=== PATIENT | female | born 1950 | race Caucasian/White ===

== ENCOUNTER 2016-10-18 10:00 | Inpatient (IN) | payer MEDICARE, MEDICAID ==
[~2016-10-18] VITALS: Ht 157.5 cm; Wt 83.0 kg
[2016-10-18] MEDS: Precose 50mg tab ORAL SCH ×3 (09:00→22:15)
[~2016-10-18 10:00] MED LIST: AMARYL4 MG ORAL; ATIVAN1 MG ORAL; BENADRYL50 MG PO; COUMADIN7.5 MG ORAL; COZAAR PO; DEPAKOTE ER500 MG PO; DSS PO; FUROSEMIDE20 M1 ORAL; GLUCOPHAGE500 MG ORAL; HALDOL5 MG GT; MAALOX PLUS PO; MOM30 ML PO; MULTIVITAMINS PO; POTASSIUM CHLO10 ME3 PO; PROTONIX40 MG ORAL; RESTORIL15 MG ORAL; SEROQUEL XR200 MG ORAL; TYLENOL PO; VITAMIN C500 M7 PO; [UNRECOGNIZED DRUG - REMARK] SQ
[2016-10-18] MEDS ORDERED: ACARBOSE50 MG ORAL (10:07)
[2016-10-18] MEDS ORDERED: COLACE100 MG ORAL (10:07)
[2016-10-18] MEDS ORDERED: FLEET ENEMA133 ML RECTAL (10:09)
[2016-10-18] MEDS ORDERED: DULCOLAX10 MG RC (10:09)
[2016-10-18] MEDS ORDERED: FERROUS SULFAT325 MG ORAL (10:09)
[2016-10-18] MEDS ORDERED: LEVEMIR FL100 UNIT/2 SQ (10:11)
[2016-10-18] MEDS ORDERED: Mylanta ORAL (10:12)
[2016-10-18] MEDS ORDERED: MULTIVITAMINS1 EAC8 ORAL (10:12)
[2016-10-18 10:13] VITALS: BP 123/93
[2016-10-18] MEDS ORDERED: ZYPREXA10 MG ORAL (10:14)
[2016-10-18] MEDS: Morphine Sulfate 4mg/ml Inj IVP ONE ×2 (10:30→11:58)
[2016-10-18 10:47] LABS: BASOPHILS % (AUTO) 0.4 % (0.0-2.0); EOSINOPHILS % (AUTO) 0.1 % (0.0-3.0); LYMPHOCYTES % (AUTO) 12.5 % (20.0-45.0); MEAN CORPUSCULAR HEMOGLOBIN 29.8 PG (27.0-31.0); MEAN CORPUSCULAR HGB CONC 32.2 G/DL (32.0-36.0); MEAN CORPUSCULAR VOLUME 92 FL (80-99); MONOCYTES % (AUTO) 5.9 % (1.0-10.0); NEUTROPHILS % (AUTO) 81.2 % (45.0-75.0); PLATELET COUNT 252 K/UL (150-450); RED CELL DISTRIBUTION WIDTH 14.1 % (11.6-14.8); WHITE BLOOD COUNT 12.1 K/UL (4.8-10.8)
[2016-10-18 10:56] LABS: ALANINE AMINOTRANSFERASE 14 U/L (3-33); ALBUMIN/GLOBULIN RATIO 1.1 (1.0-2.7); ANION GAP 14 (5-15); ASPARTATE AMINO TRANSFERASE 10 U/L (5-40); CALCIUM 9.8 mg/dL (8.6-10.2); CARBON DIOXIDE 32 mEQ/L (20-30); CHLORIDE 92 mEQ/L (98-107); CREATININE 0.8 mg/dL (0.5-0.9); GLOMERULAR FILTRATION RATE > 60 mL/min (>60); HEMOLYSIS 5; POTASSIUM 4.5 mEQ/L (3.4-4.9); SODIUM 138 mEQ/L (135-145); TOTAL PROTEIN 7.2 g/dL (6.6-8.7)
--- NOTE | 2016-10-18 12:10 | Diagnostic Imaging Report ---
Indication: Pelvic pain trauma Technique: Continuous helical transaxial imaging of the pelvis was obtained from the iliac crest to the pubic symphysis. Coronal 2-D reformats were also obtained. Study obtained in a Siemens sensation [address] Intravenous non-ionic contrast was administered. Total Dose length Product (DLP): [address] Dose Index Volume (CTDIvol): 22 mGy Comparison: None Findings: There is evidence of an acute fracture involving the proximal femoral shaft, incompletely visualized on this examination. The fracture is periprosthetic and seen adjacent to a intramedullary starla that extends the on the [id number] of this examination. There is an old fracture of the proximal femur with extensive hypertrophic bone noted. Intramedullary starla and left hip interlocking screws are noted proximally. There is no acute fracture of the pelvis identified. The bones are osteopenic. There is a moderate amount of fecal material demonstrated within the colon and rectum. The appendix is visualized and unremarkable. Atrophic uterus noted. Impression: Acute, partially visualized left periprosthetic femoral midshaft fracture. Recommend plain film evaluation of the left femur. Pelvis and both hips show no evidence of an acute injury. Generalized osteopenia. Old left proximal femur fracture. Intramedullary hardware noted. Moderate stool IVC filter
--- NOTE | 2016-10-18 12:10 | Diagnostic Imaging Report ---
Indication: Pain Findings: 2 views of the left femur were obtained. There is an acute periprosthetic fracture involving the midshaft of the femur. The fracture is a spiral type fracture that extends inferiorly and involves the weightbearing portion of the lateral femoral condyle. There is an old healed fracture of the proximal femoral shaft. This was reduced by a long intramedullary starla with proximal and distal interlocking screws. The proximal portion of the intramedullary starla appears fractured at the level of the hip. This is probably old but we do not have prior studies to confirm this. Impression: Acute spiral type fracture involving the mid and distal shaft of the left femur with intra-articular extension into the left knee joint. Findings discussed with Dr. Lim via telephone.
--- NOTE | 2016-10-18 12:10 | Diagnostic Imaging Report ---
Indication: Head trauma Technique: Contiguous 5 mm thick transaxial imaging of the head obtained in a Siemens Sensation [address] scanner. Soft tissue and bone windows generated. Total Dose length Product (DLP): [address] Dose Index Volume (CTDIvol): 70.38 mGy Comparison: none Findings: There is mild prominence of the ventricles, basal cisterns, and cerebral sulci consistent with atrophy. Mild, nonspecific, white matter hypoattenuation is noted throughout the brain consistent with chronic small vessel disease. There is no midline shift, edema, acute hemorrhage, mass effect, or abnormal extra-axial fluid collections. Bones and extra osseous soft tissues are unremarkable. Impression: No acute intracranial bleed, mass effect or edema. Mild atrophy of the brain. Nonspecific white matter hypoattenuation probably due to chronic small vessel disease. The CT scanner at [facility] is accredited by the [employer] and the scans are performed using protocols designed to limit radiation exposure to as low as reasonably achievable to attain images of sufficient resolution adequate for diagnostic evaluation.
[2016-10-18] MEDS ORDERED: Acetaminophen 500mg (ES) tab ORAL ONE (12:15)
[2016-10-18 12:17] LABS: INR 1.7 (0.9-1.1); PROTHROMBIN TIME 17.1 SEC (9.30-11.50)
--- NOTE | 2016-10-18 12:37 | Diagnostic Imaging Report ---
Indication: Pain Comparison: None Findings: 3 views of the left foot were obtained. No acute fractures, malalignment, erosions or periostitis are identified. Bone mineralization is diffusely low. There is an old fracture involving the head of the fifth metatarsal. Soft tissues are unremarkable. Impression: No acute findings
[2016-10-18 12:38] VITALS: BP 137/77
--- NOTE | 2016-10-18 12:38 | Diagnostic Imaging Report ---
Indication: Pain Comparison: None Findings: Two views of the left tibia and fibula were obtained. No acute fracture, malalignment, or periosteal reaction are identified. Bones are osteopenic. Soft tissues are unremarkable. Impression: No acute fracture identified of the tibia and fibula
[2016-10-18 12:42] LABS: APPEARANCE,URINE CLEAR; KETONES,URINE NEGATIVE (NEGATIVE); LEUKOCYTE ESTERASE ,URINE 1+ (NEGATIVE); NITRITE,URINE POSITIVE (NEGATIVE); PH,URINE 8 (4.5-8.0); PROTEIN,URINE NEGATIVE (NEGATIVE); UROBILINOGEN,URINE NORMAL MG/DL (0.0-1.0)
[2016-10-18 12:50] LABS: BACTERIA,URINE FEW /HPF; RBC,URINE 0-2 /HPF (0 - 2); SQUAMOUS EPITHELIAL CELL,UR FEW /LPF (NONE/OCC)
[2016-10-18] MEDS ORDERED: cefTRIAXone 1 GM in NS 55 ML IVPB ONE (13:15)
--- NOTE | 2016-10-18 13:59 | Emergency Room Report ---
History of Present Illness General Chief Complaint: Multiple Trauma/Fall Source: Patient, Medical Record Present Illness HPI 65-year-old female presents ED for evaluation. Per EMS patient had a mechanical fall at her assisted today. Patient states she fell out of her bed and landed on her left side. Denies hitting her head. However patient is poor historian and history of psych and dementia. Patient states she is having pain in her left hip radiating down her left leg. Pain is throbbing, 10 out of 10, nonradiating. No other aggravating or relieving factors. Patient is non- mobile and uses a wheelchair at baseline. Denies any other associated symptoms Allergies: Coded Allergies: LITHIUM (Unverified Allergy, Unknown, 12/31/12) Uncoded Allergies: LITHIUM (Allergy, Unknown, 10/18/16) Patient History Past Medical History: DM, HTN, dementia, psych hx Past Surgical History: none Pertinent Family History: none Social History: Denies: alcohol use, drug use, smoking Now: No Immunizations: UTD Reviewed Nursing Documentation: PMH: Agreed, PSxH: Agreed Nursing Documentation-PMH Past Medical History: No History, Except For Hx Hypertension: Yes Hx Diabetes: Yes History Of Psychiatric Problem: Yes - schizophrenia, anxiety, bipolar, depression Hx Neurological Problems: Yes - dementia Review of Systems All Other Systems: negative except mentioned in HPI Physical Exam Vital Signs Date Time Temp Pulse Resp B/P Pulse Ox O2 Delivery O2 Flow Rate FiO2 10/18/16 10:00 97.3 98 18 114/71 94 Room Air Sp02 EP Interpretation: reviewed, normal General Appearance: no apparent distress, alert, GCS 15, non-toxic, obese Head: normocephalic Eyes: bilateral eye PERRL, bilateral eye normal inspection ENT: normal ENT inspection Neck: normal inspection Respiratory: chest non-tender, lungs clear, normal breath sounds, speaking full sentences Cardiovascular #1: regular rate, rhythm, no edema Gastrointestinal: normal inspection Rectal: deferred Genitourinary: no CVA tenderness Musculoskeletal: tender - TTP to L pelvis. L femur pain/swelling Neurologic: alert, oriented x3, responsive, motor strength/tone normal, sensory intact, speech normal Psychiatric: normal inspection Skin: normal inspection Lymphatic: normal inspection Procedures Splinting Splinting : Consent: Verbal Hand-Made Type: plaster Splint: posterior long Pre-Proc Neuro Vasc Exam: normal Post-Proc Neuro Vasc Exam: normal Patient Tolerated: Well Complications: None Medical Decision Making Diagnostic Impression: Primary Impression: Femur fracture, left Qualified Codes: S72.345A - Nondisplaced spiral fracture of shaft of left femur, initial encounter for closed fracture Additional Impressions: UTI (urinary tract infection) Qualified Codes: N39.0 - Urinary tract infection, site not specified Hyperglycemia ER Course Hospital Course 65-year-old female presents to ED with left leg pain status post fall Differential diagnoses include: fracture, dislocation, contusion Clinical course Patient placed on stretcher. After initial history and physical I ordered labs , pain medications and imaging Labs reviewed-mild leukocytosis noted, glucose 300 no DKA, hemoglobin/ hematocrit okay, UA + bacteria Imaging shows spiral fracture involving midshaft of fever surrounding the intramedullary starla. Intra-articular extension towards the knee CT head unremarkable, x-ray of tib fib and foot unremarkable Antibiotics given Patient placed in posterior long splint. Patient will be admitted to Dr Kelli castillo. I feel this is a highly complex case requiring extensive working including EKG/Rhythm strip, Xray/CT/US, Blood/urine lab work, repeat exams while in ED, and administration of strong opiates/narcotics for pain control, admission to hospital or close patient follow up. Diagnosis - L femur fx, UTI, hyperglycemia Admitted to floor in serious condition Labs Test 10/18/16 10:27 10/18/16 10:48 10/18/16 12:20 White Blood Count 12.1 K/UL (4.8-10.8) Red Blood Count 4.60 M/UL (4.20-5.40) Hemoglobin 13.7 G/DL (12.0-16.0) Hematocrit 42.6 % (37.0-47.0) Mean Corpuscular Volume 92 FL (80-99) Mean Corpuscular Hemoglobin 29.8 PG (27.0-31.0) Mean Corpuscular Hemoglobin Concent 32.2 G/DL (32.0-36.0) Red Cell Distribution Width 14.1 % (11.6-14.8) Platelet Count 252 K/UL (150-450) Mean Platelet Volume 7.0 FL (6.5-10.1) Neutrophils (%) (Auto) 81.2 % (45.0-75.0) Lymphocytes (%) (Auto) 12.5 % (20.0-45.0) Monocytes (%) (Auto) 5.9 % (1.0-10.0) Eosinophils (%) (Auto) 0.1 % (0.0-3.0) Basophils (%) (Auto) 0.4 % (0.0-2.0) Sodium Level 138 mEQ/L (135-145) Potassium Level 4.5 mEQ/L (3.4-4.9) Chloride Level 92 mEQ/L (98-107) Carbon Dioxide Level 32 mEQ/L (20-30) Anion Gap 14 (5-15) Blood Urea Nitrogen 15 mg/dL (7-23) Creatinine 0.8 mg/dL (0.5-0.9) Estimat Glomerular Filtration Rate > 60 mL/min (>60) Glucose Level 320 mg/dL (74-106) Calcium Level 9.8 mg/dL (8.6-10.2) Total Bilirubin 0.3 mg/dL (0.0-1.2) Aspartate Amino Transf (AST/SGOT) 10 U/L (5-40) Alanine Aminotransferase (ALT/SGPT) 14 U/L (3-33) Alkaline Phosphatase 77 U/L (35-104) Total Protein 7.2 g/dL (6.6-8.7) Albumin 3.9 g/dL (3.5-5.2) Globulin 3.3 g/dL Albumin/Globulin Ratio 1.1 (1.0-2.7) Prothrombin Time 17.1 SEC (9.30-11.50) Prothromb Time International Ratio 1.7 (0.9-1.1) Activated Partial Thromboplast Time 33 SEC (23-33) Urine Color Pale yellow Urine Appearance Clear Urine pH 8 (4.5-8.0) Urine Specific [place] 1.010 (1.005-1.035) Urine Protein Negative (NEGATIVE) Urine Glucose (UA) 3+ (NEGATIVE) Urine Ketones Negative (NEGATIVE) Urine Occult Blood Negative (NEGATIVE) Urine Nitrite Positive (NEGATIVE) Urine Bilirubin Negative (NEGATIVE) Urine Urobilinogen Normal MG/DL (0.0-1.0) Urine Leukocyte Esterase 1+ (NEGATIVE) Urine RBC 0-2 /HPF (0 - 2) Urine WBC 2-4 /HPF (0 - 2) Urine Squamous Epithelial Cells Few /LPF (NONE/OCC) Urine Bacteria Few /HPF (NONE) Other X-Ray Diagnostic Results Other X-Ray Diagnostic Results : X-Ray Ordered: L tibfib, L femur, L foot EP Interpretation: No Findings: other Number of Views: 3 Other Impression Left tib-fib-No fracture, no dislocation, no soft tissue swelling Left femur- acute periProsthetic fracture involving the mid shaft, spiral with intra-articular extension towards the knee Left foot-normal x-ray CT/MRI/US Diagnostic Results CT/MRI/US Diagnostic Results : Imaging Test Ordered: CT head, CT pelvis Impression CT head-no acute process CT pelvis-no hip fracture, possible fracture involving midshaft of fever, no dislocation Last Vital Signs Date Time Temp Pulse Resp B/P Pulse Ox O2 Delivery O2 Flow Rate FiO2 10/18/16 12:38 97 20 137/77 100 Room Air 10/18/16 10:13 98.0 Status: improved Disposition: ADMITTED INPATIENT Condition: Serious Referrals: Reuben Pereira MD (PCP) ADIA HARO M.D. Oct 18, 2016 13:59
[2016-10-18 14:10] VITALS: BP 114/81
[2016-10-18 15:59] VITALS: BP 115/73
--- NOTE | 2016-10-18 16:36 | Infectious Diseases Prog Note ---
Assessment/Plan Problems: (1) UTI (urinary tract infection) Assessment & Plan: will start ceftriaxon empirically and send urine culture (2) Diabetes mellitus Assessment & Plan: recommend tight glycemic control to keep blood glucose between 80-120 (3) HTN (hypertension) Assessment & Plan: continue meds, keep systolic less than 140 (4) Dementia Assessment & Plan: continue supportive care, and psych meds (5) Femur fracture, left Assessment & Plan: consult ortho, continue pain management as per primary Subjective Allergies: Coded Allergies: LITHIUM (Unverified Allergy, Unknown, 12/31/12) Uncoded Allergies: LITHIUM (Allergy, Unknown, 10/18/16) Objective Vital Signs Last 24 Hour Vital Signs Date Time Temp Pulse Resp B/P Pulse Ox O2 Delivery O2 Flow Rate FiO2 10/18/16 15:59 96.6 95 19 115/73 93 Room Air 10/18/16 14:10 98.0 97 23 114/81 100 Room Air 10/18/16 14:10 97 23 114/81 100 Room Air 10/18/16 13:20 98.0 10/18/16 12:38 97 20 137/77 100 Room Air 10/18/16 10:13 98.0 96 18 123/93 95 Room Air 10/18/16 10:13 96 18 Room Air 10/18/16 10:00 97.3 98 18 114/71 94 Room Air Height (Feet): 5 Height (Inches): 4.00 Weight (Pounds): 150 Laboratory Tests Test 10/18/16 10:27 10/18/16 10:48 10/18/16 12:20 White Blood Count 12.1 K/UL (4.8-10.8) H Red Blood Count 4.60 M/UL (4.20-5.40) Hemoglobin 13.7 G/DL (12.0-16.0) Hematocrit 42.6 % (37.0-47.0) Mean Corpuscular Volume 92 FL (80-99) Mean Corpuscular Hemoglobin 29.8 PG (27.0-31.0) Mean Corpuscular Hemoglobin Concent 32.2 G/DL (32.0-36.0) Red Cell Distribution Width 14.1 % (11.6-14.8) Platelet Count 252 K/UL (150-450) Mean Platelet Volume 7.0 FL (6.5-10.1) Neutrophils (%) (Auto) 81.2 % (45.0-75.0) H Lymphocytes (%) (Auto) 12.5 % (20.0-45.0) L Monocytes (%) (Auto) 5.9 % (1.0-10.0) Eosinophils (%) (Auto) 0.1 % (0.0-3.0) Basophils (%) (Auto) 0.4 % (0.0-2.0) Sodium Level 138 mEQ/L (135-145) Potassium Level 4.5 mEQ/L (3.4-4.9) Chloride Level 92 mEQ/L (98-107) L Carbon Dioxide Level 32 mEQ/L (20-30) H Anion Gap 14 (5-15) Blood Urea Nitrogen 15 mg/dL (7-23) Creatinine 0.8 mg/dL (0.5-0.9) Estimat Glomerular Filtration Rate > 60 mL/min (>60) Glucose Level 320 mg/dL (74-106) H Calcium Level 9.8 mg/dL (8.6-10.2) Total Bilirubin 0.3 mg/dL (0.0-1.2) Aspartate Amino Transf (AST/SGOT) 10 U/L (5-40) Alanine Aminotransferase (ALT/SGPT) 14 U/L (3-33) Alkaline Phosphatase 77 U/L (35-104) Total Protein 7.2 g/dL (6.6-8.7) Albumin 3.9 g/dL (3.5-5.2) Globulin 3.3 g/dL Albumin/Globulin Ratio 1.1 (1.0-2.7) Prothrombin Time 17.1 SEC (9.30-11.50) H Prothromb Time International Ratio 1.7 (0.9-1.1) H Activated Partial Thromboplast Time 33 SEC (23-33) Urine Color Pale yellow Urine Appearance Clear Urine pH 8 (4.5-8.0) Urine Specific [place] 1.010 (1.005-1.035) Urine Protein Negative (NEGATIVE) Urine Glucose (UA) 3+ (NEGATIVE) H Urine Ketones Negative (NEGATIVE) Urine Occult Blood Negative (NEGATIVE) Urine Nitrite Positive (NEGATIVE) H Urine Bilirubin Negative (NEGATIVE) Urine Urobilinogen Normal MG/DL (0.0-1.0) Urine Leukocyte Esterase 1+ (NEGATIVE) H Urine RBC 0-2 /HPF (0 - 2) Urine WBC 2-4 /HPF (0 - 2) Urine Squamous Epithelial Cells Few /LPF (NONE/OCC) Urine Bacteria Few /HPF (NONE) Jose Mg M.D. Oct 18, 2016 16:36
[2016-10-18] MEDS ORDERED: NovoLOG Insulin Flexpen SUBQ SCH ×2 (16:50→21:00)
[2016-10-18] MEDS ORDERED: Morphine Sulfate 4mg/ml Inj IVP PRN (17:00)
[2016-10-18] MEDS: Morphine Sulfate 4mg/ml Inj IVP PRN (17:40)
[2016-10-18] MEDS ORDERED: Fleet's Enema 133ml RECTAL PRN (18:00)
[2016-10-18] MEDS: NovoLOG Insulin Flexpen SUBQ SCH ×2 (18:56→22:09)
[2016-10-18] MEDS ORDERED: Depakote 500mg tab ORAL SCH (20:00)
[2016-10-18 20:21] VITALS: BP 120/70
[2016-10-18] MEDS ORDERED: LORazepam 1mg tab ORAL SCH (21:00)
--- NOTE | 2016-10-18 21:00 | Consultation ---
DATE OF CONSULTATION: INFECTIOUS DISEASE CONSULTATION CONSULTING PHYSICIAN: Jose Mg M.D. REQUESTING PHYSICIAN: Reuben Pereira M.D. REASON FOR CONSULTATION: Urinary tract infection with leukocytosis. Recommendation for antibiotics therapy. HISTORY OF PRESENT ILLNESS: The patient is a 65-year-old female with past medical history of dementia, psych disorder, hypertension, and diabetes, who was sent to [facility] emergency room after she had a mechanical fall at the [facility]. The patient fell out of bed and landed on her left side. There was no head trauma or impact. The patient developed the pain in her left hip and thigh after her fall and radiates all the way down to her left leg. Her pain is 10/10, dull ache, deep, gets worse with movement or standing, and gets better with pain medication. The patient is nonmobile at the baseline and she uses wheelchair. In the emergency room, she was afebrile and saturating well on room air. X-ray of the left thigh showed spiral fracture in the left femur midshaft extending all the way to the left knee joint. Her urinalysis showed evidence of urinary tract infection. So, I was called consulted by the primary provider for antibiotics recommendation and management of her urinary tract infection and leukocytosis. As of note, the patient is a poor historian and cannot provide any history. History was mainly obtained from the medical record. PAST MEDICAL HISTORY: Significant for diabetes, hypertension, dementia, and psych disorder. PAST SURGICAL HISTORY: She had left femur fracture status post open reduction and internal fixation. MEDICATIONS: She received ceftriaxone in the emergency room. For the rest of her medications, please refer to [facility]. ALLERGIES: She is allergic to lithium. SOCIAL HISTORY: She lives at [facility]. Denied using any drugs, tobacco, or alcohol. FAMILY HISTORY: Unable to obtain. REVIEW OF SYSTEMS: Unable to obtain. The patient is a poor historian. PHYSICAL EXAMINATION: VITAL SIGNS: Temperature 96.6 degrees, pulse 95, respirations 19, blood pressure 115/73, and pulse oximetry 93% on room air. GENERAL: This is a middle-aged female, demented, laying in bed, alert, not in distress, and nonverbal. HEENT: Normocephalic and atraumatic. Pupils reactive to light equally. Moist oral mucosa. No exudate or thrush. NECK: Supple. No lymphadenopathy. CARDIOVASCULAR: Regular rate and rhythm. S1 and S2 positive. No murmur. LUNGS: Clear bilaterally. Normal breathing sounds. No wheezing or rhonchi. ABDOMEN: Soft, nontender, and nondistended. Positive bowel sounds. No hepatosplenomegaly. No ascites. EXTREMITIES: No edema or cyanosis. Bruises on the left leg. LABORATORY DATA: White count 12.1, hemoglobin 13.7, and platelet count of 252,000. BUN of 15 and creatinine of 0.8. AST of 10 and ALT of 14. Urinalysis showed positive nitrate, +1 leukocyte esterase, and few bacteria. IMAGING: Left femur x-ray showed acute spiral type fracture involving the mid and distal shaft of the left femur with intraarticular extension into the left knee joint. Left foot x-ray was negative for any fracture or dislocation. Head CT scan showed brain atrophy, but no acute bleeding or pathology. Pelvis CT scan was negative for any fracture in the pelvis, but showed left femur fracture with hardware. Tibia and fibula x-ray of the left leg was negative for any fracture. ASSESSMENT AND PLAN: 1. Urinary tract infection. We will start the patient on ceftriaxone and send urine culture. 2. Leukocytosis, rule out sepsis. We will send blood culture and start ceftriaxone. 3. Diabetes. Recommend tight glycemic control to keep blood glucose between 80 to 120. 4. Hypertension. Continue oral medications. Keep systolic less than 140. 5. Dementia. Continue supportive care and psych medicine. 6. Left femur fracture. Consult ortho. Continue pain management as per the primary. Jose Mg M.D. DR: DERRICK JOB#: [id number] CC:
[2016-10-18] MEDS: Milk of Magnesia 30ml Ud ORAL SCH (22:00)
[2016-10-18] MEDS: metFORMIN 500mg tab ORAL SCH (22:00)
[2016-10-18] MEDS: Levemir Flexpen SUBQ SCH (22:07)
[2016-10-19] VITALS: BP 132/76
[2016-10-19] MEDS ORDERED: Influenza Virus Vaccine 0.5ml IM ONE
[2016-10-19] MEDS ORDERED: Pneumococcal Vaccine 25mcg/0.5ml IM ONE
[2016-10-19] MEDS: Morphine Sulfate 4mg/ml Inj IVP PRN ×3 (01:15→12:12)
[2016-10-19 04:00] VITALS: BP 123/76
[2016-10-19] MEDS: NovoLOG Insulin Flexpen SUBQ SCH ×4 (06:11→21:34)
[2016-10-19 06:29] LABS: BASOPHILS % (AUTO) 1.1 % (0.0-2.0); EOSINOPHILS % (AUTO) 0.3 % (0.0-3.0); LYMPHOCYTES % (AUTO) 32.2 % (20.0-45.0); MEAN CORPUSCULAR HEMOGLOBIN 30.4 PG (27.0-31.0); MEAN CORPUSCULAR HGB CONC 32.7 G/DL (32.0-36.0); MEAN CORPUSCULAR VOLUME 93 FL (80-99); MEAN PLATELET VOLUME 6.8 FL (6.5-10.1); MONOCYTES % (AUTO) 9.1 % (1.0-10.0); NEUTROPHILS % (AUTO) 57.3 % (45.0-75.0); PLATELET COUNT 233 K/UL (150-450); RED BLOOD COUNT 4.27 M/UL (4.20-5.40); RED CELL DISTRIBUTION WIDTH 14.1 % (11.6-14.8); WHITE BLOOD COUNT 10.2 K/UL (4.8-10.8)
[2016-10-19] MEDS ORDERED: Glimepiride 4mg tab ORAL SCH (06:30)
[2016-10-19 06:56] LABS: ALANINE AMINOTRANSFERASE 12 U/L (3-33); ALBUMIN/GLOBULIN RATIO 1.1 (1.0-2.7); ANION GAP 13 (5-15); ASPARTATE AMINO TRANSFERASE 8 U/L (5-40); CALCIUM 9.1 mg/dL (8.6-10.2); CARBON DIOXIDE 32 mEQ/L (20-30); CHLORIDE 100 mEQ/L (98-107); CREATININE 0.8 mg/dL (0.5-0.9); GLOMERULAR FILTRATION RATE > 60 mL/min (>60); HEMOLYSIS 5; POTASSIUM 4.3 mEQ/L (3.4-4.9); SODIUM 145 mEQ/L (135-145); TOTAL PROTEIN 7.2 g/dL (6.6-8.7)
[2016-10-19 08:21] VITALS: BP 118/70
[2016-10-19] MEDS: metFORMIN 500mg tab ORAL SCH ×2 (08:30→17:47)
[2016-10-19] MEDS: Docusate 100mg cap ORAL SCH (08:30)
[2016-10-19] MEDS: Multivitamin w/Minerals tab ORAL SCH (08:31)
[2016-10-19] MEDS: Precose 50mg tab ORAL SCH ×3 (08:31→17:47)
--- NOTE | 2016-10-19 08:50 | History and Physical Report ---
DATE OF ADMISSION: 10/18/2016 NOTE: VERY POOR INAUDIBLE AUDIO QUALITY HISTORY OF PRESENT ILLNESS: The patient is admitted for left femur fracture status post longterm. The patient has hypertension with a very poor quality of life, wheelchair bound, schizophrenic, paranoid, screams all the time, very poor social support and very poor historian. Does have dementia and paranoid schizophrenia. Again, the patient is wheelchair bound. Reason for admission is acute spinal fracture involving the mid and distal shaft of the left femur with intraarticular extension into the left knee joint. The patient also has elevated blood sugar. The patient complains of pain where the fracture is. Otherwise, she is a very poor historian and unreliable historian. PAST MEDICAL HISTORY: Dementia, mood disorder, schizophrenia, NIDDM, history of DVT, history of CAD, , iron deficiency anemia, lymphedema, electrolyte imbalance, and hypertension. PAST SURGICAL HISTORY: ORIF. MEDICATIONS: Vitamin C, , Benadryl, Depakote, Colace, ferrous sulfate, Lasix, Amaryl, Haldol, Levemir, lorazepam, metformin, multivitamin, Zyprexa, Protonix, calcium, temazepam, and warfarin. ALLERGIES: [place]. SOCIAL HISTORY: Denies alcohol or drugs. Lives at a longterm. FAMILY HISTORY: Unable to obtain. REVIEW OF SYSTEMS: Unable to obtain. The patient has pain at the fracture. very poor historian. PHYSICAL EXAMINATION: VITAL SIGNS: Temperature is 97.3 degrees, pulse is 98, and blood pressure 114/71. HEENT: PERRLA. NECK: Supple. No lymphadenopathy. CHEST: Clear to auscultation. CARDIOVASCULAR: Regular rate and rhythm. GASTROINTESTINAL: Soft and distended. Positive bowel sounds. No organomegaly. EXTREMITIES: There is 1+ edema. NEUROLOGIC: Reflexes are equal on both sides. Decreased range of motion in the left hip due to pain, otherwise which is her baseline. LABORATORY AND DIAGNOSTIC DATA: White blood cells of 12, hemoglobin of 13.7 and platelets 252,000. Sodium 138, potassium 4.5, BUN of 15, creatinine 0.8 and glucose of 320. ASSESSMENT AND PLAN: Acute spinal fracture involving the mid and distal shaft of the left femur with intraarticular extension into the left knee joint. . I have also consulted Dr. Kim, Dr. Stover, Dr. Mg, and Dr. Hennessy for her psychiatric, leukocytosis as well as elevated labile blood sugar and then dehydration. assessment of the acute fracture. Reuben Pereira M.D. DR: ERNESTO JOB#: [id number] CC:
--- NOTE | 2016-10-19 08:50 | Consultation ---
DATE OF CONSULTATION: 10/18/2016 HEMATOLOGY/ONCOLOGY CONSULTATION CONSULTING PHYSICIAN: Jorge Rivera M.D. REQUESTING PHYSICIAN: Reuben Pereira M.D. REASON FOR CONSULTATION: Evaluation of DVT, status post IVC filter placement, as well as coagulopathy. IDENTIFICATION DATA: Dear Dr. Reuben Pereira, The patient is a pleasant 65-year-old female with a past medical history significant for DVT, status post IVC filter placement, dementia, psychiatric history, schizophrenia, hypertension, and diabetes mellitus, at this time is status post mechanical fall in the [place] [facility]. She fell out of the bed and landing on her left side. Denies hitting her head. Otherwise, history of psych and dementia. She states she has been having pain on the left side. She has been compliant with her medication of Coumadin. She has a history of DVT, unknown which side, and Hematology Service was consulted for further evaluation and treatment. PAST MEDICAL HISTORY: Hypertension, dementia, psychiatric history of schizophrenia, and diabetes mellitus. PAST SURGICAL HISTORY: None noted. ALLERGIES: To lithium. SOCIAL HISTORY: No alcohol, tobacco, or illicit drug use. REVIEW OF SYSTEMS: Constitutional: No fever, chills, or night sweats. Skin: No rashes, lumps, or itching. HEENT: No headache, hearing or vision changes. Breasts: No lumps, pain, or discharge. Pulmonary: No cough, sputum, or shortness of breath. Cardiovascular: No chest pain, tightness, or palpitations. Gastrointestinal: No nausea, vomiting, or diarrhea. Genitourinary: No dysuria, frequency, or urgency. Musculoskeletal: No joint swelling or muscle pain. The patient has had a recent trauma to her left side sustaining a fracture. PHYSICAL EXAMINATION: GENERAL: The patient is in no acute distress. VITAL SIGNS: Temperature 98 degrees Fahrenheit, pulse is 97, respiratory rate 12, blood pressure 114/81, and pulse oximetry 100% on room air. PULMONARY: Decreased breath sounds bilaterally. CARDIOVASCULAR: Regular rate. No S3 or S4. ABDOMEN: Soft, nontender, and nondistended. EXTREMITIES: A 1+ edema. LABORATORY DATA: WBC 12.1, hemoglobin 13.7, hematocrit 43, and platelet count 283,000. BUN of 15 and creatinine 0.8. INR of 1.7. Urine reviewed, positive for nitrites, 2+ glucose. ASSESSMENT: 1. Coagulopathy secondary to use of Coumadin. The patient has been compliant. INR has been between 2 and 3. Currently, INR is 1.7. 2. Deep venous thrombosis of the lower extremity, status post inferior vena cava filter placement in the past, currently on Coumadin without evidence of bleed. 3. Leukocytosis secondary to recent trauma. 4. Acute left periprosthetic mid shaft fracture of the left femur. 5. Hypertension. 6. Schizophrenia. 7. Status post inferior vena cava filter. 8. Hyperlipidemia. RECOMMENDATION: 1. Monitor counts. 2. Continue Coumadin. 3. Maintain INR between 2 and 3. 4. Follow up with Orthopedic. 5. The patient currently . 6. Imaging of the lower extremities to be performed with duplex. 7. Ultrasound of the abdomen to be performed. 8. The patient may need vitamin K prior to any procedure. 9. Imaging and labs have been reviewed. 10. DVT prophylaxis, continue Coumadin. 11. GI prophylaxis. 12. Discussed with staff. Thank you, Dr. Reuben Pereira, for this kind referral. Please do not hesitate to contact me with any further questions. Jorge Rivera M.D. DR: TIFFANIE JOB#: [id number] CC:
--- NOTE | 2016-10-19 09:31 | General Progress Note ---
Assessment/Plan Assessment/Plan ASSESSMENT: 1. Deep venous thrombosis of the lower extremity, status post inferior vena cava filter placement in the past, currently on Coumadin 2. Coagulopathy secondary to use of Coumadin. The patient has been compliant. INR has been between 2 and 3. 3. Leukocytosis secondary to recent trauma. 4. Acute left periprosthetic mid shaft fracture of the left femur. 5. Hypertension. 6. Schizophrenia. 7. Status post inferior vena cava filter. 8. Hyperlipidemia. RECOMMENDATION: 1. Monitor counts. 2. Continue Coumadin. 3. Maintain INR between 2 - 3. 4. Follow up with Orthopedic recs 6. Imaging of the lower extremities to be performed with duplex. 7. CT scan of abd to be performed 8. The patient may need vitamin K prior to any procedure. 9. Imaging and labs have been reviewed. 10. DVT prophylaxis, continue Coumadin. 11. GI prophylaxis as required 12. Discussed with staff. Thank you, Jorge Rivera MD Subjective Constitutional: Reports: no symptoms HEENT: Reports: no symptoms Cardiovascular: Reports: no symptoms Respiratory: Reports: no symptoms Gastrointestinal/Abdominal: Reports: abdomen distended Genitourinary: Reports: no symptoms Neurologic/Psychiatric: Reports: no symptoms Endocrine: Reports: no symptoms Hematologic/Lymphatic: Reports: anemia Allergies: Coded Allergies: LITHIUM (Unverified Allergy, Unknown, 12/31/12) Subjective stable, no events overnight, no fevers or chills Objective Last 24 Hour Vital Signs Date Time Temp Pulse Resp B/P Pulse Ox O2 Delivery O2 Flow Rate FiO2 10/19/16 08:21 98.0 104 22 118/70 96 Room Air 10/19/16 04:00 98.4 109 20 123/76 90 Room Air 10/19/16 00:00 99.0 110 20 132/76 92 Room Air 10/18/16 20:21 98.1 90 18 120/70 94 Room Air 10/18/16 18:10 98.1 10/18/16 15:59 96.6 95 19 115/73 93 Room Air 10/18/16 14:10 98.0 97 23 114/81 100 Room Air 10/18/16 14:10 97 23 114/81 100 Room Air 10/18/16 13:20 98.0 10/18/16 12:38 97 20 137/77 100 Room Air 10/18/16 10:13 98.0 96 18 123/93 95 Room Air 10/18/16 10:13 96 18 Room Air 10/18/16 10:00 97.3 98 18 114/71 94 Room Air Intake and Output 10/18/16 10/19/16 19:00 07:00 Intake Total 55 ml 240 ml Output Total 1775 ml Balance 55 ml -1535 ml Intake Oral 240 ml IV Total 55 ml Output Urine Total 1775 ml Laboratory Tests 10/18/16 10:27: White Blood Count 12.1H, Red Blood Count 4.60, Hemoglobin 13.7, Hematocrit 42.6 , Mean Corpuscular Volume 92, Mean Corpuscular Hemoglobin 29.8, Mean Corpuscular Hemoglobin Concent 32.2, Red Cell Distribution Width 14.1, Platelet Count 252, Mean Platelet Volume 7.0, Neutrophils (%) (Auto) 81.2H, Lymphocytes ( %) (Auto) 12.5L, Monocytes (%) (Auto) 5.9, Eosinophils (%) (Auto) 0.1, Basophils (%) (Auto) 0.4, Sodium Level 138, Potassium Level 4.5, Chloride Level 92L, Carbon Dioxide Level 32H, Anion Gap 14, Blood Urea Nitrogen 15, Creatinine 0.8, Estimat Glomerular Filtration Rate > 60, Glucose Level 320H, Calcium Level 9.8, Total Bilirubin 0.3, Aspartate Amino Transf (AST/SGOT) 10, Alanine Aminotransferase (ALT/SGPT) 14, Alkaline Phosphatase 77, Total Protein 7.2, Albumin 3.9, Globulin 3.3, Albumin/Globulin Ratio 1.1 10/18/16 10:48: Prothrombin Time 17.1H, Prothromb Time International Ratio 1.7H, Activated Partial Thromboplast Time 33 10/18/16 12:20: Urine Color Pale yellow, Urine Appearance Clear, Urine pH 8, Urine Specific [place] 1.010, Urine Protein Negative, Urine Glucose (UA) 3+H, Urine Ketones Negative, Urine Occult Blood Negative, Urine Nitrite PositiveH, Urine Bilirubin Negative, Urine Urobilinogen Normal, Urine Leukocyte Esterase 1+H, Urine RBC 0-2 , Urine WBC 2-4, Urine Squamous Epithelial Cells Few, Urine Bacteria Few 10/19/16 05:10: White Blood Count 10.2, Red Blood Count 4.27, Hemoglobin 13.0, Hematocrit 39.7, Mean Corpuscular Volume 93, Mean Corpuscular Hemoglobin 30.4, Mean Corpuscular Hemoglobin Concent 32.7, Red Cell Distribution Width 14.1, Platelet Count 233, Mean Platelet Volume 6.8, Neutrophils (%) (Auto) 57.3, Lymphocytes (%) (Auto) 32.2, Monocytes (%) (Auto) 9.1, Eosinophils (%) (Auto) 0.3, Basophils (%) (Auto ) 1.1, Sodium Level 145, Potassium Level 4.3, Chloride Level 100, Carbon Dioxide Level 32H, Anion Gap 13, Blood Urea Nitrogen 19, Creatinine 0.8, Estimat Glomerular Filtration Rate > 60, Glucose Level 199#H, Calcium Level 9.1 , Total Bilirubin 0.4, Aspartate Amino Transf (AST/SGOT) 8, Alanine Aminotransferase (ALT/SGPT) 12, Alkaline Phosphatase 71, Total Protein 7.2, Albumin 3.9, Globulin 3.3, Albumin/Globulin Ratio 1.1 Height (Feet): 5 Height (Inches): 2.00 Weight (Pounds): 183 General Appearance: alert EENT: TMs normal Neck: supple Cardiovascular: regular rhythm Respiratory/Chest: normal breath sounds Abdomen: soft Extremities: non-tender Edema: 1+ Leg (L), 1+ Leg (R) Edema: mild edema Neurologic: alert Skin: warm/dry Jorge Rivera Oct 19, 2016 09:31
--- NOTE | 2016-10-19 11:59 | General Progress Note ---
Subjective Allergies: Coded Allergies: LITHIUM (Unverified Allergy, Unknown, 12/31/12) Subjective pain at fracture site in thigh othropedic consult w dr garrido afebrile vitals stable labile and uncontrolled bg Objective Last 24 Hour Vital Signs Date Time Temp Pulse Resp B/P Pulse Ox O2 Delivery O2 Flow Rate FiO2 10/19/16 08:21 98.0 104 22 118/70 96 Room Air 10/19/16 04:00 98.4 109 20 123/76 90 Room Air 10/19/16 00:00 99.0 110 20 132/76 92 Room Air 10/18/16 20:21 98.1 90 18 120/70 94 Room Air 10/18/16 18:10 98.1 10/18/16 15:59 96.6 95 19 115/73 93 Room Air 10/18/16 14:10 98.0 97 23 114/81 100 Room Air 10/18/16 14:10 97 23 114/81 100 Room Air 10/18/16 13:20 98.0 10/18/16 12:38 97 20 137/77 100 Room Air Intake and Output 10/18/16 10/19/16 19:00 07:00 Intake Total 55 ml 240 ml Output Total 1775 ml Balance 55 ml -1535 ml Intake Oral 240 ml IV Total 55 ml Output Urine Total 1775 ml Laboratory Tests 10/18/16 12:20: Urine Color Pale yellow, Urine Appearance Clear, Urine pH 8, Urine Specific [place] 1.010, Urine Protein Negative, Urine Glucose (UA) 3+H, Urine Ketones Negative, Urine Occult Blood Negative, Urine Nitrite PositiveH, Urine Bilirubin Negative, Urine Urobilinogen Normal, Urine Leukocyte Esterase 1+H, Urine RBC 0-2 , Urine WBC 2-4, Urine Squamous Epithelial Cells Few, Urine Bacteria Few 10/19/16 05:10: White Blood Count 10.2, Red Blood Count 4.27, Hemoglobin 13.0, Hematocrit 39.7, Mean Corpuscular Volume 93, Mean Corpuscular Hemoglobin 30.4, Mean Corpuscular Hemoglobin Concent 32.7, Red Cell Distribution Width 14.1, Platelet Count 233, Mean Platelet Volume 6.8, Neutrophils (%) (Auto) 57.3, Lymphocytes (%) (Auto) 32.2, Monocytes (%) (Auto) 9.1, Eosinophils (%) (Auto) 0.3, Basophils (%) (Auto ) 1.1, Sodium Level 145, Potassium Level 4.3, Chloride Level 100, Carbon Dioxide Level 32H, Anion Gap 13, Blood Urea Nitrogen 19, Creatinine 0.8, Estimat Glomerular Filtration Rate > 60, Glucose Level 199#H, Calcium Level 9.1 , Total Bilirubin 0.4, Aspartate Amino Transf (AST/SGOT) 8, Alanine Aminotransferase (ALT/SGPT) 12, Alkaline Phosphatase 71, Total Protein 7.2, Albumin 3.9, Globulin 3.3, Albumin/Globulin Ratio 1.1 Height (Feet): 5 Height (Inches): 2.00 Weight (Pounds): 183 Reuben Pereira MD Oct 19, 2016 11:59
[2016-10-19 12:52] VITALS: BP 121/72
--- NOTE | 2016-10-19 14:08 | Consultation ---
DATE OF CONSULTATION: 10/19/2016 ENDOCRINOLOGY CONSULTATION CONSULTING PHYSICIAN: Elijah Carbajal M.D. REFERRING PHYSICIAN: Reuben Pereira M.D. REASON FOR CONSULTATION: Diabetes management. HISTORY OF PRESENT ILLNESS: The patient is a 65-year-old female resident of a halfway facility, with hx of diabetes who had a mechanical fall and was brought to the emergency room and was diagnosed with spiral fracture of the femur. Orthopedic surgeon was consulted. The patient also had urinary tract infection and on an antibiotic. PAST MEDICAL HISTORY: 1. Diabetes. 2. Hypertension. 3. Dementia. 4. Psychiatric illness. PAST SURGICAL HISTORY: Includes left femur fracture, status post ORIF. MEDICATIONS: Medications reviewed and reconciled. ALLERGIES TO MEDICATIONS: [place]. SOCIAL HISTORY: snf facility resident. No smoking, alcohol, or drug use. FAMILY HISTORY: Not obtainable. REVIEW OF SYSTEMS: Unobtainable. PHYSICAL EXAMINATION: VITAL SIGNS: Blood pressure is 115/73, pulse of 95, temperature of 98.0 degrees, and respiratory rate 18. HEENT: Pupils are equal and reactive to light. Sclerae are anicteric NECK: No JVD. No thyromegaly. No bruit. LUNGS: Clear. HEART: Regular rate and rhythm. ABDOMEN: Positive bowel sounds. EXTREMITIES: Lower extremity, positive for edema. DIAGNOSES: 1. Left femur fracture. 2. Diabetes, out of control. 3. Psychiatric illness. PLAN: Discontinue glimepiride and continue Levemir and discontinue metformin, discontinue sliding scale insulin, and further adjustment according to blood glucose values. Thank you, Dr. Reuben Pereira, for the courtesy of this consultation. Elijah Carbajal M.D. DR: Peter JOB#: [id number] CC: J[place]
[2016-10-19] MEDS: cefTRIAXone 1 GM in D5W 55 ML IVPB SCH (14:24)
[2016-10-19 16:00] VITALS: BP 135/73
[2016-10-19 17:34] LABS: INR 1.3 (0.9-1.1); PROTHROMBIN TIME 13.3 SEC (9.30-11.50)
--- NOTE | 2016-10-19 17:39 | Infectious Diseases Prog Note ---
Assessment/Plan Problems: (1) UTI (urinary tract infection) Assessment & Plan: on ceftriaxon empirically, await urine culture (2) Diabetes mellitus Assessment & Plan: recommend tight glycemic control to keep blood glucose between 80-120 (3) HTN (hypertension) Assessment & Plan: continue meds, keep systolic less than 140 (4) Dementia Assessment & Plan: continue supportive care, and psych meds (5) Femur fracture, left Assessment & Plan: consult ortho, continue pain management as per primary Subjective Constitutional: Reports: fatigue Psychiatric: Reports: depression Musculoskeletal: Reports: pain Allergies: Coded Allergies: LITHIUM (Unverified Allergy, Unknown, 12/31/12) All Systems: reviewed and negative except above Objective Vital Signs Last 24 Hour Vital Signs Date Time Temp Pulse Resp B/P Pulse Ox O2 Delivery O2 Flow Rate FiO2 10/19/16 16:00 99.5 103 18 135/73 88 Room Air 10/19/16 12:52 97.9 101 20 121/72 97 Room Air 10/19/16 08:21 98.0 104 22 118/70 96 Room Air 10/19/16 04:00 98.4 109 20 123/76 90 Room Air 10/19/16 00:00 99.0 110 20 132/76 92 Room Air 10/18/16 20:21 98.1 90 18 120/70 94 Room Air 10/18/16 18:10 98.1 Height (Feet): 5 Height (Inches): 2.00 Weight (Pounds): 183 General Appearance: WD/WN, no acute distress HEENT: normocephalic, atraumatic, anicteric, mucous membranes moist Respiratory/Chest: chest wall non-tender, lungs clear, normal breath sounds, no respiratory distress, no accessory muscle use Cardiovascular: normal peripheral pulses, normal rate, regular rhythm, no gallop/murmur, no JVD Abdomen: normal bowel sounds, soft, non tender, no organomegaly, non distended , no mass, no scars Extremities: no cyanosis, no clubbing, other - left leg edema Laboratory Tests Test 10/19/16 05:10 10/19/16 17:00 White Blood Count 10.2 K/UL (4.8-10.8) Red Blood Count 4.27 M/UL (4.20-5.40) Hemoglobin 13.0 G/DL (12.0-16.0) Hematocrit 39.7 % (37.0-47.0) Mean Corpuscular Volume 93 FL (80-99) Mean Corpuscular Hemoglobin 30.4 PG (27.0-31.0) Mean Corpuscular Hemoglobin Concent 32.7 G/DL (32.0-36.0) Red Cell Distribution Width 14.1 % (11.6-14.8) Platelet Count 233 K/UL (150-450) Mean Platelet Volume 6.8 FL (6.5-10.1) Neutrophils (%) (Auto) 57.3 % (45.0-75.0) Lymphocytes (%) (Auto) 32.2 % (20.0-45.0) Monocytes (%) (Auto) 9.1 % (1.0-10.0) Eosinophils (%) (Auto) 0.3 % (0.0-3.0) Basophils (%) (Auto) 1.1 % (0.0-2.0) Sodium Level 145 mEQ/L (135-145) Potassium Level 4.3 mEQ/L (3.4-4.9) Chloride Level 100 mEQ/L (98-107) Carbon Dioxide Level 32 mEQ/L (20-30) H Anion Gap 13 (5-15) Blood Urea Nitrogen 19 mg/dL (7-23) Creatinine 0.8 mg/dL (0.5-0.9) Estimat Glomerular Filtration Rate > 60 mL/min (>60) Glucose Level 199 mg/dL (74-106) #H Calcium Level 9.1 mg/dL (8.6-10.2) Total Bilirubin 0.4 mg/dL (0.0-1.2) Aspartate Amino Transf (AST/SGOT) 8 U/L (5-40) Alanine Aminotransferase (ALT/SGPT) 12 U/L (3-33) Alkaline Phosphatase 71 U/L (35-104) Total Protein 7.2 g/dL (6.6-8.7) Albumin 3.9 g/dL (3.5-5.2) Globulin 3.3 g/dL Albumin/Globulin Ratio 1.1 (1.0-2.7) Prothrombin Time Pending Prothromb Time International Ratio Pending Current Medications Medications (Trade) Dose Ordered Sig/[place] Route PRN Reason Start Time Stop Time Status Last Admin Dose Admin Acarbose (Precose) 50 mg TIPC ORAL 10/18/16 09:00 11/17/16 08:59 10/18/16 22:15 Acetaminophen (Tylenol) 650 mg Q4H PRN ORAL Mild Pain/Temp > 100.5 10/18/16 17:00 11/17/16 16:59 Bisacodyl (Dulcolax) 10 mg DAILYPRN PRN RECTAL Constipation 10/18/16 18:00 11/17/16 17:59 Ceftriaxone Sodium/Dextrose (Rocephin/D5W) 55 ml @ 110 mls/hr Q24H IVPB 10/19/16 14:00 10/26/16 13:59 10/19/16 14:24 Dextrose (Dextrose 50%) STAT PRN IV Hypoglycemia 10/18/16 17:00 11/17/16 16:59 Divalproex Sodium (Depakote) 1,000 mg BEDTIME ORAL 10/19/16 21:00 11/18/16 20:59 Docusate Sodium (Colace) 100 mg DAILY ORAL 10/19/16 09:00 11/18/16 08:59 Ferrous Sulfate (Feosol) 325 mg DAILY ORAL 10/19/16 09:00 11/18/16 08:59 Furosemide (Lasix) 40 mg BID ORAL 10/18/16 20:00 11/17/16 19:59 10/18/16 22:01 Insulin Aspart (NovoLOG) BEFORE MEALS AND HS SUBQ 10/18/16 18:30 11/17/16 18:29 10/19/16 06:11 Insulin Detemir (Levemir) 40 units BEDTIME SUBQ 10/18/16 21:00 11/17/16 20:59 10/18/16 22:07 Lorazepam (Ativan) 1 mg Q4H PRN ORAL For Anxiety 10/18/16 19:30 10/25/16 19:29 Magnesium Hydroxide (Mom) 30 ml QHS ORAL 10/18/16 21:00 11/17/16 20:59 10/18/16 22:00 Metformin HCl (Glucophage) 500 mg TWICE A DAY ORAL 10/18/16 20:00 11/17/16 19:59 10/18/16 22:00 Morphine Sulfate (Morphine Sulfate) 4 mg Q4H PRN IVP Moderate Pain (Pain Scale 4-6) 10/18/16 17:08 10/25/16 16:59 10/19/16 12:12 Multivitamins Therapeutic (Therapeutic Multivitamin) 1 ea DAILY ORAL 10/19/16 09:00 11/18/16 08:59 Olanzapine (ZyPREXA) 20 mg BEDTIME ORAL 10/19/16 21:00 11/18/16 20:59 Pantoprazole (Protonix) 40 mg DAILY ORAL 10/19/16 09:00 11/18/16 08:59 Sodium Phosphate (Fleet's Sodium Phosl Enema) 133 ml DAILYPRN PRN RECTAL Constipation 10/18/16 18:00 11/17/16 17:59 Temazepam (Restoril) 30 mg HSPRN PRN ORAL Insomnia 10/18/16 18:00 10/25/16 17:59 Warfarin Sodium (Coumadin per pharmacy) 1 ea DAILY PRN MISC RX PER PROTOCOL 10/19/16 15:00 11/18/16 14:59 Jose Garcia M.D. Oct 19, 2016 17:39
[2016-10-19] MEDS ORDERED: Warfarin Sodium 5mg ORAL SCH (20:00)
--- NOTE | 2016-10-19 20:38 | Consultation ---
DATE OF CONSULTATION: 10/19/2016 CONSULTING PHYSICIAN: Aftab Oconnor M.D. REQUESTING PHYSICIAN: Reuben Pereira M.D. CHIEF COMPLAINT: Left knee pain. HISTORY OF PRESENT ILLNESS: The patient is a 65-year-old female with a complicated medical history, who sustained a fall. She subsequently was brought to the ER with difficulty ambulating. She was diagnosed with a fracture and therefore orthopedic consultation was obtained for further care and recommendation. PAST MEDICAL HISTORY: Reviewed from the intake chart. PAST SURGICAL HISTORY: Reviewed from the intake chart. MEDICATIONS: Reviewed from the intake chart. PHYSICAL EXAMINATION: GENERAL: The patient is alert. She is resting comfortably in bed. VITAL SIGNS: Afebrile. Stable vital signs. EXTREMITIES: Left knee examination is limited secondary to posterior splint, the patient was able to flexed and extend tender toes. IMAGING STUDIES: Showed what appears to be infected subtrochanteric femur fracture treated with internal fixation. There is a failure of the proximal fixation which is chronic but fixation distally is inatact. There is an area of spiral fracture along the distal third of the femur around the implant. ASSESSMENT: Left distal third femur fracture along the intramedullary nail. DISCUSSION: At this point, she is a nonoperative candidate. She is at high risk of complications given her previous clinical course of the subtrochanteric fracture. She does have advanced arthritis in the left knee as well. At this point, recommendation is to remove the posterior splint and place in a knee immobilizer. She is nonweightbearing. She needs repeat x-ray in four to six weeks. At that point, she can begin some gentle range of motion activities. I spoke with her POA. Aftab Oconnor M.D. DR: NGUYEN JOB#: [id number] CC: Reuben Pereira M.D.; Fax#: [phone] Terry M.D. ; Fax#: [phone] [facility]Tex
[2016-10-19] MEDS: Depakote 500mg tab ORAL SCH (21:31)
[2016-10-19] MEDS: Milk of Magnesia 30ml Ud ORAL SCH (21:33)
[2016-10-19] MEDS: Levemir Flexpen SUBQ SCH (21:35)
[2016-10-20 00:57] VITALS: BP 125/69
[2016-10-20 04:25] VITALS: BP 139/83
[2016-10-20] MEDS: NovoLOG Insulin Flexpen SUBQ SCH ×4 (06:50→20:59)
[2016-10-20 08:12] LABS: INR 1.1 (0.9-1.1); PROTHROMBIN TIME 11.5 SEC (9.30-11.50)
[2016-10-20 08:25] VITALS: BP 115/70
[2016-10-20] MEDS: metFORMIN 500mg tab ORAL SCH ×2 (09:47→17:33)
[2016-10-20] MEDS: Docusate 100mg cap ORAL SCH (09:47)
[2016-10-20] MEDS: Multivitamin w/Minerals tab ORAL SCH (09:48)
[2016-10-20] MEDS: Precose 50mg tab ORAL SCH ×3 (09:49→17:33)
--- NOTE | 2016-10-20 11:33 | General Progress Note ---
Assessment/Plan Problem List: (1) Diabetes mellitus ICD Codes: E11.9 - Type 2 diabetes mellitus without complications SNOMED: 28608734 (2) Femur fracture, left ICD Codes: S72.92XA - Unspecified fracture of left femur, initial encounter for closed fracture SNOMED: 02146762 Qualifiers: Qualified Codes: S72.345A - Nondisplaced spiral fracture of shaft of left femur, initial encounter for closed fracture (3) Hyperglycemia ICD Codes: R73.9 - Hyperglycemia, unspecified SNOMED: 44300778 (4) Dementia ICD Codes: F03.90 - Unspecified dementia without behavioral disturbance SNOMED: 98892151 (5) HTN (hypertension) ICD Codes: I10 - Essential (primary) hypertension SNOMED: 60761745 Status: progressing Assessment/Plan afebrile vitals stable anemia femur fracture Subjective ROS Limited/Unobtainable: Yes Constitutional: Reports: no symptoms Allergies: Coded Allergies: LITHIUM (Unverified Allergy, Unknown, 12/31/12) Subjective pain at fracture site in thigh othropedic consult w dr garrido afebrile vitals stable labile and uncontrolled bg Objective Last 24 Hour Vital Signs Date Time Temp Pulse Resp B/P Pulse Ox O2 Delivery O2 Flow Rate FiO2 10/20/16 08:25 99.3 102 20 115/70 93 Room Air 10/20/16 04:25 98.4 103 18 139/83 96 Room Air 10/20/16 00:57 97.5 106 19 125/69 95 Room Air 10/19/16 16:00 99.5 103 18 135/73 88 Room Air 10/19/16 12:52 97.9 101 20 121/72 97 Room Air Intake and Output 10/19/16 10/20/16 19:00 07:00 Intake Total 360 ml Output Total 500 ml 1725 ml Balance -500 ml -1365 ml Intake Oral 360 ml Output Urine Total 500 ml 1725 ml # Bowel Movements 1 Laboratory Tests 10/19/16 17:00: Prothrombin Time 13.3H, Prothromb Time International Ratio 1.3H 10/20/16 05:50: Prothrombin Time 11.5, Prothromb Time International Ratio 1.1 Height (Feet): 5 Height (Inches): 2.00 Weight (Pounds): 183 EENT: PERRL/EOMI Neck: supple Cardiovascular: normal rate Respiratory/Chest: lungs clear Abdomen: soft Reuben Pereira MD Oct 20, 2016 11:33
[2016-10-20 12:00] VITALS: BP 137/82
[2016-10-20] MEDS: cefTRIAXone 1 GM in D5W 55 ML IVPB SCH (13:56)
[2016-10-20 16:00] VITALS: BP 135/74
[2016-10-20] MEDS: Warfarin Sodium 5mg ORAL SCH (17:33)
--- NOTE | 2016-10-20 17:46 | General Progress Note ---
Assessment/Plan Assessment/Plan ASSESSMENT: 1. Deep venous thrombosis of the lower extremity, status post inferior vena cava filter placement in the past, currently on Coumadin 2. Coagulopathy secondary to use of Coumadin. The patient has been compliant. INR has been between 2 and 3. 3. Leukocytosis secondary to recent trauma. 4. Acute left periprosthetic mid shaft fracture of the left femur. 5. Hypertension. 6. Schizophrenia. 7. Status post inferior vena cava filter. 8. Hyperlipidemia. RECOMMENDATION: 1. Monitor counts. 2. Continue Coumadin. 3. Maintain INR between 2 - 3. 4. Follow up with Orthopedic recs 6. Imaging of the lower extremities to be performed with duplex. 7. CT scan of abd to be performed 8. The patient may need vitamin K prior to any procedure. 9. Imaging and labs have been reviewed. 10. DVT prophylaxis, continue Coumadin. 11. GI prophylaxis as required 12. Discussed with staff. Thank you Tyler Rivera MD Subjective Constitutional: Reports: no symptoms HEENT: Reports: no symptoms Cardiovascular: Reports: no symptoms Respiratory: Reports: no symptoms Gastrointestinal/Abdominal: Reports: no symptoms Genitourinary: Reports: no symptoms Neurologic/Psychiatric: Reports: no symptoms Endocrine: Reports: no symptoms Hematologic/Lymphatic: Reports: no symptoms Allergies: Coded Allergies: LITHIUM (Unverified Allergy, Unknown, 12/31/12) Objective Last 24 Hour Vital Signs Date Time Temp Pulse Resp B/P Pulse Ox O2 Delivery O2 Flow Rate FiO2 10/20/16 16:00 97.2 105 18 135/74 94 Room Air 10/20/16 12:00 98.4 100 18 137/82 95 Room Air 10/20/16 08:25 99.3 102 20 115/70 93 Room Air 10/20/16 04:25 98.4 103 18 139/83 96 Room Air 10/20/16 00:57 97.5 106 19 125/69 95 Room Air Intake and Output 10/19/16 10/20/16 19:00 07:00 Intake Total 360 ml Output Total 500 ml 1725 ml Balance -500 ml -1365 ml Intake Oral 360 ml Output Urine Total 500 ml 1725 ml # Bowel Movements 1 Laboratory Tests 10/20/16 05:50: Prothrombin Time 11.5, Prothromb Time International Ratio 1.1 Height (Feet): 5 Height (Inches): 2.00 Weight (Pounds): 183 General Appearance: no apparent distress EENT: normal ENT inspection Neck: supple Cardiovascular: regular rhythm Respiratory/Chest: lungs clear Abdomen: soft Edema: no edema noted Arm (L), no edema noted Arm (R), no edema noted Leg (L), no edema noted Leg (R), no edema noted Pedal (L), no edema noted Pedal (R), no edema noted Generalized Neurologic: alert Skin: warm/dry Lymphatic: normal anterior cervical (L), normal anterior cervical (R), normal axillary (L), normal axillary (R), normal inguinal (L), normal inguinal (R), normal other, normal posterior cervical (L), normal posterior cervical (R), normal submandibular (L), normal submandibular (R), normal supraclavicular (L), normal supraclavicular (R) TYLER RIVERA Oct 20, 2016 17:46
[2016-10-20 20:00] VITALS: BP 146/76
[2016-10-20] MEDS: Depakote 500mg tab ORAL SCH (20:54)
[2016-10-20] MEDS: Levemir Flexpen SUBQ SCH (21:00)
[2016-10-20] MEDS: Milk of Magnesia 30ml Ud ORAL SCH (21:00)
[2016-10-21 00:35] VITALS: BP 143/98
[2016-10-21] MEDS: LORazepam 1mg tab ORAL PRN ×2 (01:03→21:06)
[2016-10-21] MEDS: Morphine Sulfate 4mg/ml Inj IVP PRN (02:59)
[2016-10-21 04:58] VITALS: BP 139/72
[2016-10-21] MEDS: NovoLOG Insulin Flexpen SUBQ SCH ×4 (06:41→21:12)
--- NOTE | 2016-10-21 07:20 | General Progress Note ---
Assessment/Plan Assessment/Plan ASSESSMENT: 1. Deep venous thrombosis of the lower extremity, status post inferior vena cava filter placement in the past, currently on Coumadin 2. Coagulopathy secondary to use of Coumadin. The patient has been compliant. INR between 2 and 3. 3. Leukocytosis secondary to recent trauma. 4. Acute left periprosthetic mid shaft fracture of the left femur. 5. Hypertension. 6. Schizophrenia. 7. Status post inferior vena cava filter. 8. Hyperlipidemia. RECOMMENDATION: 1. Monitor counts. 2. Continue Coumadin. 3. Maintain INR between 2 - 3. 4. Follow up with Orthopedic recs 6. 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 The patient may need vitamin K prior to any procedure. 8. DVT prophylaxis, continue Coumadin. 9. GI prophylaxis as required 10. Discussed with staff. Thank you, Jorge Rivera MD Subjective Constitutional: Reports: no symptoms HEENT: Reports: no symptoms Cardiovascular: Reports: no symptoms Respiratory: Reports: no symptoms Gastrointestinal/Abdominal: Reports: difficulty swallowing Genitourinary: Reports: no symptoms Neurologic/Psychiatric: Reports: no symptoms Endocrine: Reports: no symptoms Hematologic/Lymphatic: Reports: anemia Allergies: Coded Allergies: LITHIUM (Unverified Allergy, Unknown, 12/31/12) Subjective stable, no events overnight, no fevers or chills reported Objective Last 24 Hour Vital Signs Date Time Temp Pulse Resp B/P Pulse Ox O2 Delivery O2 Flow Rate FiO2 10/21/16 04:58 98.4 60 19 139/72 92 Room Air 10/21/16 00:35 99.3 105 18 143/98 91 Room Air 10/20/16 20:00 97.0 104 20 146/76 94 Room Air 10/20/16 16:00 97.2 105 18 135/74 94 Room Air 10/20/16 12:00 98.4 100 18 137/82 95 Room Air 10/20/16 08:25 99.3 102 20 115/70 93 Room Air Intake and Output 10/20/16 10/21/16 19:00 07:00 Intake Total 250 ml 240 ml Output Total 1000 ml 2000 ml Balance -750 ml -1760 ml Intake Oral 250 ml 240 ml Output Urine Total 1000 ml 2000 ml # Bowel Movements 1 2 Height (Feet): 5 Height (Inches): 2.00 Weight (Pounds): 183 General Appearance: no apparent distress EENT: TMs normal Neck: supple Cardiovascular: regular rhythm Respiratory/Chest: lungs clear Abdomen: no organomegaly Extremities: normal range of motion Edema: 1+ Leg (L), 1+ Leg (R) Edema: mild edema Neurologic: no motor/sensory deficits Skin: warm/dry Jorge Rivera Oct 21, 2016 07:20
[2016-10-21 08:00] VITALS: BP 121/73
[2016-10-21 08:07] LABS: INR 1.1 (0.9-1.1); PROTHROMBIN TIME 11.3 SEC (9.30-11.50)
[2016-10-21] MEDS: metFORMIN 500mg tab ORAL SCH ×2 (08:17→17:10)
[2016-10-21] MEDS: Precose 50mg tab ORAL SCH ×3 (08:17→17:11)
[2016-10-21] MEDS: Multivitamin w/Minerals tab ORAL SCH (08:17)
[2016-10-21] MEDS: Docusate 100mg cap ORAL SCH (08:18)
--- NOTE | 2016-10-21 09:04 | General Progress Note ---
Assessment/Plan Problem List: (1) Hyperglycemia ICD Codes: R73.9 - Hyperglycemia, unspecified SNOMED: 78955000 (2) UTI (urinary tract infection) ICD Codes: N39.0 - Urinary tract infection, site not specified SNOMED: 58641772 Qualifiers: Qualified Codes: N39.0 - Urinary tract infection, site not specified (3) Femur fracture, left ICD Codes: S72.92XA - Unspecified fracture of left femur, initial encounter for closed fracture SNOMED: 89721414 Qualifiers: Qualified Codes: S72.345A - Nondisplaced spiral fracture of shaft of left femur, initial encounter for closed fracture (4) Diabetes mellitus ICD Codes: E11.9 - Type 2 diabetes mellitus without complications SNOMED: 15464439 (5) Dementia ICD Codes: F03.90 - Unspecified dementia without behavioral disturbance SNOMED: 37200709 (6) HTN (hypertension) ICD Codes: I10 - Essential (primary) hypertension SNOMED: 32172699 Assessment/Plan continue Levemir 40 units qhs add Novolog 5 units ac tid + SSI Subjective ROS Limited/Unobtainable: Yes Allergies: Coded Allergies: LITHIUM (Unverified Allergy, Unknown, 12/31/12) Subjective events noted meal time glucose is elevated Objective Last 24 Hour Vital Signs Date Time Temp Pulse Resp B/P Pulse Ox O2 Delivery O2 Flow Rate FiO2 10/21/16 04:58 98.4 60 19 139/72 92 Room Air 10/21/16 00:35 99.3 105 18 143/98 91 Room Air 10/20/16 20:00 97.0 104 20 146/76 94 Room Air 10/20/16 16:00 97.2 105 18 135/74 94 Room Air 10/20/16 12:00 98.4 100 18 137/82 95 Room Air Intake and Output 10/20/16 10/21/16 19:00 07:00 Intake Total 250 ml 240 ml Output Total 1000 ml 2000 ml Balance -750 ml -1760 ml Intake Oral 250 ml 240 ml Output Urine Total 1000 ml 2000 ml # Bowel Movements 1 2 Laboratory Tests 10/21/16 07:10: Prothrombin Time 11.3, Prothromb Time International Ratio 1.1 Height (Feet): 5 Height (Inches): 2.00 Weight (Pounds): 183 General Appearance: no apparent distress Neck: normal alignment Cardiovascular: normal rate Respiratory/Chest: lungs clear Abdomen: normal bowel sounds Objective Current Medications Medications (Trade) Dose Ordered Sig/Ebenezer Route PRN Reason Start Time Stop Time Status Last Admin Dose Admin Acarbose (Precose) 50 mg TIPC ORAL 10/18/16 09:00 11/17/16 08:59 10/21/16 08:17 Acetaminophen (Tylenol) 650 mg Q4H PRN ORAL Mild Pain/Temp > 100.5 10/18/16 17:00 11/17/16 16:59 10/20/16 01:24 Bisacodyl (Dulcolax) 10 mg DAILYPRN PRN RECTAL Constipation 10/18/16 18:00 11/17/16 17:59 Ceftriaxone Sodium/Dextrose (Rocephin/D5W) 55 ml @ 110 mls/hr Q24H IVPB 10/19/16 14:00 10/26/16 13:59 10/20/16 13:56 Dextrose (Dextrose 50%) STAT PRN IV Hypoglycemia 10/18/16 17:00 11/17/16 16:59 Divalproex Sodium (Depakote) 1,000 mg BEDTIME ORAL 10/19/16 21:00 11/18/16 20:59 10/20/16 20:54 Docusate Sodium (Colace) 100 mg DAILY ORAL 10/19/16 09:00 11/18/16 08:59 10/21/16 08:18 Ferrous Sulfate (Feosol) 325 mg DAILY ORAL 10/19/16 09:00 11/18/16 08:59 10/21/16 08:17 Furosemide (Lasix) 40 mg BID ORAL 10/18/16 20:00 11/17/16 19:59 10/21/16 08:17 Insulin Aspart (NovoLOG) BEFORE MEALS AND HS SUBQ 10/18/16 18:30 11/17/16 18:29 10/21/16 06:41 Insulin Detemir (Levemir) 40 units BEDTIME SUBQ 10/18/16 21:00 11/17/16 20:59 10/20/16 21:00 Lorazepam (Ativan) 1 mg Q4H PRN ORAL For Anxiety 10/18/16 19:30 10/25/16 19:29 10/21/16 01:03 Magnesium Hydroxide (Mom) 30 ml QHS ORAL 10/18/16 21:00 11/17/16 20:59 10/19/16 21:33 Metformin HCl (Glucophage) 500 mg TWICE A DAY ORAL 10/18/16 20:00 11/17/16 19:59 10/21/16 08:17 Morphine Sulfate (Morphine Sulfate) 4 mg Q4H PRN IVP Moderate Pain (Pain Scale 4-6) 10/18/16 17:08 10/25/16 16:59 10/21/16 02:59 Multivitamins Therapeutic (Therapeutic Multivitamin) 1 ea DAILY ORAL 10/19/16 09:00 11/18/16 08:59 10/21/16 08:17 Olanzapine (ZyPREXA) 20 mg BEDTIME ORAL 10/19/16 21:00 11/18/16 20:59 10/20/16 20:54 Pantoprazole (Protonix) 40 mg DAILY ORAL 10/19/16 09:00 11/18/16 08:59 10/21/16 08:17 Sodium Phosphate (Fleet's Sodium Phosl Enema) 133 ml DAILYPRN PRN RECTAL Constipation 10/18/16 18:00 11/17/16 17:59 Temazepam (Restoril) 30 mg HSPRN PRN ORAL Insomnia 10/18/16 18:00 10/25/16 17:59 10/20/16 20:54 Warfarin Sodium (Coumadin per pharmacy) 1 ea DAILY PRN MISC RX PER PROTOCOL 10/19/16 15:00 11/18/16 14:59 Warfarin Sodium (Coumadin) 5 mg COUMADIN ORAL 10/20/16 17:00 10/25/16 16:59 10/20/16 17:33 Item Value Date Time Bedside Blood Glucose 199 mg/dl H 10/21/16 0641 Bedside Blood Glucose 299 mg/dl H 10/20/16 2100 Bedside Blood Glucose 340 mg/dl H 10/20/16 1737 Bedside Blood Glucose 224 mg/dl H 10/20/16 1204 ZE CARRANZA 5, 2017 09:04
[2016-10-21 12:38] VITALS: BP 115/80
[2016-10-21] MEDS: cefTRIAXone 1 GM in D5W 55 ML IVPB SCH (14:23)
--- NOTE | 2016-10-21 15:29 | Infectious Diseases Prog Note ---
Assessment/Plan Problems: (1) UTI (urinary tract infection) Assessment & Plan: on ceftriaxon empirically, await urine culture (2) Diabetes mellitus Assessment & Plan: recommend tight glycemic control to keep blood glucose between 80-120 (3) HTN (hypertension) Assessment & Plan: continue meds, keep systolic less than 140 (4) Dementia Assessment & Plan: continue supportive care, and psych meds (5) Femur fracture, left Assessment & Plan: consult ortho, continue pain management as per primary Subjective Constitutional: Denies: anorexia, chills, drenching sweats, fatigue, fever, no symptoms, other HEENT: Denies: congestion, coryza, dysphagia, hearing change, no symptoms, other, visual change Respiratory: Denies: dry cough, no symptoms, other, productive cough, shortness of breath Breasts: Denies: discharge, no symptoms, other, swelling, tenderness Cardiovascular: Denies: chest pain, dyspnea on exertion, no symptoms, other, palpitations Gastrointestinal/Abdominal: Denies: bloating, blood in stool, constipation, diarrhea, nausea, no symptoms, other, vomiting Genitourinary: Denies: dysuria, frequency, hematuria, last menstrual period, no symptoms, nocturia, other, vaginal bleed/discharge Neurologic: Denies: confusion, headache, no symptoms, numbness, other, weakness Psychiatric: Denies: anxiety, depression, no symptoms, other Skin: Denies: no symptoms, other, rash, ulcer Endocrine: Denies: feels cold, feels warm, no symptoms, other Allergies: Coded Allergies: LITHIUM (Unverified Allergy, Unknown, 12/31/12) Objective Vital Signs Last 24 Hour Vital Signs Date Time Temp Pulse Resp B/P Pulse Ox O2 Delivery O2 Flow Rate FiO2 10/21/16 12:38 97.0 109 20 115/80 97 Room Air 10/21/16 08:00 98.2 112 18 121/73 95 Room Air 10/21/16 04:58 98.4 60 19 139/72 92 Room Air 10/21/16 00:35 99.3 105 18 143/98 91 Room Air 10/20/16 20:00 97.0 104 20 146/76 94 Room Air 10/20/16 16:00 97.2 105 18 135/74 94 Room Air Height (Feet): 5 Height (Inches): 2.00 Weight (Pounds): 183 General Appearance: WD/WN, no acute distress HEENT: normocephalic, atraumatic, anicteric, mucous membranes moist Respiratory/Chest: chest wall non-tender, lungs clear, normal breath sounds, no respiratory distress, no accessory muscle use Cardiovascular: normal peripheral pulses, normal rate, regular rhythm, no gallop/murmur Abdomen: normal bowel sounds, soft, non tender, no organomegaly, non distended , no mass, no scars Extremities: no cyanosis Skin: no rash Microbiology Date/Time Source Procedure Growth Status 10/18/16 21:32 Blood Blood Culture - Preliminary NO GROWTH AFTER 48 HOURS Resulted 10/18/16 21:20 Blood Blood Culture - Preliminary NO GROWTH AFTER 48 HOURS Resulted 10/18/16 15:30 Nasal Nares MRSA Culture - Final NO METHICILLIN RESISTANT STAPH AUREUS... Complete 10/18/16 22:30 Indwelling Cath Urine Culture - Final NO GROWTH AFTER 48 HOURS Complete 10/18/16 15:30 Rectum VRE Culture - Final NO VANCOMYCIN RESISTANT ENTEROCOCCUS ... Complete Laboratory Tests Test 10/21/16 07:10 Prothrombin Time 11.3 SEC (9.30-11.50) Prothromb Time International Ratio 1.1 (0.9-1.1) Current Medications Medications (Trade) Dose Ordered Sig/Ebenezer Route PRN Reason Start Time Stop Time Status Last Admin Dose Admin Acarbose (Precose) 50 mg TIPC ORAL 10/18/16 09:00 11/17/16 08:59 10/21/16 11:58 Acetaminophen (Tylenol) 650 mg Q4H PRN ORAL Mild Pain/Temp > 100.5 10/18/16 17:00 11/17/16 16:59 10/20/16 01:24 Bisacodyl (Dulcolax) 10 mg DAILYPRN PRN RECTAL Constipation 10/18/16 18:00 11/17/16 17:59 Ceftriaxone Sodium/Dextrose (Rocephin/D5W) 55 ml @ 110 mls/hr Q24H IVPB 10/19/16 14:00 10/26/16 13:59 10/21/16 14:23 Dextrose (Dextrose 50%) STAT PRN IV Hypoglycemia 10/18/16 17:00 11/17/16 16:59 Divalproex Sodium (Depakote) 1,000 mg BEDTIME ORAL 10/19/16 21:00 11/18/16 20:59 10/20/16 20:54 Docusate Sodium (Colace) 100 mg DAILY ORAL 10/19/16 09:00 11/18/16 08:59 10/21/16 08:18 Ferrous Sulfate (Feosol) 325 mg DAILY ORAL 10/19/16 09:00 11/18/16 08:59 10/21/16 08:17 Furosemide (Lasix) 40 mg BID ORAL 10/18/16 20:00 11/17/16 19:59 10/21/16 08:17 Insulin Aspart (NovoLOG) BEFORE MEALS AND HS SUBQ 10/18/16 18:30 11/17/16 18:29 10/21/16 12:00 Insulin Detemir (Levemir) 40 units BEDTIME SUBQ 10/18/16 21:00 11/17/16 20:59 10/20/16 21:00 Lorazepam (Ativan) 1 mg Q4H PRN ORAL For Anxiety 10/18/16 19:30 10/25/16 19:29 10/21/16 01:03 Magnesium Hydroxide (Mom) 30 ml QHS ORAL 10/18/16 21:00 11/17/16 20:59 10/19/16 21:33 Metformin HCl (Glucophage) 500 mg TWICE A DAY ORAL 10/18/16 20:00 11/17/16 19:59 10/21/16 08:17 Morphine Sulfate (Morphine Sulfate) 4 mg Q4H PRN IVP Moderate Pain (Pain Scale 4-6) 10/18/16 17:08 10/25/16 16:59 10/21/16 02:59 Multivitamins Therapeutic (Therapeutic Multivitamin) 1 ea DAILY ORAL 10/19/16 09:00 11/18/16 08:59 10/21/16 08:17 Olanzapine (ZyPREXA) 20 mg BEDTIME ORAL 10/19/16 21:00 11/18/16 20:59 10/20/16 20:54 Pantoprazole (Protonix) 40 mg DAILY ORAL 10/19/16 09:00 11/18/16 08:59 10/21/16 08:17 Sodium Phosphate (Fleet's Sodium Phosl Enema) 133 ml DAILYPRN PRN RECTAL Constipation 10/18/16 18:00 11/17/16 17:59 Temazepam (Restoril) 30 mg HSPRN PRN ORAL Insomnia 10/18/16 18:00 10/25/16 17:59 10/20/16 20:54 Warfarin Sodium (Coumadin per pharmacy) 1 ea DAILY PRN MISC RX PER PROTOCOL 10/19/16 15:00 11/18/16 14:59 Warfarin Sodium (Coumadin) 5 mg COUMADIN ORAL 10/20/16 17:00 10/25/16 16:59 10/20/16 17:33 Jose Mg M.D. Oct 21, 2016 15:29
[2016-10-21 16:17] VITALS: BP 130/70
[2016-10-21] MEDS: Warfarin Sodium 5mg ORAL SCH (17:10)
[2016-10-21 20:10] VITALS: BP 142/78
[2016-10-21] MEDS: Milk of Magnesia 30ml Ud ORAL SCH (21:00)
[2016-10-21] MEDS: Depakote 500mg tab ORAL SCH (21:06)
[2016-10-21] MEDS: Levemir Flexpen SUBQ SCH (21:13)
[2016-10-22] MEDS: LORazepam 1mg tab ORAL PRN ×2 (00:27→07:57)
[2016-10-22 01:06] VITALS: BP 131/73
[2016-10-22] MEDS: Morphine Sulfate 4mg/ml Inj IVP PRN (01:33)
[2016-10-22 04:00] VITALS: BP 144/78
--- NOTE | 2016-10-22 06:06 | General Progress Note ---
Assessment/Plan Problem List: (1) Hyperglycemia ICD Codes: R73.9 - Hyperglycemia, unspecified SNOMED: 10573627 (2) UTI (urinary tract infection) ICD Codes: N39.0 - Urinary tract infection, site not specified SNOMED: 15708451 Qualifiers: Qualified Codes: N39.0 - Urinary tract infection, site not specified (3) Femur fracture, left ICD Codes: S72.92XA - Unspecified fracture of left femur, initial encounter for closed fracture SNOMED: 67543485 Qualifiers: Qualified Codes: S72.345A - Nondisplaced spiral fracture of shaft of left femur, initial encounter for closed fracture (4) Diabetes mellitus ICD Codes: E11.9 - Type 2 diabetes mellitus without complications SNOMED: 24945498 (5) Dementia ICD Codes: F03.90 - Unspecified dementia without behavioral disturbance SNOMED: 75717123 (6) HTN (hypertension) ICD Codes: I10 - Essential (primary) hypertension SNOMED: 44707741 Assessment/Plan continue Levemir 40 units qhs add Novolog 6 units ac tid + SSI continue Metformin Subjective ROS Limited/Unobtainable: Yes Allergies: Coded Allergies: LITHIUM (Unverified Allergy, Unknown, 12/31/12) Subjective events noted Objective Last 24 Hour Vital Signs Date Time Temp Pulse Resp B/P Pulse Ox O2 Delivery O2 Flow Rate FiO2 10/22/16 04:00 97.9 115 19 144/78 92 Room Air 10/22/16 01:06 98.1 104 20 131/73 90 Room Air 10/21/16 20:10 98.1 108 20 142/78 93 Room Air 10/21/16 16:17 99.0 110 20 130/70 93 Room Air 10/21/16 12:38 97.0 109 20 115/80 97 Room Air 10/21/16 08:00 98.2 112 18 121/73 95 Room Air Intake and Output 10/21/16 10/22/16 19:00 07:00 Intake Total 720 ml 240 ml Output Total 1100 ml 900 ml Balance -380 ml -660 ml Intake Oral 720 ml 240 ml Output Urine Total 1100 ml 900 ml # Bowel Movements 1 Laboratory Tests 10/21/16 07:10: Prothrombin Time 11.3, Prothromb Time International Ratio 1.1 Height (Feet): 5 Height (Inches): 2.00 Weight (Pounds): 183 General Appearance: no apparent distress Neck: normal alignment Cardiovascular: regular rhythm Respiratory/Chest: lungs clear Abdomen: normal bowel sounds Objective Current Medications Medications (Trade) Dose Ordered Sig/Ebenezer Route PRN Reason Start Time Stop Time Status Last Admin Dose Admin Acarbose (Precose) 50 mg TIPC ORAL 10/18/16 09:00 11/17/16 08:59 10/21/16 17:11 Acetaminophen (Tylenol) 650 mg Q4H PRN ORAL Mild Pain/Temp > 100.5 10/18/16 17:00 11/17/16 16:59 10/20/16 01:24 Bisacodyl (Dulcolax) 10 mg DAILYPRN PRN RECTAL Constipation 10/18/16 18:00 11/17/16 17:59 Ceftriaxone Sodium/Dextrose (Rocephin/D5W) 55 ml @ 110 mls/hr Q24H IVPB 10/19/16 14:00 10/26/16 13:59 10/21/16 14:23 Dextrose (Dextrose 50%) STAT PRN IV Hypoglycemia 10/18/16 17:00 11/17/16 16:59 Divalproex Sodium (Depakote) 1,000 mg BEDTIME ORAL 10/19/16 21:00 11/18/16 20:59 10/21/16 21:06 Docusate Sodium (Colace) 100 mg DAILY ORAL 10/19/16 09:00 11/18/16 08:59 10/21/16 08:18 Ferrous Sulfate (Feosol) 325 mg DAILY ORAL 10/19/16 09:00 11/18/16 08:59 10/21/16 08:17 Furosemide (Lasix) 40 mg BID ORAL 10/18/16 20:00 11/17/16 19:59 10/21/16 17:10 Insulin Aspart (NovoLOG) BEFORE MEALS AND HS SUBQ 10/18/16 18:30 11/17/16 18:29 10/21/16 21:12 Insulin Detemir (Levemir) 40 units BEDTIME SUBQ 10/18/16 21:00 11/17/16 20:59 10/21/16 21:13 Lorazepam (Ativan) 1 mg Q4H PRN ORAL For Anxiety 10/18/16 19:30 10/25/16 19:29 10/22/16 00:27 Magnesium Hydroxide (Mom) 30 ml QHS ORAL 10/18/16 21:00 11/17/16 20:59 10/19/16 21:33 Metformin HCl (Glucophage) 500 mg TWICE A DAY ORAL 10/18/16 20:00 11/17/16 19:59 10/21/16 17:10 Morphine Sulfate (Morphine Sulfate) 4 mg Q4H PRN IVP Moderate Pain (Pain Scale 4-6) 10/18/16 17:08 10/25/16 16:59 10/22/16 01:33 Multivitamins Therapeutic (Therapeutic Multivitamin) 1 ea DAILY ORAL 10/19/16 09:00 11/18/16 08:59 10/21/16 08:17 Olanzapine (ZyPREXA) 20 mg BEDTIME ORAL 10/19/16 21:00 11/18/16 20:59 10/21/16 21:05 Pantoprazole (Protonix) 40 mg DAILY ORAL 10/19/16 09:00 11/18/16 08:59 10/21/16 08:17 Sodium Phosphate (Fleet's Sodium Phosl Enema) 133 ml DAILYPRN PRN RECTAL Constipation 10/18/16 18:00 11/17/16 17:59 Temazepam (Restoril) 30 mg HSPRN PRN ORAL Insomnia 10/18/16 18:00 10/25/16 17:59 10/21/16 22:01 Warfarin Sodium (Coumadin per pharmacy) 1 ea DAILY PRN MISC RX PER PROTOCOL 10/19/16 15:00 11/18/16 14:59 Warfarin Sodium (Coumadin) 5 mg COUMADIN ORAL 10/20/16 17:00 10/25/16 16:59 10/21/16 17:10 Item Value Date Time Bedside Blood Glucose 298 mg/dl H 10/21/16 2113 Bedside Blood Glucose 329 mg/dl H 10/21/16 1714 Bedside Blood Glucose 290 mg/dl H 10/21/16 1200 Bedside Blood Glucose 199 mg/dl H 10/21/16 0641 ZE CARRANZA 6, 2017 06:06
[2016-10-22] MEDS: NovoLOG Insulin Flexpen SUBQ SCH ×4 (06:54→11:35)
[2016-10-22 07:14] LABS: PROTHROMBIN TIME 10.6 SEC (9.30-11.50)
[2016-10-22] MEDS: Docusate 100mg cap ORAL SCH (07:57)
[2016-10-22] MEDS: Precose 50mg tab ORAL SCH (07:57)
[2016-10-22] MEDS: Multivitamin w/Minerals tab ORAL SCH (07:57)
[2016-10-22] MEDS: metFORMIN 500mg tab ORAL SCH (07:57)
[2016-10-22 08:08] VITALS: BP 127/67
--- NOTE | 2016-10-22 08:09 | Diagnostic Imaging Report ---
Indication: Abdominal distention Technique: Ultrasound of the abdomen. Comparison: 12/31/12 Findings: The pancreas is incompletely visualized. Visualized portions are unremarkable. The liver is enlarged measuring 18.3 cm with increased echogenicity. No focal liver lesions are identified. Visualized portions of the main portal vein and the hepatic veins are grossly unremarkable although incompletely evaluated. The gallbladder is unremarkable without evidence of stones. Gallbladder wall thickness is within normal limits. Sonographic Burton's is negative. Common bile duct measures 5 mm. Bilateral kidneys demonstrate normal echogenicity. There is no hydronephrosis. No echogenic renal stones are identified. The spleen is normal in size and echogenicity. The visualized aorta is normal in caliber. Visualized portions of the inferior vena cava are unremarkable. Impression: No acute abnormality. Hepatomegaly with increased echogenicity the liver suggestive of fatty infiltration. Clinical correlation recommended.
--- NOTE | 2016-10-22 11:10 | General Progress Note ---
Assessment/Plan Assessment/Plan ASSESSMENT: 1. Deep venous thrombosis of the lower extremity, status post inferior vena cava filter placement in the past 2. Coagulopathy secondary to use of Coumadin. The patient has been compliant. INR between 2 and 3. 3. Leukocytosis secondary to recent trauma. 4. Acute left periprosthetic mid shaft fracture of the left femur. 5. Hypertension. 6. Schizophrenia. 7. Status post inferior vena cava filter. 8. Hyperlipidemia. RECOMMENDATION: 1. Monitor counts. 2. Off coumadin 3. Restart coumadin per ortho recs 4. Follow up with Orthopedic recs 6. 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 The patient may need vitamin K prior to any procedure. 8. DVT prophylaxis, continue Coumadin. 9. GI prophylaxis as required 10. DW staff. Thank you, Jorge Rivera MD Subjective Constitutional: Reports: no symptoms HEENT: Reports: no symptoms Cardiovascular: Reports: no symptoms Respiratory: Reports: no symptoms Gastrointestinal/Abdominal: Reports: no symptoms Genitourinary: Reports: no symptoms Neurologic/Psychiatric: Reports: no symptoms Endocrine: Reports: no symptoms Hematologic/Lymphatic: Reports: anemia Allergies: Coded Allergies: LITHIUM (Unverified Allergy, Unknown, 12/31/12) Subjective stable, no events overnight, no fevers or chills reported Objective Last 24 Hour Vital Signs Date Time Temp Pulse Resp B/P Pulse Ox O2 Delivery O2 Flow Rate FiO2 10/22/16 08:08 97.0 112 20 127/67 95 Room Air 10/22/16 04:00 97.9 115 19 144/78 92 Room Air 10/22/16 01:06 98.1 104 20 131/73 90 Room Air 10/21/16 20:10 98.1 108 20 142/78 93 Room Air 10/21/16 16:17 99.0 110 20 130/70 93 Room Air 10/21/16 12:38 97.0 109 20 115/80 97 Room Air Intake and Output 10/21/16 10/22/16 19:00 07:00 Intake Total 720 ml 1340 ml Output Total 1100 ml 2550 ml Balance -380 ml -1210 ml Intake Oral 720 ml 1340 ml Output Urine Total 1100 ml 2550 ml # Bowel Movements 1 Laboratory Tests 10/22/16 05:20: Prothrombin Time 10.6, Prothromb Time International Ratio 1.0 Height (Feet): 5 Height (Inches): 2.00 Weight (Pounds): 183 General Appearance: alert EENT: TMs normal Neck: normal inspection Cardiovascular: regular rhythm Respiratory/Chest: lungs clear Abdomen: non tender Extremities: non-tender Edema: 1+ Leg (L), 1+ Leg (R) Edema: mild edema Neurologic: alert Skin: warm/dry Jorge Rivera Oct 22, 2016 11:10
[2016-10-22 12:15] VITALS: BP 133/84
--- NOTE | 2016-10-23 10:46 | Discharge Summary ---
Discharge Summary Hospital Course Date of Admission Oct 18, 2016 at 12:17 Date of Discharge Oct 22, 2016 at 12:55 Admitting Diagnosis L femur fx HPI Milka Alexandre is a 65 year old female who was admitted on Oct 18, 2016 at 12:17 for Left Femur Fracture Hospital Course dc summary dictated # [id number] Discharge Medications Continued Medications: Acarbose* (Precose*) 50 Mg Tablet 50 MG ORAL THREE TIMES A DAY, TAB 0 Refills Ascorbate Calcium (Vitamin C) 500 Mg Tablet 500 MG PO DAILY Bisacodyl (Dulcolax) 10 Mg Supp.rect 10 MG RC NEEDED PRN for Constipation, SUPP Diphenhydramine HCl (Diphenhydramine HCl) 50 Mg Cap 50 MG PO TID Divalproex Sodium* (Depakote Er*) 500 Mg Tab.er.24h 500 MG PO BID Docusate Sodium* (Colace*) 100 Mg Capsule 100 MG ORAL DAILY, CAP Ferrous Sulfate* (Ferrous Sulfate*) 325 Mg Tablet 325 MG ORAL DAILY, #30 TAB 0 Refills Furosemide* (Lasix*) 20 Mg Tablet 40 MG ORAL BID, TAB Glimepiride* (Amaryl*) 4 Mg Tablet 4 MG ORAL BEFORE BREAKFAST Haloperidol (Haloperidol) 5 Mg Tab 5 MG GT QID, TAB Insulin Detemir (Levemir Flextouch) 100 Unit/1 Ml Insuln.pen 40 UNIT SQ BEDTIME, EA Lorazepam* (Ativan*) 1 Mg Tablet 1 MG ORAL Q4HR, TAB Magnesium Hydroxide (Milk of Magnesia) 30 Ml Susp 30 ML PO QHS Metformin Hcl* (Glucophage*) 500 Mg Tablet 500 MG ORAL TWICE A DAY, TAB Multivitamin With Minerals (Multivitamins With Minerals*) 1 Each Tablet 1 TAB ORAL DAILY, TAB Na Phos,M-B/Na Phos,Di-Ba* (Fleet Enema*) 133 Ml Enema 133 ML RECTAL EVERY 2 DAYS PRN for Constipation, ML 0 Refills Olanzapine* (Zyprexa*) 10 Mg Tablet 10 MG ORAL TID, #30 TAB 0 Refills Pantoprazole* (Protonix*) 40 Mg Tablet.dr 40 MG ORAL DAILY, TAB Potassium Chloride (Potassium Chloride) 10 Meq Tablet.er 10 MEQ PO DAILY Quetiapine Fumarate (Seroquel Xr) 200 Mg Tab.er.24h 200 MG ORAL QID, TAB Temazepam* (Restoril*) 15 Mg Capsule 15 MG ORAL, #7 CAP Warfarin Sod (Coumadin*) 7.5 Mg Tablet 10 MG ORAL DAILY [Cozaar] () 25 PO DAILY [Dss] () 100 MG PO DAILY [Insulin Slide] () UNITS SQ [Maalox Plus] () 30 ML PO Q4HR [Multivitamins] () TAB PO DAILY [Mylanta] () 30 ML ORAL EVERY 6 HOURS PRN for GI DISTRESS [Tylenol] () 325 MG PO Q4HR [Tylenol] () 500 MG PO Q4HR Discontinued Medications: [Tylenol ] () 325 MG PO Q4HR Discharge Condition Upon Discharge: stable Discharge Disposition Patient was discharged to SNF/Subacute Facility(03) Discharge Diagnoses: Discharge Instructions Discharge Instructions Special Instructions I have been assigned to complete a D/C Summary on this account. I was not involved in the patient management Johanna Gallagher NP ([facility]) Oct 23, 2016 10:46
--- NOTE | 2016-10-23 12:04 | Diagnostic Imaging Report ---
APPROVED REPORT CPT Code: 85677 Present Symptoms Comments: R/O DVT Abnormal Labs RIGHT LEG: Venous imaging reveals chronic thrombus in the superficial femoral vein. Large collateral vein noted anterior to the superficial femoral artery. Remainder of the deep venous system within normal limits. No evidence of thrombus in the common femoral, popliteal and calf veins. Greater saphenous vein also within normal limits. Doppler indicates normal spontaneous flow within these segments. LEFT LEG: Venous imaging reveals acute thrombus in the superficial femoral, popliteal and calf veins. Imaging also reveals chronic thrombus in the superficial femoral vein. Large collateral vein noted anterior to the superficial femoral artery. Remainder of the deep venous system within normal limits. No evidence of thrombus in the common femoral vein. Greater saphenous vein also within normal limits. TOPHER Boland was notified of abnormal results at 1050 hours.
--- NOTE | 2016-10-24 02:28 | Discharge Summary 2 SIG ---
DATE OF ADMISSION: 10/18/2016 DATE OF DISCHARGE: 10/22/2016 REASON FOR ADMISSION: 65-year-old female was brought from the custodial facility for evaluation after she sustained a mechanical fall. Workup in the emergency department revealed acute left periprosthetic mid shaft femur fracture. Workup in ED revealed mild leukocytosis. Glucose was 320. The patient was on Coumadin for treatment for DVT of the right lower extremity. INR on admission was 1.7. Coumadin was placed on hold due to the possible further operative intervention . The patient admitted for further management. ADMITTING DIAGNOSES: I 1. Acute left femur fracture. 2. Hyperglycemia . 3. Possible urinary tract infection. HOSPITAL STAY: The patient admitted. ID consult was requested. Urine culture and blood culture negative. Antibiotic discontinued, which initially started. Endocrinology consult requested due to the hyperglycemia. The patient was placed on long-acting insulin Levemir and short-acting insulin Novolog three times before meals as well as continue sliding scale of insulin as needed. Blood sugar improved during hospital stay. Orthopedic surgeon consult was requested. Initial diagnostic imaging in the emergency department revealed negative CT of the head, left foot x-ray negative, but x-ray of the left femur as well as the pelvic CT revealed acute left periprosthetic mid shaft fracture of the femur. Orthopedic surgeon, Dr. Oconnor seen the patient. According to the surgeon, the patient was nonoperative candidate. She would be at high risk for complication given her previous clinical course of subtrochanteric fracture. She had advanced arthritis in the left knee as well. He recommended to remove the posterior splint and placed the knee immobilizer. The patient already nonweightbearing. Surgeon recommended to repeat x-ray in four to six weeks and can start on gentle range of motion. Venous duplex bilateral lower extremities was repeated in lieu of the history of the right lower extremity DVT, which revealed chronic thrombus in the right lower extremity and acute thrombus in the left lower extremity superficial femoral, popliteal ,and calf vein . The patient restarted on Coumadin. The patient has a history of IVC placement. The patient restarted on Coumadin. Hematology consult was requested. Per Hematology, continue Coumadin to keep INR in therapeutic range 2 to 3. Initial mild leukocytosis was likely secondary to fracture. The patient was stable for transfer back to the custodial facility. Blood pressure was managed with existing regimen and was stable. GI prophylaxis provided. Bowel regimen instituted. Pain management provided. DISCHARGE DIAGNOSES: 1. Acute left periprosthetic mid shaft femur fracture. 2. Acute DVT left lower extremity superficial femoral, popliteal, and calf veins. 3. Hypertension. 4. Schizophrenia. 5. Hyperlipidemia. 6. History of inferior vena cava filter placement. 8. Diabetes mellitus. 9. Pain in left lower extremity. DISCHARGE MEDICATIONS: See medication reconciliation list. DISCHARGE INSTRUCTIONS: The patient discharged to the custodial facility. Continue Coumadin. Repeat x-ray in four to six weeks of the left femur. Per Orthopedic surgeon, begin gentle range of motion. Reuben Pereira M.D. I have been assigned to dictate discharge summary on this account and I was not involved in the patient's management. Johanna TaylorGouverneur HealthEliseo N.PKaushal DR: Tung JOB#: [id number] CC: JACKSON
--- NOTE | 2016-11-08 08:38 | Consultation ---
DATE OF CONSULTATION: 10/18/2016 HISTORY OF PRESENT ILLNESS: This is a 65-year-old female with multiple medical problems including diabetes, hypertension, schizoaffective disorder, and dementia who was admitted to the hospital due to a mechanical fall at the shelter. During the evaluation, the patient is confused, disorganized, and is unable to provide any history. She is wheelchair bound. She is presenting with impairment of concentration, memory, attention, and disorganized speech and behavior. The patient also was diagnosed with urinary tract infection in the emergency room and is admitted for medical stabilization. The patient is not endorsing any manic symptoms. PAST PSYCHIATRIC HISTORY: She was diagnosed with schizoaffective disorder and has been treated with antipsychotics and mood stabilizers. PAST MEDICAL HISTORY: Significant for diabetes, hypertension, and dementia. PAST SURGICAL HISTORY: Femoral fracture, status post open reduction and internal fixation. ALLERGIES: [place]. SUBSTANCE ABUSE HISTORY: No history of illicit drug use or alcohol. Nonsmoker. SOCIAL HISTORY: The patient resides in a shelter. MENTAL STATUS EXAMINATION: The patient is confused and not engaged during the evaluation. She has poor insight and judgment into mental condition. Cognition is impaired. ASSESSMENT: Panther Burn I Schizoaffective disorder. Panther Burn II Deferred. Panther Burn III As above. Panther Burn IV Mild Panther Burn V Global assessment of functioning is 20. PLAN: 1. We will start the patient on Depakote 1000 mg p.o. at bedtime. 2. We will start the patient on Zyprexa 30 mg p.o. at bedtime. Noel Hennessy M.D. DR: ALLISON JOB#: [id number] CC:
== END 2016-10-22 12:55 | disposition home or self-care (01) | DRG 534 ==
LOC: EDBD 10:00 → EMR 10:40 → EDBEDREQ 11:50 → 3E 12:17 → EDBEDREQ 12:30 → 3E 10-21 14:22
PROC: 2W3MXYZ Immobilization of Left Lower Extremity using Other Device (ICD-10-PCS; principal; 2016-10-19)
DX: S72.345A Nondisplaced spiral fracture of shaft of left femur, initial encounter for closed fracture (principal); I82.412 Acute embolism and thrombosis of left femoral vein; N39.0 Urinary tract infection, site not specified; F03.90 Unspecified dementia, unspecified severity, without behavioral disturbance, psychotic disturbance, mood disturbance, and anxiety; E11.65 Type 2 diabetes mellitus with hyperglycemia; I82.432 Acute embolism and thrombosis of left popliteal vein; I82.4Z2 Acute embolism and thrombosis of unspecified deep veins of left distal lower extremity; I10 Essential (primary) hypertension; W19.XXXA Unspecified fall, initial encounter; F20.9 Schizophrenia, unspecified; E78.5 Hyperlipidemia, unspecified; W06.XXXA Fall from bed, initial encounter; Y92.122 Bedroom in nursing home as the place of occurrence of the external cause; Z88.8 Allergy status to other drugs, medicaments and biological substances; M17.12 Unilateral primary osteoarthritis, left knee; Z79.01 Long term (current) use of anticoagulants; I25.10 Atherosclerotic heart disease of native coronary artery without angina pectoris
CPT/HCPCS: 29505; 36415; 70450; 72192; 76700; 80053; 81003; 82962; 85025; 85610; 85730; 87040; 87081; 87086; 93970; J1815; S5561

== ENCOUNTER 2017-01-13 10:02 | Inpatient (IN) | payer MEDICARE, MEDICAID ==
[~2017-01-13] VITALS: Ht 154.9 cm; Wt 90.7 kg
[~2017-01-13 10:02] MED LIST changes: +ACARBOSE50 MG ORAL; +COLACE100 MG ORAL; +DULCOLAX10 MG RC; +FERROUS SULFAT325 MG ORAL; +FLEET ENEMA133 ML RECTAL; +LEVEMIR FL100 UNIT/2 SQ; +MULTIVITAMINS1 EAC8 ORAL; +Mylanta ORAL; +ZYPREXA10 MG ORAL
--- NOTE | 2017-01-13 10:03 | Emergency Room Report ---
History of Present Illness General Source: Patient, Medical Record, EMS, PMD Present Illness HPI Patient is 65-year-old female brought in by EMS after increased redness to her left leg as well as pain. The patient had prior history of psychiatric disease as well as diabetes. The patient had been on blood thinners. Reportedly patient had recent fall. The patient was noted to have some fever. She was sent in from retirement for further evaluation. Allergies: Coded Allergies: LITHIUM (Unverified Allergy, Unknown, 12/31/12) Patient History Past Medical History: see triage record Reviewed Nursing Documentation: PMH: Agreed, PSxH: Agreed Review of Systems All Other Systems: negative except mentioned in HPI Physical Exam Sp02 EP Interpretation: reviewed, normal General Appearance: normal inspection, well appearing, no apparent distress, alert, GCS 15 Head: atraumatic ENT: normal ENT inspection, hearing grossly normal, normal voice Neck: normal inspection, full range of motion, supple, no bony tend Respiratory: normal inspection, lungs clear, normal breath sounds, no respiratory distress, no retraction, no wheezing Cardiovascular #1: regular rate, rhythm, no edema Gastrointestinal: normal inspection, normal bowel sounds, non tender, soft, no guarding, no hernia Genitourinary: no CVA tenderness Musculoskeletal: normal inspection, back normal, normal range of motion Neurologic: normal inspection, alert, oriented x3, responsive, junior manufacturing engineer III-XII nml as tested, speech normal Psychiatric: normal inspection, judgement/insight normal, mood/affect normal Skin: other - erythema to left great toe with induration, some bruising to lower extremity calf Medical Decision Making Diagnostic Impression: Primary Impression: Cellulitis Additional Impressions: Diabetes mellitus Tibia/fibula fracture ER Course Patient presented for extremity pain. Differential diagnosis included but was not limited to fracture, contusion, renal stone, vascular insufficiency, aortic aneurysm, cellulitis.Because of complexity of patient's case laboratory testing and imaging studies were ordered.The x-ray imaging of the left tib-fib 2 views interpreted by me showed diffuse osteopenia with a proximal tibia and fibular fractures these are minimally displaced. Patient was placed in a posterior splint. X-ray of the foot of 2 views read by radiology showed osteopenia without evidence of definite fracture. Patient was noted to be vascularly intact with good pulses to the extremity. Dr. Reuben Pereira was contacted for inpatient management. Labs Test 01/13/17 10:24 01/13/17 10:40 White Blood Count 8.9 K/UL (4.8-10.8) Red Blood Count 4.11 M/UL (4.20-5.40) Hemoglobin 12.5 G/DL (12.0-16.0) Hematocrit 37.9 % (37.0-47.0) Mean Corpuscular Volume 92 FL (80-99) Mean Corpuscular Hemoglobin 30.5 PG (27.0-31.0) Mean Corpuscular Hemoglobin Concent 33.1 G/DL (32.0-36.0) Red Cell Distribution Width 13.9 % (11.6-14.8) Platelet Count 215 K/UL (150-450) Mean Platelet Volume 6.9 FL (6.5-10.1) Neutrophils (%) (Auto) 71.8 % (45.0-75.0) Lymphocytes (%) (Auto) 15.5 % (20.0-45.0) Monocytes (%) (Auto) 12.3 % (1.0-10.0) Eosinophils (%) (Auto) 0.0 % (0.0-3.0) Basophils (%) (Auto) 0.5 % (0.0-2.0) EKG Diagnostic Results Rate: tachycardiac Rhythm: NSR ST Segments: no acute changes Rhythm Strip Diag. Results EP Interpretation: yes Rhythm: no PVC's, no ectopy, other - sinus tachycardia 112 Chest X-Ray Diagnostic Results EP Interpretation: No Findings: no consolidation, no effusion, no pneumothorax, no acute cardiopulmonary disease Number of Views: 1 Status: unchanged Disposition: ADMITTED INPATIENT Condition: Jaiden Wilson January 13, 2017 10:03
[2017-01-13] MEDS ORDERED: Ampicillin/Sulbactam Sod 3 GM in NS 110 ML IV SCH (10:15)
[2017-01-13 10:39] LABS: BASOPHILS % (AUTO) 0.5 % (0.0-2.0); LYMPHOCYTES % (AUTO) 15.5 % (20.0-45.0); MEAN CORPUSCULAR HEMOGLOBIN 30.5 PG (27.0-31.0); MEAN CORPUSCULAR HGB CONC 33.1 G/DL (32.0-36.0); MEAN CORPUSCULAR VOLUME 92 FL (80-99); MEAN PLATELET VOLUME 6.9 FL (6.5-10.1); MONOCYTES % (AUTO) 12.3 % (1.0-10.0); NEUTROPHILS % (AUTO) 71.8 % (45.0-75.0); PLATELET COUNT 215 K/UL (150-450); RED BLOOD COUNT 4.11 M/UL (4.20-5.40); RED CELL DISTRIBUTION WIDTH 13.9 % (11.6-14.8); WHITE BLOOD COUNT 8.9 K/UL (4.8-10.8)
[2017-01-13] MEDS ORDERED: Unasyn 3gm Inj ONE (10:42)
[2017-01-13] MEDS ORDERED: CALCIUM CARBON500 M1 PO (10:44)
[2017-01-13] MEDS ORDERED: Morphine Sulfate 4mg/ml Inj IVP ONE (10:45)
[2017-01-13] MEDS ORDERED: ZYPREXA10 MG ORAL (10:47)
--- NOTE | 2017-01-13 10:47 | Diagnostic Imaging Report ---
Indication: Pain Comparison: None Findings: Two views of the left tibia and fibula were obtained. Comminuted fracture of the metaphyseal region of the proximal tibia demonstrated. There is involvement of the tibial tuberosity. Mild posterior impaction of the fracture is noted. There is a nondisplaced fracture of the neck of the proximal fibula also. Bones are osteopenic. There is partial visualization of an intramedullary starla within the distal femur. There maybe a fracture of the lateral femoral condyle, which is not evaluated adequately. Soft tissue swelling noted. Impression: Acute fracture of the proximal tibia and fibula as described above. Questionable fracture involving the lateral femoral condyle, not adequately evaluated on this study. Suggest knee series
--- NOTE | 2017-01-13 10:48 | Diagnostic Imaging Report ---
Indication: Dyspnea Comparison: None A single view chest radiograph was obtained. Findings: Bones are osteopenic. Lungs are essentially clear. Heart is enlarged. Impression: No acute disease
[2017-01-13 10:56] LABS: APPEARANCE,URINE SLIGHTLY CLOUDY; KETONES,URINE 1+ (NEGATIVE); LEUKOCYTE ESTERASE ,URINE 2+ (NEGATIVE); NITRITE,URINE POSITIVE (NEGATIVE); PH,URINE 6 (4.5-8.0); PROTEIN,URINE 2+ (NEGATIVE); UROBILINOGEN,URINE 1 MG/DL (0.0-1.0)
[2017-01-13 10:57] LABS: TROPONIN I < 0.30 ng/mL (<=0.30)
[2017-01-13 11:00] LABS: ALANINE AMINOTRANSFERASE 12 U/L (3-33); ALBUMIN/GLOBULIN RATIO 0.9 (1.0-2.7); ANION GAP 12 (5-15); ASPARTATE AMINO TRANSFERASE 11 U/L (5-40); CALCIUM 9.4 mg/dL (8.6-10.2); CARBON DIOXIDE 31 mEQ/L (20-30); CHLORIDE 93 mEQ/L (98-107); CREATININE 0.8 mg/dL (0.5-0.9); GLOMERULAR FILTRATION RATE > 60 mL/min (>60); HEMOLYSIS 3; POTASSIUM 4.3 mEQ/L (3.4-4.9); SODIUM 136 mEQ/L (135-145); TOTAL PROTEIN 7.3 g/dL (6.6-8.7)
[2017-01-13 11:03] LABS: BACTERIA,URINE MODERATE /HPF; SQUAMOUS EPITHELIAL CELL,UR FEW /LPF (NONE/OCC); WBC,URINE 40-60 /HPF (0 - 2)
[2017-01-13 11:08] LABS: INR 3.2 (0.9-1.1); PROTHROMBIN TIME 33.5 SEC (9.30-11.50)
[2017-01-13 11:10] LABS: CKMB < 1.5 ng/mL (< 3.8)
[2017-01-13 11:14] VITALS: BP 128/83
[2017-01-13] MEDS ORDERED: VITAMIN D1000 UNI1 ORAL (11:18)
[2017-01-13] MEDS ORDERED: NORCO 5-325 TA1 EAC1 ORAL (11:18)
[2017-01-13] MEDS ORDERED: QUETIAPINE FUM200 MG ORAL (11:18)
--- NOTE | 2017-01-13 12:05 | Diagnostic Imaging Report ---
Indication: Pain Comparison: None Findings: 2 views of the left foot were obtained. No obvious fracture identified. No malalignment seen. Bones are osteopenic. Impression: Osteopenia
[2017-01-13 12:45] VITALS: BP 128/64
[2017-01-13] MEDS: OLANZapine 2.5mg tab ORAL SCH ×2 (13:45→18:59)
[2017-01-13] MEDS: QUEtiapine 200mg tab ORAL SCH ×3 (13:45→21:00)
[2017-01-13] MEDS ORDERED: Phytonadione 10 MG in D5W 55 ML IVPB ONE (15:30)
[2017-01-13 16:00] VITALS: BP 126/66
[2017-01-13] MEDS ORDERED: Warfarin Sodium 7.5mg ORAL SCH (17:00)
[2017-01-13] MEDS: NovoLOG Insulin Flexpen SUBQ SCH ×3 (17:51→20:21)
[2017-01-13] MEDS: Precose 50mg tab ORAL SCH (17:51)
[2017-01-13 20:00] VITALS: BP 112/66
[2017-01-13] MEDS: Furosemide 40mg tab ORAL SCH (20:15)
[2017-01-13] MEDS: Enoxaparin 80mg Inj SUBQ SCH (21:00)
[2017-01-13] MEDS ORDERED: Levemir Flexpen SUBQ SCH (21:00)
--- NOTE | 2017-01-13 22:58 | Consultation ---
Consult Note Consult Note DATE OF CONSULTATION: 01/13/2017 HEMATOLOGY/ONCOLOGY CONSULTATION CONSULTING PHYSICIAN: Jorge Rivera M.D. REQUESTING PHYSICIAN: Reuben Pereira M.D. REASON FOR CONSULTATION: Evaluation of DVT, status post IVC filter placement, as well as coagulopathy. IDENTIFICATION DATA: Dear Dr. Reuben Pereira, 66-year-old female with a past medical history significant for DVT, status post IVC filter placement, dementia, psychiatric history, schizophrenia, hypertension , and diabetes mellitus, at this time is status post mechanical fall in the long term. She fell out of the bed and landing on her left side. Denies hitting her head. Otherwise, history of psych and dementia. She states she has been having pain on the left side. She has been compliant with her medication of Coumadin. She has a history of DVT, unknown which side, and Hematology Service was consulted for further evaluation and treatment.Acute fracture of the proximal tibia and fibula as described above was identified and pending potential procedure, have started lovenox and coumadin discontinued PAST MEDICAL HISTORY: Hypertension, dementia, psychiatric history of schizophrenia, and diabetes mellitus. PAST SURGICAL HISTORY: None noted. ALLERGIES: To lithium. SOCIAL HISTORY: No alcohol, tobacco, or illicit drug use. ROS: Constitutional: No fever, no chills, no night sweats, no fatigue Skin: No rashes, lumps, itchiness, dryness HEENT: No [place], ear ache, visual changes, double vision, nosebleeds, sore throat, lumps, swollen glands Breasts: No lumps, pain, discharge Pulmonary: No cough, sputum, shortness of breath, coughing up blood, hemoptysis Cardiovascular: No chest pain, tightness, palpitations, syncope, claudication, orthopnea, PND GI: No nausea, vomiting, diarrhea, melena, hematochezia, change in appetite, abdominal pain : No dysuria, frequency, urgency, urinary incontinence, foamy urine Musculoskeletal: No joint swelling or muscle pain, trauma, back pain Neurologic: No dizziness, fainting, seizures, changes in smell or taste Psychiatric: No nervousness, stress, or depression, anxiety, hallucinations Endocrine: No weight change, heat or cold intolerance, tremor, insomnia PE: General Appearance: A+O x3, NAD Skin: no rashes, itching HEENT: normocephalic, atraumatic Respiratory/Chest: chest wall non-tender, lungs clear Cardiovascular/Chest: normal peripheral pulses, normal rate Abdomen: normal bowel sounds, non tender Extremities: normal range of motion Laboratory Tests Test 01/13/17 10:24 01/13/17 10:40 White Blood Count 8.9 K/UL (4.8-10.8) Red Blood Count 4.11 M/UL (4.20-5.40) L Hemoglobin 12.5 G/DL (12.0-16.0) Hematocrit 37.9 % (37.0-47.0) Mean Corpuscular Volume 92 FL (80-99) Mean Corpuscular Hemoglobin 30.5 PG (27.0-31.0) Mean Corpuscular Hemoglobin Concent 33.1 G/DL (32.0-36.0) Red Cell Distribution Width 13.9 % (11.6-14.8) Platelet Count 215 K/UL (150-450) Mean Platelet Volume 6.9 FL (6.5-10.1) Neutrophils (%) (Auto) 71.8 % (45.0-75.0) Lymphocytes (%) (Auto) 15.5 % (20.0-45.0) L Monocytes (%) (Auto) 12.3 % (1.0-10.0) H Eosinophils (%) (Auto) 0.0 % (0.0-3.0) Basophils (%) (Auto) 0.5 % (0.0-2.0) Prothrombin Time 33.5 SEC (9.30-11.50) H Prothromb Time International Ratio 3.2 (0.9-1.1) H Activated Partial Thromboplast Time 61 SEC (23-33) H Sodium Level 136 mEQ/L (135-145) Potassium Level 4.3 mEQ/L (3.4-4.9) Chloride Level 93 mEQ/L (98-107) L Carbon Dioxide Level 31 mEQ/L (20-30) H Anion Gap 12 (5-15) Blood Urea Nitrogen 15 mg/dL (7-23) Creatinine 0.8 mg/dL (0.5-0.9) Estimat Glomerular Filtration Rate > 60 mL/min (>60) Glucose Level 465 mg/dL (74-106) H Lactic Acid Level 1.20 mmol/L (0.66-2.22) Calcium Level 9.4 mg/dL (8.6-10.2) Total Bilirubin 0.3 mg/dL (0.0-1.2) Aspartate Amino Transf (AST/SGOT) 11 U/L (5-40) Alanine Aminotransferase (ALT/SGPT) 12 U/L (3-33) Alkaline Phosphatase 68 U/L (35-104) Total Creatine Kinase 126 U/L (26-140) Creatine Kinase MB < 1.5 ng/mL (< 3.8) Creatine Kinase MB Relative Index 1.1 Troponin I < 0.30 ng/mL (<=0.30) Pro-B-Type Natriuretic Peptide 360 pg/mL (0-125) H Total Protein 7.3 g/dL (6.6-8.7) Albumin 3.5 g/dL (3.5-5.2) Globulin 3.8 g/dL Albumin/Globulin Ratio 0.9 (1.0-2.7) L Urine Color Pale yellow Urine Appearance Slightly cloudy Urine pH 6 (4.5-8.0) Urine Specific [place] 1.010 (1.005-1.035) Urine Protein 2+ (NEGATIVE) H Urine Glucose (UA) 4+ (NEGATIVE) H Urine Ketones 1+ (NEGATIVE) H Urine Occult Blood 4+ (NEGATIVE) H Urine Nitrite Positive (NEGATIVE) H Urine Bilirubin Negative (NEGATIVE) Urine Urobilinogen 1 MG/DL (0.0-1.0) H Urine Leukocyte Esterase 2+ (NEGATIVE) H Urine RBC 5-10 /HPF (0 - 2) H Urine WBC 40-60 /HPF (0 - 2) H Urine Squamous Epithelial Cells Few /LPF (NONE/OCC) Urine Bacteria Moderate /HPF (NONE) H ASSESSMENT: 1. Coagulopathy secondary to use of Coumadin. The patient has been compliant. INR has been between 2 and 3. Currently, INR is 3.2. 2. Deep venous thrombosis of the lower extremity, status post inferior vena cava filter placement in the past, currently on Coumadin without evidence of bleed. 3. Leukocytosis secondary to recent trauma. 4. Acute left periprosthetic mid shaft fracture of the left femur. 5. Hypertension. 6. Schizophrenia. 7. Status post inferior vena cava filter. 8. Hyperlipidemia. RECOMMENDATION: 1. Lonveox started 2. Off coumadin 3. Maintain INR between 2 and 3. 4. Follow up with Orthopedic surgery 5. The patient may need vitamin K prior to any procedure. 6. Imaging and labs have been reviewed. 7. GI prophylaxis. 8. Discussed with staff. Thank you, Dr. Reuben Pereira, for this kind referral. Please do not hesitate to contact me with any further questions. Jorge Rivera. January 13, 2017 22:58
[2017-01-14] VITALS: BP 140/75
[2017-01-14] MEDS: Norco 5mg/325mg tab ORAL PRN ×3 (00:10→14:48)
[2017-01-14] MEDS: LORazepam 1mg tab ORAL PRN ×2 (00:49→10:18)
--- NOTE | 2017-01-14 02:45 | History and Physical Report ---
DATE OF ADMISSION: 01/13/2017 NOTE: " POOR AUDIO QUALITY" HISTORY OF PRESENT ILLNESS: The patient is a very poor historian. The patient has paranoid schizophrenia, cannot get any reliable history from her. The patient cellulitis of lower extremity as well as labile, uncontrolled blood sugar. The patient also has a known history of tibia-fibular fracture and that is nonoperable per Dr. Oconnor. So, the patient is being admitted for UTI as well as cellulitis of the lower extremity as well as uncontrolled diabetes mellitus. PAST MEDICAL HISTORY: Paranoid schizophrenia, GERD, NIDDM, hypertension, DVT, CVA with hemiparesis, and history of low platelets. PAST SURGICAL HISTORY: ORIF of the hip. MEDICATIONS: Refer to the medication list in the chart that includes insulin, Norvasc, and Coumadin. ALLERGIES: Refer to allergies in the chart. SOCIAL HISTORY: The patient denies history of smoking, alcohol, or illicit drugs. FAMILY HISTORY: Noncontributory. REVIEW OF SYSTEMS: HEENT: Denies headaches. Respiratory: Denies shortness of breath. Denies cough. Cardiovascular: Denies chest pain. GI: Denies nausea, vomiting, or diarrhea. Extremities: pain in lower extremities. 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 PHYSICAL EXAMINATION: VITAL SIGNS: Temperature 97.2 degrees, and blood pressure 138/70. HEENT: PERRLA. NECK: Supple. No lymphadenopathy. CHEST: Clear to auscultation. GI: Soft and nondistended. Positive bowel sounds. EXTREMITIES: Decreased range of motion due to pain. The patient does have erythema and in the lower extremity and as well in the lower extremities. NEUROLOGIC: Oriented x1 , which is her baseline. . LABORATORY DATA: . ASSESSMENT AND PLAN: 1. diabetes mellitus. 2. Urinary tract infection. 3. Nondisplaced possible left great toe fracture as well as proximal tibia, which is new, most likely proximal tibia-fibular fracture, which is chronic. 4. The patient cellulitis of lower extremity. 5. I have consulted Dr. Sukhi Olivares, Dr. Mg, Dr. Oconnor, and Dr. Hennessy for the above-mentioned diagnoses and treatment. Reuben Pereira M.D. DR: Lamin JOB#: [id number] CC:
[2017-01-14 04:00] VITALS: BP 127/69
[2017-01-14] MEDS ORDERED: Glimepiride 1mg tab ORAL SCH (06:30)
[2017-01-14] MEDS: Precose 50mg tab ORAL SCH ×3 (06:45→17:34)
[2017-01-14] MEDS: NovoLOG Insulin Flexpen SUBQ SCH ×7 (06:47→21:00)
[2017-01-14 08:00] VITALS: BP 117/68
[2017-01-14] MEDS: Enoxaparin 80mg Inj SUBQ SCH ×2 (08:19→21:00)
[2017-01-14] MEDS: Furosemide 40mg tab ORAL SCH ×2 (10:18→22:09)
[2017-01-14] MEDS: QUEtiapine 200mg tab ORAL SCH ×4 (10:18→22:06)
[2017-01-14] MEDS: OLANZapine 2.5mg tab ORAL SCH ×2 (10:19→14:48)
[2017-01-14] MEDS: Tums 500mg ORAL SCH (10:19)
[2017-01-14] MEDS: Ascorbic Acid 500mg tab ORAL SCH (10:19)
--- NOTE | 2017-01-14 10:21 | Infectious Diseases Prog Note ---
Assessment/Plan Problems: (1) UTI (urinary tract infection) Assessment & Plan: will start cefepime and send urine culture (2) Tibia/fibula fracture Assessment & Plan: recommend ortho consult for OPIF (3) Diabetes mellitus Assessment & Plan: recommend tight glycemic control to keep blood glucose between 80-120 Subjective Allergies: Coded Allergies: LITHIUM (Unverified Allergy, Unknown, 12/31/12) Objective Vital Signs Last 24 Hour Vital Signs Date Time Temp Pulse Resp B/P Pulse Ox O2 Delivery O2 Flow Rate FiO2 01/14/17 09:33 98.8 01/14/17 08:00 98.8 110 20 117/68 Nasal Cannula 2.0 01/14/17 04:00 99.3 104 20 127/69 97 Nasal Cannula 2.0 01/14/17 00:00 98.2 119 22 140/75 97 Nasal Cannula 2.0 01/13/17 20:00 97.0 102 20 112/66 92 Nasal Cannula 2.0 01/13/17 16:27 101.6 01/13/17 16:15 99.7 01/13/17 16:00 101.6 118 20 126/66 90 Nasal Cannula 2.0 01/13/17 12:45 100.4 114 22 128/64 92 Nasal Cannula 2.0 01/13/17 12:30 112 25 128/83 96 Nasal Cannula 2.0 01/13/17 11:14 112 25 128/83 96 Nasal Cannula 2.0 Height (Feet): 5 Height (Inches): 1.00 Weight (Pounds): 200 Laboratory Tests Test 01/13/17 10:24 01/13/17 10:40 White Blood Count 8.9 K/UL (4.8-10.8) Red Blood Count 4.11 M/UL (4.20-5.40) L Hemoglobin 12.5 G/DL (12.0-16.0) Hematocrit 37.9 % (37.0-47.0) Mean Corpuscular Volume 92 FL (80-99) Mean Corpuscular Hemoglobin 30.5 PG (27.0-31.0) Mean Corpuscular Hemoglobin Concent 33.1 G/DL (32.0-36.0) Red Cell Distribution Width 13.9 % (11.6-14.8) Platelet Count 215 K/UL (150-450) Mean Platelet Volume 6.9 FL (6.5-10.1) Neutrophils (%) (Auto) 71.8 % (45.0-75.0) Lymphocytes (%) (Auto) 15.5 % (20.0-45.0) L Monocytes (%) (Auto) 12.3 % (1.0-10.0) H Eosinophils (%) (Auto) 0.0 % (0.0-3.0) Basophils (%) (Auto) 0.5 % (0.0-2.0) Prothrombin Time 33.5 SEC (9.30-11.50) H Prothromb Time International Ratio 3.2 (0.9-1.1) H Activated Partial Thromboplast Time 61 SEC (23-33) H Sodium Level 136 mEQ/L (135-145) Potassium Level 4.3 mEQ/L (3.4-4.9) Chloride Level 93 mEQ/L (98-107) L Carbon Dioxide Level 31 mEQ/L (20-30) H Anion Gap 12 (5-15) Blood Urea Nitrogen 15 mg/dL (7-23) Creatinine 0.8 mg/dL (0.5-0.9) Estimat Glomerular Filtration Rate > 60 mL/min (>60) Glucose Level 465 mg/dL (74-106) H Lactic Acid Level 1.20 mmol/L (0.66-2.22) Calcium Level 9.4 mg/dL (8.6-10.2) Total Bilirubin 0.3 mg/dL (0.0-1.2) Aspartate Amino Transf (AST/SGOT) 11 U/L (5-40) Alanine Aminotransferase (ALT/SGPT) 12 U/L (3-33) Alkaline Phosphatase 68 U/L (35-104) Total Creatine Kinase 126 U/L (26-140) Creatine Kinase MB < 1.5 ng/mL (< 3.8) Creatine Kinase MB Relative Index 1.1 Troponin I < 0.30 ng/mL (<=0.30) Pro-B-Type Natriuretic Peptide 360 pg/mL (0-125) H Total Protein 7.3 g/dL (6.6-8.7) Albumin 3.5 g/dL (3.5-5.2) Globulin 3.8 g/dL Albumin/Globulin Ratio 0.9 (1.0-2.7) L Urine Color Pale yellow Urine Appearance Slightly cloudy Urine pH 6 (4.5-8.0) Urine Specific [place] 1.010 (1.005-1.035) Urine Protein 2+ (NEGATIVE) H Urine Glucose (UA) 4+ (NEGATIVE) H Urine Ketones 1+ (NEGATIVE) H Urine Occult Blood 4+ (NEGATIVE) H Urine Nitrite Positive (NEGATIVE) H Urine Bilirubin Negative (NEGATIVE) Urine Urobilinogen 1 MG/DL (0.0-1.0) H Urine Leukocyte Esterase 2+ (NEGATIVE) H Urine RBC 5-10 /HPF (0 - 2) H Urine WBC 40-60 /HPF (0 - 2) H Urine Squamous Epithelial Cells Few /LPF (NONE/OCC) Urine Bacteria Moderate /HPF (NONE) H Current Medications Medications (Trade) Dose Ordered Sig/Ebenezer Route PRN Reason Start Time Stop Time Status Last Admin Dose Admin Acarbose (Precose) 50 mg TIAC ORAL 01/13/17 16:30 02/12/17 16:29 01/14/17 06:45 Acetaminophen (Tylenol) 650 mg Q4H PRN ORAL Mild Pain/Temp > 100.5 01/13/17 13:00 02/12/17 12:59 01/13/17 15:28 Acetaminophen/ Hydrocodone Bitart ([place] 5/325) 1 tab Q4H PRN ORAL Moderate Pain (Pain Scale 4-6) 01/13/17 13:00 01/20/17 12:59 01/14/17 08:34 Al Hydroxide/Mg Hydroxide (Mylanta) 30 ml Q6H PRN ORAL FOR GI DISTRESS 01/13/17 13:00 02/12/17 12:59 Ascorbic Acid (Vitamin C) 500 mg DAILY ORAL 01/14/17 09:00 02/13/17 08:59 Calcium Carbonate (Tums) 500 mg DAILY ORAL 01/14/17 09:00 02/13/17 08:59 Dextrose STAT PRN IV Hypoglycemia 01/13/17 15:30 02/12/17 15:29 Enoxaparin Sodium (Lovenox) 80 mg Q12HR SUBQ 01/13/17 21:00 02/12/17 20:59 Ferrous Sulfate (Feosol) 325 mg DAILY ORAL 01/14/17 09:00 02/13/17 08:59 Furosemide (Lasix) 40 mg EVERY 12 HOURS ORAL 01/13/17 21:00 02/12/17 20:59 01/13/17 20:15 Insulin Aspart (NovoLOG) BEFORE MEALS AND HS SUBQ 01/13/17 17:00 02/12/17 16:59 01/14/17 06:47 Insulin Aspart (NovoLOG) 15 units NOVOTIAC SUBQ 01/14/17 11:50 02/13/17 11:49 Insulin Detemir (Levemir) 50 units BEDTIME SUBQ 01/14/17 21:00 02/13/17 20:59 Lorazepam (Ativan) 1 mg Q4HR PRN ORAL For Anxiety 01/13/17 13:00 01/20/17 12:59 01/14/17 00:49 Metformin HCl (Glucophage) 850 mg TID ORAL 01/13/17 18:00 02/12/17 17:59 01/13/17 18:59 Multivitamins (Multivitamins) 1 tab DAILY ORAL 01/14/17 09:00 02/13/17 08:59 Olanzapine (ZyPREXA) 10 mg TID ORAL 01/13/17 13:45 02/12/17 13:44 01/13/17 18:59 Pantoprazole (Protonix) 40 mg DAILY ORAL 01/14/17 09:00 02/13/17 08:59 Quetiapine Fumarate (SEROquel) 200 mg QID ORAL 01/13/17 13:45 02/12/17 13:44 01/13/17 20:15 Sodium Chloride (Sodium Chloride 1000ml bag) 1,000 ml @ 75 mls/hr [id number] IV 01/13/17 17:00 02/12/17 16:59 01/14/17 06:20 Temazepam (Restoril) 7.5 mg HSPRN PRN ORAL Insomnia 01/13/17 13:00 01/20/17 12:59 Jose Mg M.D. January 14, 2017 10:21
[2017-01-14 12:00] VITALS: BP 111/66
[2017-01-14] MEDS: Cefepime HCl 1 GM in D5W 55 ML IVPB SCH ×2 (12:50→22:09)
[2017-01-14 16:00] VITALS: BP 129/70
--- NOTE | 2017-01-14 16:45 | Consultation ---
DATE OF CONSULTATION: 01/14/2017 ENDOCRINOLOGY CONSULTATION CONSULTING PHYSICIAN: Elijah Carbajal M.D. REFERRING PHYSICIAN: Reuben Pereira M.D. REASON FOR CONSULTATION: Diabetes mellitus. HISTORY OF PRESENT ILLNESS: The patient is a 66-year-old female who is morbidly obese with past medical history of diabetes on large doses of insulin, but diabetes cannot be controlled . The patient has a history of tib-fib fracture on the left side, with a ground-level fall and he is being followed by orthopedic surgeon Dr. Oconnor. The patient was brought to the hospital for evaluation due to redness of the left lower extremity, diabetes out of. Endocrinology was consulted in order to assist in the management of diabetes. PAST MEDICAL HISTORY: 1. Type 2 diabetes on insulin on large doses, uncontrolled. 2. Hypertension. 3. Dementia. 4. Psychiatric illness. 5. Left tib-fib fracture. PAST SURGICAL HISTORY: Left tib-fib fracture. ALLERGIES: Allergy to lithium. SOCIAL HISTORY: Lives in snf facility. No smoking, alcohol, or drug use. FAMILY HISTORY: Noncontributory. REVIEW OF SYSTEMS: Difficult to obtain, but a 12-point review of systems was performed, pertinent positives and negatives are as mentioned in the history of present illness. PHYSICAL EXAMINATION: VITAL SIGNS: Blood pressure 127/69, heart rate 104, temperature 99.3 degrees, and respiratory rate 20. HEENT: Pupils are equal and reactive to light. Sclerae are anicteric. NECK: No JVD. No thyromegaly. No bruit. LUNGS: Clear. HEART: Regular rate and rhythm. ABDOMEN: Positive bowel sounds. Soft. EXTREMITIES: Left lower extremity is in dressing and splint. LABORATORY VALUES: WBC is 8.9, hemoglobin 12, hematocrit 37, and platelets are 215,000. Sodium is 136, potassium 4.6, chloride 93, bicarbonate 31, BUN 15, creatinine 0.8, and glucose 465. BNP is 360. DIAGNOSES: 1. Lower extremity cellulitis. 2. Diabetes, out of control. 3. Psychiatric illness. PLAN: Increase Levemir to 50 units at bedtime, add NovoLog 15 units before each meal. Continue NovoLog sliding scale, continue metformin t.i.d., discontinue glimepiride. I will continue to follow the patient during the hospital stay. Elijah Carbajal M.D. DR: JORGITO JOB#: [id number] CC: JACKSON
[2017-01-14] MEDS ORDERED: Tubing IV Secondary IV ONE (17:55)
--- NOTE | 2017-01-14 17:55 | General Progress Note ---
Assessment/Plan Assessment/Plan ASSESSMENT: 1. Coagulopathy secondary to use of Coumadin. The patient has been compliant. INR has been between 2 and 3. Currently, INR is 3.2. now off coumadin, on lovenox 2. Deep venous thrombosis of the lower extremity, status post inferior vena cava filter placement in the past 3. Leukocytosis secondary to recent trauma. 4. Acute left periprosthetic mid shaft fracture of the left femur. 5. Hypertension. 6. Schizophrenia. 7. Status post inferior vena cava filter. 8. Hyperlipidemia. RECOMMENDATION: 1. Lonveox until after surgery 2. Off coumadin 3. Maintain INR between 2 and 3. 4. Follow up with Orthopedic surgery 5. Have given vit K 6. Imaging and labs have been reviewed. 7. GI prophylaxis. 8. Discussed with staff. Subjective Constitutional: Reports: no symptoms HEENT: Reports: no symptoms Cardiovascular: Reports: no symptoms Respiratory: Reports: no symptoms Gastrointestinal/Abdominal: Reports: no symptoms Genitourinary: Reports: no symptoms Neurologic/Psychiatric: Reports: no symptoms Endocrine: Reports: no symptoms Allergies: Coded Allergies: LITHIUM (Unverified Allergy, Unknown, 12/31/12) Subjective no fevers, no chills, no events noted Objective Last 24 Hour Vital Signs Date Time Temp Pulse Resp B/P Pulse Ox O2 Delivery O2 Flow Rate FiO2 01/14/17 16:00 97.7 111 20 129/70 95 Nasal Cannula 2.0 01/14/17 15:47 97.7 01/14/17 12:00 98.1 100 20 111/66 93 Nasal Cannula 2.0 01/14/17 08:00 98.8 110 20 117/68 Nasal Cannula 2.0 01/14/17 04:00 99.3 104 20 127/69 97 Nasal Cannula 2.0 01/14/17 00:00 98.2 119 22 140/75 97 Nasal Cannula 2.0 01/13/17 20:00 97.0 102 20 112/66 92 Nasal Cannula 2.0 Intake and Output 01/13/17 01/14/17 19:00 07:00 Intake Total 110 ml 862.5 ml Output Total 30 ml Balance 80 ml 862.5 ml IV Total 110 ml 862.5 ml Output Urine Total 30 ml # Voids 1 3 Height (Feet): 5 Height (Inches): 1.00 Weight (Pounds): 200 General Appearance: alert EENT: TMs normal Neck: supple Cardiovascular: regular rhythm Respiratory/Chest: normal breath sounds Abdomen: normal bowel sounds, no organomegaly Extremities: non-tender Edema: 1+ Leg (L), 1+ Leg (R) Edema: mild edema Neurologic: no motor/sensory deficits Skin: warm/dry Jorge Rivera January 14, 2017 17:55
--- NOTE | 2017-01-14 18:00 | Consultation ---
DATE OF CONSULTATION: INFECTIOUS DISEASE CONSULTATION CONSULTING PHYSICIAN: Jose Mg M.D. REQUESTING PHYSICIAN: Reuben Pereira M.D. REASON FOR CONSULTATION: Urinary tract infection. Recommendation for antibiotics therapy. HISTORY OF PRESENT ILLNESS: The patient is a 66-year-old female with past medical history of diabetes, psych disorder, and possible dementia, who was sent to [facility] emergency room for left leg pain. The patient had a recent fall and she developed severe leg pain on the left side after her fall, so she was sent for evaluation. In the emergency room, the patient had an x-ray of the left leg and foot, which showed proximal tibia and fibula fracture, which is displaced minimally. Her urinalysis showed evidence of infection and she has a diaper rash. So, I was consulted by the primary provider for antibiotics treatment and further management. As of note, the patient is a poor historian and cannot provide any good history. History was mainly obtained from the medical record. PAST MEDICAL HISTORY: Significant for diabetes and psych disorder. MEDICATIONS: The patient received Unasyn in the emergency room. For the rest of her medications, please refer to MAR. ALLERGIES: She is allergic to lithium. FAMILY HISTORY: Unable to obtain. SOCIAL HISTORY: She lives in senior living. No recent drugs, tobacco, or alcohol. REVIEW OF SYSTEMS: Unable to obtain. PHYSICAL EXAMINATION: VITAL SIGNS: Temperature 98.1 degrees, pulse 100, respirations 20, blood pressure 111/66, and pulse oximetry 93% on two liters nasal cannula. GENERAL: This is an elderly female, lying in bed, demented, awake, alert, and not in distress. HEENT: Normocephalic and atraumatic. Pupils are reactive to light equally. Pale sclera. Dry oral mucosa. No exudate. NECK: Supple. No lymphadenopathy. CARDIOVASCULAR: Regular rate and rhythm. No murmur or gallop. LUNGS: Clear bilaterally. No wheezing or rhonchi. ABDOMEN: Soft, obese, nontender, and nondistended. Normal bowel sounds. EXTREMITIES: Left leg is wrapped with knee wrap and immobilizer. Right leg, no edema or cyanosis. LABORATORY DATA: Labs showed white count of 8.9, hemoglobin of 12.5, and platelet count of 215,000. BUN of 15 and creatinine of 0.8. Urinalysis showed positive nitrite, +2 leukocyte esterase, WBCs 40 to 60, and moderate amount of bacteria. IMAGING: Chest x-ray showed no acute disease. Tibia fibula x-ray showed acute fracture of the proximal tibia and fibula, questionable fracture involving the lateral femoral condyle. ASSESSMENT AND RECOMMENDATION: 1. Urinary tract infection. We will start the patient on cefepime empirically and send urine culture. 2. Tibia fibula fracture. Recommend her to consult for open reduction and internal fixation. 3. Diaper rash. Continue local antifungal as per wound care service. 4. Diabetes. Recommend tight glycemic control to keep blood glucose between 80 to 120. Jose Mg M.D. DR: DERRICK JOB#: [id number] CC:
--- NOTE | 2017-01-14 19:30 | Consultation ---
DATE OF CONSULTATION: HISTORY OF PRESENT ILLNESS: This is a 66-year-old female with a history of schizophrenia who is being admitted to the emergency room with a chief complaint of "poor audio quality". The patient has multiple medical problems including schizophrenia, cellulitis of lower extremities, diabetes mellitus, GERD, DVT, CVA, and hemiparesis. During the evaluation, the patient was a poor historian and was unable to answer most of the questions . The patient was alert and oriented to time, self, and place and situation. However, she was illogical. PAST PSYCHIATRIC HISTORY: Diagnosed with schizophrenia and has had several psychiatric hospitalizations. No suicide attempt in the past. PAST MEDICAL HISTORY: Includes GERD, diabetes mellitus, hypertension, and cellulitis. ALLERGIES: [place]. SUBSTANCE ABUSE HISTORY: No history of illicit drug use or alcohol. MENTAL STATUS EXAMINATION: The patient is alert and oriented x3. Mood is dysphoric. Affect is blunted. Congruent mood and appropriate. Thought process is concrete. Thought content, no suicidal or homicidal ideation. No current delusions. ASSESSMENT: AXIS I Schizophrenia. AXIS II Deferred. AXIS III As above. AXIS IV Moderate. AXIS V Global assessment of functioning is 40. PLAN: 1. The patient is currently on Seroquel and olanzapine. We will decrease the olanzapine to 20 mg at bedtime and 10 mg t.i.d. 2. We will try to taper Seroquel. 3. Provide the patient with supportive therapy and reality orientation. 4. We will continue to follow and readjust medications. Noel Hennessy M.D. DR: Jd JOB#: [id number] CC:
[2017-01-14 20:00] VITALS: BP 120/61
[2017-01-14] MEDS ORDERED: Levemir Flexpen SUBQ SCH (21:00)
[2017-01-15 00:24] VITALS: BP 116/67
[2017-01-15 04:30] VITALS: BP 122/74
[2017-01-15] MEDS: Norco 5mg/325mg tab ORAL PRN ×3 (04:43→20:11)
[2017-01-15] MEDS: NovoLOG Insulin Flexpen SUBQ SCH ×7 (06:30→21:00)
[2017-01-15] MEDS: Precose 50mg tab ORAL SCH ×3 (06:30→18:26)
--- NOTE | 2017-01-15 07:14 | General Progress Note ---
Assessment/Plan Problem List: (1) Diabetes mellitus ICD Codes: E11.9 - Type 2 diabetes mellitus without complications SNOMED: 98022867 (2) HTN (hypertension) ICD Codes: I10 - Essential (primary) hypertension SNOMED: 30864506 (3) Dementia ICD Codes: F03.90 - Unspecified dementia without behavioral disturbance SNOMED: 69479377 (4) Cellulitis ICD Codes: L03.90 - Cellulitis, unspecified SNOMED: 837356877 (5) Tibia/fibula fracture ICD Codes: S82.209A - Unspecified fracture of shaft of unspecified tibia, initial encounter for closed fracture; S82.409A - Unspecified fracture of shaft of unspecified fibula, initial encounter for closed fracture SNOMED: 108572230 Assessment/Plan reduce Levemir to 40 units qhs reduce Novolog to 10 units ac tid + SSI continue Metformin 850 mg tid Subjective ROS Limited/Unobtainable: Yes Allergies: Coded Allergies: LITHIUM (Unverified Allergy, Unknown, 12/31/12) Subjective events noted Objective Last 24 Hour Vital Signs Date Time Temp Pulse Resp B/P Pulse Ox O2 Delivery O2 Flow Rate FiO2 01/15/17 04:30 97.5 111 19 122/74 95 Nasal Cannula 2.0 01/15/17 00:24 97.3 112 18 116/67 93 Nasal Cannula 2.0 01/14/17 20:00 98.1 116 19 120/61 99 Nasal Cannula 2.0 01/14/17 16:00 97.7 111 20 129/70 95 Nasal Cannula 2.0 01/14/17 15:47 97.7 01/14/17 12:00 98.1 100 20 111/66 93 Nasal Cannula 2.0 01/14/17 08:00 98.8 110 20 117/68 Nasal Cannula 2.0 Intake and Output 01/14/17 01/15/17 19:00 07:00 Intake Total 1305 ml 1140 ml Balance 1305 ml 1140 ml Intake Oral 350 ml 240 ml IV Total 955 ml 900 ml # Voids 4 Height (Feet): 5 Height (Inches): 1.00 Weight (Pounds): 200 General Appearance: no apparent distress Neck: normal alignment Cardiovascular: regular rhythm Respiratory/Chest: chest wall non-tender, lungs clear Abdomen: normal bowel sounds Pelvis: normal external exam Objective Current Medications Medications (Trade) Dose Ordered Sig/Ebenezer Route PRN Reason Start Time Stop Time Status Last Admin Dose Admin Acarbose (Precose) 50 mg TIAC ORAL 01/13/17 16:30 02/12/17 16:29 01/14/17 17:34 Acetaminophen (Tylenol) 650 mg Q4H PRN ORAL Mild Pain/Temp > 100.5 01/13/17 13:00 02/12/17 12:59 01/13/17 15:28 Acetaminophen/ Hydrocodone Bitart ([place] 5/325) 1 tab Q4H PRN ORAL Moderate Pain (Pain Scale 4-6) 01/13/17 13:00 01/20/17 12:59 01/15/17 04:43 Al Hydroxide/Mg Hydroxide (Mylanta) 30 ml Q6H PRN ORAL FOR GI DISTRESS 01/13/17 13:00 02/12/17 12:59 Ascorbic Acid (Vitamin C) 500 mg DAILY ORAL 01/14/17 09:00 02/13/17 08:59 01/14/17 10:19 Calcium Carbonate (Tums) 500 mg DAILY ORAL 01/14/17 09:00 02/13/17 08:59 01/14/17 10:19 Cefepime HCl/ Dextrose (Maxipime/D5W) 55 ml @ 110 mls/hr EVERY 12 HOURS IVPB 01/14/17 12:00 01/21/17 11:59 01/14/17 22:09 Dextrose STAT PRN IV Hypoglycemia 01/13/17 15:30 02/12/17 15:29 Enoxaparin Sodium (Lovenox) 80 mg Q12HR SUBQ 01/13/17 21:00 02/12/17 20:59 Ferrous Sulfate (Feosol) 325 mg DAILY ORAL 01/14/17 09:00 02/13/17 08:59 01/14/17 10:19 Furosemide (Lasix) 40 mg EVERY 12 HOURS ORAL 01/13/17 21:00 02/12/17 20:59 01/14/17 22:09 Insulin Aspart (NovoLOG) BEFORE MEALS AND HS SUBQ 01/13/17 17:00 02/12/17 16:59 01/14/17 12:16 Insulin Aspart (NovoLOG) 15 units NOVOTIAC SUBQ 01/14/17 11:50 02/13/17 11:49 01/14/17 17:36 Insulin Detemir 50 units 50 units BEDTIME SUBQ 01/14/17 21:00 02/13/17 20:59 01/14/17 22:14 Lorazepam (Ativan) 1 mg Q4HR PRN ORAL For Anxiety 01/13/17 13:00 01/20/17 12:59 01/14/17 10:18 Metformin HCl (Glucophage) 850 mg TID ORAL 01/13/17 18:00 02/12/17 17:59 01/14/17 17:34 Multivitamins (Multivitamins) 1 tab DAILY ORAL 01/14/17 09:00 02/13/17 08:59 01/14/17 10:18 Olanzapine (ZyPREXA) 20 mg BEDTIME ORAL 01/14/17 21:00 02/13/17 20:59 01/14/17 22:06 Pantoprazole (Protonix) 40 mg DAILY ORAL 01/14/17 09:00 02/13/17 08:59 01/14/17 10:19 Quetiapine Fumarate (SEROquel) 200 mg QID ORAL 01/13/17 13:45 02/12/17 13:44 01/14/17 22:06 Sodium Chloride (Sodium Chloride 1000ml bag) 1,000 ml @ 75 mls/hr [id number] IV 01/13/17 17:00 02/12/17 16:59 01/14/17 19:40 Temazepam (Restoril) 7.5 mg HSPRN PRN ORAL Insomnia 01/13/17 13:00 01/20/17 12:59 Item Value Date Time Bedside Blood Glucose 99 mg/dl 01/15/17 0630 Bedside Blood Glucose 66 mg/dl L 01/14/172213 Bedside Blood Glucose 106 mg/dl 01/14/17 1736 Bedside Blood Glucose 143 mg/dl H 01/14/17 1216 Bedside Blood Glucose 217 mg/dl H 01/14/17 0647 ZE CARRANZA January 15, 2017 07:14
--- NOTE | 2017-01-15 07:54 | Cardiology Report ---
APPROVED REPORT EKG Measurement Heart [id number] Sinus tachycardia Rightward axis Borderline ECG
[2017-01-15 08:00] VITALS: BP 108/50
[2017-01-15] MEDS: Furosemide 40mg tab ORAL SCH ×2 (08:27→20:57)
[2017-01-15] MEDS: QUEtiapine 200mg tab ORAL SCH ×4 (08:27→20:57)
[2017-01-15] MEDS: Ascorbic Acid 500mg tab ORAL SCH (08:27)
[2017-01-15] MEDS: Tums 500mg ORAL SCH (08:27)
[2017-01-15] MEDS: Cefepime HCl 1 GM in D5W 55 ML IVPB SCH (08:27)
[2017-01-15] MEDS: Enoxaparin 80mg Inj SUBQ SCH ×2 (08:29→20:58)
[2017-01-15 12:00] VITALS: BP 121/66
[2017-01-15] MEDS: LORazepam 1mg tab ORAL PRN (12:50)
--- NOTE | 2017-01-15 12:57 | General Progress Note ---
Assessment/Plan Problem List: (1) Cellulitis ICD Codes: L03.90 - Cellulitis, unspecified SNOMED: 306927471 (2) Diabetes mellitus ICD Codes: E11.9 - Type 2 diabetes mellitus without complications SNOMED: 18607777 (3) UTI (urinary tract infection) ICD Codes: N39.0 - Urinary tract infection, site not specified SNOMED: 08121718 (4) Tibia/fibula fracture ICD Codes: S82.209A - Unspecified fracture of shaft of unspecified tibia, initial encounter for closed fracture; S82.409A - Unspecified fracture of shaft of unspecified fibula, initial encounter for closed fracture SNOMED: 023850071 (5) Dementia ICD Codes: F03.90 - Unspecified dementia without behavioral disturbance SNOMED: 36683189 (6) HTN (hypertension) ICD Codes: I10 - Essential (primary) hypertension SNOMED: 54538114 Status: progressing Assessment/Plan afebrile labile dm cellutitis of le fracture of le dr garrido is ortho on the case reversal of anticoagulation per dr taylor told dr garrido that he needs to talk to conservator re obtaining consent also dr barrett is on the case for schizophrenia and can be consulted re getting consent Subjective Allergies: Coded Allergies: LITHIUM (Unverified Allergy, Unknown, 12/31/12) Subjective pain legs Objective Last 24 Hour Vital Signs Date Time Temp Pulse Resp B/P Pulse Ox O2 Delivery O2 Flow Rate FiO2 01/15/17 12:00 98.1 106 20 121/66 96 Nasal Cannula 2.0 01/15/17 08:00 97.7 97 18 108/50 94 Nasal Cannula 2.0 01/15/17 04:30 97.5 111 19 122/74 95 Nasal Cannula 2.0 01/15/17 00:24 97.3 112 18 116/67 93 Nasal Cannula 2.0 01/14/17 20:00 98.1 116 19 120/61 99 Nasal Cannula 2.0 01/14/17 16:00 97.7 111 20 129/70 95 Nasal Cannula 2.0 01/14/17 15:47 97.7 Intake and Output 01/14/17 01/15/17 19:00 07:00 Intake Total 1305 ml 1215 ml Balance 1305 ml 1215 ml Intake Oral 350 ml 240 ml IV Total 955 ml 975 ml # Voids 4 Height (Feet): 5 Height (Inches): 1.00 Weight (Pounds): 200 General Appearance: confused Neck: supple Cardiovascular: normal rate Respiratory/Chest: lungs clear Abdomen: non tender Reuben Pereira MD January 15, 2017 12:57
--- NOTE | 2017-01-15 13:15 | Consultation ---
DATE OF CONSULTATION: HISTORY OF PRESENT ILLNESS: The patient is a pleasant 66-year-old female with history of schizophrenia, who was on after a recent fall. She was diagnosed with a left tibia fracture. Therefore, orthopedic consultation was obtained for further care and recommendation. PAST MEDICAL HISTORY: Diabetes and schizophrenia. PAST SURGICAL HISTORY: ORIF, left femur. MEDICATIONS: Reviewed from the intake chart. ALLERGIES: None. SOCIAL HISTORY: The patient resides in nursing facility. She does not smoke or drink. FAMILY HISTORY: Noncontributory. PHYSICAL EXAMINATION: GENERAL: The patient is alert, she is resting comfortably in bed. EXTREMITIES: Left leg shows some erythema along the left toe with some induration. At this time, palpation of the proximal tibia dorsalis pedis +2. The study showed displaced transverse proximal tibial shaft fracture. DISCUSSION: At this point, her diabetes poorly controlled. She has a history of cellulitis. On top of that, she is on blood thinners. At this point, she may be a candidate for open reduction and internal fixation to discuss her medical issues with treating consultants she is a candidate for surgery. If she is, then we will proceed with surgery later on this week. If not, then we will continue with the Humalog mobilizer. She is not weightbearing in the meantime. Aftab Oconnor M.D. DR: Gary JOB#: [id number] CC:
[2017-01-15] MEDS ORDERED: Haloperidol 5mg/ml Inj IM ONE (14:50)
[2017-01-15 16:00] VITALS: BP 113/65
--- NOTE | 2017-01-15 16:01 | Consultation ---
Consult Note Consult Note PODIATRY PROGRESS NOTE CONSULTING PHYSICIAN: Seth Harden DPM COVERING FOR: Sukhi Olivares DPM REASON FOR CONSULT: Left lower extremity cellulitis HISTORY OF PRESENT ILLNESS: Patient is a poor historian. The majority of the history was obtained from reviewing the chart. Patient is a resident of a SNF who sustained a fall and was found on the floor on 01/13/17. She was transported to the ER and was noted to have left proximal tibia and fibula fractures. An orthopedic consult has been completed with possible surgery upon improvement of edema. Patient has pain and is currently on [place]. She is non ambulatory. No current nausea, vomiting, fevers, or chills reported PAST MEDICAL HISTORY: T2DM, HTN, DVT with history of IVC filter placement, dementia, psych disorder, schizophrenia, and with current UTI SOCIAL HISTORY: She is currently a resident of a SNF and denies tobacco, alcohol or illicit drug use. Patient has a brother who she states has power of deputy attorney general ALLERGIES: [place] SURGICAL HISTORY: IVC filter placement FAMILY HISTORY: Non contributory Last 24 Hour Vital Signs Date Time Temp Pulse Resp B/P Pulse Ox O2 Delivery O2 Flow Rate FiO2 01/15/17 12:00 98.1 106 20 121/66 96 Nasal Cannula 2.0 01/15/17 08:00 97.7 97 18 108/50 94 Nasal Cannula 2.0 01/15/17 04:30 97.5 111 19 122/74 95 Nasal Cannula 2.0 01/15/17 00:24 97.3 112 18 116/67 93 Nasal Cannula 2.0 01/14/17 20:00 98.1 116 19 120/61 99 Nasal Cannula 2.0 01/14/17 16:00 97.7 111 20 129/70 95 Nasal Cannula 2.0 01/14/17 15:47 97.7 Microbiology Date/Time Source Procedure Growth Status 01/13/17 10:30 Blood Blood Culture - Preliminary NO GROWTH AFTER 24 HOURS Resulted 01/13/17 11:35 Nasal Nares MRSA Culture - Final NO METHICILLIN RESISTANT STAPH AUREUS... Complete 01/13/17 10:40 Urine,Clean Catch Urine Culture - Final Escherichia Coli Complete 01/13/17 11:35 Rectum VRE Culture - Final NO VANCOMYCIN RESISTANT ENTEROCOCCUS ... Complete PHYSICAL EXAM: DERM: No open wounds noted. Patient has edema and mild erythema at the left lower extremity. Ecchymosis noted at the knee and around the left hallux NEURO: Patient has pain with manipulation of the left lower extremity. Unable to assess sensation to light touch VASC: Left lower extremity edema MSK: Pain with palpation surrounding the left knee and the left hallux. IMAGING: Procedure: XRAY Leg Lower Tib Fib 2v L Indication: Pain Comparison: None Findings: Two views of the left tibia and fibula were obtained. Comminuted fracture of the metaphyseal region of the proximal tibia demonstrated. There is involvement of the tibial tuberosity. Mild posterior impaction of the fracture is noted. There is a nondisplaced fracture of the neck of the proximal fibula also. Bones are osteopenic. There is partial visualization of an intramedullary starla within the distal femur. There maybe a fracture of the lateral femoral condyle, which is not evaluated adequately. Soft tissue swelling noted. Impression: Acute fracture of the proximal tibia and fibula as described above. Questionable fracture involving the lateral femoral condyle, not adequately evaluated on this study. Suggest knee series . Assessment/Plan Left lower extremity post traumatic erythema, edema, and ecchymosis. Patient also appears to have a left hallux non displaced fracture at the proximal phalanx - Patient left lower extremity was wrapped with cast padding and binu wrap. Patient was placed in a posterior splint - Elevate the left lower extremity on two pillows if patient is able to tolerate - Orthopedic surgeon is following and making recommendations regarding tibia and fibula fracture along with possible femoral condyle fracture - Hallux fracture does not require surgical intervention Seth Harden DPM January 15, 2017 16:01
--- NOTE | 2017-01-15 18:39 | Infectious Diseases Prog Note ---
Assessment/Plan Problems: (1) UTI (urinary tract infection) Assessment & Plan: with pansensitive E coli, will switch cefepime to ceftriaxon for 5 days (2) Tibia/fibula fracture Assessment & Plan: recommend ortho consult for OPIF (3) Diabetes mellitus Assessment & Plan: recommend tight glycemic control to keep blood glucose between 80-120 Subjective Constitutional: Reports: no symptoms HEENT: Reports: no symptoms Respiratory: Reports: no symptoms Cardiovascular: Reports: no symptoms Gastrointestinal/Abdominal: Reports: no symptoms Genitourinary: Reports: no symptoms Neurologic: Reports: no symptoms Skin: Reports: no symptoms Musculoskeletal: Reports: pain, stiffness Allergies: Coded Allergies: LITHIUM (Unverified Allergy, Unknown, 12/31/12) Objective Vital Signs Last 24 Hour Vital Signs Date Time Temp Pulse Resp B/P Pulse Ox O2 Delivery O2 Flow Rate FiO2 01/15/17 16:00 97.9 105 20 113/65 94 Room Air 01/15/17 12:00 98.1 106 20 121/66 96 Nasal Cannula 2.0 01/15/17 08:00 97.7 97 18 108/50 94 Nasal Cannula 2.0 01/15/17 04:30 97.5 111 19 122/74 95 Nasal Cannula 2.0 01/15/17 00:24 97.3 112 18 116/67 93 Nasal Cannula 2.0 01/14/17 20:00 98.1 116 19 120/61 99 Nasal Cannula 2.0 Height (Feet): 5 Height (Inches): 1.00 Weight (Pounds): 200 General Appearance: WD/WN, no acute distress HEENT: normocephalic, atraumatic, anicteric, mucous membranes moist Respiratory/Chest: chest wall non-tender, normal breath sounds, no respiratory distress, no accessory muscle use Cardiovascular: normal peripheral pulses, normal rate, regular rhythm, no gallop/murmur, no JVD Abdomen: normal bowel sounds, soft, non tender, no organomegaly, non distended , no mass, no scars Extremities: no cyanosis, no clubbing Microbiology Date/Time Source Procedure Growth Status 01/13/17 10:30 Blood Blood Culture - Preliminary NO GROWTH AFTER 24 HOURS Resulted 01/13/17 10:15 Blood Blood Culture - Preliminary NO GROWTH AFTER 24 HOURS Resulted 01/13/17 11:35 Nasal Nares MRSA Culture - Final NO METHICILLIN RESISTANT STAPH AUREUS... Complete 01/13/17 10:40 Urine,Clean Catch Urine Culture - Final Escherichia Coli Complete 01/13/17 11:35 Rectum VRE Culture - Final NO VANCOMYCIN RESISTANT ENTEROCOCCUS ... Complete Current Medications Medications (Trade) Dose Ordered Sig/Ebenezer Route PRN Reason Start Time Stop Time Status Last Admin Dose Admin Acarbose (Precose) 50 mg TIAC ORAL 01/13/17 16:30 02/12/17 16:29 01/15/17 18:26 Acetaminophen (Tylenol) 650 mg Q4H PRN ORAL Mild Pain/Temp > 100.5 01/13/17 13:00 02/12/17 12:59 01/13/17 15:28 Acetaminophen/ Hydrocodone Bitart ([place] 5/325) 1 tab Q4H PRN ORAL Moderate Pain (Pain Scale 4-6) 01/13/17 13:00 01/20/17 12:59 01/15/17 14:34 Al Hydroxide/Mg Hydroxide (Mylanta) 30 ml Q6H PRN ORAL FOR GI DISTRESS 01/13/17 13:00 02/12/17 12:59 Ascorbic Acid (Vitamin C) 500 mg DAILY ORAL 01/14/17 09:00 02/13/17 08:59 01/15/17 08:27 Calcium Carbonate (Tums) 500 mg DAILY ORAL 01/14/17 09:00 02/13/17 08:59 01/15/17 08:27 Cefepime HCl/ Dextrose (Maxipime/D5W) 55 ml @ 110 mls/hr EVERY 12 HOURS IVPB 01/14/17 12:00 01/21/17 11:59 01/15/17 08:27 Dextrose STAT PRN IV Hypoglycemia 01/13/17 15:30 02/12/17 15:29 Enoxaparin Sodium (Lovenox) 80 mg Q12HR SUBQ 01/13/17 21:00 02/12/17 20:59 01/15/17 08:29 Ferrous Sulfate (Feosol) 325 mg DAILY ORAL 01/14/17 09:00 02/13/17 08:59 01/15/17 08:28 Furosemide (Lasix) 40 mg EVERY 12 HOURS ORAL 01/13/17 21:00 02/12/17 20:59 01/15/17 08:27 Insulin Aspart (NovoLOG) BEFORE MEALS AND HS SUBQ 01/13/17 17:00 02/12/17 16:59 01/15/17 18:33 Insulin Aspart (NovoLOG) 10 units NOVOTIAC SUBQ 01/15/17 11:50 02/14/17 11:49 01/15/17 18:34 Insulin Detemir (Levemir) 40 units BEDTIME SUBQ 01/15/17 21:00 02/14/17 20:59 Lorazepam (Ativan) 1 mg Q4HR PRN ORAL For Anxiety 01/13/17 13:00 01/20/17 12:59 01/15/17 12:50 Metformin HCl 850 mg 850 mg TID ORAL 01/13/17 18:00 02/12/17 17:59 01/15/17 18:26 Multivitamins (Multivitamins) 1 tab DAILY ORAL 01/14/17 09:00 02/13/17 08:59 01/15/17 08:27 Olanzapine (ZyPREXA) 20 mg BEDTIME ORAL 01/14/17 21:00 02/13/17 20:59 01/14/17 22:06 Pantoprazole (Protonix) 40 mg DAILY ORAL 01/14/17 09:00 02/13/17 08:59 01/15/17 08:27 Quetiapine Fumarate (SEROquel) 200 mg QID ORAL 01/13/17 13:45 02/12/17 13:44 01/15/17 18:26 Sodium Chloride (Sodium Chloride 1000ml bag) 1,000 ml @ 75 mls/hr [id number] IV 01/13/17 17:00 02/12/17 16:59 01/15/17 08:23 Temazepam (Restoril) 7.5 mg HSPRN PRN ORAL Insomnia 01/13/17 13:00 01/20/17 12:59 Jose Mg M.D. January 15, 2017 18:39
[2017-01-15 20:08] VITALS: BP 112/60
[2017-01-15] MEDS: cefTRIAXone 1 GM in D5W 55 ML IVPB SCH (20:56)
[2017-01-15] MEDS: Levemir Flexpen SUBQ SCH (20:59)
--- NOTE | 2017-01-15 23:33 | General Progress Note ---
Assessment/Plan Assessment/Plan ASSESSMENT: 1. Coagulopathy secondary to use of Coumadin. The patient has been compliant. INR has been between 2 and 3. Now off coumadin since 01/13, INR will come down by itself and will check it again. Need to reverse it for ortho procedure on , have discussed with ortho and with Dr. Pereira 2. Deep venous thrombosis of the lower extremity, status post inferior vena cava filter placement in the past 3. Leukocytosis secondary to recent trauma. 4. Acute left periprosthetic mid shaft fracture of the left femur. 5. Hypertension. 6. Schizophrenia. 7. Status post inferior vena cava filter. 8. Hyperlipidemia. RECOMMENDATION: 1. Lonveox until after surgery 2. Off coumadin 3. INr will come down 4. Follow up with Orthopedic surgery 5. Have given vit K, and give on prn basis 6. Imaging and labs have been reviewed. 7. GI prophylaxis. 8. Discussed with staff. Subjective Constitutional: Denies: chills, diaphoresis, fever, malaise, no symptoms, other , weakness HEENT: Denies: blurred vision, double vision, ear discharge, ear pain, eye pain , mouth pain, mouth swelling, no symptoms, nose congestion, nose pain, other, tearing, throat pain, throat swelling Cardiovascular: Denies: chest pain, edema, irregular heart rate, lightheadedness, no symptoms, other, palpitations, syncope Respiratory: Denies: SOB at rest, SOB with excertion, cough, no symptoms, orthopnea, other, shortness of breath, sputum, stridor, wheezing Gastrointestinal/Abdominal: Denies: abdomen distended, abdominal pain, black stools, blood in stool, constipated, diarrhea, difficulty swallowing, nausea, no symptoms, other, poor appetite, poor fluid intake, rectal bleeding, tarry stools, vomiting Genitourinary: Denies: burning, discharge, flank pain, frequency, hematuria, incontinence, no symptoms, other, pain, urgency Neurologic/Psychiatric: Denies: anxiety, depressed, emotional problems, headache, no symptoms, numbness, other, paresthesia, pre-existing deficit, seizure, tingling, tremors, weakness Endocrine: Denies: excessive sweating, flushing, increased hunger, increased thirst, increased urine, intolerance to cold, intolerance to heat, no symptoms, other, unexplained weight gain, unexplained weight loss Hematologic/Lymphatic: Denies: anemia, easy bleeding, easy bruising, no symptoms, other Allergies: Coded Allergies: LITHIUM (Unverified Allergy, Unknown, 12/31/12) Subjective no fevers, no chills, no events noted Objective Last 24 Hour Vital Signs Date Time Temp Pulse Resp B/P Pulse Ox O2 Delivery O2 Flow Rate FiO2 01/15/17 20:08 98.2 100 20 112/60 91 Nasal Cannula 01/15/17 16:00 97.9 105 20 113/65 94 Room Air 01/15/17 12:00 98.1 106 20 121/66 96 Nasal Cannula 2.0 01/15/17 08:00 97.7 97 18 108/50 94 Nasal Cannula 2.0 01/15/17 04:30 97.5 111 19 122/74 95 Nasal Cannula 2.0 01/15/17 00:24 97.3 112 18 116/67 93 Nasal Cannula 2.0 Intake and Output 01/14/17 01/15/17 18:59 06:59 Intake Total 1267.5 ml 1215 ml Balance 1267.5 ml 1215 ml Intake Oral 350 ml 240 ml IV Total 917.5 ml 975 ml # Voids 4 Height (Feet): 5 Height (Inches): 1.00 Weight (Pounds): 200 General Appearance: no apparent distress EENT: TMs normal Neck: supple Cardiovascular: normal rate Respiratory/Chest: lungs clear Abdomen: normal bowel sounds Extremities: non-tender Edema: 1+ Leg (L), 1+ Leg (R) Neurologic: no motor/sensory deficits Jorge Rivera January 15, 2017 23:33
[2017-01-16 00:01] VITALS: BP 115/71
[2017-01-16 00:11] LABS: PROTHROMBIN TIME 10.3 SEC (9.30-11.50)
[2017-01-16] MEDS: Norco 5mg/325mg tab ORAL PRN ×5 (00:21→23:19)
[2017-01-16] MEDS: LORazepam 1mg tab ORAL PRN ×4 (00:22→23:54)
[2017-01-16 04:00] VITALS: BP 117/60
--- NOTE | 2017-01-16 06:11 | General Progress Note ---
Assessment/Plan Problem List: (1) Diabetes mellitus ICD Codes: E11.9 - Type 2 diabetes mellitus without complications SNOMED: 91255358 (2) HTN (hypertension) ICD Codes: I10 - Essential (primary) hypertension SNOMED: 47007606 (3) Dementia ICD Codes: F03.90 - Unspecified dementia without behavioral disturbance SNOMED: 92661956 (4) Cellulitis ICD Codes: L03.90 - Cellulitis, unspecified SNOMED: 507034994 (5) Tibia/fibula fracture ICD Codes: S82.209A - Unspecified fracture of shaft of unspecified tibia, initial encounter for closed fracture; S82.409A - Unspecified fracture of shaft of unspecified fibula, initial encounter for closed fracture SNOMED: 579714290 Assessment/Plan continue Levemir 40 units qhs continue Novolog 10 units ac tid + SSI continue Metformin 850 mg tid Subjective ROS Limited/Unobtainable: Yes Allergies: Coded Allergies: LITHIUM (Unverified Allergy, Unknown, 12/31/12) Subjective events noted Objective Last 24 Hour Vital Signs Date Time Temp Pulse Resp B/P Pulse Ox O2 Delivery O2 Flow Rate FiO2 01/16/17 04:00 97.5 105 19 117/60 96 Nasal Cannula 01/16/17 00:01 97.3 104 19 115/71 98 Nasal Cannula 01/15/17 20:08 98.2 100 20 112/60 91 Nasal Cannula 01/15/17 16:00 97.9 105 20 113/65 94 Room Air 01/15/17 12:00 98.1 106 20 121/66 96 Nasal Cannula 2.0 01/15/17 08:00 97.7 97 18 108/50 94 Nasal Cannula 2.0 Intake and Output 01/15/17 01/16/17 19:00 07:00 Intake Total 1405 ml Balance 1405 ml Intake Oral 600 ml IV Total 805 ml Laboratory Tests 01/15/17 23:45: Prothrombin Time 10.3, Prothromb Time International Ratio 1.0 Height (Feet): 5 Height (Inches): 1.00 Weight (Pounds): 200 General Appearance: no apparent distress Neck: normal alignment Cardiovascular: normal rate Respiratory/Chest: lungs clear Abdomen: normal bowel sounds Objective Current Medications Medications (Trade) Dose Ordered Sig/[place]ene[place] Route PRN Reason Start Time Stop Time Status Last Admin Dose Admin Acarbose (Precose) 50 mg TIAC ORAL 01/13/17 16:30 02/12/17 16:29 01/15/17 18:26 Acetaminophen (Tylenol) 650 mg Q4H PRN ORAL Mild Pain/Temp > 100.5 01/13/17 13:00 02/12/17 12:59 01/13/17 15:28 Acetaminophen/ Hydrocodone Bitart ([place] 5/325) 1 tab Q4H PRN ORAL Moderate Pain (Pain Scale 4-6) 01/13/17 13:00 01/20/17 12:59 01/16/17 06:09 Al Hydroxide/Mg Hydroxide (Mylanta) 30 ml Q6H PRN ORAL FOR GI DISTRESS 01/13/17 13:00 02/12/17 12:59 Ascorbic Acid (Vitamin C) 500 mg DAILY ORAL 01/14/17 09:00 02/13/17 08:59 01/15/17 08:27 Calcium Carbonate (Tums) 500 mg DAILY ORAL 01/14/17 09:00 02/13/17 08:59 01/15/17 08:27 Ceftriaxone Sodium/Dextrose (Rocephin/D5W) 55 ml @ 110 mls/hr Q24H IVPB 01/15/17 21:00 01/18/17 20:59 01/15/17 20:56 Dextrose STAT PRN IV Hypoglycemia 01/13/17 15:30 02/12/17 15:29 Enoxaparin Sodium (Lovenox) 80 mg Q12HR SUBQ 01/13/17 21:00 02/12/17 20:59 01/15/17 20:58 Ferrous Sulfate (Feosol) 325 mg DAILY ORAL 01/14/17 09:00 02/13/17 08:59 01/15/17 08:28 Furosemide (Lasix) 40 mg EVERY 12 HOURS ORAL 01/13/17 21:00 02/12/17 20:59 01/15/17 20:57 Insulin Aspart (NovoLOG) BEFORE MEALS AND HS SUBQ 01/13/17 17:00 02/12/17 16:59 01/15/17 21:00 Insulin Aspart (NovoLOG) 10 units NOVOTIAC SUBQ 01/15/17 11:50 02/14/17 11:49 01/15/17 18:34 Insulin Detemir 40 units 40 units BEDTIME SUBQ 01/15/17 21:00 02/14/17 20:59 01/15/17 20:59 Lorazepam (Ativan) 1 mg Q4HR PRN ORAL For Anxiety 01/13/17 13:00 01/20/17 12:59 01/16/17 00:22 Metformin HCl (Glucophage) 850 mg TID ORAL 01/13/17 18:00 02/12/17 17:59 01/15/17 18:26 Multivitamins (Multivitamins) 1 tab DAILY ORAL 01/14/17 09:00 02/13/17 08:59 01/15/17 08:27 Olanzapine (ZyPREXA) 20 mg BEDTIME ORAL 01/14/17 21:00 02/13/17 20:59 01/15/17 20:57 Pantoprazole (Protonix) 40 mg DAILY ORAL 01/14/17 09:00 02/13/17 08:59 01/15/17 08:27 Quetiapine Fumarate (SEROquel) 200 mg QID ORAL 01/13/17 13:45 02/12/17 13:44 01/15/17 20:57 Sodium Chloride (Sodium Chloride 1000ml bag) 1,000 ml @ 75 mls/hr [id number] IV 01/13/17 17:00 02/12/17 16:59 01/15/17 21:01 Temazepam (Restoril) 7.5 mg HSPRN PRN ORAL Insomnia 01/13/17 13:00 01/20/17 12:59 Item Value Date Time Bedside Blood Glucose 154 mg/dl H 01/15/17 2100 Bedside Blood Glucose 125 mg/dl H 01/15/17 1834 Bedside Blood Glucose 180 mg/dl H 01/15/17 1255 ZE CARRANZA January 16, 2017 06:11
[2017-01-16] MEDS: NovoLOG Insulin Flexpen SUBQ SCH ×7 (06:30→22:54)
[2017-01-16] MEDS: Precose 50mg tab ORAL SCH ×3 (06:41→17:08)
--- NOTE | 2017-01-16 07:52 | Diagnostic Imaging Report ---
Indication: FX Technique: No IV contrast, per trauma protocol. Spiral acquisitions obtained through the left knee Multiplanar reconstructions were generated. Total dose length product 485 mGycm. CTDIvol(s) 15 mGy. Radiation dose was minimized using automated exposure control Comparison: Reference made to tibial-fibular radiograph of 01/13/2017 Findings: Surgical hardware is seen in the proximal femoral shaft. No acute femoral fracture is demonstrated. A cortical fracture line is seen extending from the medial diaphysis along the posterior cortex to the lateral epicondyle. This appears to be old, as there is associated periosteal thickening. There is a comminuted fracture of the proximal tibia. The main fracture line is obliquely oriented, involves the metadiaphysis, is medially angulated, overrides by approximately 6 mm, and is medially displaced by approximately 6 mm. One or more nondisplaced fracture lines are also seen extending cephalad from the main fracture line, oriented sagittally along the longitudinal axis of the tibia and extending to the articular surface. A nondisplaced coronal fracture line is also demonstrated at the level of the main fracture line. The fracture at the articular surface is only minimally displaced. There is also fracture of the tibial tuberosity which is comminuted, minimally displaced. This is adjacent to the main fracture line. There is also a comminuted nondisplaced fracture of the fibular head. There is a small joint effusion. This is high in attenuation, indicating it is likely bloody. There is evidence of contusion of the surrounding subcutaneous fat, as well as some skin thickening. The patella is intact. Venous varicosities are also demonstrated. These are small. Impression: Positive for complex comminuted minimally displaced proximal, as described Positive for comminuted minimally displaced fracture of the fibular head Small joint effusion, likely a hemarthrosis Postsurgical and posttraumatic changes of the femur Other findings as noted The CT scanner at [facility] is accredited by the [employer] and the scans are performed using protocols designed to limit radiation exposure to as low as reasonably achievable to attain images of sufficient resolution adequate for diagnostic evaluation.
[2017-01-16] MEDS: Ascorbic Acid 500mg tab ORAL SCH (08:22)
[2017-01-16] MEDS: Furosemide 40mg tab ORAL SCH ×2 (08:22→22:51)
[2017-01-16] MEDS: Tums 500mg ORAL SCH (08:22)
[2017-01-16] MEDS: QUEtiapine 200mg tab ORAL SCH ×4 (08:22→22:51)
[2017-01-16] MEDS: Enoxaparin 80mg Inj SUBQ SCH ×2 (08:31→21:00)
--- NOTE | 2017-01-16 11:07 | General Progress Note ---
Assessment/Plan Problem List: (1) Cellulitis ICD Codes: L03.90 - Cellulitis, unspecified SNOMED: 695304747 (2) Diabetes mellitus ICD Codes: E11.9 - Type 2 diabetes mellitus without complications SNOMED: 41015406 (3) UTI (urinary tract infection) ICD Codes: N39.0 - Urinary tract infection, site not specified SNOMED: 67417963 (4) Tibia/fibula fracture ICD Codes: S82.209A - Unspecified fracture of shaft of unspecified tibia, initial encounter for closed fracture; S82.409A - Unspecified fracture of shaft of unspecified fibula, initial encounter for closed fracture SNOMED: 400183230 (5) Dementia ICD Codes: F03.90 - Unspecified dementia without behavioral disturbance SNOMED: 41863171 (6) HTN (hypertension) ICD Codes: I10 - Essential (primary) hypertension SNOMED: 52479239 Status: progressing Assessment/Plan afebrile labile dm cellutitis of le fracture of le dr garrido is ortho on the case surgery on for tommorrow reversal of inr per dr taylor moniter for bleeding Subjective ROS Limited/Unobtainable: Yes Constitutional: Reports: no symptoms Respiratory: Reports: no symptoms Allergies: Coded Allergies: LITHIUM (Unverified Allergy, Unknown, 12/31/12) Subjective pain legs Objective Last 24 Hour Vital Signs Date Time Temp Pulse Resp B/P Pulse Ox O2 Delivery O2 Flow Rate FiO2 01/16/17 04:00 97.5 105 19 117/60 96 Nasal Cannula 01/16/17 00:01 97.3 104 19 115/71 98 Nasal Cannula 01/15/17 20:08 98.2 100 20 112/60 91 Nasal Cannula 01/15/17 16:00 97.9 105 20 113/65 94 Room Air 01/15/17 12:00 98.1 106 20 121/66 96 Nasal Cannula 2.0 Intake and Output 01/15/17 01/16/17 19:00 07:00 Intake Total 1480 ml 1215 ml Balance 1480 ml 1215 ml Intake Oral 600 ml 240 ml IV Total 880 ml 975 ml # Voids 3 Laboratory Tests 01/15/17 23:45: Prothrombin Time 10.3, Prothromb Time International Ratio 1.0 Height (Feet): 5 Height (Inches): 1.00 Weight (Pounds): 200 Neck: supple Respiratory/Chest: lungs clear Abdomen: soft Reuben Pereira MD January 16, 2017 11:07
[2017-01-16 11:59] VITALS: BP 109/60
--- NOTE | 2017-01-16 15:18 | Infectious Diseases Prog Note ---
Assessment/Plan Problems: (1) UTI (urinary tract infection) Assessment & Plan: with pansensitive E coli, will treat with ceftriaxon for 5 days (2) Tibia/fibula fracture Assessment & Plan: needs ORIF, ortho is following (3) Diabetes mellitus Assessment & Plan: recommend tight glycemic control to keep blood glucose between 80-120 (4) Abdominal pain Assessment & Plan: rule out illeus, will obtain X RAY of the abdomen, further management as per primary Subjective Constitutional: Reports: no symptoms HEENT: Reports: no symptoms Respiratory: Reports: no symptoms Cardiovascular: Reports: no symptoms Gastrointestinal/Abdominal: Reports: bloating, constipation Genitourinary: Reports: frequency Neurologic: Reports: no symptoms Psychiatric: Reports: anxiety Skin: Reports: other - BRUISES Endocrine: Reports: no symptoms Musculoskeletal: Reports: pain, swelling Allergies: Coded Allergies: LITHIUM (Unverified Allergy, Unknown, 12/31/12) Objective Vital Signs Last 24 Hour Vital Signs Date Time Temp Pulse Resp B/P Pulse Ox O2 Delivery O2 Flow Rate FiO2 01/16/17 11:59 97.3 103 18 109/60 95 Nasal Cannula 2.0 01/16/17 10:52 97.5 01/16/17 04:00 97.5 105 19 117/60 96 Nasal Cannula 01/16/17 00:01 97.3 104 19 115/71 98 Nasal Cannula 01/15/17 20:08 98.2 100 20 112/60 91 Nasal Cannula 01/15/17 16:00 97.9 105 20 113/65 94 Room Air Height (Feet): 5 Height (Inches): 1.00 Weight (Pounds): 200 General Appearance: WD/WN, no acute distress HEENT: normocephalic, atraumatic, anicteric, mucous membranes moist Respiratory/Chest: chest wall non-tender, lungs clear, normal breath sounds, no respiratory distress, no accessory muscle use, decreased breath sounds Cardiovascular: normal peripheral pulses, normal rate, regular rhythm, no gallop/murmur, no JVD Abdomen: normal bowel sounds, soft, non tender, no organomegaly, non distended , no mass Extremities: no cyanosis, no clubbing Skin: no rash, no lesions Laboratory Tests Test 01/15/17 23:45 Prothrombin Time 10.3 SEC (9.30-11.50) Prothromb Time International Ratio 1.0 (0.9-1.1) Current Medications Medications (Trade) Dose Ordered Sig/Ebenezer Route PRN Reason Start Time Stop Time Status Last Admin Dose Admin Acarbose (Precose) 50 mg TIAC ORAL 01/13/17 16:30 02/12/17 16:29 01/16/17 12:30 Acetaminophen (Tylenol) 650 mg Q4H PRN ORAL Mild Pain/Temp > 100.5 01/13/17 13:00 02/12/17 12:59 01/13/17 15:28 Acetaminophen/ Hydrocodone Bitart ([place] 5/325) 1 tab Q4H PRN ORAL Moderate Pain (Pain Scale 4-6) 01/13/17 13:00 01/20/17 12:59 01/16/17 14:22 Al Hydroxide/Mg Hydroxide (Mylanta) 30 ml Q6H PRN ORAL FOR GI DISTRESS 01/13/17 13:00 02/12/17 12:59 Ascorbic Acid (Vitamin C) 500 mg DAILY ORAL 01/14/17 09:00 02/13/17 08:59 01/16/17 08:22 Calcium Carbonate (Tums) 500 mg DAILY ORAL 01/14/17 09:00 02/13/17 08:59 01/16/17 08:22 Ceftriaxone Sodium/Dextrose (Rocephin/D5W) 55 ml @ 110 mls/hr Q24H IVPB 01/15/17 21:00 01/18/17 20:59 01/15/17 20:56 Dextrose (Dextrose 50%) STAT PRN IV Hypoglycemia 01/13/17 15:30 02/12/17 15:29 Enoxaparin Sodium (Lovenox) 80 mg Q12HR SUBQ 01/13/17 21:00 02/12/17 20:59 01/16/17 08:31 Ferrous Sulfate (Feosol) 325 mg DAILY ORAL 01/14/17 09:00 02/13/17 08:59 01/16/17 08:22 Furosemide (Lasix) 40 mg EVERY 12 HOURS ORAL 01/13/17 21:00 02/12/17 20:59 01/16/17 08:22 Insulin Aspart (NovoLOG) BEFORE MEALS AND HS SUBQ 01/13/17 17:00 02/12/17 16:59 01/16/17 12:32 Insulin Aspart (NovoLOG) 10 units NOVOTIAC SUBQ 01/15/17 11:50 02/14/17 11:49 01/16/17 12:33 Insulin Detemir 40 units 40 units BEDTIME SUBQ 01/15/17 21:00 02/14/17 20:59 01/15/17 20:59 Lorazepam (Ativan) 2 mg Q6H PRN ORAL For Anxiety 01/16/17 12:00 01/23/17 11:59 01/16/17 14:16 Metformin HCl (Glucophage) 850 mg TID ORAL 01/13/17 18:00 02/12/17 17:59 01/16/17 12:54 Multivitamins (Multivitamins) 1 tab DAILY ORAL 01/14/17 09:00 02/13/17 08:59 01/16/17 08:22 Olanzapine (ZyPREXA) 20 mg BEDTIME ORAL 01/14/17 21:00 02/13/17 20:59 01/15/17 20:57 Pantoprazole (Protonix) 40 mg DAILY ORAL 01/14/17 09:00 02/13/17 08:59 01/16/17 08:22 Quetiapine Fumarate (SEROquel) 200 mg QID ORAL 01/13/17 13:45 02/12/17 13:44 01/16/17 12:54 Temazepam (Restoril) 7.5 mg HSPRN PRN ORAL Insomnia 01/13/17 13:00 01/20/17 12:59 Jose Mg M.D. January 16, 2017 15:18
[2017-01-16 15:54] VITALS: BP 107/60
--- NOTE | 2017-01-16 16:04 | Diagnostic Imaging Report ---
Indication: Abdominal distention and Technique: Supine view of the abdomen Comparison: none Findings: There is an inferior vena cava filter in place in the expected region of the more caudad inferior vena cava. Bowel gas pattern is unremarkable. No gaseous distention of large or small bowel. There is considerable somewhat dense colonic stool. There is left hip hardware. Impression: Possible constipation No definite acute process Postsurgical changes as described
[2017-01-16 20:00] VITALS: BP 116/62
--- NOTE | 2017-01-16 20:45 | Progress Note ---
DATE: 01/15/2017 SUBJECTIVE: The patient was severely agitated, yelling and screaming, I ordered Haldol 5 mg IM. When I saw the patient, the patient appeared to be agitated and "my hair, my hair". She was not able to verbalize what she exactly said about. I was unable to discuss with her in regards to her consent for the surgery. MENTAL STATUS EXAMINATION: The patient is alert and oriented times place, person, and situation. Mood was agitated. Affect is constricted. Congruent with mood. Thought process is tangential. Thought content positive for delusions. Insight and judgment is impaired. ASSESSMENT: Schizoaffective disorder versus schizophrenia. PLAN: 1. The patient will be continued on olanzapine. 2. Continue the Seroquel. 3. We will continue to follow and readjust the medications. Noel Hennessy M.D. DR: Alina JOB#: [id number] CC:
[2017-01-16] MEDS: Levemir Flexpen SUBQ SCH (22:52)
[2017-01-16] MEDS: cefTRIAXone 1 GM in D5W 55 ML IVPB SCH (23:01)
[2017-01-17] VITALS (11 sets, daily range): BP systolic 103–143; BP diastolic 49–74
[2017-01-17] MEDS: NovoLOG Insulin Flexpen SUBQ SCH ×7 (06:30→20:38)
[2017-01-17] MEDS: Precose 50mg tab ORAL SCH ×3 (06:48→16:30)
[2017-01-17] MEDS: Ascorbic Acid 500mg tab ORAL SCH (09:00)
[2017-01-17] MEDS: Tums 500mg ORAL SCH (09:00)
[2017-01-17] MEDS: QUEtiapine 200mg tab ORAL SCH ×3 (09:00→18:00)
[2017-01-17] MEDS: Enoxaparin 80mg Inj SUBQ SCH (09:00)
[2017-01-17] MEDS: Furosemide 40mg tab ORAL SCH ×2 (09:00→20:37)
--- NOTE | 2017-01-17 10:53 | General Progress Note ---
Assessment/Plan Problem List: (1) Cellulitis ICD Codes: L03.90 - Cellulitis, unspecified SNOMED: 580350835 (2) Diabetes mellitus ICD Codes: E11.9 - Type 2 diabetes mellitus without complications SNOMED: 59889202 (3) UTI (urinary tract infection) ICD Codes: N39.0 - Urinary tract infection, site not specified SNOMED: 52612055 (4) Tibia/fibula fracture ICD Codes: S82.209A - Unspecified fracture of shaft of unspecified tibia, initial encounter for closed fracture; S82.409A - Unspecified fracture of shaft of unspecified fibula, initial encounter for closed fracture SNOMED: 733224824 (5) Dementia ICD Codes: F03.90 - Unspecified dementia without behavioral disturbance SNOMED: 13326026 (6) HTN (hypertension) ICD Codes: I10 - Essential (primary) hypertension SNOMED: 24102550 Status: progressing Assessment/Plan afebrile labile dm cellutitis of le fracture of le srugey most likely today by dr garrido no bleeding Subjective ROS Limited/Unobtainable: Yes Constitutional: Reports: no symptoms Allergies: Coded Allergies: LITHIUM (Unverified Allergy, Unknown, 12/31/12) Subjective pain legs Objective Last 24 Hour Vital Signs Date Time Temp Pulse Resp B/P Pulse Ox O2 Delivery O2 Flow Rate FiO2 01/17/17 08:00 97.0 107 20 113/66 96 Room Air 01/17/17 04:00 98.1 114 20 125/63 92 Nasal Cannula 2.0 01/17/17 00:00 97.5 115 20 136/73 Room Air 01/16/17 20:00 99.0 106 20 116/62 94 Nasal Cannula 3.0 01/16/17 15:54 98.1 101 18 107/60 93 Nasal Cannula 2.0 01/16/17 15:21 98.1 01/16/17 11:59 97.3 103 18 109/60 95 Nasal Cannula 2.0 Intake and Output 01/16/17 01/17/17 19:00 07:00 Intake Total 1245 ml Output Total 500 ml 1800 ml Balance 745 ml -1800 ml Intake Oral 720 ml IV Total 525 ml Output Urine Total 500 ml 1800 ml # Voids 4 Height (Feet): 5 Height (Inches): 1.00 Weight (Pounds): 200 Neck: non-tender Cardiovascular: normal rate Respiratory/Chest: lungs clear Abdomen: soft Reuben Pereira MD Jan 17, 2017 10:53
[2017-01-17] MEDS ORDERED: Ropivacaine 5mg/ml Vial 20ml INJ ONE (13:11)
[2017-01-17] MEDS ORDERED: Bacitracin 50000 Units Vial ONE (13:22)
[2017-01-17] MEDS ORDERED: Bupivacaine w/Epi 0.25% 30ml Vial INJ ONE (13:22)
[2017-01-17] MEDS ORDERED: LR 1000ml 1,000 ML IVLG SCH (13:26)
--- NOTE | 2017-01-17 13:26 | Anethesia Preoperative Eval ---
Anesthesia Pre-op PMH/ROS General Date of Evaluation: Jan 17, 2017 Time of Evaluation: 20:31 Anesthesiologist: Amy ASA Score: ASA 3 - Emergency Mallampati Score Class I : Soft palate, uvula, fauces, pillars visible Class II: Soft palate, uvula, fauces visible Class III: Soft palate, base of uvula visible Class IV: Only hard plate visible Mallampati Classification: Class II Surgeon: Elvin Diagnosis: L Tibial Pain Surgical Procedure: ORIF L Tibia Anesthesia History: none Family History: no anesthesia problems Allergies: Coded Allergies: LITHIUM (Unverified Allergy, Unknown, 12/31/12) Medications: see eMAR Past Medical History Cardiovascular: Reports: CAD, HTN, other - HL Neurologic/Psychiatric: Reports: dementia, other - Schizophrenia Endocrine: Reports: DM Hematology/Immune: Reports: DVT Other: obesity - BMI 38 Anesthesia Pre-op Phys. Exam Physician Exam Last Vital Signs Date Time Temp Pulse Resp B/P Pulse Ox O2 Delivery O2 Flow Rate FiO2 01/17/17 12:00 97.2 105 20 122/74 97 Room Air 01/17/17 04:00 2.0 Constitutional: NAD Neurologic: CN 2-12 intact Cardiovascular: RRR Respiratory: CTA Gastrointestinal: S/NT/ND Airway Exam Mallampati Score: Class II MO: limited ROM: limited Teeth: missing Anesthesia Pre-op A/P Risk Assessment & Plan Assessment: ASA 3 Plan: GA, BIS, L Sciatic Block Status Change Before Surgery: No Pre-Antibiotics Dru Grams Ancef IV Given Within 1 Hr of Incision: Yes Time Given: 20:46 Brandon Reyes MD Jan 17, 2017 13:26
[2017-01-17] MEDS ORDERED: Midazolam 2mg/2ml Inj IVP PRN (13:30)
[2017-01-17] MEDS ORDERED: Norco 7.5mg/325mg tab ORAL PRN (13:30)
[2017-01-17] MEDS ORDERED: fentaNYL 100 mcg/2 mL IV PRN (13:30)
[2017-01-17] MEDS ORDERED: Atropine Inj 1mg/10ml Syr IV PRN (13:30)
[2017-01-17] MEDS ORDERED: Oxycodone/Acetaminophen 5-325 ORAL PRN (13:30)
[2017-01-17] MEDS ORDERED: LORazepam Inj 2mg/ml 1ml IV PRN (13:30)
[2017-01-17] MEDS ORDERED: Norco 5mg/325mg tab ORAL PRN (13:30)
[2017-01-17] MEDS ORDERED: DiphenhydrAMINE 50mg/ml Inj IVP PRN (13:30)
[2017-01-17] MEDS ORDERED: Meperidine 25mg/0.5ml Inj IV PRN (13:30)
[2017-01-17] MEDS ORDERED: Hydromorphone 0.5mg/0.5ml inj IVP PRN (13:30)
--- NOTE | 2017-01-17 13:45 | Immediate Post-Op Evaluation ---
Immediate Post-Op Evalulation Immediate Post-Op Evalulation Procedure: ORIF L Tibia Date of Evaluation: Jan 17, 2017 Time of Evaluation: 22:52 IV Fluids: 600 LR Blood Products: 0 Estimated Blood Loss: 50 Urinary Output: 50 Blood Pressure Systolic: 125 Blood Pressure Diastolic: 67 Pulse Rate: 102 Respiratory Rate: 20 O2 Sat by Pulse Oximetry: 95 Temperature (Fahrenheit): 97.3 Pain Score (1-10): 1 Nausea: No Vomiting: No Complications 0 Patient Status: awake, reacts, patent, extubated, none Hydration Status: adequate Dru Grams Ancef IV Given Within 1 Hr of Incision: Yes Time Given: 20:46 Brandon Reyes MD Jan 17, 2017 13:45
--- NOTE | 2017-01-17 14:11 | General Progress Note ---
Assessment/Plan Assessment/Plan ASSESSMENT: 1. Coagulopathy secondary to use of Coumadin. The patient has been compliant. will restart coumadin, lovenox 2. Deep venous thrombosis of the lower extremity, status post inferior vena cava filter placement in the past 3. Leukocytosis secondary to recent trauma. 4. Acute left periprosthetic mid shaft fracture of the left femur. s/p orif 5. Hypertension. 6. Schizophrenia. 7. Status post inferior vena cava filter. 8. Hyperlipidemia. RECOMMENDATION: 1. Lonveox restarted 2. Back on coumadin 3. INr goal 2-3 4. s/p procedure, orif 5. GI prophylaxis. 6. Discussed with staff. Subjective Constitutional: Reports: no symptoms HEENT: Reports: no symptoms Cardiovascular: Reports: no symptoms Respiratory: Reports: no symptoms Gastrointestinal/Abdominal: Reports: no symptoms Genitourinary: Reports: no symptoms Neurologic/Psychiatric: Reports: no symptoms Endocrine: Reports: no symptoms Hematologic/Lymphatic: Reports: anemia Allergies: Coded Allergies: LITHIUM (Unverified Allergy, Unknown, 12/31/12) Subjective no fevers, no chills, no events reported, s/p procedure, orif Objective Last 24 Hour Vital Signs Date Time Temp Pulse Resp B/P Pulse Ox O2 Delivery O2 Flow Rate FiO2 01/17/17 12:00 97.2 105 20 122/74 97 Room Air 01/17/17 08:00 97.0 107 20 113/66 96 Room Air 01/17/17 04:00 98.1 114 20 125/63 92 Nasal Cannula 2.0 01/17/17 00:00 97.5 115 20 136/73 Room Air 01/16/17 20:00 99.0 106 20 116/62 94 Nasal Cannula 3.0 01/16/17 15:54 98.1 101 18 107/60 93 Nasal Cannula 2.0 01/16/17 15:21 98.1 Intake and Output 01/16/17 01/17/17 19:00 07:00 Intake Total 1245 ml Output Total 500 ml 1800 ml Balance 745 ml -1800 ml Intake Oral 720 ml IV Total 525 ml Output Urine Total 500 ml 1800 ml # Voids 4 Height (Feet): 5 Height (Inches): 1.00 Weight (Pounds): 200 General Appearance: WD/WN EENT: pharynx normal Neck: normal alignment Cardiovascular: regular rhythm Respiratory/Chest: no respiratory distress Abdomen: no organomegaly Extremities: non-tender, other - cellulitis le Edema: mild edema Neurologic: alert Jorge Rivera Jan 17, 2017 14:11
--- NOTE | 2017-01-17 15:32 | Infectious Diseases Prog Note ---
Assessment/Plan Problems: (1) UTI (urinary tract infection) Assessment & Plan: with pansensitive E coli, continue ceftriaxon for 5 days (2) Tibia/fibula fracture Assessment & Plan: for ORIF today , ortho is following (3) Diabetes mellitus Assessment & Plan: recommend tight glycemic control to keep blood glucose between 80-120 (4) Abdominal pain Assessment & Plan: suspect due to constipation from narcotics, confirmed on X RAY of the abdomen, further management as per primary Subjective Constitutional: Reports: no symptoms HEENT: Reports: no symptoms Respiratory: Reports: no symptoms Cardiovascular: Reports: no symptoms Gastrointestinal/Abdominal: Reports: no symptoms Genitourinary: Reports: no symptoms Neurologic: Reports: no symptoms Psychiatric: Reports: anxiety Musculoskeletal: Reports: pain, stiffness, swelling Allergies: Coded Allergies: LITHIUM (Unverified Allergy, Unknown, 12/31/12) Objective Vital Signs Last 24 Hour Vital Signs Date Time Temp Pulse Resp B/P Pulse Ox O2 Delivery O2 Flow Rate FiO2 01/17/17 12:00 97.2 105 20 122/74 97 Room Air 01/17/17 08:00 97.0 107 20 113/66 96 Room Air 01/17/17 04:00 98.1 114 20 125/63 92 Nasal Cannula 2.0 01/17/17 00:00 97.5 115 20 136/73 Room Air 01/16/17 20:00 99.0 106 20 116/62 94 Nasal Cannula 3.0 01/16/17 15:54 98.1 101 18 107/60 93 Nasal Cannula 2.0 Height (Feet): 5 Height (Inches): 1.00 Weight (Pounds): 200 General Appearance: WD/WN, no acute distress HEENT: normocephalic, atraumatic, anicteric, mucous membranes moist Respiratory/Chest: chest wall non-tender, lungs clear, normal breath sounds, no respiratory distress Cardiovascular: normal peripheral pulses, normal rate, regular rhythm, no gallop/murmur Abdomen: normal bowel sounds, soft, non tender, no organomegaly, non distended , no mass Extremities: no cyanosis, no clubbing Skin: no rash, no lesions Laboratory Tests Test 01/17/17 15:00 Prothrombin Time 10.0 SEC (9.30-11.50) Prothromb Time International Ratio 1.0 (0.9-1.1) Current Medications Medications (Trade) Dose Ordered Sig/Ebenezer Route PRN Reason Start Time Stop Time Status Last Admin Dose Admin Acarbose (Precose) 50 mg TIAC ORAL 01/13/17 16:30 02/12/17 16:29 01/17/17 06:48 Acetaminophen (Tylenol) 650 mg Q4H PRN ORAL Mild Pain/Temp > 100.5 01/13/17 13:00 02/12/17 12:59 01/13/17 15:28 Acetaminophen/ Hydrocodone Bitart ([place] 5/325) 1 tab Q1H PRN ORAL Mild Pain (Pain Scale 1-3) 01/17/17 13:30 01/17/17 22:00 Acetaminophen/ Hydrocodone Bitart ([place] 5/325) 1 tab Q4H PRN ORAL Moderate Pain (Pain Scale 4-6) 01/13/17 13:00 01/20/17 12:59 01/16/17 23:19 Acetaminophen/ Hydrocodone Bitart ([place] 7.5/325) 1 ea Q1H PRN ORAL Moderate Pain (Pain Scale 4-6) 01/17/17 13:30 01/17/17 22:00 Al Hydroxide/Mg Hydroxide (Mylanta) 15 ml Q1H PRN ORAL gi upset 01/17/17 13:30 01/17/17 22:00 Al Hydroxide/Mg Hydroxide (Mylanta) 30 ml Q6H PRN ORAL FOR GI DISTRESS 01/13/17 13:00 02/12/17 12:59 Ascorbic Acid (Vitamin C) 500 mg DAILY ORAL 01/14/17 09:00 02/13/17 08:59 01/16/17 08:22 Atropine Sulfate (Atropine) 0.5 mg Q5M PRN IV HR <40 01/17/17 13:30 01/17/17 22:00 Calcium Carbonate (Tums) 500 mg DAILY ORAL 01/14/17 09:00 02/13/17 08:59 01/16/17 08:22 Ceftriaxone Sodium/Dextrose (Rocephin/D5W) 55 ml @ 110 mls/hr Q24H IVPB 01/15/17 21:00 01/18/17 20:59 01/16/17 23:01 Dextrose (Dextrose 50%) STAT PRN IV Hypoglycemia 01/13/17 15:30 02/12/17 15:29 Diphenhydramine HCl (Benadryl) 25 mg Q15M PRN IVP Itching 01/17/17 13:30 01/17/17 22:00 Enoxaparin Sodium (Lovenox) 80 mg EVERY 12 HOURS SUBQ 01/18/17 09:00 02/17/17 08:59 Fentanyl Citrate (Sublimaze 100 mcg/2 mL) 25 mcg Q10M PRN IV Moderate Pain (Pain Scale 4-6) 01/17/17 13:30 01/17/17 22:00 Ferrous Sulfate (Feosol) 325 mg DAILY ORAL 01/14/17 09:00 02/13/17 08:59 01/16/17 08:22 Furosemide (Lasix) 40 mg EVERY 12 HOURS ORAL 01/13/17 21:00 02/12/17 20:59 01/16/17 22:51 Hydralazine HCl (Apresoline) 5 mg Q30M PRN IV SBP>160 / DBP>90 01/17/17 13:30 01/17/17 22:00 Hydromorphone HCl (Dilaudid) 0.5 mg Q15M PRN IVP Severe Pain (Pain Scale 7-10) 01/17/17 13:30 01/17/17 22:00 Insulin Aspart (NovoLOG) BEFORE MEALS AND HS SUBQ 01/13/17 17:00 02/12/17 16:59 01/17/17 06:48 Insulin Aspart (NovoLOG) 10 units NOVOTIAC SUBQ 01/15/17 11:50 02/14/17 11:49 01/16/17 17:12 Insulin Detemir 40 units 40 units BEDTIME SUBQ 01/15/17 21:00 02/14/17 20:59 01/16/17 22:52 Lorazepam (Ativan 2mg/ml 1ml) 1 mg Q15M PRN IV For Anxiety 01/17/17 13:30 01/17/17 22:00 Lorazepam (Ativan) 2 mg Q6H PRN ORAL For Anxiety 01/16/17 12:00 01/23/17 11:59 01/16/17 23:54 Meperidine HCl (Demerol) 25 mg Q5M PRN IV Shivering. May repeat x 1 01/17/17 13:30 01/17/17 22:00 Metformin HCl (Glucophage) 850 mg TID ORAL 01/13/17 18:00 02/12/17 17:59 01/16/17 17:09 Midazolam HCl (Versed 2mg/2ml vial) 1 mg Q15M PRN IVP For Anxiety 01/17/17 13:30 01/17/17 22:00 Multivitamins (Multivitamins) 1 tab DAILY ORAL 01/14/17 09:00 02/13/17 08:59 01/16/17 08:22 Olanzapine (ZyPREXA) 20 mg BEDTIME ORAL 01/14/17 21:00 02/13/17 20:59 01/16/17 22:51 Ondansetron HCl (Zofran) 4 mg Q1H PRN IVP Nausea & Vomiting 01/17/17 13:30 01/17/17 22:00 Oxycodone/ Acetaminophen (Percocet 5-325) 1 tab Q1H PRN ORAL Severe Pain (Pain Scale 7-10) 01/17/17 13:30 01/17/17 22:00 Pantoprazole (Protonix) 40 mg DAILY ORAL 01/14/17 09:00 02/13/17 08:59 01/16/17 08:22 Quetiapine Fumarate (SEROquel) 200 mg QID ORAL 01/13/17 13:45 02/12/17 13:44 01/16/17 22:51 Temazepam (Restoril) 7.5 mg HSPRN PRN ORAL Insomnia 01/13/17 13:00 01/20/17 12:59 Warfarin Sodium (Coumadin per pharmacy) 1 ea COUMADIN PRN MISC Per rx protocol 01/17/17 14:15 02/16/17 14:14 Jose Garcia M.D. Jan 17, 2017 15:32
[2017-01-17] MEDS: LORazepam 1mg tab ORAL PRN (16:18)
[2017-01-17] MEDS: Haloperidol 5mg/ml Inj IM ONE (19:15)
[2017-01-17] MEDS: DiphenhydrAMINE 50mg/ml Inj IVP ONE (19:15)
[2017-01-17] MEDS: LORazepam Inj 2mg/ml 1ml IV ONE (19:15)
[2017-01-17] MEDS ORDERED: WARFARIN SOD ORAL ONE ×2 (20:00)
[2017-01-17] MEDS ORDERED: Propofol 10mg/ml 20ml IV ONE (20:30)
[2017-01-17] MEDS ORDERED: LR 1000ml ONE ×2 (20:30)
[2017-01-17] MEDS ORDERED: Lidocaine 1% MPF 10mg/ml 5ml ONE (20:30)
[2017-01-17] MEDS ORDERED: NS Irrig 1000ml ONE (20:30)
[2017-01-17] MEDS ORDERED: fentaNYL 100 mcg/2 mL IV ONE (20:30)
[2017-01-17] MEDS ORDERED: Sterile Water Irrig 1000ml IRRIG ONE (20:30)
[2017-01-17] MEDS ORDERED: Midazolam 2mg/2ml Inj ONE (20:30)
--- NOTE | 2017-01-17 20:34 | Operative Note - PDOC ---
Operative Note Operative Note Pre-op Diagnosis: left tibia fracture Procedure: orif left tibia Post-op Diagnosis: same as pre-op Operative Findings: consistent w/pre-op dx studies Anesthesia: general Specimen: none Complications: none Condition: stable Implant(s) used?: Yes KEE QURESHI Jan 17, 2017 20:34
--- NOTE | 2017-01-17 20:34 | Pre-Procedure Note/Attestation ---
Pre-Procedure Note/Attestation Complete Prior to Procedure Planned Procedure: left Procedure Narrative: tibia orif Indications for Procedure Pre-Operative Diagnosis: left tibia fracture Attestation I attest that I discussed the nature of the procedure; its benefits; risks and complications; and alternatives (and the risks and benefits of such alternatives ), prior to the procedure, with the patient (or the patient's legal marketing representative). I attest that, if there was a reasonable possibility of needing a blood transfusion, the patient (or the patient's legal marketing representative) was given the [facility] standardized written summary, pursuant to the Darius Aly Blood Safety Act ([place] Health and Safety Code # 1645, as amended). I attest that I re-evaluated the patient just prior to the surgery and that there has been no change in the patient's H&P, except as documented below: KEE QURESHI Jan 17, 2017 20:34
[2017-01-17] MEDS: cefTRIAXone 1 GM in D5W 55 ML IVPB SCH (20:37)
[2017-01-17] MEDS: Levemir Flexpen SUBQ SCH (20:38)
[2017-01-17] MEDS: ZyPREXA Zydis 10mg tab ORAL SCH (20:38)
--- NOTE | 2017-01-17 21:00 | Progress Note ---
DATE: 01/17/2017 SUBJECTIVE: The patient is calmer today and still tends to have episodes of anxiety and agitation. She has a poor insight into her mental condition. The patient is unable to understand process, communicate, or appreciate. Information is given to her in regards to her medical condition and is unable to have rational conversation. MENTAL STATUS EXAMINATION: The patient is alert and oriented times self and place. Mood is anxious. Affect is constricted. Congruent with mood. Thought process is concrete. Thought content, no suicidal or homicidal ideations. ASSESSMENT: Schizophrenia. PLAN: 1. The patient lacks capacity to make any decision. 2. We will continue the current medications including olanzapine and Seroquel. 3. Provide the patient with supportive therapy and reality orientation. Noel Hennessy M.D. DR: MORRO JOB#: [id number] CC:
[2017-01-18] VITALS: BP 139/70
[2017-01-18] MEDS: Haloperidol 5mg/ml Inj IM ONE (00:20)
[2017-01-18] MEDS: LORazepam Inj 2mg/ml 1ml IV ONE (00:20)
[2017-01-18] MEDS: DiphenhydrAMINE 50mg/ml Inj IVP ONE (00:20)
[2017-01-18] MEDS: D5 1/2NS 1,000 ML IV SCH ×2 (01:11→14:00)
[2017-01-18 04:00] VITALS: BP 127/71
--- NOTE | 2017-01-18 04:45 | Operative Note - Dictated ---
DATE OF OPERATION: 01/17/2017 PREOPERATIVE DIAGNOSIS: Left tibial plateau fracture. POSTOPERATIVE DIAGNOSIS: Left tibial plateau fracture. PROCEDURES: Open reduction and internal fixation, left tibial plateau fracture with plate and screw fixation. SURGEON: Aftab Oconnor M.D. ANESTHESIA: General. INDICATION FOR THE PROCEDURE: The patient is a pleasant female, who sustained a mechanical fall. She was diagnosed with displaced left proximal tibia fracture, indicative of operative fixation to stabilize the fracture, decrease pain, and early mobilization. Risks, limitations, expectations, and complication of procedure were discussed with the patient. DESCRIPTION OF PROCEDURE: An informed consent was obtained. The patient was taken to the operating room and placed under general anesthesia. The patient did have multiple block placed. Tourniquet was applied to the left proximal thigh. Left leg was prepped and draped in a sterile manner. A lateral skin incision was then made. The tibialis anterior muscle was then subperiosteal elevated along the lateral tibial plateau. A 8 hole [place] plate was selected. K-wire was placed proximally and distally. Once adequate position was confirmed, multiple cortical screws were placed proximally and distally. Overall reduction was acceptable. The wound was copiously irrigated. The tibialis anterior was approximated with #1 Vicryl suture. was approximated with 2-0 Vicryl suture, 3-0 Monocryl suture, and Dermabond dressing. Compression dressing was applied. The patient was awoken and taken to recovery room with stable vital signs. ESTIMATED BLOOD LOSS: 25 mL. COMPLICATIONS: None. SPECIMENS: None. IMPLANTS: [place] proximal tibial plate. Aftab Oconnor M.D. DR: NGUYEN JOB#: [id number] CC:
[2017-01-18] MEDS: ceFAZolin sod 1 GM in D5W 55 ML IV SCH ×3 (05:25→20:12)
[2017-01-18] MEDS: Hydromorphone 0.5mg/0.5ml inj SUBQ PRN ×2 (05:32→22:56)
[2017-01-18] MEDS: NovoLOG Insulin Flexpen SUBQ SCH ×7 (06:30→20:18)
[2017-01-18] MEDS: Precose 50mg tab ORAL SCH ×3 (06:40→17:00)
[2017-01-18 07:03] LABS: MEAN CORPUSCULAR HEMOGLOBIN 30.1 PG (27.0-31.0); MEAN CORPUSCULAR HGB CONC 32.7 G/DL (32.0-36.0); MEAN CORPUSCULAR VOLUME 92 FL (80-99); MEAN PLATELET VOLUME 6.4 FL (6.5-10.1); PLATELET COUNT 374 K/UL (150-450); RED BLOOD COUNT 3.79 M/UL (4.20-5.40); RED CELL DISTRIBUTION WIDTH 13.9 % (11.6-14.8)
[2017-01-18 07:13] LABS: INR 0.9 (0.9-1.1); PROTHROMBIN TIME 9.6 SEC (9.30-11.50)
[2017-01-18 07:51] VITALS: BP 105/64
[2017-01-18] MEDS: LORazepam 1mg tab ORAL PRN ×3 (08:03→23:41)
[2017-01-18] MEDS: Pericolace tab ORAL SCH ×2 (09:07→17:53)
[2017-01-18] MEDS: Tums 500mg ORAL SCH (09:08)
[2017-01-18] MEDS: celeBREX 200mg Cap **SURGERY PATIENTS ONLY ORAL SCH (09:08)
[2017-01-18] MEDS: Furosemide 40mg tab ORAL SCH ×2 (09:09→20:13)
[2017-01-18] MEDS: Docusate 100mg cap ORAL SCH ×3 (09:09→17:54)
[2017-01-18] MEDS: Ascorbic Acid 500mg tab ORAL SCH (09:09)
[2017-01-18] MEDS: Enoxaparin 80mg Inj SUBQ SCH ×2 (09:12→20:21)
[2017-01-18] MEDS: Norco 5mg/325mg tab ORAL PRN ×3 (09:16→20:13)
--- NOTE | 2017-01-18 10:46 | 48 Hour Post Anesthesia Eval ---
Post Anesthesia Evaluation Procedure: ORIF L Tibia Date of Evaluation: Jan 18, 2017 Time of Evaluation: 07:55 Blood Pressure Systolic: 105 0: 64 Pulse Rate: 100 Respiratory Rate: 20 Temperature (Fahrenheit): 97.1 O2 Sat by Pulse Oximetry: 96 Airway: patent Nausea: No Vomiting: No Pain Intensity: 1 Hydration Status: adequate Cardiopulmonary Status: at baseline Mental Status/LOC: patient returned to baseline Post-Anesthesia Complications: 0 Follow-up care needed: N/A - further care as per primary team LUCAS CARMONA M.D. Jan 18, 2017 10:46
[2017-01-18 11:38] VITALS: BP 122/62
--- NOTE | 2017-01-18 12:24 | Infectious Diseases Prog Note ---
Assessment/Plan Problems: (1) UTI (urinary tract infection) Assessment & Plan: with pansensitive E coli, continue cefazoline for 5 days (2) Tibia/fibula fracture Assessment & Plan: POD#1 , S/P ORIF , continue pain management as per ortho (3) Diabetes mellitus Assessment & Plan: recommend tight glycemic control to keep blood glucose between 80-120 (4) Abdominal pain Assessment & Plan: suspect due to constipation from narcotics, confirmed on X RAY of the abdomen, further management as per primary Subjective ROS Limited/Unobtainable: Yes Allergies: Coded Allergies: LITHIUM (Unverified Allergy, Unknown, 12/31/12) Subjective she was up in bed, alert, and comfortable , but confused. has hip pain , left leg in immobilizer, no fever or chills, no nausea or vomiting Objective Vital Signs Last 24 Hour Vital Signs Date Time Temp Pulse Resp B/P Pulse Ox O2 Delivery O2 Flow Rate FiO2 01/18/17 11:38 97.5 97 20 122/62 98 Nasal Cannula 2.0 01/18/17 10:46 100 20 96 01/18/17 07:51 97.1 100 20 105/64 96 Nasal Cannula 2.0 01/18/17 06:02 97.7 01/18/17 04:00 97.5 100 20 127/71 92 Room Air 01/18/17 00:00 97.7 104 18 139/70 94 Nasal Cannula 3.0 01/17/17 23:00 102 18 143/68 95 Nasal Cannula 3.0 01/17/17 22:51 100 18 130/63 95 Simple Mask 8.0 01/17/17 22:46 102 18 130/64 95 Simple Mask 8.0 01/17/17 22:43 102 20 95 01/17/17 22:41 97.0 103 18 125/67 95 Simple Mask 8.0 01/17/17 20:30 99.8 83 16 103/49 94 Nasal Cannula 3.0 01/17/17 20:00 98.4 103 18 128/65 93 Room Air 01/17/17 16:37 97.5 105 22 128/71 92 Room Air Height (Feet): 5 Height (Inches): 1.00 Weight (Pounds): 200 General Appearance: WD/WN, no acute distress HEENT: normocephalic, atraumatic, anicteric, mucous membranes moist Respiratory/Chest: chest wall non-tender, lungs clear, normal breath sounds, no respiratory distress, no accessory muscle use Cardiovascular: normal peripheral pulses, normal rate, regular rhythm, regularly irregular, no gallop/murmur Abdomen: normal bowel sounds, soft, non tender, no organomegaly, non distended , no mass, no scars Extremities: no cyanosis, no clubbing Laboratory Tests Test 01/17/17 15:00 01/18/17 05:40 Prothrombin Time 10.0 SEC (9.30-11.50) 9.6 SEC (9.30-11.50) Prothromb Time International Ratio 1.0 (0.9-1.1) 0.9 (0.9-1.1) White Blood Count 13.0 K/UL (4.8-10.8) H Red Blood Count 3.79 M/UL (4.20-5.40) L Hemoglobin 11.4 G/DL (12.0-16.0) L Hematocrit 34.9 % (37.0-47.0) L Mean Corpuscular Volume 92 FL (80-99) Mean Corpuscular Hemoglobin 30.1 PG (27.0-31.0) Mean Corpuscular Hemoglobin Concent 32.7 G/DL (32.0-36.0) Red Cell Distribution Width 13.9 % (11.6-14.8) Platelet Count 374 K/UL (150-450) Mean Platelet Volume 6.4 FL (6.5-10.1) L Neutrophils (%) (Auto) % (45.0-75.0) Lymphocytes (%) (Auto) % (20.0-45.0) Monocytes (%) (Auto) % (1.0-10.0) Eosinophils (%) (Auto) % (0.0-3.0) Basophils (%) (Auto) % (0.0-2.0) Current Medications Medications (Trade) Dose Ordered Sig/Ebenezer Route PRN Reason Start Time Stop Time Status Last Admin Dose Admin Acarbose (Precose) 50 mg TIAC ORAL 01/13/17 16:30 02/12/17 16:29 01/18/17 06:40 Acetaminophen (Tylenol) 650 mg Q4H PRN ORAL Mild Pain/Temp > 100.5 01/13/17 13:00 02/12/17 12:59 01/13/17 15:28 Acetaminophen/ Hydrocodone Bitart ([place] 5/325) 1 tab Q4H PRN ORAL Moderate Pain (Pain Scale 4-6) 01/17/17 20:45 01/24/17 20:44 01/18/17 09:16 Al Hydroxide/Mg Hydroxide (Mylanta) 30 ml Q6H PRN ORAL FOR GI DISTRESS 01/13/17 13:00 02/12/17 12:59 Ascorbic Acid (Vitamin C) 500 mg DAILY ORAL 01/14/17 09:00 02/13/17 08:59 01/18/17 09:09 Calcium Carbonate (Tums) 500 mg DAILY ORAL 01/14/17 09:00 02/13/17 08:59 01/18/17 09:08 Cefazolin Sodium/ Dextrose (Ancef/D5W) 55 ml @ 110 mls/hr Q8H IV 01/18/17 05:00 01/18/17 21:29 01/18/17 05:25 Ceftriaxone Sodium/Dextrose (Rocephin/D5W) 55 ml @ 110 mls/hr Q24H IVPB 01/15/17 21:00 01/18/17 20:59 01/16/17 23:01 Celecoxib 200 mg 200 mg DAILY ORAL 01/18/17 09:00 02/17/17 08:59 01/18/17 09:08 Clonazepam 1 mg 1 mg BID ORAL 01/17/17 20:00 01/24/17 19:59 01/18/17 09:09 Dextrose (Dextrose 50%) STAT PRN IV Hypoglycemia 01/13/17 15:30 02/12/17 15:29 Dextrose/Sodium Chloride (D5 0.45% NS) 1,000 ml @ 75 mls/hr Q13H IV 01/18/17 01:00 02/17/17 00:59 01/18/17 01:11 Docusate Sodium (Colace) 100 mg THREE TIMES A DAY ORAL 01/18/17 09:00 02/17/17 08:59 01/18/17 09:09 Enoxaparin Sodium (Lovenox) 80 mg EVERY 12 HOURS SUBQ 01/18/17 09:00 02/17/17 08:59 01/18/17 09:12 Ferrous Sulfate (Feosol) 325 mg DAILY ORAL 01/14/17 09:00 02/13/17 08:59 01/18/17 09:07 Furosemide (Lasix) 40 mg EVERY 12 HOURS ORAL 01/13/17 21:00 02/12/17 20:59 01/18/17 09:09 Hydromorphone HCl (Dilaudid) 0.5 mg Q4H PRN SUBQ Severe Pain (Pain Scale 7-10) 01/17/17 20:45 01/24/17 20:44 01/18/17 05:32 Insulin Aspart (NovoLOG) BEFORE MEALS AND HS SUBQ 01/13/17 17:00 02/12/17 16:59 01/18/17 11:38 Insulin Aspart (NovoLOG) 10 units NOVOTIAC SUBQ 01/15/17 11:50 02/14/17 11:49 01/18/17 11:39 Insulin Detemir 40 units 40 units BEDTIME SUBQ 01/15/17 21:00 02/14/17 20:59 01/16/17 22:52 Lorazepam (Ativan) 2 mg Q6H PRN ORAL For Anxiety 01/16/17 12:00 01/23/17 11:59 01/18/17 08:03 Metformin HCl (Glucophage) 850 mg TID ORAL 01/13/17 18:00 02/12/17 17:59 01/18/17 09:09 Multivitamins (Multivitamins) 1 tab DAILY ORAL 01/14/17 09:00 02/13/17 08:59 01/18/17 09:07 Olanzapine (ZyPREXA Zydis) 30 mg BEDTIME ORAL 01/17/17 21:00 02/16/17 20:59 Ondansetron HCl (Zofran) 4 mg Q6H PRN IVP Nausea & Vomiting 01/17/17 20:45 02/16/17 20:44 Pantoprazole (Protonix) 40 mg DAILY ORAL 01/14/17 09:00 02/13/17 08:59 01/18/17 09:07 Senna/Docusate Sodium (Josee-Colace) 1 ea TWICE A DAY ORAL 01/18/17 09:00 02/17/17 08:59 01/18/17 09:07 Temazepam (Restoril) 7.5 mg HSPRN PRN ORAL Insomnia 01/17/17 20:45 01/24/17 20:44 Warfarin Sodium (Coumadin per pharmacy) 1 ea COUMADIN PRN MISC Per rx protocol 01/17/17 14:15 02/16/17 14:14 Warfarin Sodium/ Warfarin Sodium (Coumadin/ Coumadin) 8.5 mg COUMADIN ONCE ORAL 01/18/17 17:00 01/18/17 17:01 Jose Mg M.D. Jan 18, 2017 12:24
--- NOTE | 2017-01-18 12:39 | General Progress Note ---
Assessment/Plan Problem List: (1) Cellulitis ICD Codes: L03.90 - Cellulitis, unspecified SNOMED: 722485210 (2) Diabetes mellitus ICD Codes: E11.9 - Type 2 diabetes mellitus without complications SNOMED: 18251662 (3) UTI (urinary tract infection) ICD Codes: N39.0 - Urinary tract infection, site not specified SNOMED: 58893185 (4) Tibia/fibula fracture ICD Codes: S82.209A - Unspecified fracture of shaft of unspecified tibia, initial encounter for closed fracture; S82.409A - Unspecified fracture of shaft of unspecified fibula, initial encounter for closed fracture SNOMED: 982915306 (5) Dementia ICD Codes: F03.90 - Unspecified dementia without behavioral disturbance SNOMED: 15858204 (6) HTN (hypertension) ICD Codes: I10 - Essential (primary) hypertension SNOMED: 70371800 Status: progressing Assessment/Plan uti le fracture afebrile anticogualtion per heme/onc vitals stable dm celluitiis of le improving Subjective ROS Limited/Unobtainable: Yes Constitutional: Reports: no symptoms Allergies: Coded Allergies: LITHIUM (Unverified Allergy, Unknown, 12/31/12) Subjective pain legs Objective Last 24 Hour Vital Signs Date Time Temp Pulse Resp B/P Pulse Ox O2 Delivery O2 Flow Rate FiO2 01/18/17 11:38 97.5 97 20 122/62 98 Nasal Cannula 2.0 01/18/17 10:46 100 20 96 01/18/17 07:51 97.1 100 20 105/64 96 Nasal Cannula 2.0 01/18/17 06:02 97.7 01/18/17 04:00 97.5 100 20 127/71 92 Room Air 01/18/17 00:00 97.7 104 18 139/70 94 Nasal Cannula 3.0 01/17/17 23:00 102 18 143/68 95 Nasal Cannula 3.0 01/17/17 22:51 100 18 130/63 95 Simple Mask 8.0 01/17/17 22:46 102 18 130/64 95 Simple Mask 8.0 01/17/17 22:43 102 20 95 01/17/17 22:41 97.0 103 18 125/67 95 Simple Mask 8.0 01/17/17 20:30 99.8 83 16 103/49 94 Nasal Cannula 3.0 01/17/17 20:00 98.4 103 18 128/65 93 Room Air 01/17/17 16:37 97.5 105 22 128/71 92 Room Air Intake and Output 01/17/17 01/18/17 19:00 07:00 Intake Total 1495 ml Output Total 750 ml 1200 ml Balance -750 ml 295 ml Intake Oral 540 ml IV Total 955 ml Output Urine Total 750 ml 1150 ml Estimated Blood Loss 50 ml Laboratory Tests 01/17/17 15:00: Prothrombin Time 10.0, Prothromb Time International Ratio 1.0 01/18/17 05:40: Prothrombin Time 9.6, Prothromb Time International Ratio 0.9, White Blood Count 13.0H, Red Blood Count 3.79L, Hemoglobin 11.4L, Hematocrit 34.9L, Mean Corpuscular Volume 92, Mean Corpuscular Hemoglobin 30.1, Mean Corpuscular Hemoglobin Concent 32.7, Red Cell Distribution Width 13.9, Platelet Count 374, Mean Platelet Volume 6.4L, Neutrophils (%) (Auto) , Lymphocytes (%) (Auto) , Monocytes (%) (Auto) , Eosinophils (%) (Auto) , Basophils (%) (Auto) Height (Feet): 5 Height (Inches): 1.00 Weight (Pounds): 200 EENT: PERRL/EOMI Neck: supple Cardiovascular: normal rate Respiratory/Chest: lungs clear Abdomen: soft Reuben Pereira MD Jan 18, 2017 12:39
[2017-01-18 15:46] VITALS: BP 120/72
[2017-01-18] MEDS ORDERED: WARFARIN SOD ORAL ONE ×2 (17:00)
--- NOTE | 2017-01-18 17:06 | General Progress Note ---
Assessment/Plan Assessment/Plan ASSESSMENT: 1. Coagulopathy secondary to use of Coumadin. The patient has been compliant. continue coumadin, lovenox 2. Deep venous thrombosis of the lower extremity, status post inferior vena cava filter placement in the past 3. Leukocytosis secondary to recent trauma. 4. Acute left periprosthetic mid shaft fracture of the left femur. s/p orif 5. Hypertension. 6. Schizophrenia. 7. Status post inferior vena cava filter. 8. Hyperlipidemia. RECOMMENDATION: 1. Lonveox restarted 2. Cont coumadin 3. INr goal 2-3 4. s/p procedure, orif 5. GI prophylaxis. 6. Discussed with staff. Subjective Constitutional: Reports: no symptoms HEENT: Reports: no symptoms Cardiovascular: Reports: no symptoms Respiratory: Reports: no symptoms Gastrointestinal/Abdominal: Reports: poor appetite Genitourinary: Reports: no symptoms Endocrine: Reports: no symptoms Hematologic/Lymphatic: Reports: anemia Allergies: Coded Allergies: LITHIUM (Unverified Allergy, Unknown, 12/31/12) Subjective no events reported, s/p procedure, orif Objective Last 24 Hour Vital Signs Date Time Temp Pulse Resp B/P Pulse Ox O2 Delivery O2 Flow Rate FiO2 01/18/17 15:46 97.6 64 21 120/72 96 Nasal Cannula 2.0 01/18/17 11:38 97.5 97 20 122/62 98 Nasal Cannula 2.0 01/18/17 10:46 100 20 96 01/18/17 07:51 97.1 100 20 105/64 96 Nasal Cannula 2.0 01/18/17 06:02 97.7 01/18/17 04:00 97.5 100 20 127/71 92 Room Air 01/18/17 00:00 97.7 104 18 139/70 94 Nasal Cannula 3.0 01/17/17 23:00 102 18 143/68 95 Nasal Cannula 3.0 01/17/17 22:51 100 18 130/63 95 Simple Mask 8.0 01/17/17 22:46 102 18 130/64 95 Simple Mask 8.0 01/17/17 22:43 102 20 95 01/17/17 22:41 97.0 103 18 125/67 95 Simple Mask 8.0 01/17/17 20:30 99.8 83 16 103/49 94 Nasal Cannula 3.0 01/17/17 20:00 98.4 103 18 128/65 93 Room Air Intake and Output 01/17/17 01/18/17 19:00 07:00 Intake Total 1495 ml Output Total 750 ml 1200 ml Balance -750 ml 295 ml Intake Oral 540 ml IV Total 955 ml Output Urine Total 750 ml 1150 ml Estimated Blood Loss 50 ml Laboratory Tests 01/18/17 05:40: White Blood Count 13.0H, Red Blood Count 3.79L, Hemoglobin 11.4L, Hematocrit 34.9L, Mean Corpuscular Volume 92, Mean Corpuscular Hemoglobin 30.1, Mean Corpuscular Hemoglobin Concent 32.7, Red Cell Distribution Width 13.9, Platelet Count 374, Mean Platelet Volume 6.4L, Neutrophils (%) (Auto) , Lymphocytes (%) ( Auto) , Monocytes (%) (Auto) , Eosinophils (%) (Auto) , Basophils (%) (Auto) , Prothrombin Time 9.6, Prothromb Time International Ratio 0.9 Height (Feet): 5 Height (Inches): 1.00 Weight (Pounds): 200 General Appearance: no apparent distress EENT: TMs normal Neck: supple Cardiovascular: regular rhythm Respiratory/Chest: no respiratory distress Extremities: non-tender Edema: 1+ Leg (L), 1+ Leg (R) Neurologic: alert Skin: warm/dry Jorge Rivera Jan 18, 2017 17:06
[2017-01-18 20:00] VITALS: BP 128/59
[2017-01-18] MEDS: ZyPREXA Zydis 10mg tab ORAL SCH (20:12)
[2017-01-18] MEDS: Levemir Flexpen SUBQ SCH (20:14)
[2017-01-19 04:00] VITALS: BP 112/72
[2017-01-19] MEDS: Hydromorphone 0.5mg/0.5ml inj SUBQ PRN ×4 (04:27→18:44)
[2017-01-19] MEDS: Precose 50mg tab ORAL SCH ×3 (06:36→17:20)
[2017-01-19] MEDS: NovoLOG Insulin Flexpen SUBQ SCH ×7 (06:37→21:07)
[2017-01-19 06:57] LABS: PROTHROMBIN TIME 10.1 SEC (9.30-11.50)
[2017-01-19 07:51] VITALS: BP 128/82
[2017-01-19] MEDS: celeBREX 200mg Cap **SURGERY PATIENTS ONLY ORAL SCH (08:46)
[2017-01-19] MEDS: Tums 500mg ORAL SCH (08:46)
[2017-01-19] MEDS: Docusate 100mg cap ORAL SCH ×3 (08:47→17:22)
[2017-01-19] MEDS: Ascorbic Acid 500mg tab ORAL SCH (08:47)
[2017-01-19] MEDS: Pericolace tab ORAL SCH ×2 (08:48→17:22)
[2017-01-19] MEDS: Furosemide 40mg tab ORAL SCH ×2 (08:48→20:40)
[2017-01-19] MEDS: Enoxaparin 80mg Inj SUBQ SCH ×2 (08:49→21:06)
--- NOTE | 2017-01-19 10:40 | General Progress Note ---
Assessment/Plan Problem List: (1) Diabetes mellitus ICD Codes: E11.9 - Type 2 diabetes mellitus without complications SNOMED: 09871802 (2) Cellulitis ICD Codes: L03.90 - Cellulitis, unspecified SNOMED: 140258128 (3) UTI (urinary tract infection) ICD Codes: N39.0 - Urinary tract infection, site not specified SNOMED: 11470518 (4) Dementia ICD Codes: F03.90 - Unspecified dementia without behavioral disturbance SNOMED: 75045059 (5) HTN (hypertension) ICD Codes: I10 - Essential (primary) hypertension SNOMED: 77747460 (6) Schizophrenia ICD Codes: F20.9 - Schizophrenia, unspecified SNOMED: 01108704 (7) Abdominal pain ICD Codes: R10.9 - Unspecified abdominal pain SNOMED: 48865492 (8) Tibia/fibula fracture ICD Codes: S82.209A - Unspecified fracture of shaft of unspecified tibia, initial encounter for closed fracture; S82.409A - Unspecified fracture of shaft of unspecified fibula, initial encounter for closed fracture SNOMED: 530560611 Status: stable, progressing, tolerating diet Assessment/Plan o2 pulm tx ot pt diet abx cbc bmp am Subjective Constitutional: Reports: weakness Allergies: Coded Allergies: LITHIUM (Unverified Allergy, Unknown, 12/31/12) All Systems: reviewed and negative except above Subjective o2nc calm in bed Objective Last 24 Hour Vital Signs Date Time Temp Pulse Resp B/P Pulse Ox O2 Delivery O2 Flow Rate FiO2 01/19/17 07:51 98.2 107 18 128/82 94 Nasal Cannula 01/19/17 04:00 97.0 99 18 112/72 100 Room Air 01/18/17 21:12 98.2 01/18/17 20:00 98.2 99 18 128/59 100 Room Air 01/18/17 15:46 97.6 64 21 120/72 96 Nasal Cannula 2.0 01/18/17 11:38 97.5 97 20 122/62 98 Nasal Cannula 2.0 01/18/17 10:46 100 20 96 Intake and Output 01/18/17 01/19/17 19:00 07:00 Intake Total 1645 ml Output Total 1100 ml Balance 545 ml Intake Oral 1045 ml IV Total 600 ml Output Urine Total 1100 ml # Voids 2 Laboratory Tests 01/19/17 05:00: Prothrombin Time 10.1, Prothromb Time International Ratio 1.0 Height (Feet): 5 Height (Inches): 1.00 Weight (Pounds): 200 General Appearance: confused EENT: PERRL/EOMI Neck: normal alignment Cardiovascular: normal peripheral pulses, normal rate, regular rhythm Respiratory/Chest: chest wall non-tender, lungs clear, normal breath sounds Abdomen: normal bowel sounds, non tender, soft Extremities: normal inspection Edema: no edema noted Arm (L), no edema noted Arm (R), no edema noted Leg (L), no edema noted Leg (R), no edema noted Pedal (L), no edema noted Pedal (R), no edema noted Generalized Neurologic: responsive, motor weakness Skin: normal pigmentation, warm/dry YUSRA HANCOCK Jan 19, 2017 10:40
[2017-01-19 10:46] LABS: BASOPHILS % (AUTO) 0.9 % (0.0-2.0); EOSINOPHILS % (AUTO) 1.4 % (0.0-3.0); LYMPHOCYTES % (AUTO) 31.3 % (20.0-45.0); MEAN CORPUSCULAR HEMOGLOBIN 29.3 PG (27.0-31.0); MEAN CORPUSCULAR HGB CONC 32.2 G/DL (32.0-36.0); MEAN CORPUSCULAR VOLUME 91 FL (80-99); MEAN PLATELET VOLUME 6.3 FL (6.5-10.1); MONOCYTES % (AUTO) 7.1 % (1.0-10.0); NEUTROPHILS % (AUTO) 59.3 % (45.0-75.0); PLATELET COUNT 418 K/UL (150-450); RED BLOOD COUNT 3.63 M/UL (4.20-5.40); WHITE BLOOD COUNT 11.8 K/UL (4.8-10.8)
[2017-01-19 12:00] VITALS: BP 116/72
--- NOTE | 2017-01-19 13:30 | Geriatric Medicine Prog Note ---
NOTE: POOR AUDIO QUALITY SUBJECTIVE: fracture. OBJECTIVE: . IMPRESSION: tibiofibula fracture. PLAN: 40 Levemir insulin 40 units at bedtime, NovoLog 10 units t.i.d. at bedtime. Osbaldo Weiner M.D. DR: NADIRA JOB#: [id number] CC:
--- NOTE | 2017-01-19 14:10 | General Progress Note ---
Assessment/Plan Assessment/Plan ASSESSMENT: 1. Coagulopathy secondary to use of Coumadin. The patient has been compliant. continue coumadin, lovenox 2. Deep venous thrombosis of the lower extremity, status post inferior vena cava filter placement in the past 3. Leukocytosis secondary to recent trauma. 4. Acute left periprosthetic mid shaft fracture of the left femur. s/p orif 5. Hypertension. 6. Schizophrenia. 7. Status post inferior vena cava filter. 8. Hyperlipidemia. RECOMMENDATION: 1. Lonvenox restarted 2. Continue coumadin 3. INr goal =2-3 4. s/p procedure, orif 5. GI prophylaxis. 6. Discussed with staff. Tyler Rivera M.D. Subjective Constitutional: Reports: no symptoms HEENT: Reports: no symptoms Cardiovascular: Reports: no symptoms Respiratory: Reports: no symptoms Gastrointestinal/Abdominal: Reports: no symptoms Genitourinary: Reports: no symptoms Neurologic/Psychiatric: Reports: no symptoms Endocrine: Reports: no symptoms Hematologic/Lymphatic: Reports: no symptoms Allergies: Coded Allergies: LITHIUM (Unverified Allergy, Unknown, 12/31/12) Objective Last 24 Hour Vital Signs Date Time Temp Pulse Resp B/P Pulse Ox O2 Delivery O2 Flow Rate FiO2 01/19/17 12:00 97.7 100 18 116/72 94 Nasal Cannula 3.0 01/19/17 07:51 98.2 107 18 128/82 94 Nasal Cannula 01/19/17 04:00 97.0 99 18 112/72 100 Room Air 01/18/17 21:12 98.2 01/18/17 20:00 98.2 99 18 128/59 100 Room Air 01/18/17 15:46 97.6 64 21 120/72 96 Nasal Cannula 2.0 Intake and Output 01/18/17 01/19/17 19:00 07:00 Intake Total 1645 ml Output Total 1100 ml Balance 545 ml Intake Oral 1045 ml IV Total 600 ml Output Urine Total 1100 ml # Voids 2 Laboratory Tests 01/19/17 05:00: White Blood Count 11.8H, Red Blood Count 3.63L, Hemoglobin 10.6L, Hematocrit 33.1L, Mean Corpuscular Volume 91, Mean Corpuscular Hemoglobin 29.3, Mean Corpuscular Hemoglobin Concent 32.2, Red Cell Distribution Width 14.0, Platelet Count 418, Mean Platelet Volume 6.3L, Neutrophils (%) (Auto) 59.3, Lymphocytes ( %) (Auto) 31.3, Monocytes (%) (Auto) 7.1, Eosinophils (%) (Auto) 1.4, Basophils (%) (Auto) 0.9, Prothrombin Time 10.1, Prothromb Time International Ratio 1.0 Height (Feet): 5 Height (Inches): 1.00 Weight (Pounds): 200 General Appearance: no apparent distress EENT: TMs normal Neck: supple Cardiovascular: regular rhythm Respiratory/Chest: normal breath sounds Abdomen: non tender, no mass Extremities: non-tender Edema: no edema noted Arm (L), no edema noted Arm (R), no edema noted Leg (L), no edema noted Leg (R), no edema noted Pedal (L), no edema noted Pedal (R), no edema noted Generalized Neurologic: abnormal gait Skin: warm/dry Lymphatic: normal anterior cervical (L), normal anterior cervical (R), normal axillary (L), normal axillary (R), normal inguinal (L), normal inguinal (R), normal other, normal posterior cervical (L), normal posterior cervical (R), normal submandibular (L), normal submandibular (R), normal supraclavicular (L), normal supraclavicular (R) TYLER RIVERA Jan 19, 2017 14:10
--- NOTE | 2017-01-19 14:21 | Infectious Diseases Prog Note ---
Assessment/Plan Problems: (1) UTI (urinary tract infection) Assessment & Plan: with pansensitive E coli, continue ceftriaxon for 5 days (2) Tibia/fibula fracture Assessment & Plan: POD#2 , S/P ORIF , continue pain management as per ortho (3) Diabetes mellitus Assessment & Plan: recommend tight glycemic control to keep blood glucose between 80-120 (4) Abdominal pain Assessment & Plan: suspect due to constipation from narcotics, confirmed on X RAY of the abdomen, further management as per primary Subjective ROS Limited/Unobtainable: Yes Allergies: Coded Allergies: LITHIUM (Unverified Allergy, Unknown, 12/31/12) Subjective she was up in bed, alert, and comfortable , but confused. has hip pain , left leg in immobilizer, no fever or chills, no nausea or vomiting Objective Vital Signs Last 24 Hour Vital Signs Date Time Temp Pulse Resp B/P Pulse Ox O2 Delivery O2 Flow Rate FiO2 01/19/17 12:00 97.7 100 18 116/72 94 Nasal Cannula 3.0 01/19/17 07:51 98.2 107 18 128/82 94 Nasal Cannula 01/19/17 04:00 97.0 99 18 112/72 100 Room Air 01/18/17 21:12 98.2 01/18/17 20:00 98.2 99 18 128/59 100 Room Air 01/18/17 15:46 97.6 64 21 120/72 96 Nasal Cannula 2.0 Height (Feet): 5 Height (Inches): 1.00 Weight (Pounds): 200 General Appearance: WD/WN, no acute distress HEENT: normocephalic, atraumatic, anicteric Respiratory/Chest: chest wall non-tender, lungs clear, normal breath sounds, no respiratory distress, no accessory muscle use Cardiovascular: normal peripheral pulses, normal rate, regular rhythm, no gallop/murmur, no JVD Abdomen: normal bowel sounds, soft, non tender, no organomegaly, non distended , no mass Extremities: no cyanosis, no clubbing Skin: no rash, no lesions Laboratory Tests Test 01/19/17 05:00 White Blood Count 11.8 K/UL (4.8-10.8) H Red Blood Count 3.63 M/UL (4.20-5.40) L Hemoglobin 10.6 G/DL (12.0-16.0) L Hematocrit 33.1 % (37.0-47.0) L Mean Corpuscular Volume 91 FL (80-99) Mean Corpuscular Hemoglobin 29.3 PG (27.0-31.0) Mean Corpuscular Hemoglobin Concent 32.2 G/DL (32.0-36.0) Red Cell Distribution Width 14.0 % (11.6-14.8) Platelet Count 418 K/UL (150-450) Mean Platelet Volume 6.3 FL (6.5-10.1) L Neutrophils (%) (Auto) 59.3 % (45.0-75.0) Lymphocytes (%) (Auto) 31.3 % (20.0-45.0) Monocytes (%) (Auto) 7.1 % (1.0-10.0) Eosinophils (%) (Auto) 1.4 % (0.0-3.0) Basophils (%) (Auto) 0.9 % (0.0-2.0) Prothrombin Time 10.1 SEC (9.30-11.50) Prothromb Time International Ratio 1.0 (0.9-1.1) Current Medications Medications (Trade) Dose Ordered Sig/Ebenezer Route PRN Reason Start Time Stop Time Status Last Admin Dose Admin Acarbose (Precose) 50 mg TIAC ORAL 01/13/17 16:30 02/12/17 16:29 01/19/17 11:57 Acetaminophen (Tylenol) 650 mg Q4H PRN ORAL Mild Pain/Temp > 100.5 01/13/17 13:00 02/12/17 12:59 01/13/17 15:28 Acetaminophen/ Hydrocodone Bitart ([place] 5/325) 1 tab Q4H PRN ORAL Moderate Pain (Pain Scale 4-6) 01/17/17 20:45 01/24/17 20:44 01/18/17 20:13 Al Hydroxide/Mg Hydroxide (Mylanta) 30 ml Q6H PRN ORAL FOR GI DISTRESS 01/13/17 13:00 02/12/17 12:59 Ascorbic Acid (Vitamin C) 500 mg DAILY ORAL 01/14/17 09:00 02/13/17 08:59 01/19/17 08:47 Calcium Carbonate (Tums) 500 mg DAILY ORAL 01/14/17 09:00 02/13/17 08:59 01/19/17 08:46 Celecoxib (CeleBREX) 200 mg DAILY ORAL 01/18/17 09:00 02/17/17 08:59 01/19/17 08:46 Clonazepam (KlonoPIN) 1 mg BID ORAL 01/17/17 20:00 01/24/17 19:59 01/19/17 08:47 Dextrose (Dextrose 50%) STAT PRN IV Hypoglycemia 01/13/17 15:30 02/12/17 15:29 Docusate Sodium (Colace) 100 mg THREE TIMES A DAY ORAL 01/18/17 09:00 02/17/17 08:59 01/19/17 13:12 Enoxaparin Sodium (Lovenox) 80 mg EVERY 12 HOURS SUBQ 01/18/17 09:00 02/17/17 08:59 01/19/17 08:49 Ferrous Sulfate (Feosol) 325 mg DAILY ORAL 01/14/17 09:00 02/13/17 08:59 01/19/17 08:47 Furosemide (Lasix) 40 mg EVERY 12 HOURS ORAL 01/13/17 21:00 02/12/17 20:59 01/19/17 08:48 Hydromorphone HCl (Dilaudid) 0.5 mg Q4H PRN SUBQ Severe Pain (Pain Scale 7-10) 01/17/17 20:45 01/24/17 20:44 01/19/17 13:12 Insulin Aspart (NovoLOG) BEFORE MEALS AND HS SUBQ 01/13/17 17:00 02/12/17 16:59 01/19/17 11:57 Insulin Aspart (NovoLOG) 10 units NOVOTIAC SUBQ 01/15/17 11:50 02/14/17 11:49 01/19/17 11:58 Insulin Detemir (Levemir) 40 units BEDTIME SUBQ 01/15/17 21:00 02/14/17 20:59 01/18/17 20:14 Lorazepam (Ativan) 2 mg Q6H PRN ORAL For Anxiety 01/16/17 12:00 01/23/17 11:59 01/18/17 23:41 Metformin HCl (Glucophage) 850 mg TID ORAL 01/13/17 18:00 02/12/17 17:59 01/19/17 13:11 Multivitamins (Multivitamins) 1 tab DAILY ORAL 01/14/17 09:00 02/13/17 08:59 01/19/17 08:47 Olanzapine (ZyPREXA Zydis) 30 mg BEDTIME ORAL 01/17/17 21:00 02/16/17 20:59 01/18/17 20:12 Ondansetron HCl (Zofran) 4 mg Q6H PRN IVP Nausea & Vomiting 01/17/17 20:45 02/16/17 20:44 Pantoprazole (Protonix) 40 mg DAILY ORAL 01/14/17 09:00 02/13/17 08:59 01/19/17 08:46 Senna/Docusate Sodium (Josee-Colace) 1 ea TWICE A DAY ORAL 01/18/17 09:00 02/17/17 08:59 01/19/17 08:48 Temazepam (Restoril) 7.5 mg HSPRN PRN ORAL Insomnia 01/17/17 20:45 01/24/17 20:44 01/18/17 22:09 Warfarin Sodium (Coumadin per pharmacy) 1 ea COUMADIN PRN MISC Per rx protocol 01/17/17 14:15 02/16/17 14:14 Warfarin Sodium/ Warfarin Sodium (Coumadin/ Coumadin) 8.5 mg COUMADIN ONCE ORAL 01/19/17 17:00 01/19/17 17:01 Jose Mg M.D. Jan 19, 2017 14:21
[2017-01-19 16:00] VITALS: BP 110/66
[2017-01-19] MEDS ORDERED: cefTRIAXone 1 GM in D5W 55 ML IVPB SCH (16:00)
[2017-01-19] MEDS ORDERED: WARFARIN SOD ORAL ONE ×2 (17:00)
[2017-01-19] MEDS ORDERED: D5 1/2NS 1000ml IV ONE (17:15)
[2017-01-19] MEDS ORDERED: Tubing IV Secondary IV ONE (17:15)
[2017-01-19] MEDS ORDERED: NS 275ml ONE (17:15)
[2017-01-19 20:00] VITALS: BP 109/68
[2017-01-19] MEDS: ZyPREXA Zydis 10mg tab ORAL SCH (20:40)
[2017-01-19] MEDS: Levemir Flexpen SUBQ SCH (21:04)
[2017-01-19] MEDS: LORazepam 1mg tab ORAL PRN (21:43)
[2017-01-20] VITALS: BP 112/68
[2017-01-20] MEDS: Hydromorphone 0.5mg/0.5ml inj SUBQ PRN ×2 (01:08→06:15)
[2017-01-20 04:00] VITALS: BP 116/75
[2017-01-20] MEDS: Precose 50mg tab ORAL SCH ×3 (05:43→16:54)
[2017-01-20] MEDS: LORazepam 1mg tab ORAL PRN ×2 (05:44→15:20)
[2017-01-20] MEDS: NovoLOG Insulin Flexpen SUBQ SCH ×7 (06:08→21:52)
[2017-01-20 07:18] LABS: BASOPHILS % (AUTO) 1.3 % (0.0-2.0); EOSINOPHILS % (AUTO) 1.5 % (0.0-3.0); LYMPHOCYTES % (AUTO) 25.7 % (20.0-45.0); MEAN CORPUSCULAR HEMOGLOBIN 30.9 PG (27.0-31.0); MEAN CORPUSCULAR HGB CONC 33.8 G/DL (32.0-36.0); MEAN CORPUSCULAR VOLUME 91 FL (80-99); MONOCYTES % (AUTO) 6.6 % (1.0-10.0); NEUTROPHILS % (AUTO) 64.9 % (45.0-75.0); PLATELET COUNT 484 K/UL (150-450); RED BLOOD COUNT 3.49 M/UL (4.20-5.40); RED CELL DISTRIBUTION WIDTH 14.3 % (11.6-14.8); WHITE BLOOD COUNT 10.8 K/UL (4.8-10.8)
[2017-01-20 07:33] LABS: ANION GAP 12 (5-15); CALCIUM 9.5 mg/dL (8.6-10.2); CARBON DIOXIDE 30 mEQ/L (20-30); CHLORIDE 95 mEQ/L (98-107); CREATININE 0.7 mg/dL (0.5-0.9); GLOMERULAR FILTRATION RATE > 60 mL/min (>60); HEMOLYSIS 1; POTASSIUM 4.1 mEQ/L (3.4-4.9); SODIUM 137 mEQ/L (135-145)
[2017-01-20 07:35] LABS: PROTHROMBIN TIME 10.6 SEC (9.30-11.50)
[2017-01-20 08:00] VITALS: BP 131/75
--- NOTE | 2017-01-20 08:34 | General Progress Note ---
Assessment/Plan Problem List: (1) Diabetes mellitus ICD Codes: E11.9 - Type 2 diabetes mellitus without complications SNOMED: 50062336 (2) Cellulitis ICD Codes: L03.90 - Cellulitis, unspecified SNOMED: 958835387 (3) UTI (urinary tract infection) ICD Codes: N39.0 - Urinary tract infection, site not specified SNOMED: 32030181 (4) Dementia ICD Codes: F03.90 - Unspecified dementia without behavioral disturbance SNOMED: 71883742 (5) HTN (hypertension) ICD Codes: I10 - Essential (primary) hypertension SNOMED: 90722049 (6) Schizophrenia ICD Codes: F20.9 - Schizophrenia, unspecified SNOMED: 89731781 (7) Abdominal pain ICD Codes: R10.9 - Unspecified abdominal pain SNOMED: 91199461 (8) Tibia/fibula fracture ICD Codes: S82.209A - Unspecified fracture of shaft of unspecified tibia, initial encounter for closed fracture; S82.409A - Unspecified fracture of shaft of unspecified fibula, initial encounter for closed fracture SNOMED: 242806690 Status: stable, progressing, tolerating diet Assessment/Plan o2 pulm tx ot pt diet abx cbc bmp am Subjective Allergies: Coded Allergies: LITHIUM (Unverified Allergy, Unknown, 12/31/12) All Systems: reviewed and negative except above Subjective o2nc calm in bed Objective Last 24 Hour Vital Signs Date Time Temp Pulse Resp B/P Pulse Ox O2 Delivery O2 Flow Rate FiO2 01/20/17 06:45 97.9 01/20/17 04:00 97.9 104 18 116/75 94 Nasal Cannula 3.0 01/20/17 00:00 98.1 102 20 112/68 94 Nasal Cannula 3.0 01/19/17 20:00 98.1 100 18 109/68 96 Nasal Cannula 3.0 01/19/17 16:00 98.2 103 18 110/66 94 Nasal Cannula 3.0 01/19/17 12:00 97.7 100 18 116/72 94 Nasal Cannula 3.0 Intake and Output 01/19/17 01/20/17 19:00 07:00 Intake Total 900 ml Output Total 3950 ml 1500 ml Balance -3050 ml -1500 ml Intake Oral 900 ml Output Urine Total 3950 ml 1500 ml # Bowel Movements 1 1 Laboratory Tests 01/20/17 06:50: White Blood Count 10.8, Red Blood Count 3.49L, Hemoglobin 10.8L, Hematocrit 31.9L, Mean Corpuscular Volume 91, Mean Corpuscular Hemoglobin 30.9, Mean Corpuscular Hemoglobin Concent 33.8, Red Cell Distribution Width 14.3, Platelet Count 484H, Mean Platelet Volume 6.0L, Neutrophils (%) (Auto) 64.9, Lymphocytes (%) (Auto) 25.7, Monocytes (%) (Auto) 6.6, Eosinophils (%) (Auto) 1.5, Basophils (%) (Auto) 1.3, Prothrombin Time 10.6, Prothromb Time International Ratio 1.0, Sodium Level 137, Potassium Level 4.1, Chloride Level 95L, Carbon Dioxide Level 30, Anion Gap 12, Blood Urea Nitrogen 18, Creatinine 0.7, Estimat Glomerular Filtration Rate > 60, Glucose Level 308H, Calcium Level 9.5 Height (Feet): 5 Height (Inches): 1.00 Weight (Pounds): 200 General Appearance: confused EENT: normal ENT inspection Neck: normal alignment Cardiovascular: normal peripheral pulses, normal rate, regular rhythm Respiratory/Chest: chest wall non-tender, lungs clear, normal breath sounds Abdomen: normal bowel sounds, non tender, soft Extremities: normal inspection Edema: no edema noted Arm (L), no edema noted Arm (R), no edema noted Leg (L), no edema noted Leg (R), no edema noted Pedal (L), no edema noted Pedal (R), no edema noted Generalized Neurologic: responsive, motor weakness Skin: normal pigmentation, warm/dry YUSRA HANCOCK Jan 20, 2017 08:34
[2017-01-20] MEDS: celeBREX 200mg Cap **SURGERY PATIENTS ONLY ORAL SCH (08:40)
[2017-01-20] MEDS: Tums 500mg ORAL SCH (08:40)
[2017-01-20] MEDS: Enoxaparin 80mg Inj SUBQ SCH ×2 (08:41→21:49)
[2017-01-20] MEDS: Pericolace tab ORAL SCH ×2 (08:41→17:00)
[2017-01-20] MEDS: Ascorbic Acid 500mg tab ORAL SCH (08:41)
[2017-01-20] MEDS: Docusate 100mg cap ORAL SCH ×3 (08:41→16:58)
[2017-01-20] MEDS: Furosemide 40mg tab ORAL SCH ×2 (08:48→21:47)
[2017-01-20] MEDS: Norco 5mg/325mg tab ORAL PRN ×2 (11:36→20:18)
[2017-01-20 12:00] VITALS: BP 107/66
[2017-01-20 16:00] VITALS: BP 116/72
[2017-01-20] MEDS ORDERED: Warfarin Sodium 10mg ORAL ONE (17:00)
--- NOTE | 2017-01-20 19:51 | General Progress Note ---
Assessment/Plan Assessment/Plan ASSESSMENT: 1. Coagulopathy secondary to use of Coumadin. The patient has been compliant. continue coumadin, lovenox 2. Deep venous thrombosis of the lower extremity, status post inferior vena cava filter placement in the past 3. Leukocytosis secondary to recent trauma. 4. Acute left periprosthetic mid shaft fracture of the left femur. s/p orif 5. Hypertension. 6. Schizophrenia. 7. Status post inferior vena cava filter. 8. Hyperlipidemia. RECOMMENDATION: 1. Lonveox restarted 2. Cont coumadin 3. INr goal 2-3 4. s/p procedure, orif 5. GI prophylaxis. 6. Discussed with staff. Subjective Constitutional: Reports: no symptoms HEENT: Reports: no symptoms Cardiovascular: Reports: no symptoms Respiratory: Reports: no symptoms Gastrointestinal/Abdominal: Reports: no symptoms Genitourinary: Reports: no symptoms Neurologic/Psychiatric: Reports: weakness Endocrine: Reports: no symptoms Hematologic/Lymphatic: Reports: anemia Allergies: Coded Allergies: LITHIUM (Unverified Allergy, Unknown, 12/31/12) Subjective no events reported, s/p procedure, orif Objective Last 24 Hour Vital Signs Date Time Temp Pulse Resp B/P Pulse Ox O2 Delivery O2 Flow Rate FiO2 01/20/17 16:00 97.2 98 19 116/72 96 Room Air 01/20/17 12:00 97.3 106 21 107/66 94 Room Air 01/20/17 08:00 97.7 104 18 131/75 96 Room Air 01/20/17 06:45 97.9 01/20/17 04:00 97.9 104 18 116/75 94 Nasal Cannula 3.0 01/20/17 00:00 98.1 102 20 112/68 94 Nasal Cannula 3.0 01/19/17 20:00 98.1 100 18 109/68 96 Nasal Cannula 3.0 Intake and Output 01/19/17 01/20/17 19:00 07:00 Intake Total 900 ml Output Total 3950 ml 1500 ml Balance -3050 ml -1500 ml Intake Oral 900 ml Output Urine Total 3950 ml 1500 ml # Bowel Movements 1 1 Laboratory Tests 01/20/17 06:50: White Blood Count 10.8, Red Blood Count 3.49L, Hemoglobin 10.8L, Hematocrit 31.9L, Mean Corpuscular Volume 91, Mean Corpuscular Hemoglobin 30.9, Mean Corpuscular Hemoglobin Concent 33.8, Red Cell Distribution Width 14.3, Platelet Count 484H, Mean Platelet Volume 6.0L, Neutrophils (%) (Auto) 64.9, Lymphocytes (%) (Auto) 25.7, Monocytes (%) (Auto) 6.6, Eosinophils (%) (Auto) 1.5, Basophils (%) (Auto) 1.3, Prothrombin Time 10.6, Prothromb Time International Ratio 1.0, Sodium Level 137, Potassium Level 4.1, Chloride Level 95L, Carbon Dioxide Level 30, Anion Gap 12, Blood Urea Nitrogen 18, Creatinine 0.7, Estimat Glomerular Filtration Rate > 60, Glucose Level 308H, Calcium Level 9.5 Height (Feet): 5 Height (Inches): 1.00 Weight (Pounds): 200 General Appearance: no apparent distress EENT: pharynx normal Neck: normal inspection Cardiovascular: normal rate Respiratory/Chest: chest wall non-tender Abdomen: no mass Genitourinary/Rectal: normal prostate exam Extremities: normal inspection Edema: 1+ Leg (L), 1+ Leg (R) Edema: trace edema Skin: normal pigmentation Jorge Rivera Jan 20, 2017 19:51
[2017-01-20 20:11] VITALS: BP 132/79
[2017-01-20] MEDS: ZyPREXA Zydis 10mg tab ORAL SCH (21:47)
[2017-01-20] MEDS: Levemir Flexpen SUBQ SCH (21:51)
[2017-01-21 00:07] VITALS: BP 104/60
[2017-01-21] MEDS: LORazepam 1mg tab ORAL PRN (03:48)
[2017-01-21 04:08] VITALS: BP 119/85
[2017-01-21] MEDS: Precose 50mg tab ORAL SCH ×2 (06:12→12:14)
[2017-01-21] MEDS: NovoLOG Insulin Flexpen SUBQ SCH ×4 (06:19→12:11)
[2017-01-21 07:06] LABS: BASOPHILS % (AUTO) 1.6 % (0.0-2.0); EOSINOPHILS % (AUTO) 1.7 % (0.0-3.0); LYMPHOCYTES % (AUTO) 39.1 % (20.0-45.0); MEAN CORPUSCULAR HEMOGLOBIN 30.4 PG (27.0-31.0); MEAN CORPUSCULAR HGB CONC 33.5 G/DL (32.0-36.0); MEAN CORPUSCULAR VOLUME 91 FL (80-99); MEAN PLATELET VOLUME 6.4 FL (6.5-10.1); MONOCYTES % (AUTO) 6.7 % (1.0-10.0); NEUTROPHILS % (AUTO) 50.8 % (45.0-75.0); PLATELET COUNT 568 K/UL (150-450); RED BLOOD COUNT 3.91 M/UL (4.20-5.40); RED CELL DISTRIBUTION WIDTH 14.3 % (11.6-14.8); WHITE BLOOD COUNT 11.3 K/UL (4.8-10.8)
[2017-01-21 07:22] LABS: ANION GAP 16 (5-15); CALCIUM 9.8 mg/dL (8.6-10.2); CARBON DIOXIDE 30 mEQ/L (20-30); CHLORIDE 95 mEQ/L (98-107); CREATININE 0.6 mg/dL (0.5-0.9); GLOMERULAR FILTRATION RATE > 60 mL/min (>60); HEMOLYSIS 0; POTASSIUM 4.2 mEQ/L (3.4-4.9); SODIUM 141 mEQ/L (135-145)
[2017-01-21 07:53] VITALS: BP 129/66
[2017-01-21 08:08] LABS: INR 1.1 (0.9-1.1); PROTHROMBIN TIME 11.7 SEC (9.30-11.50)
[2017-01-21] MEDS: Tums 500mg ORAL SCH (09:12)
[2017-01-21] MEDS: Docusate 100mg cap ORAL SCH ×2 (09:12→12:11)
[2017-01-21] MEDS: Ascorbic Acid 500mg tab ORAL SCH (09:13)
[2017-01-21] MEDS: Pericolace tab ORAL SCH (09:14)
[2017-01-21] MEDS: celeBREX 200mg Cap **SURGERY PATIENTS ONLY ORAL SCH (09:14)
[2017-01-21] MEDS: Furosemide 40mg tab ORAL SCH (09:14)
[2017-01-21] MEDS: Enoxaparin 80mg Inj SUBQ SCH (09:15)
[2017-01-21] MEDS: Norco 5mg/325mg tab ORAL PRN (09:20)
--- NOTE | 2017-01-21 11:25 | General Progress Note ---
Assessment/Plan Assessment/Plan ASSESSMENT: 1. Coagulopathy secondary to use of Coumadin. The patient has been compliant. continue coumadin, lovenox as well as bridge 2. Deep venous thrombosis of the lower extremity, status post inferior vena cava filter placement in the past, restarted on coumadin 3. Leukocytosis secondary to recent trauma. 4. Acute left periprosthetic mid shaft fracture of the left femur. s/p orif 5. Hypertension. 6. Schizophrenia. 7. Status post inferior vena cava filter. 8. Hyperlipidemia. RECOMMENDATION: 1. Lonveox restarted 2. Cont coumadin and discharge on it as well 3. INr goal 2-3 4. s/p procedure, orif 5. GI prophylaxis. 6. Discussed with staff. 7. Stable for d/c Subjective Constitutional: Reports: no symptoms HEENT: Reports: nose congestion Cardiovascular: Reports: no symptoms Respiratory: Reports: no symptoms Gastrointestinal/Abdominal: Reports: no symptoms Genitourinary: Reports: no symptoms Neurologic/Psychiatric: Reports: no symptoms Endocrine: Reports: no symptoms Hematologic/Lymphatic: Reports: anemia Allergies: Coded Allergies: LITHIUM (Unverified Allergy, Unknown, 12/31/12) Subjective no events reported, s/p procedure, orif Objective Last 24 Hour Vital Signs Date Time Temp Pulse Resp B/P Pulse Ox O2 Delivery O2 Flow Rate FiO2 01/21/17 07:53 97.6 100 21 129/66 94 Nasal Cannula 2.0 01/21/17 04:08 97.5 97 19 119/85 94 Nasal Cannula 01/21/17 00:07 97.8 104 18 104/60 90 Nasal Cannula 01/20/17 20:11 97.4 114 20 132/79 92 Room Air 01/20/17 16:00 97.2 98 19 116/72 96 Room Air 01/20/17 12:00 97.3 106 21 107/66 94 Room Air Intake and Output 01/20/17 01/21/17 19:00 07:00 Intake Total 240 ml Output Total 1300 ml 1175 ml Balance -1300 ml -935 ml Intake Oral 240 ml Output Urine Total 1300 ml 1175 ml # Voids 1 # Bowel Movements 2 Laboratory Tests 01/21/17 06:25: White Blood Count 11.3H, Red Blood Count 3.91L, Hemoglobin 11.9L, Hematocrit 35.6L, Mean Corpuscular Volume 91, Mean Corpuscular Hemoglobin 30.4, Mean Corpuscular Hemoglobin Concent 33.5, Red Cell Distribution Width 14.3, Platelet Count 568H, Mean Platelet Volume 6.4L, Neutrophils (%) (Auto) 50.8, Lymphocytes (%) (Auto) 39.1, Monocytes (%) (Auto) 6.7, Eosinophils (%) (Auto) 1.7, Basophils (%) (Auto) 1.6, Prothrombin Time 11.7H, Prothromb Time International Ratio 1.1, Sodium Level 141, Potassium Level 4.2, Chloride Level 95L, Carbon Dioxide Level 30, Anion Gap 16H, Blood Urea Nitrogen 20, Creatinine 0.6, Estimat Glomerular Filtration Rate > 60, Glucose Level 216H, Calcium Level 9.8 Height (Feet): 5 Height (Inches): 1.00 Weight (Pounds): 200 General Appearance: no apparent distress EENT: TMs normal Neck: supple Cardiovascular: regular rhythm Respiratory/Chest: chest wall non-tender Abdomen: no organomegaly Extremities: non-tender Edema: 1+ Leg (L), 1+ Leg (R) Edema: mild edema Neurologic: alert Skin: warm/dry Jorge Rivera Jan 21, 2017 11:25
--- NOTE | 2017-01-21 11:29 | General Progress Note ---
Assessment/Plan Problem List: (1) Cellulitis ICD Codes: L03.90 - Cellulitis, unspecified SNOMED: 036750148 (2) Diabetes mellitus ICD Codes: E11.9 - Type 2 diabetes mellitus without complications SNOMED: 54139650 (3) UTI (urinary tract infection) ICD Codes: N39.0 - Urinary tract infection, site not specified SNOMED: 91895988 (4) Tibia/fibula fracture ICD Codes: S82.209A - Unspecified fracture of shaft of unspecified tibia, initial encounter for closed fracture; S82.409A - Unspecified fracture of shaft of unspecified fibula, initial encounter for closed fracture SNOMED: 392095695 (5) Dementia ICD Codes: F03.90 - Unspecified dementia without behavioral disturbance SNOMED: 43060704 (6) HTN (hypertension) ICD Codes: I10 - Essential (primary) hypertension SNOMED: 47501486 Status: progressing Assessment/Plan uti resolved celluitis resolved id and othro cleared her for dc Subjective Allergies: Coded Allergies: LITHIUM (Unverified Allergy, Unknown, 12/31/12) Subjective pain legs is improved Objective Last 24 Hour Vital Signs Date Time Temp Pulse Resp B/P Pulse Ox O2 Delivery O2 Flow Rate FiO2 01/21/17 07:53 97.6 100 21 129/66 94 Nasal Cannula 2.0 01/21/17 04:08 97.5 97 19 119/85 94 Nasal Cannula 01/21/17 00:07 97.8 104 18 104/60 90 Nasal Cannula 01/20/17 20:11 97.4 114 20 132/79 92 Room Air 01/20/17 16:00 97.2 98 19 116/72 96 Room Air 01/20/17 12:00 97.3 106 21 107/66 94 Room Air Intake and Output 01/20/17 01/21/17 19:00 07:00 Intake Total 240 ml Output Total 1300 ml 1175 ml Balance -1300 ml -935 ml Intake Oral 240 ml Output Urine Total 1300 ml 1175 ml # Voids 1 # Bowel Movements 2 Laboratory Tests 01/21/17 06:25: White Blood Count 11.3H, Red Blood Count 3.91L, Hemoglobin 11.9L, Hematocrit 35.6L, Mean Corpuscular Volume 91, Mean Corpuscular Hemoglobin 30.4, Mean Corpuscular Hemoglobin Concent 33.5, Red Cell Distribution Width 14.3, Platelet Count 568H, Mean Platelet Volume 6.4L, Neutrophils (%) (Auto) 50.8, Lymphocytes (%) (Auto) 39.1, Monocytes (%) (Auto) 6.7, Eosinophils (%) (Auto) 1.7, Basophils (%) (Auto) 1.6, Prothrombin Time 11.7H, Prothromb Time International Ratio 1.1, Sodium Level 141, Potassium Level 4.2, Chloride Level 95L, Carbon Dioxide Level 30, Anion Gap 16H, Blood Urea Nitrogen 20, Creatinine 0.6, Estimat Glomerular Filtration Rate > 60, Glucose Level 216H, Calcium Level 9.8 Height (Feet): 5 Height (Inches): 1.00 Weight (Pounds): 200 EENT: PERRL/EOMI Neck: supple Cardiovascular: normal rate Respiratory/Chest: lungs clear Abdomen: soft Reuben Pereira MD Jan 21, 2017 11:29
[2017-01-21 11:43] VITALS: BP 131/77
--- NOTE | 2017-01-21 15:28 | Infectious Diseases Prog Note ---
Assessment/Plan Problems: (1) UTI (urinary tract infection) Assessment & Plan: with pansensitive E coli, improved, S/P ceftriaxone for 5 days (2) Tibia/fibula fracture Assessment & Plan: S/P ORIF , continue pain management as per ortho (3) Diabetes mellitus Assessment & Plan: recommend tight glycemic control to keep blood glucose between 80-120 Subjective ROS Limited/Unobtainable: Yes Allergies: Coded Allergies: LITHIUM (Unverified Allergy, Unknown, 12/31/12) Subjective she was resting in bed alert, and comfortable , no fever or chills, no nausea or vomiting Objective Vital Signs Last 24 Hour Vital Signs Date Time Temp Pulse Resp B/P Pulse Ox O2 Delivery O2 Flow Rate FiO2 01/21/17 11:43 99.0 100 20 131/77 99 Nasal Cannula 2.0 01/21/17 07:53 97.6 100 21 129/66 94 Nasal Cannula 2.0 01/21/17 04:08 97.5 97 19 119/85 94 Nasal Cannula 01/21/17 00:07 97.8 104 18 104/60 90 Nasal Cannula 01/20/17 20:11 97.4 114 20 132/79 92 Room Air 01/20/17 16:00 97.2 98 19 116/72 96 Room Air Height (Feet): 5 Height (Inches): 1.00 Weight (Pounds): 200 General Appearance: WD/WN, no acute distress HEENT: normocephalic, atraumatic, anicteric, mucous membranes moist Respiratory/Chest: chest wall non-tender, lungs clear, normal breath sounds, no respiratory distress, no accessory muscle use Cardiovascular: normal peripheral pulses, normal rate, regular rhythm, no gallop/murmur, no JVD Abdomen: normal bowel sounds, soft, non tender, no organomegaly, non distended , no mass Extremities: no cyanosis, no clubbing Skin: no rash, no lesions Laboratory Tests Test 01/21/17 06:25 White Blood Count 11.3 K/UL (4.8-10.8) H Red Blood Count 3.91 M/UL (4.20-5.40) L Hemoglobin 11.9 G/DL (12.0-16.0) L Hematocrit 35.6 % (37.0-47.0) L Mean Corpuscular Volume 91 FL (80-99) Mean Corpuscular Hemoglobin 30.4 PG (27.0-31.0) Mean Corpuscular Hemoglobin Concent 33.5 G/DL (32.0-36.0) Red Cell Distribution Width 14.3 % (11.6-14.8) Platelet Count 568 K/UL (150-450) H Mean Platelet Volume 6.4 FL (6.5-10.1) L Neutrophils (%) (Auto) 50.8 % (45.0-75.0) Lymphocytes (%) (Auto) 39.1 % (20.0-45.0) Monocytes (%) (Auto) 6.7 % (1.0-10.0) Eosinophils (%) (Auto) 1.7 % (0.0-3.0) Basophils (%) (Auto) 1.6 % (0.0-2.0) Prothrombin Time 11.7 SEC (9.30-11.50) H Prothromb Time International Ratio 1.1 (0.9-1.1) Sodium Level 141 mEQ/L (135-145) Potassium Level 4.2 mEQ/L (3.4-4.9) Chloride Level 95 mEQ/L (98-107) L Carbon Dioxide Level 30 mEQ/L (20-30) Anion Gap 16 (5-15) H Blood Urea Nitrogen 20 mg/dL (7-23) Creatinine 0.6 mg/dL (0.5-0.9) Estimat Glomerular Filtration Rate > 60 mL/min (>60) Glucose Level 216 mg/dL (74-106) H Calcium Level 9.8 mg/dL (8.6-10.2) Current Medications Medications (Trade) Dose Ordered Sig/Ebenezer Route PRN Reason Start Time Stop Time Status Last Admin Dose Admin Acarbose (Precose) 50 mg TIAC ORAL 01/13/17 16:30 02/12/17 16:29 01/21/17 12:14 Acetaminophen (Tylenol) 650 mg Q4H PRN ORAL Mild Pain/Temp > 100.5 01/13/17 13:00 02/12/17 12:59 01/13/17 15:28 Acetaminophen/ Hydrocodone Bitart ([place] 5/325) 1 tab Q4H PRN ORAL Moderate Pain (Pain Scale 4-6) 01/17/17 20:45 01/24/17 20:44 01/21/17 09:20 Al Hydroxide/Mg Hydroxide (Mylanta) 30 ml Q6H PRN ORAL FOR GI DISTRESS 01/13/17 13:00 02/12/17 12:59 Ascorbic Acid (Vitamin C) 500 mg DAILY ORAL 01/14/17 09:00 02/13/17 08:59 01/21/17 09:13 Calcium Carbonate (Tums) 500 mg DAILY ORAL 01/14/17 09:00 02/13/17 08:59 01/21/17 09:12 Celecoxib (CeleBREX) 200 mg DAILY ORAL 01/18/17 09:00 02/17/17 08:59 01/21/17 09:14 Clonazepam (KlonoPIN) 1 mg BID ORAL 01/17/17 20:00 01/24/17 19:59 01/21/17 09:13 Dextrose (Dextrose 50%) STAT PRN IV Hypoglycemia 01/13/17 15:30 02/12/17 15:29 Docusate Sodium (Colace) 100 mg THREE TIMES A DAY ORAL 01/18/17 09:00 02/17/17 08:59 01/21/17 09:12 Enoxaparin Sodium (Lovenox) 80 mg EVERY 12 HOURS SUBQ 01/18/17 09:00 02/17/17 08:59 01/21/17 09:15 Ferrous Sulfate (Feosol) 325 mg DAILY ORAL 01/14/17 09:00 02/13/17 08:59 01/21/17 09:14 Furosemide (Lasix) 40 mg EVERY 12 HOURS ORAL 01/13/17 21:00 02/12/17 20:59 01/21/17 09:14 Hydromorphone HCl (Dilaudid) 0.5 mg Q4H PRN SUBQ Severe Pain (Pain Scale 7-10) 01/17/17 20:45 01/24/17 20:44 01/20/17 06:15 Insulin Aspart (NovoLOG) BEFORE MEALS AND HS SUBQ 01/13/17 17:00 02/12/17 16:59 01/21/17 12:08 Insulin Aspart (NovoLOG) 12 units NOVOTIAC SUBQ 01/21/17 06:30 02/20/17 06:29 01/21/17 12:11 Insulin Detemir (Levemir) 40 units BEDTIME SUBQ 01/15/17 21:00 02/14/17 20:59 01/20/17 21:51 Lorazepam (Ativan) 2 mg Q6H PRN ORAL For Anxiety 01/16/17 12:00 01/23/17 11:59 01/21/17 03:48 Metformin HCl (Glucophage) 850 mg TID ORAL 01/13/17 18:00 02/12/17 17:59 01/21/17 12:17 Multivitamins (Multivitamins) 1 tab DAILY ORAL 01/14/17 09:00 02/13/17 08:59 01/21/17 09:16 Olanzapine (ZyPREXA Zydis) 30 mg BEDTIME ORAL 01/17/17 21:00 02/16/17 20:59 01/20/17 21:47 Ondansetron HCl (Zofran) 4 mg Q6H PRN IVP Nausea & Vomiting 01/17/17 20:45 02/16/17 20:44 Pantoprazole (Protonix) 40 mg ACBREAKFAST ORAL 01/22/17 06:30 02/13/17 08:59 Senna/Docusate Sodium (Josee-Colace) 1 ea TWICE A DAY ORAL 01/18/17 09:00 02/17/17 08:59 01/21/17 09:14 Temazepam (Restoril) 7.5 mg HSPRN PRN ORAL Insomnia 01/17/17 20:45 01/24/17 20:44 01/19/17 21:19 Warfarin Sodium (Coumadin per pharmacy) 1 ea COUMADIN PRN MISC Per rx protocol 01/17/17 14:15 02/16/17 14:14 Warfarin Sodium (Coumadin) 10 mg COUMADIN ONCE ORAL 01/21/17 17:00 01/21/17 17:01 01/21/17 12:11 Jose Mg M.D. Jan 21, 2017 15:28
[2017-01-21] MEDS ORDERED: Warfarin Sodium 10mg ORAL ONE (17:00)
--- NOTE | 2017-01-22 12:59 | Discharge Summary ---
Discharge Summary Hospital Course Date of Admission January 13, 2017 at 10:39 Date of Discharge Jan 21, 2017 at 13:00 Admitting Diagnosis Left Tib/Fib Fracture HPI Milka Alexandre is a 66 year old female who was admitted on January 13, 2017 at 10:39 for Left Tibula,Fibula Fracture Hospital Course dc summary #[id number] Discharge Medications Continued Medications: Acarbose* (Precose*) 50 Mg Tablet 50 MG ORAL THREE TIMES A DAY, TAB 0 Refills Ascorbate Calcium (Vitamin C) 500 Mg Tablet 500 MG PO DAILY Calcium Carbonate (Calcium Carbonate) 500 Mg Tablet 500 MG PO DAILY, TAB Cholecalciferol (Vitamin D3)* (Vitamin D*) 1,000 Unit Tablet 250 UNIT ORAL DAILY, #30 TAB Ferrous Sulfate* (Ferrous Sulfate*) 325 Mg Tablet 325 MG ORAL DAILY, #30 TAB 0 Refills Furosemide* (Lasix*) 20 Mg Tablet 40 MG ORAL BID, TAB Glimepiride* (Amaryl*) 4 Mg Tablet 2 MG ORAL BEFORE BREAKFAST Hydrocodone Bit/Acetaminophen 5-325* ([place] 5-325 Tablet*) 1 Each Tablet 1 TAB ORAL Q4H PRN for For Pain, TAB Insulin Detemir (Levemir Flextouch) 100 Unit/1 Ml Insuln.pen 45 UNIT SQ BEDTIME, EA Lorazepam* (Ativan*) 1 Mg Tablet 1 MG ORAL Q4HR, TAB Metformin Hcl* (Glucophage*) 500 Mg Tablet 850 MG ORAL DAILY, TAB Multivitamin With Minerals (Multivitamins With Minerals*) 1 Each Tablet 1 TAB ORAL DAILY, TAB Olanzapine* (Zyprexa*) 10 Mg Tablet 10 MG ORAL TID, #30 TAB 0 Refills Pantoprazole* (Protonix*) 40 Mg Tablet.dr 40 MG ORAL DAILY, TAB Quetiapine Fumarate* (Seroquel*) 200 Mg Tablet 200 MG ORAL QID, TAB Temazepam* (Restoril*) 15 Mg Capsule 7.5 MG ORAL HS PRN for Insomnia, #7 CAP Warfarin Sod (Coumadin*) 7.5 Mg Tablet 8.5 MG ORAL DAILY [Mylanta] () 30 ML ORAL EVERY 6 HOURS PRN for GI DISTRESS [Tylenol] () 650 MG PO Q4HR PRN for Mild Pain/Temp > 100.5 Discharge Condition Upon Discharge: stable Discharge Disposition Patient was discharged to [facility] (04) Discharge Diagnoses: Discharge Instructions Discharge Instructions Special Instructions I have been assigned to complete a D/C Summary on this account. I was not involved in the patient management Johanna Gallagher NP ([place]) Jan 22, 2017 12:59
--- NOTE | 2017-01-23 01:15 | Discharge Summary 2 SIG ---
DATE OF ADMISSION: 01/13/2017 DATE OF DISCHARGE: 01/21/2017 REASON FOR ADMISSION: 66-year-old female was brought from the senior care facility for evaluation. Apparently, the patient sustained fall and reported pain in the left leg as well as redness. The patient with past medical history of psychiatric disorder, diabetes, hypertension, history of DVT with IVC filter. The patient was on anticoagulation with Coumadin. Nursing staff noted fevers. The patient was sent from long term for evaluation. Workup in the emergency room revealed INR o-3.2. No leukocytosis. Stable H and H . Stable chemistry. Glucose - 465. Troponin negative. EKG showed sinus tachycardia, no acute ischemic changes. Chest x-ray revealed no acute cardiopulmonary disease. Xray of the right tibia and fibula revealed acute fracture of the proximal tibia and fibula. Left foot x-ray revealed no obvious fracture, no malalignment. In the emergency department, the patient had a posterior splint applied. The patient was neurovascularly intact. The patient was febrile -100.8 , hear rate- - 109. Urinalysis was grossly positive for urinary tract infection. The patient admitted for further management. ADMITTING DIAGNOSES: 1. Diabetes mellitus, out of control. 2. Acute left tibia-fibula fracture. 3. Possible cellulitis, left lower extremity. 4. Urinary tract infection. HOSPITAL COURSE: The patient admitted. The patient started on empiric antibiotics for UTI and cellulitis. ID consult was requested. Orthopedic consult was requested for acute fracture. Orthopedic surgeon seen and evaluated the patient and subsequently ordered CT of the left knee, which revealed complex comminuted minimally displaced fracture of the fibular head. The patient subsequently undergone an open reduction with internal fixation of left tibial plateau fracture with plate and screw placement. Pain management provided. The patient worked with physical and occupational therapists. Blood culture were negative. Urine culture revealed E. coli. The patient status post treatment with ceftriaxone for five days. Blood sugar was out of control. Endocrinology consult requested. The patient started on long acting Levemir and pre-meal insulin as well as a sliding scale of insulin as needed. Insulin regimen was optimized by camera storage clerk. Blood sugar significantly improved. The patient noted to have initial coagulopathy with INR 3.2. Hematology consult requested. Coagulopathy likely secondary to anticoagulation use. Coumadin was discontinued. The patient started on Lovenox for DVT prophylaxis after surgery. INR stable. Fall precautions were maintained. Bowel regimen instituted. GI prophylaxis provided. Psychiatrist seen and evaluated the patient and decreased Zyprexa and tapered off Seroquel. Blood pressure was stable without any antihypertensive medication. The patient was stable for discharge. DISCHARGE DIAGNOSES: 1. Left tibial plateau fracture. 2. Status post open reduction and internal fixation of left tibial plateau fracture with plate and screw fixation. 3. Urinary tract infection with E. coli. 4. Diabetes mellitus out of control. 5. Schizophrenia. 6. Possible cellulitis left lower extremity . DISCHARGE MEDICATIONS: See medication reconciliation list. DISCHARGE INSTRUCTIONS: The patient was discharged to the senior care facility. Patient to follow up with medical doctor at the facility. Reuben Pereira M.D. I have been assigned to dictate discharge summary on this account and I was not involved in the patient's management. Johanna TaylorStony Brook Southampton HospitalEliseo N.PKaushal DR: JAMAR JOB#: [id number] CC: JACKSON
--- NOTE | 2017-01-23 15:19 | Diagnostic Imaging Report ---
Indication: Pain Comparison: None Findings: Multiple fluoroscopic views of the left tibia and fibula were obtained. Internal fixation of proximal tibial fracture noted with compression plate and several screws. The fracture involves the tibial plateau. Impression: Intraoperative imaging
== END 2017-01-21 13:00 | DRG 493 ==
LOC: EDBD 10:02 → EMR 10:24 → EDBEDREQ 10:36 → 3E 10:39 → EDBEDREQ 11:11
PROC: 0QSH04Z Reposition Left Tibia with Internal Fixation Device, Open Approach (ICD-10-PCS; principal; 2017-01-17 14:00)
DX: S82.142A Displaced bicondylar fracture of left tibia, initial encounter for closed fracture (principal); N39.0 Urinary tract infection, site not specified; F03.90 Unspecified dementia, unspecified severity, without behavioral disturbance, psychotic disturbance, mood disturbance, and anxiety; E11.65 Type 2 diabetes mellitus with hyperglycemia; I69.359 Hemiplegia and hemiparesis following cerebral infarction affecting unspecified side; M97.02XA Periprosthetic fracture around internal prosthetic left hip joint, initial encounter; E66.01 Morbid (severe) obesity due to excess calories; L03.116 Cellulitis of left lower limb; F20.0 Paranoid schizophrenia; I82.509 Chronic embolism and thrombosis of unspecified deep veins of unspecified lower extremity; W19.XXXA Unspecified fall, initial encounter; Y92.129 Unspecified place in nursing home as the place of occurrence of the external cause; I10 Essential (primary) hypertension; E78.5 Hyperlipidemia, unspecified; Z86.718 Personal history of other venous thrombosis and embolism; Z79.01 Long term (current) use of anticoagulants; K59.00 Constipation, unspecified; K21.9 Gastro-esophageal reflux disease without esophagitis; B96.20 Unspecified Escherichia coli [E. coli] as the cause of diseases classified elsewhere; Z88.8 Allergy status to other drugs, medicaments and biological substances; Z79.4 Long term (current) use of insulin; R21 Rash and other nonspecific skin eruption; M85.89 Other specified disorders of bone density and structure, multiple sites; S82.202G Unspecified fracture of shaft of left tibia, subsequent encounter for closed fracture with delayed healing; S82.402G Unspecified fracture of shaft of left fibula, subsequent encounter for closed fracture with delayed healing; X58.XXXD Exposure to other specified factors, subsequent encounter; Z68.37 Body mass index [BMI] 37.0-37.9, adult
CPT/HCPCS: 29505; 36415; 71010; 74000; 76000; 80048; 80053; 81003; 82550; 82553; 82962; 83036; 83605; 83880; 84484; 85025; 85610; 85730; 87040; 87081; 87086; 87181; 93005; 94003; 94150; C9399; J1815; J2250; J2405; S5561

== ENCOUNTER 2018-06-04 18:21 | Inpatient (IN) | payer MEDICARE, MEDICAID ==
[~2018-06-04] VITALS: Ht 160 cm; Wt 83.9 kg
[~2018-06-04 18:21] MED LIST changes: +CALCIUM CARBON500 M1 PO; +NORCO 5-325 TA1 EAC1 ORAL; +QUETIAPINE FUM200 MG ORAL; +VITAMIN D1000 UNI1 ORAL
[2018-06-04 18:31] VITALS: BP 94/51
[2018-06-04] MEDS ORDERED: CRANBERRY450 M4 PO (18:33)
[2018-06-04] MEDS ORDERED: COLACE100 MG ORAL (18:33)
[2018-06-04] MEDS ORDERED: HALOPERIDOL0.5 MG ORAL (18:33)
[2018-06-04] MEDS ORDERED: BISACODYL5 MG ORAL (18:33)
[2018-06-04] MEDS ORDERED: cefTRIAXone 2 GM in NS 110 ML IV SCH (18:45)
[2018-06-04 19:48] LABS: ANION GAP 8 mmol/L (5-15); BLOOD UREA NITROGEN 20 mg/dL (7-18); CALCIUM 9.4 MG/DL (8.5-10.1); CARBON DIOXIDE 31 MMOL/L (21-32); CHLORIDE 103 MMOL/L (98-107); CREATININE 0.9 MG/DL (0.55-1.30); POTASSIUM 3.9 MMOL/L (3.5-5.1); SODIUM 142 MMOL/L (136-145)
[2018-06-04 19:53] LABS: APPEARANCE,URINE SLIGHTLY CLOUDY; BILIRUBIN, URINE NEGATIVE (NEGATIVE); COLOR,URINE PALE YELLOW; GLUCOSE, URINE (UA) 1+ (NEGATIVE); KETONES,URINE 1+ (NEGATIVE); LEUKOCYTE ESTERASE ,URINE 2+ (NEGATIVE); NITRITE,URINE POSITIVE (NEGATIVE); PH,URINE 5 (4.5-8.0); PROTEIN,URINE NEGATIVE (NEGATIVE); UROBILINOGEN,URINE NORMAL MG/DL (0.0-1.0)
[2018-06-04 19:54] LABS: BASOPHILS % (AUTO) 1.2 % (0.0-2.0); EOSINOPHILS % (AUTO) 0.7 % (0.0-3.0); HEMATOCRIT 40.9 % (37.0-47.0); HEMOGLOBIN 14.1 G/DL (12.0-16.0); MEAN CORPUSCULAR VOLUME 89 FL (80-99); MONOCYTES % (AUTO) 9.9 % (1.0-10.0); NEUTROPHILS % (AUTO) 35.1 % (45.0-75.0); PLATELET COUNT 263 K/UL (150-450); RED BLOOD COUNT 4.57 M/UL (4.20-5.40); RED CELL DISTRIBUTION WIDTH 13.2 % (11.6-14.8); WHITE BLOOD COUNT 7.7 K/UL (4.8-10.8)
[2018-06-04 19:59] LABS: INR 1.4 (0.9-1.1)
[2018-06-04 20:15] LABS: ALANINE AMINOTRANSFERASE 13 U/L (12-78); ALBUMIN 3.4 G/DL (3.4-5.0); ALBUMIN/GLOBULIN RATIO 0.8 (1.0-2.7); ALKALINE PHOSPHATASE 80 U/L (46-116); ASPARTATE AMINO TRANSFERASE 6 U/L (15-37); BILIRUBIN,TOTAL 0.4 MG/DL (0.2-1.0); CKMB < 0.5 NG/ML (0.0-3.6); CREATINE KINASE 29 U/L (26-308)
[2018-06-04 21:00] VITALS: BP 127/69
[2018-06-04] MEDS ORDERED: LORazepam Inj 2mg/ml 1ml IV ONE ×2 (21:15→21:30)
--- NOTE | 2018-06-04 21:33 | Emergency Room Report ---
History of Present Illness General Chief Complaint: Skin Rash/Abscess Source: Medical Record, EMS Present Illness HPI This patient presents from a group home facility. She complains of pain when she urinates. The patient's primary care physician Dr. Grover that the patient over for a neck lesion. There is no information on when this region started or was noticed. There is no fever or chills. There is no neck pain. Also, this patient has a history of DVT and there is concern that she is subtherapeutic on Coumadin. There are no other complaints. Allergies: Coded Allergies: LITHIUM (Unverified Allergy, Unknown, 12/31/12) Patient History Past Medical History: DM, HTN, LA, CAD, CHF, CVA/TIA, dementia, psych hx, other - Hx of DVT Social History: Denies: smoking, alcohol use, drug use Reviewed Nursing Documentation: PMH: Agreed; PSxH: Agreed Nursing Documentation-PMH Past Medical History: No History, Except For Hx Cardiac Problems: No - dvt LE, CHF Hx Hypertension: No Hx Pacemaker: No Hx Diabetes: Yes Hx Dialysis: No Hx Neurological Problems: No - left femur fx Hx Cerebrovascular Accident: Yes - hemiplegia and hemiparesis Hx Transient Ischemic Attacks: No Hx Dementia: Yes Hx Alzheimer's Disease: No Hx Parkinson's Disease: No Hx Meningitis: No Hx Encephalitis: No Hx Seizures: No Hx Epilepsy: No Hx Multiple Sclerosis: No Hx Cerebral Palsy: No Hx Amyotrophic Lat Sclerosis: No Hx [place] Syndrome: No Hx Paralysis: No Hx Peripheral Neuropathy: No Hx Spinal Cord Injury: No Hx Head Trauma: No Hx Traumatic Brain Injury: No Hx Memory Loss: No Hx Concentration Difficulty: No Hx Speech Problem: No Hx Tremors: No Hx Vertigo: No Hx Dizziness: No Hx Syncope: No Hx Headaches: No Hx Aphasia: No Hx Dysphasia: Yes Hx Numbness: No Hx Weakness: Yes Hx Fatigue: No Hx Neurologic Surgery: No Hx Brain Shunt: No Review of Systems All Other Systems: negative except mentioned in HPI Physical Exam Vital Signs Date Time Temp Pulse Resp B/P (MAP) Pulse Ox O2 Delivery O2 Flow Rate FiO2 06/04/18 18:21 98.3 45 16 101/62 93 Room Air 98.2 Sp02 EP Interpretation: reviewed, normal General Appearance: no apparent distress, alert, GCS 15, non-toxic Head: normocephalic, atraumatic Eyes: bilateral eye normal inspection, bilateral eye PERRL ENT: hearing grossly normal, normal pharynx, no angioedema, normal voice Neck: full range of motion, supple/symm/no masses, other - R. lateral neck: [id number] circumscribed but soft nodule c/w epidermal inclusion cyst Respiratory: chest non-tender, lungs clear, normal breath sounds, no respiratory distress, no retraction, no accessory muscle use, speaking full sentences Cardiovascular #1: regular rate, rhythm, no edema Gastrointestinal: normal bowel sounds, non tender, soft, non-distended, no guarding, no rebound Rectal: deferred Musculoskeletal: back normal, normal range of motion, non-tender Neurologic: alert, responsive, speech normal, other - Hx of hemiplegia at baseline/at baseline Psychiatric: no suicidal/homicidal ideation, anxious Skin: warm/dry, well hydrated, other - See RN skin exam Medical Decision Making Diagnostic Impression: Primary Impression: UTI (urinary tract infection) Additional Impressions: Subtherapeutic anticoagulation Agitated ER Course This patient is found to have a urinary tract infection. She is given broad- spectrum antibiotics here in the emergency department. The patient is also subtherapeutic on Coumadin for her DVT. The neck mass does not appear to be an abscess or infection. I suspect this mass is an epidermal inclusion cyst. Other considerations include lipoma although consistency is not quite like a lipoma. A malignancy is also a possibility that also less likely. Regardless, this is on infection and does not require incision and drainage in the emergency department. Patient was also persistently agitated in the emergency department and yelling out. I suspect this is related to her dementia. Regardless, I did do a CT of the head to rule out intracranial process which was unremarkable. The patient is admitted for further evaluation and treatment. See electronic medical record. EKG Diagnostic Results Rate: normal Rhythm: NSR, other - W/ PAC's in bigeminy pattern ST Segments: no acute changes Rhythm Strip Diag. Results EP Interpretation: yes Rate: 90's Rhythm: NSR, other - PAC's. See above Chest X-Ray Diagnostic Results Chest X-Ray Diagnostic Results : Chest X-Ray Ordered: Yes # of Views/Limited/Complete: 1 View Indication: Other EP Interpretation: Yes Interpretation: no consolidation, no effusion, no pneumothorax, no acute cardiopulmonary disease Impression: No acute disease Electronically Signed by: Vivi CT/MRI/US Diagnostic Results CT/MRI/US Diagnostic Results : Imaging Test Ordered: CT head Impression No acute findings. Specifically no intracranial bleed, mass effect or edema. See official report. Last Vital Signs Date Time Temp Pulse Resp B/P (MAP) Pulse Ox O2 Delivery O2 Flow Rate FiO2 06/04/18 18:31 98.2 90 15 94/51 93 Room Air 98.2 Disposition: ADMITTED INPATIENT Condition: Stable Referrals: Reuben Pereira MD (PCP) Archana Ratliff DO Jun 04, 2018 21:33
[2018-06-04 22:30] VITALS: BP 132/74
[2018-06-04] MEDS: Levemir Flexpen SUBQ SCH (23:30)
[2018-06-04] MEDS: NovoLOG Insulin Flexpen SUBQ SCH (23:30)
[2018-06-04] MEDS: QUEtiapine 200mg tab ORAL SCH (23:43)
[2018-06-04 23:45] VITALS: BP 134/82
[2018-06-05 04:00] VITALS: BP 123/78
[2018-06-05] MEDS: Glimepiride 4mg tab ORAL SCH (05:57)
[2018-06-05] MEDS: NovoLOG Insulin Flexpen SUBQ SCH ×4 (06:00→21:42)
[2018-06-05] MEDS: Precose 50mg tab ORAL SCH ×3 (06:30→16:47)
[2018-06-05 08:00] VITALS: BP 115/61
[2018-06-05 08:17] LABS: BASOPHILS % (AUTO) 1.2 % (0.0-2.0); EOSINOPHILS % (AUTO) 0.8 % (0.0-3.0); HEMATOCRIT 38.6 % (37.0-47.0); HEMOGLOBIN 12.8 G/DL (12.0-16.0); LYMPHOCYTES % (AUTO) 48.7 % (20.0-45.0); MEAN CORPUSCULAR VOLUME 88 FL (80-99); MONOCYTES % (AUTO) 8.7 % (1.0-10.0); NEUTROPHILS % (AUTO) 40.7 % (45.0-75.0); PLATELET COUNT 211 K/UL (150-450); RED BLOOD COUNT 4.37 M/UL (4.20-5.40); RED CELL DISTRIBUTION WIDTH 13.9 % (11.6-14.8)
[2018-06-05 08:24] LABS: INR 1.4 (0.9-1.1)
[2018-06-05] MEDS: metFORMIN 500mg tab ORAL SCH (08:41)
[2018-06-05] MEDS: Docusate 100mg cap ORAL SCH (08:42)
[2018-06-05] MEDS: Bisacodyl EC 5mg tab ORAL SCH (08:42)
[2018-06-05] MEDS: OLANZapine 2.5mg tab ORAL SCH ×3 (08:43→16:51)
[2018-06-05] MEDS: Tums 500mg ORAL SCH (08:43)
[2018-06-05] MEDS: Haloperidol 1mg tab ORAL SCH ×3 (08:44→16:51)
[2018-06-05] MEDS: QUEtiapine 200mg tab ORAL SCH ×4 (08:44→21:00)
--- NOTE | 2018-06-05 11:28 | Diagnostic Imaging Report ---
Indication: Altered mental status Technique: Contiguous 5 mm thick transaxial imaging of the head obtained in a Siemens Sensation [address] scanner. Soft tissue and bone windows generated. Automatic Exposure Control was utilized. Total Dose length Product (DLP): [address] Dose Index Volume (CTDIvol): 70.38 mGy Comparison: October 18, 2016 Findings: There is mild prominence of the ventricles, basal cisterns, and cerebral sulci consistent with atrophy. Mild, nonspecific, white matter hypoattenuation is noted throughout the brain consistent with chronic small vessel disease. There is no midline shift, edema, acute hemorrhage, mass effect, or abnormal extra-axial fluid collections. Bones and extra osseous soft tissues are unremarkable. Prominent cisterna magna versus arachnoid cyst noted. Impression: No acute intracranial bleed, mass effect or edema. Mild atrophy of the brain. Nonspecific white matter hypoattenuation probably due to chronic small vessel disease. The CT scanner at [facility] is accredited by the [employer] and the scans are performed using dose optimization techniques as appropriate to a performed exam including Automatic Exposure control.
[2018-06-05 12:00] VITALS: BP 101/64
--- NOTE | 2018-06-05 13:23 | Cardiology Report ---
APPROVED REPORT EKG Measurement Heart [id number] CO 160P [id number] Sinus rhythm with premature atrial complexes in a pattern of bigeminy Rightward axis ANGY Borderline ECG
--- NOTE | 2018-06-05 13:50 | Diagnostic Imaging Report ---
Indication: Dyspnea Comparison: 01/13/2017 A single view chest radiograph was obtained. Findings: No definite infiltrate or pulmonary vascular congestion identified. The heart is enlarged. The bones are osteopenic. Impression: No acute disease
[2018-06-05 16:00] VITALS: BP 105/61
[2018-06-05] MEDS ORDERED: Warfarin Sodium 7.5mg ORAL ONE (17:00)
--- NOTE | 2018-06-05 17:51 | Consultation ---
Consult Note Assessment/Plan CONSULTING PHYSICIAN: Jorge Rivera MD REQUESTING MD: Reuben Pereira REASON FOR CONSULT: DVT with IVC fitler as well as neck mass DOS: 06/05/18 HISTORY OF PRESENT ILLNESS: Patient is a poor historian. The majority of the history was obtained from reviewing the chart. Patient is a resident of a SNF who sustained a fall and was found to have a right neck abscess and hematology was consulted for eval. In the past, she did have left proximal tibia and fibula fractures. An orthopedic consult has been completed with possible surgery upon improvement of edema. Patient has pain and is currently on [place]. She is non ambulatory. No current nausea, vomiting, fevers, or chills reported PAST MEDICAL HISTORY: T2DM, HTN, DVT with history of IVC filter placement, dementia, psych disorder, schizophrenia, and with current UTI SOCIAL HISTORY: She is currently a resident of a SNF and denies tobacco, alcohol or illicit drug use. Patient has a brother who she states has power of contract attorney ALLERGIES: [place] SURGICAL HISTORY: IVC filter placement FAMILY HISTORY: Non contributory REVIEW OF SYSTEMS: Difficult to obtain, but a 12-point review of systems was performed, pertinent positives and negatives are as mentioned in the history of present illness. PHYSICAL EXAMINATION: VITAL SIGNS: Blood pressure 127/69, heart rate 104, temperature 99.3 degrees, and respiratory rate 20. HEENT: Pupils are equal and reactive to light. Sclerae are anicteric. NECK: No JVD. No thyromegaly. No bruit. Right sided fluctulant mass toed. LUNGS: Clear. HEART: Regular rate and rhythm. ABDOMEN: Positive bowel sounds. Soft. EXTREMITIES: Left lower extremity is in dressing Laboratory Tests Test 06/04/18 18:50 06/04/18 21:00 06/05/18 07:00 White Blood Count 7.7 K/UL (4.8-10.8) 6.0 K/UL (4.8-10.8) Red Blood Count 4.57 M/UL (4.20-5.40) 4.37 M/UL (4.20-5.40) Hemoglobin 14.1 G/DL (12.0-16.0) 12.8 G/DL (12.0-16.0) Hematocrit 40.9 % (37.0-47.0) 38.6 % (37.0-47.0) Mean Corpuscular Volume 89 FL (80-99) 88 FL (80-99) Mean Corpuscular Hemoglobin 30.9 PG (27.0-31.0) 29.2 PG (27.0-31.0) Mean Corpuscular Hemoglobin Concent 34.6 G/DL (32.0-36.0) 33.0 G/DL (32.0-36.0) Red Cell Distribution Width 13.2 % (11.6-14.8) 13.9 % (11.6-14.8) Platelet Count 263 K/UL (150-450) 211 K/UL (150-450) Mean Platelet Volume 6.5 FL (6.5-10.1) 6.7 FL (6.5-10.1) Neutrophils (%) (Auto) 35.1 % (45.0-75.0) L 40.7 % (45.0-75.0) L Lymphocytes (%) (Auto) 53.0 % (20.0-45.0) H 48.7 % (20.0-45.0) H Monocytes (%) (Auto) 9.9 % (1.0-10.0) 8.7 % (1.0-10.0) Eosinophils (%) (Auto) 0.7 % (0.0-3.0) 0.8 % (0.0-3.0) Basophils (%) (Auto) 1.2 % (0.0-2.0) 1.2 % (0.0-2.0) Prothrombin Time 14.1 SEC (9.30-11.50) H 14.2 SEC (9.30-11.50) H Prothromb Time International Ratio 1.4 (0.9-1.1) H 1.4 (0.9-1.1) H Activated Partial Thromboplast Time 32 SEC (23-33) Urine Color Pale yellow Urine Appearance Slightly cloudy Urine pH 5 (4.5-8.0) Urine Specific [place] 1.015 (1.005-1.035) Urine Protein Negative (NEGATIVE) Urine Glucose (UA) 1+ (NEGATIVE) H Urine Ketones 1+ (NEGATIVE) H Urine Blood Negative (NEGATIVE) Urine Nitrite Positive (NEGATIVE) H Urine Bilirubin Negative (NEGATIVE) Urine Urobilinogen Normal MG/DL (0.0-1.0) Urine Leukocyte Esterase 2+ (NEGATIVE) H Urine RBC 0-2 /HPF (0 - 2) Urine WBC 2-4 /HPF (0 - 2) Urine Squamous Epithelial Cells Few /LPF (NONE/OCC) Urine Bacteria Few /HPF (NONE) Sodium Level 142 MMOL/L (136-145) Potassium Level 3.9 MMOL/L (3.5-5.1) Chloride Level 103 MMOL/L (98-107) Carbon Dioxide Level 31 MMOL/L (21-32) Anion Gap 8 mmol/L (5-15) Blood Urea Nitrogen 20 mg/dL (7-18) H Creatinine 0.9 MG/DL (0.55-1.30) Estimat Glomerular Filtration Rate > 60 mL/min (>60) Glucose Level 198 MG/DL (74-106) H Lactic Acid Level 2.30 mmol/L (0.4-2.0) H 1.60 mmol/L (0.66-2.22) Calcium Level 9.4 MG/DL (8.5-10.1) Total Bilirubin 0.4 MG/DL (0.2-1.0) Aspartate Amino Transf (AST/SGOT) 6 U/L (15-37) L Alanine Aminotransferase (ALT/SGPT) 13 U/L (12-78) Alkaline Phosphatase 80 U/L (46-116) Total Creatine Kinase 29 U/L (26-308) Creatine Kinase MB < 0.5 NG/ML (0.0-3.6) Creatine Kinase MB Relative Index 1.7 Troponin I 0.000 ng/mL (0.000-0.056) Total Protein 7.9 G/DL (6.4-8.2) Albumin 3.4 G/DL (3.4-5.0) Globulin 4.5 g/dL Albumin/Globulin Ratio 0.8 (1.0-2.7) L Hemoglobin A1c 9.0 % (4.3-6.0) H ASSESSMENT/RECS: # Neck mass on the right side --> unknown etiology if mass or abscess, a us has been ordered --> us results pending, and ct guided aspiration ordered as well --> consider ENT eval with Dr. Roberts, appreciate his recs # Subtherapeutic INR with history of use of Coumadin. The patient has been compliant. continue coumadin, lovenox as well as bridge --> has been restarted, d/w pharmacy and with RN # Deep venous thrombosis of the lower extremity, status post inferior vena cava filter placement in the past, restarted on coumadin --> coumadin restarted --> INR goal 2-3 # Leukocytosis secondary to recent trauma. # Acute left periprosthetic mid shaft fracture of the left femur. s/p orif # Hypertension. # Schizophrenia. # Status post inferior vena cava filter. # Hyperlipidemia. Greatly appreciate consult! Jorge Rivera MD Jun 05, 2018 17:51
[2018-06-05 20:00] VITALS: BP 98/45
[2018-06-05] MEDS: Levemir Flexpen SUBQ SCH (21:42)
[2018-06-05 23:48] VITALS: BP 124/59
--- NOTE | 2018-06-06 03:01 | History and Physical Report ---
DATE OF ADMISSION: 06/04/2018 HISTORY OF PRESENT ILLNESS: The patient basically is a poor historian and cannot able to get any reliable history from her. The patient has been admitted for urinary tract infection and also subtherapeutic INR. The patient is on Coumadin for DVT. The patient denies nausea, vomiting, or diarrhea. No fever or chills. No abdominal pain. Denies shortness of breath. Denies cough. Denies chills. However, the patient is a very poor historian. The patient also denies any headache at this point. Does have dysuria, very poor historian. PAST MEDICAL HISTORY: Advanced dementia, psychosis, constipation, iron deficiency anemia, NIDDM, anxiety, history of DVT, and GERD. PAST SURGICAL HISTORY: Denies. ALLERGIES: To lithium. MEDICATIONS: Bisacodyl, Colace, ferrous sulfate, Lasix, Haldol, Levemir, lorazepam, metformin, olanzapine, Protonix, and warfarin. FAMILY HISTORY: Noncontributory. SOCIAL HISTORY: Denies alcohol or street drugs. Comes from a detention. REVIEW OF SYSTEMS: Unable to obtain, very poor historian. Does have dysuria. PHYSICAL EXAMINATION: VITAL SIGNS: Temperature 97.2, pulse is 84, and blood pressure is 134/78. HEENT: PERRLA. NECK: Supple. No lymphadenopathy. CHEST: Clear to auscultation. GASTROINTESTINAL: Soft, nontender, and nondistended. Positive bowel sounds. EXTREMITIES: A 1+ edema. NEUROLOGIC: The patient is bedbound. Reflexes on both sides. Oriented to name only, which is her baseline. LABORATORY DATA: Laboratory alanis and consistent with UTI, WBC of 7.7, hemoglobin 14, platelets 260. Sodium 142, potassium 3.9, BUN of 20, creatinine 0.9. INR of 1.4. ASSESSMENT AND PLAN: 1. Subtherapeutic INR, on Coumadin for DVT. was consulted for the adjustment of Coumadin. 2. UTI. Dr. Masoud Pavon was consulted for the UTI. 3. Dr. Roberts consulted, the patient also has a neck mass. 4. Diabetes mellitus non-insulin dependent. 5. . 6. Azotemia. Ali Charli Pereira DR: MICHELLE JOB#: [id number] CC:
[2018-06-06 04:00] VITALS: BP 107/64
[2018-06-06] MEDS: Precose 50mg tab ORAL SCH ×3 (05:55→17:31)
[2018-06-06] MEDS: Glimepiride 4mg tab ORAL SCH (05:55)
[2018-06-06] MEDS: NovoLOG Insulin Flexpen SUBQ SCH ×4 (05:56→20:40)
[2018-06-06 08:14] LABS: INR 1.3 (0.9-1.1)
[2018-06-06 08:17] VITALS: BP 110/73
--- NOTE | 2018-06-06 08:23 | Diagnostic Imaging Report ---
Indication: Right neck lump Technique: Grayscale and duplex images of the thyroid Comparison: none Findings: Corresponding to the palpable mass in the right neck, there is a hypoechoic homogeneous masslike lesion which demonstrates marked distal acoustic enhancement. This measures 17 x 11 x 16 mm in diameter Right thyroid lobe measures 3.7 cm length x 1.7 cm AP. Left thyroid lobe measures 3.3 cm length x 1.3 cm AP. Both thyroid lobes demonstrate normal echogenicity. , No calcifications. Solid or almost completely solid (2 points), isoechoic (1 point), not [id number] (0 points), ill-defined (0 points) nodule with none echogenic foci or large comet-tail artifacts (0 points), located in the mid right lobe of the thyroid measuring 1.5 cm in the maximum diameter totals 3 points, consistent with ACR TI-RADS Category TR3.. Impression: Hypoechoic 17 x 11 x 16 mm subcutaneous lesion corresponding to palpable abnormality in the right lateral neck. Most likely represents an epidermoid inclusion cyst (also known as a sebaceous cyst) ACR TI-RADS Category TR3 (Mildly suspicious) nodule right thyroid lobe. Recommendation: For TR3 nodules measuring 1.5-2.4 cm, recommend follow-up ultrasound at 1, 3, and 5 years. Imaging can stop at 5 years, if there is no growth according to the definition in the cited white paper. Cristina FN, Roosevelt WD, Sanjay EG, et al. ACR Thyroid Imaging, Reporting and Data System (TI-RADS): White Paper of the ACR TI-RADS Committee. J Am Tan Radiol 2017;14:587-595.
[2018-06-06] MEDS: Docusate 100mg cap ORAL SCH (08:42)
[2018-06-06] MEDS: Haloperidol 1mg tab ORAL SCH ×3 (08:42→17:31)
[2018-06-06] MEDS: metFORMIN 500mg tab ORAL SCH (08:42)
[2018-06-06] MEDS: Bisacodyl EC 5mg tab ORAL SCH (08:42)
[2018-06-06] MEDS: Tums 500mg ORAL SCH (08:43)
[2018-06-06] MEDS: QUEtiapine 200mg tab ORAL SCH ×4 (10:30→20:43)
[2018-06-06] MEDS: OLANZapine 2.5mg tab ORAL SCH ×3 (10:32→17:32)
[2018-06-06 11:53] VITALS: BP 116/74
[2018-06-06] MEDS ORDERED: Isovue-300 100ml vial INJ PRN (14:45)
[2018-06-06 16:17] VITALS: BP 109/62
--- NOTE | 2018-06-06 16:31 | General Progress Note ---
Assessment/Plan Status: stable, unchanged Assessment/Plan # Neck mass on the right side likely sebacous cyst --> unknown etiology if mass or abscess, a us has been ordered and us results: Normal left thyroid lobe --> ct guided aspiration has been canceled as discussed with radiologist appears to be a sebaceous cyst --> consider ENT eval with Dr. Roberts, appreciate his recs --> Neck biopsy not recommended at this time --> f/u in 1 month to see if resolves # Subtherapeutic INR with history of use of Coumadin. The patient has been compliant. continue coumadin --> has been restarted, d/w pharmacy and with RN --> INR goal 2-3 # Deep venous thrombosis of the lower extremity, status post inferior vena cava filter placement in the past, restarted on coumadin --> Coumadin restarted --> INR goal 2-3 --> Current INR 1.3 # Leukocytosis secondary to recent trauma. --> Resolved. # Acute left periprosthetic mid shaft fracture of the left femur. s/p orif # Hypertension. # Schizophrenia. # Status post inferior vena cava filter. # Hyperlipidemia. Greatly appreciate consult! Subjective Date patient seen: Jun 06, 2018 Allergies: Coded Allergies: LITHIUM (Unverified Allergy, Unknown, 12/31/12) All Systems: reviewed and negative except above Subjective Pt awake and alert. No acute events. US neck reviewed. VS stable. Objective Last 24 Hour Vital Signs Date Time Temp Pulse Resp B/P (MAP) Pulse Ox O2 Delivery O2 Flow Rate FiO2 06/06/18 16:17 97.7 88 20 109/62 (78) 94 97.7 06/06/18 11:53 97.7 84 20 116/74 (88) 94 97.7 06/06/18 10:16 Room Air 06/06/18 08:17 97.7 91 20 110/73 (85) 94 97.7 06/06/18 04:00 97.3 82 20 107/64 (78) 92 97.3 06/05/18 23:48 97.1 84 19 124/59 (80) 93 97.1 06/05/18 21:00 Room Air 06/05/18 20:00 98.2 66 19 98/45 (62) 91 98.2 Intake and Output 06/05/18 06/06/18 18:59 06:59 Intake Total 540 ml 120 ml Balance 540 ml 120 ml Intake Oral 540 ml 120 ml # Voids 7 3 Laboratory Tests 06/06/18 07:05: Prothrombin Time 13.7H, Prothromb Time International Ratio 1.3H Height (Feet): 5 Height (Inches): 3.00 Weight (Pounds): 185 General Appearance: no apparent distress EENT: PERRL/EOMI Neck: normal alignment Cardiovascular: normal peripheral pulses Respiratory/Chest: no respiratory distress Abdomen: soft Jorge Rivera MD Jun 06, 2018 16:31
[2018-06-06] MEDS: cefTRIAXone 1 GM in D5W 55 ML IVPB SCH (16:46)
[2018-06-06] MEDS ORDERED: Warfarin Sodium 7.5mg ORAL SCH (17:00)
[2018-06-06 19:55] VITALS: BP 94/57
[2018-06-06] MEDS: Levemir Flexpen SUBQ SCH (20:41)
--- NOTE | 2018-06-06 23:13 | General Progress Note ---
Assessment/Plan Problem List: (1) Dementia ICD Codes: F03.90 - Unspecified dementia without behavioral disturbance SNOMED: 25035409 (2) UTI (urinary tract infection) ICD Codes: N39.0 - Urinary tract infection, site not specified SNOMED: 59719142 (3) Diabetes mellitus ICD Codes: E11.9 - Type 2 diabetes mellitus without complications SNOMED: 35282952 (4) HTN (hypertension) ICD Codes: I10 - Essential (primary) hypertension SNOMED: 99329260 (5) Schizophrenia ICD Codes: F20.9 - Schizophrenia, unspecified SNOMED: 53308415 Status: progressing Assessment/Plan afebrile uti subtherpeutic inr on coumadin dvt abx per id Subjective ROS Limited/Unobtainable: Yes Constitutional: Reports: no symptoms Allergies: Coded Allergies: LITHIUM (Unverified Allergy, Unknown, 12/31/12) Objective Last 24 Hour Vital Signs Date Time Temp Pulse Resp B/P (MAP) Pulse Ox O2 Delivery O2 Flow Rate FiO2 06/06/18 21:00 Room Air 06/06/18 19:55 97.4 59 20 94/57 (69) 92 97.4 06/06/18 16:17 97.7 88 20 109/62 (78) 94 97.7 06/06/18 11:53 97.7 84 20 116/74 (88) 94 97.7 06/06/18 10:16 Room Air 06/06/18 08:17 97.7 91 20 110/73 (85) 94 97.7 06/06/18 04:00 97.3 82 20 107/64 (78) 92 97.3 06/05/18 23:48 97.1 84 19 124/59 (80) 93 97.1 Intake and Output 06/05/18 06/06/18 19:00 07:00 Intake Total 540 ml 120 ml Balance 540 ml 120 ml Intake Oral 540 ml 120 ml # Voids 7 3 Laboratory Tests 06/06/18 07:05: Prothrombin Time 13.7H, Prothromb Time International Ratio 1.3H Height (Feet): 5 Height (Inches): 3.00 Weight (Pounds): 185 Neck: supple Cardiovascular: normal rate Respiratory/Chest: lungs clear Abdomen: soft Reuben Pereira MD Jun 06, 2018 23:13
--- NOTE | 2018-06-06 23:15 | Consultation ---
DATE OF CONSULTATION: 06/06/2018 INFECTIOUS DISEASE CONSULTATION CONSULTING PHYSICIAN: Masoud Pavon M.D. PRIMARY ATTENDING PHYSICIAN: Reuben Pereira M.D. REASON FOR CONSULT: UTI, cervical mass. HISTORY OF PRESENT ILLNESS: This is a 67-year-old white female admitted on June 04 from a [facility]. The patient had recent fall and left proximal tibia and fibular fracture. It was noticed the patient had a neck mass and also had abnormal UA. PAST MEDICAL HISTORY: Significant for dementia, constipation, has history of DVT, iron-deficiency anemia, diabetes mellitus, and status post IVC filter. ALLERGIES: To lithium. MEDICATION: Getting bisacodyl, Colace, Lasix, metformin, Zyprexa, Protonix, haloperidol, calcium carbonate, Amaryl, warfarin, insulin, Seroquel. SOCIAL HISTORY: Single, has no child. [facility] resident. No history of alcohol, drug abuse, or smoking. REVIEW OF SYSTEMS: No fever. No chills. No oral complaint. No dysphagia. No nausea. No vomiting. The patient has no urinary symptoms. She has pain in the left leg. PHYSICAL EXAMINATION: VITAL SIGNS: Temperature 97.7, pulse 84, blood pressure 116/74. GENERAL APPEARANCE: No acute distress. HEAD AND NECK: She has many dental decays, but no pain. No significant oral lesion. She has a mass in the right neck, likely posterior adenopathy, it is firm to touch. HEART: Normal rate. LUNGS: Clear. ABDOMEN: Soft, nontender. EXTREMITIES: She has no edema. She has bilateral sequential compression device. SKIN: There is a right upper shoulder skin lesion, likely healing cellulitis. LABORATORY DATA: WBC 6, hemoglobin 12.8, hematocrit 38.6, platelet 211,000. Sodium 142, potassium 3.9, chloride 103, bicarbonate 31, BUN 20, creatinine 0.9, glucose 198. Hemoglobin A1c 9. Lactic acid was elevated at the time of admission at 2.3. Blood culture x2, so far negative. UA showed nitrite positive, leukocyte esterase 2+ positive. CT scan of the head, no acute intracranial bleeding, mass effect, or edema; mild atrophy of brain. Chest x-ray was negative. There was a thyroid ultrasound that showed normal left thyroid and right thyroid. IMPRESSION: Abnormal UA with positive leukocyte esterase and nitrite, may have UTI. The patient has a posterior right neck mass, says it came in the past 2 weeks. She has diabetes mellitus uncontrolled with elevated hemoglobin A1c, has dementia, DVT, IVC filter placement. RECOMMENDATION: We will order CT scan of the neck with contrast. We will start IV antibiotic, Rocephin. We will follow up the culture. We will follow up the ENT evaluation. At the end of my exam, I thank Dr. Pereira for involving me in the care of this patient. Masoud Pavon M.D. DR: Leti JOB#: [id number] CC:
[2018-06-07] VITALS: BP 121/62
[2018-06-07 04:00] VITALS: BP 100/90
[2018-06-07] MEDS: Precose 50mg tab ORAL SCH ×3 (06:10→17:27)
[2018-06-07] MEDS: NovoLOG Insulin Flexpen SUBQ SCH ×4 (06:10→21:16)
[2018-06-07] MEDS: Glimepiride 4mg tab ORAL SCH (06:11)
[2018-06-07 07:33] LABS: INR 1.1 (0.9-1.1)
[2018-06-07 08:00] VITALS: BP 116/69
[2018-06-07] MEDS: Docusate 100mg cap ORAL SCH (08:46)
[2018-06-07] MEDS: QUEtiapine 200mg tab ORAL SCH ×4 (08:46→21:00)
[2018-06-07] MEDS: Haloperidol 1mg tab ORAL SCH ×3 (08:46→17:22)
[2018-06-07] MEDS: metFORMIN 500mg tab ORAL SCH (08:46)
[2018-06-07] MEDS: Tums 500mg ORAL SCH (08:46)
[2018-06-07] MEDS: Bisacodyl EC 5mg tab ORAL SCH (08:46)
[2018-06-07] MEDS: OLANZapine 2.5mg tab ORAL SCH ×3 (08:47→17:22)
[2018-06-07] MEDS: cefTRIAXone 1 GM in D5W 55 ML IVPB SCH (09:35)
[2018-06-07 09:55] LABS: ALANINE AMINOTRANSFERASE 12 U/L (12-78); ALBUMIN 3.1 G/DL (3.4-5.0); ALBUMIN/GLOBULIN RATIO 0.9 (1.0-2.7); ALKALINE PHOSPHATASE 73 U/L (46-116); ANION GAP 5 mmol/L (5-15); ASPARTATE AMINO TRANSFERASE 8 U/L (15-37); BILIRUBIN,TOTAL 0.4 MG/DL (0.2-1.0); BLOOD UREA NITROGEN 25 mg/dL (7-18); CALCIUM 8.5 MG/DL (8.5-10.1); CARBON DIOXIDE 32 MMOL/L (21-32); CHLORIDE 104 MMOL/L (98-107); CREATININE 0.9 MG/DL (0.55-1.30); POTASSIUM 4.4 MMOL/L (3.5-5.1); SODIUM 141 MMOL/L (136-145)
[2018-06-07 10:07] LABS: BASOPHILS % (AUTO) 1.1 % (0.0-2.0); EOSINOPHILS % (AUTO) 3.3 % (0.0-3.0); HEMATOCRIT 39.8 % (37.0-47.0); HEMOGLOBIN 12.8 G/DL (12.0-16.0); LYMPHOCYTES % (AUTO) 52.6 % (20.0-45.0); MEAN CORPUSCULAR VOLUME 87 FL (80-99); MONOCYTES % (AUTO) 9.5 % (1.0-10.0); NEUTROPHILS % (AUTO) 33.5 % (45.0-75.0); PLATELET COUNT 210 K/UL (150-450); RED BLOOD COUNT 4.57 M/UL (4.20-5.40); RED CELL DISTRIBUTION WIDTH 13.5 % (11.6-14.8); WHITE BLOOD COUNT 6.2 K/UL (4.8-10.8)
--- NOTE | 2018-06-07 11:42 | Diagnostic Imaging Report ---
EXAM: CT Neck With Intravenous Contrast CLINICAL HISTORY: MASS TECHNIQUE: Axial computed tomography images of the neck with intravenous contrast. CTDI is 19.21 mGy and DLP is 584 mGy-cm One or more of the following dose reduction techniques were used: automated exposure control, adjustment of the mA and/or kV according to patient size, use of iterative reconstruction technique. COMPARISON: Ultrasound of 06/05/18 and 06/06/18. FINDINGS: The avascular right lateral neck mass seen on prior ultrasound measures 1. 8 x 1.3 cm on series 6, image 39. This is located immediately deep to the skin within the subcutaneous tissues. It does not have the appearance of a lymph node. Would favor an epidermal inclusion cyst, but further clinical management may be required. The known right thyroid lobe nodule is not well seen on CT. There is no airway mass or significant narrowing. The epiglottis is not thickened. There is no retropharyngeal fluid. Salivary glands demonstrate no mass or inflammatory changes. There is minimal calcific atherosclerosis of the left carotid bulb. No acute fracture. IMPRESSION: 1.8 cm subcutaneous mass to the right lateral neck is believed to correlate with the sonographic abnormality. Would favor an epidermal inclusion cyst, but further clinical management may be warranted.
[2018-06-07 12:10] VITALS: BP 105/65
[2018-06-07] MEDS ORDERED: Sennosides 8.6mg ORAL PRN ×2 (15:13→15:14)
[2018-06-07] MEDS ORDERED: Miralax 17gm pkt ORAL PRN (15:14)
[2018-06-07 16:10] VITALS: BP 105/62
[2018-06-07] MEDS ORDERED: Warfarin Sodium 7.5mg ORAL SCH (17:00)
[2018-06-07] MEDS ORDERED: Docusate 100mg cap ORAL SCH (18:00)
--- NOTE | 2018-06-07 18:12 | General Progress Note ---
Assessment/Plan Status: stable Assessment/Plan # Neck mass on the right side likely sebacous cyst --> unknown etiology if mass or abscess, a us has been ordered and us results: Normal left thyroid lobe --> CT guided aspiration has been canceled as discussed with radiologist appears to be a sebaceous cyst --> consider ENT eval with Dr. Roberts, appreciate his recs --> Neck biopsy not recommended at this time --> f/u in 1 month to see if resolves --> CT neck: 1.8 cm subcutaneous mass to the right lateral neck # Subtherapeutic INR with history of use of Coumadin. The patient has been compliant. continue coumadin --> has been restarted, d/w pharmacy and with RN --> INR goal 2-3 # Deep venous thrombosis of the lower extremity, status post inferior vena cava filter placement in the past, restarted on coumadin --> Remains on Coumadin --> INR goal 2-3 --> Current INR 1.1 # Leukocytosis secondary to recent trauma. --> Resolved. # Acute left periprosthetic mid shaft fracture of the left femur. s/p orif # Hypertension. # Schizophrenia. # Status post inferior vena cava filter. # Hyperlipidemia. Greatly appreciate consult! Subjective Date patient seen: Jun 07, 2018 Allergies: Coded Allergies: LITHIUM (Unverified Allergy, Unknown, 12/31/12) All Systems: reviewed and negative except above Subjective Pt awake and alert. No acute events. CT neck: 1.8 cm subcutaneous mass to the right lateral neck Objective Last 24 Hour Vital Signs Date Time Temp Pulse Resp B/P (MAP) Pulse Ox O2 Delivery O2 Flow Rate FiO2 06/07/18 16:10 97.7 83 20 105/62 (76) 93 97.7 06/07/18 12:10 97.0 89 18 105/65 (78) 94 97.0 06/07/18 09:00 Room Air 06/07/18 08:00 97.9 78 20 116/69 (85) 95 97.9 06/07/18 04:00 97.3 72 20 100/90 (93) 92 97.3 06/07/18 00:00 97.7 81 20 121/62 (81) 92 97.7 06/06/18 21:00 Room Air 06/06/18 19:55 97.4 59 20 94/57 (87) 92 97.4 Intake and Output 06/06/18 06/07/18 18:59 06:59 Intake Total 480 ml Output Total 800 ml Balance -320 ml Intake Oral 480 ml Output Urine Total 800 ml # Voids 2 3 Laboratory Tests 06/07/18 06:15: White Blood Count 6.2, Red Blood Count 4.57, Hemoglobin 12.8, Hematocrit 39.8, Mean Corpuscular Volume 87, Mean Corpuscular Hemoglobin 28.0, Mean Corpuscular Hemoglobin Concent 32.2, Red Cell Distribution Width 13.5, Platelet Count 210, Mean Platelet Volume 6.9, Neutrophils (%) (Auto) 33.5L, Lymphocytes (%) (Auto) 52.6H, Monocytes (%) (Auto) 9.5, Eosinophils (%) (Auto) 3.3H, Basophils (%) ( Auto) 1.1, Prothrombin Time 11.3, Prothromb Time International Ratio 1.1, Sodium Level 141, Potassium Level 4.4, Chloride Level 104, Carbon Dioxide Level 32, Anion Gap 5, Blood Urea Nitrogen 25H, Creatinine 0.9, Estimat Glomerular Filtration Rate > 60, Glucose Level 177H, Calcium Level 8.5, Total Bilirubin 0.4 , Aspartate Amino Transf (AST/SGOT) 8L, Alanine Aminotransferase (ALT/SGPT) 12, Alkaline Phosphatase 73, Total Protein 6.6, Albumin 3.1L, Globulin 3.5, Albumin/ Globulin Ratio 0.9L Height (Feet): 5 Height (Inches): 3.00 Weight (Pounds): 185 General Appearance: no apparent distress EENT: PERRL/EOMI Neck: normal alignment Cardiovascular: normal peripheral pulses Respiratory/Chest: no respiratory distress Abdomen: soft Jorge Rivera MD Jun 07, 2018 18:12
[2018-06-07 20:00] VITALS: BP 118/65
[2018-06-07] MEDS: Levemir Flexpen SUBQ SCH (21:15)
--- NOTE | 2018-06-07 21:29 | General Progress Note ---
Assessment/Plan Problem List: (1) Dementia ICD Codes: F03.90 - Unspecified dementia without behavioral disturbance SNOMED: 87496229 (2) UTI (urinary tract infection) ICD Codes: N39.0 - Urinary tract infection, site not specified SNOMED: 79984615 (3) Diabetes mellitus ICD Codes: E11.9 - Type 2 diabetes mellitus without complications SNOMED: 52608126 (4) HTN (hypertension) ICD Codes: I10 - Essential (primary) hypertension SNOMED: 29275644 (5) Schizophrenia ICD Codes: F20.9 - Schizophrenia, unspecified SNOMED: 03308252 Status: progressing Assessment/Plan bradycardia consulted dr hurd psych agitated dm uti subtherpeutic inr on coumadin dvt abx per id Subjective ROS Limited/Unobtainable: Yes Allergies: Coded Allergies: LITHIUM (Unverified Allergy, Unknown, 12/31/12) Objective Last 24 Hour Vital Signs Date Time Temp Pulse Resp B/P (MAP) Pulse Ox O2 Delivery O2 Flow Rate FiO2 06/07/18 21:00 Room Air 06/07/18 20:00 98.2 44 17 118/65 (82) 93 98.2 06/07/18 16:10 97.7 83 20 105/62 (76) 93 97.7 06/07/18 12:10 97.0 89 18 105/65 (78) 94 97.0 06/07/18 09:00 Room Air 06/07/18 08:00 97.9 78 20 116/69 (85) 95 97.9 06/07/18 04:00 97.3 72 20 100/90 (93) 92 97.3 06/07/18 00:00 97.7 81 20 121/62 (81) 92 97.7 Intake and Output 06/06/18 06/07/18 19:00 07:00 Intake Total 480 ml Output Total 800 ml Balance -320 ml Intake Oral 480 ml Output Urine Total 800 ml # Voids 2 3 Laboratory Tests 06/07/18 06:15: White Blood Count 6.2, Red Blood Count 4.57, Hemoglobin 12.8, Hematocrit 39.8, Mean Corpuscular Volume 87, Mean Corpuscular Hemoglobin 28.0, Mean Corpuscular Hemoglobin Concent 32.2, Red Cell Distribution Width 13.5, Platelet Count 210, Mean Platelet Volume 6.9, Neutrophils (%) (Auto) 33.5L, Lymphocytes (%) (Auto) 52.6H, Monocytes (%) (Auto) 9.5, Eosinophils (%) (Auto) 3.3H, Basophils (%) ( Auto) 1.1, Prothrombin Time 11.3, Prothromb Time International Ratio 1.1, Sodium Level 141, Potassium Level 4.4, Chloride Level 104, Carbon Dioxide Level 32, Anion Gap 5, Blood Urea Nitrogen 25H, Creatinine 0.9, Estimat Glomerular Filtration Rate > 60, Glucose Level 177H, Calcium Level 8.5, Total Bilirubin 0.4 , Aspartate Amino Transf (AST/SGOT) 8L, Alanine Aminotransferase (ALT/SGPT) 12, Alkaline Phosphatase 73, Total Protein 6.6, Albumin 3.1L, Globulin 3.5, Albumin/ Globulin Ratio 0.9L 06/07/18 20:30: Troponin I 0.000 Height (Feet): 5 Height (Inches): 3.00 Weight (Pounds): 185 General Appearance: confused Neck: supple Cardiovascular: normal rate Respiratory/Chest: lungs clear Abdomen: soft Reuben Pereira MD Jun 07, 2018 21:29
[2018-06-08] VITALS: BP 103/73
[2018-06-08 04:00] VITALS: BP 115/68
[2018-06-08] MEDS: Precose 50mg tab ORAL SCH ×3 (06:11→17:21)
[2018-06-08] MEDS: Glimepiride 1mg tab ORAL SCH (06:11)
[2018-06-08] MEDS: NovoLOG Insulin Flexpen SUBQ SCH ×4 (06:12→21:44)
[2018-06-08 08:00] VITALS: BP 125/74
[2018-06-08] MEDS: metFORMIN 500mg tab ORAL SCH (09:00)
[2018-06-08] MEDS: OLANZapine 2.5mg tab ORAL SCH ×3 (09:23→17:21)
[2018-06-08] MEDS: Furosemide 40mg tab ORAL SCH (09:23)
[2018-06-08] MEDS: QUEtiapine 200mg tab ORAL SCH ×4 (09:23→21:43)
[2018-06-08] MEDS: Docusate 100mg cap ORAL SCH ×2 (09:23→17:21)
[2018-06-08] MEDS: Tums 500mg ORAL SCH (09:23)
[2018-06-08] MEDS: Haloperidol 1mg tab ORAL SCH ×3 (09:25→17:21)
[2018-06-08] MEDS: Bisacodyl EC 5mg tab ORAL SCH (09:28)
[2018-06-08] MEDS: cefTRIAXone 1 GM in D5W 55 ML IVPB SCH (10:15)
--- NOTE | 2018-06-08 11:14 | Infectious Diseases Prog Note ---
Assessment/Plan Assessment/Plan A; UTI Neck mass , Epidermal inclusion cyst MRSA carrier DM type 2 Dementia P; Continue Rocephin until tomorrow Subjective ROS Limited/Unobtainable: No Constitutional: Reports: no symptoms Cardiovascular: Reports: no symptoms Gastrointestinal/Abdominal: Reports: no symptoms Genitourinary: Reports: no symptoms Allergies: Coded Allergies: LITHIUM (Unverified Allergy, Unknown, 12/31/12) Objective Vital Signs Last 24 Hour Vital Signs Date Time Temp Pulse Resp B/P (MAP) Pulse Ox O2 Delivery O2 Flow Rate FiO2 06/08/18 08:00 97.2 91 18 125/74 (91) 92 97.2 06/08/18 04:00 98.8 88 16 115/68 (84) 93 98.8 06/08/18 04:00 81 06/08/18 00:00 80 06/08/18 00:00 97.7 83 18 103/73 (83) 95 97.7 06/07/18 21:30 88 06/07/18 21:00 Room Air 06/07/18 20:00 98.2 44 17 118/65 (82) 93 98.2 06/07/18 16:10 97.7 83 20 105/62 (76) 93 97.7 06/07/18 12:10 97.0 89 18 105/65 (78) 94 97.0 Height (Feet): 5 Height (Inches): 3.00 Weight (Pounds): 185 General Appearance: no acute distress HEENT: other - R posterior neck mass Respiratory/Chest: lungs clear Cardiovascular: normal rate Abdomen: soft, non tender Extremities: no edema Neurologic/Psychiatric: alert, responsive Laboratory Tests Test 06/07/18 20:30 06/08/18 06:00 Troponin I 0.000 ng/mL (0.000-0.056) Prothrombin Time 10.9 SEC (9.30-11.50) Prothromb Time International Ratio 1.0 (0.9-1.1) Current Medications Medications (Trade) Dose Ordered Sig/Ebenezer Route PRN Reason Start Time Stop Time Status Last Admin Dose Admin Acarbose (Precose) 50 mg TIAC ORAL 06/08/18 06:30 07/05/18 06:29 06/08/18 06:11 Bisacodyl (Dulcolax) 10 mg DAILY ORAL 06/08/18 09:00 07/05/18 08:59 06/08/18 09:28 Calcium Carbonate (Tums) 500 mg DAILY ORAL 06/08/18 09:00 07/05/18 08:59 06/08/18 09:23 Ceftriaxone Sodium 1 gm/ Dextrose 55 ml @ 110 mls/hr DAILY IVPB 06/08/18 09:00 06/13/18 15:59 06/08/18 10:15 Dextrose (Dextrose 50%) 25 ml Q30M PRN IV Hypoglycemia 06/07/18 22:00 07/04/18 22:59 Dextrose (Dextrose 50%) 50 ml Q30M PRN IV Hypoglycemia 06/07/18 22:00 07/04/18 22:59 Docusate Sodium (Colace) 100 mg TWICE A DAY ORAL 06/08/18 09:00 07/07/18 17:59 06/08/18 09:23 Furosemide (Lasix) 40 mg DAILY ORAL 06/08/18 09:00 07/05/18 08:59 06/08/18 09:23 Glimepiride (Amaryl) 2 mg BEFORE BREAKFAST ORAL 06/08/18 06:30 07/05/18 06:29 06/08/18 06:11 Haloperidol (Haldol) 0.5 mg TID ORAL 06/08/18 09:00 07/05/18 08:59 06/08/18 09:25 Insulin Aspart (NovoLOG) BEFORE MEALS AND HS SUBQ 06/08/18 06:30 07/04/18 23:29 06/08/18 06:12 Insulin Detemir (Levemir) 12 units BEDTIME SUBQ 06/08/18 21:00 07/04/18 23:29 Iopamidol (Isovue-300 100ml) 100 ml NOW PRN INJ Radiology Procedure 06/08/18 14:45 06/09/18 14:44 Metformin HCl (Glucophage) 500 mg DAILY ORAL 06/08/18 09:00 07/05/18 08:59 Olanzapine (ZyPREXA) 7.5 mg TID ORAL 06/08/18 09:00 07/05/18 08:59 06/08/18 09:23 Pantoprazole (Protonix) 40 mg DAILY ORAL 06/08/18 09:00 07/05/18 08:59 06/08/18 09:24 Polyethylene Glycol (Miralax) 17 gm DAILYPRN PRN ORAL Constipation 06/08/18 15:15 07/07/18 15:13 Quetiapine Fumarate (SEROquel) 200 mg QID ORAL 06/08/18 09:00 07/04/18 23:29 06/08/18 09:23 Sennosides (Senokot) 1 tab DAILYPRN PRN ORAL Constipation 06/08/18 15:15 07/07/18 15:12 Warfarin Sodium (Coumadin per pharmacy) 1 ea DAILY PRN MISC Per rx protocol 06/08/18 09:00 07/04/18 22:59 Warfarin Sodium (Coumadin) 9 mg COUMADIN ONCE ORAL 06/08/18 17:00 06/08/18 17:01 Masoud Pavon MD Jun 08, 2018 11:14
--- NOTE | 2018-06-08 11:37 | Diagnostic Imaging Report ---
EXAM: XR Abdomen, 2 Views CLINICAL HISTORY: ABD DIST TECHNIQUE: Frontal view of the abdomen/pelvis with upright view of the abdomen. COMPARISON: Abdominal x-ray 01/16/17 FINDINGS: Intraperitoneal space: No free air. Gastrointestinal tract: Moderate to large stool in colon may be constipation. More focal gassy distended loop of colonic bowel in the mid abdomen, cannot exclude obstruction. Bones/joints: Left hip dynamic screws. Vasculature: IVC filter. IMPRESSION: Moderate to large stool in colon may be constipation. More focal gassy distended loop of colonic bowel in the mid abdomen, cannot exclude obstruction.
[2018-06-08 12:00] VITALS: BP 108/72
--- NOTE | 2018-06-08 13:53 | General Progress Note ---
Assessment/Plan Status: stable Assessment/Plan # Neck mass on the right side likely sebacous cyst --> unknown etiology if mass or abscess, a us has been ordered and us results: Normal left thyroid lobe --> CT guided aspiration has been canceled as discussed with radiologist appears to be a sebaceous cyst --> consider ENT eval with Dr. Roberts, appreciate his recs --> Neck biopsy not recommended at this time --> f/u in 1 month to see if resolves --> CT neck: 1.8 cm subcutaneous mass to the right lateral neck # Subtherapeutic INR with history of use of Coumadin. The patient has been compliant. Continue Coumadin --> Coumadin has been restarted, d/w pharmacy and with RN --> INR goal 2-3 # Deep venous thrombosis of the lower extremity, status post inferior vena cava filter placement in the past, restarted on Coumadin --> Remains on Coumadin --> INR goal 2-3 --> Current INR 1.1 # Leukocytosis secondary to recent trauma. --> Resolved. # Acute left periprosthetic mid shaft fracture of the left femur. s/p orif # Hypertension. # Schizophrenia. # Status post inferior vena cava filter. # Hyperlipidemia. Greatly appreciate consult! Subjective Date patient seen: Jun 08, 2018 ROS Limited/Unobtainable: Yes Allergies: Coded Allergies: LITHIUM (Unverified Allergy, Unknown, 12/31/12) All Systems: reviewed and negative except above Subjective Pt transferred tot tele unit. No acute events. Objective Last 24 Hour Vital Signs Date Time Temp Pulse Resp B/P (MAP) Pulse Ox O2 Delivery O2 Flow Rate FiO2 06/08/18 12:00 88 06/08/18 08:00 88 06/08/18 08:00 97.2 91 18 125/74 (91) 92 97.2 06/08/18 04:00 98.8 88 16 115/68 (84) 93 98.8 06/08/18 04:00 81 06/08/18 00:00 80 06/08/18 00:00 97.7 83 18 103/73 (83) 95 97.7 06/07/18 21:30 88 06/07/18 21:00 Room Air 06/07/18 20:00 98.2 44 17 118/65 (82) 93 98.2 06/07/18 16:10 97.7 83 20 105/62 (76) 93 97.7 Intake and Output 06/07/18 06/08/18 19:00 07:00 Intake Total 1110 ml Output Total 1600 ml 400 ml Balance -490 ml -400 ml Intake Oral 1000 ml IV Total 110 ml Output Urine Total 1600 ml 400 ml Laboratory Tests 06/07/18 20:30: Troponin I 0.000 06/08/18 06:00: Prothrombin Time 10.9, Prothromb Time International Ratio 1.0 Height (Feet): 5 Height (Inches): 3.00 Weight (Pounds): 185 General Appearance: no apparent distress EENT: PERRL/EOMI Neck: normal alignment Cardiovascular: normal peripheral pulses Respiratory/Chest: no respiratory distress Abdomen: soft Jorge Rivera MD Jun 08, 2018 13:53
[2018-06-08] MEDS ORDERED: Fleet's Enema 133ml RECTAL SCH (14:00)
--- NOTE | 2018-06-08 14:00 | General Progress Note ---
Assessment/Plan Assessment/Plan Assessment - Constipation - abdominal distention - HTN - DVT - CPS - Schizophrenia Recommendations - Fleets enema trial - follow xray and BM pattern - Check TFT - po as tolerated Subjective Allergies: Coded Allergies: LITHIUM (Unverified Allergy, Unknown, 12/31/12) Objective Last 24 Hour Vital Signs Date Time Temp Pulse Resp B/P (MAP) Pulse Ox O2 Delivery O2 Flow Rate FiO2 06/08/18 12:00 88 06/08/18 09:00 Room Air 06/08/18 08:00 88 06/08/18 08:00 97.2 91 18 125/74 (91) 92 97.2 06/08/18 04:00 98.8 88 16 115/68 (84) 93 98.8 06/08/18 04:00 81 06/08/18 00:00 80 06/08/18 00:00 97.7 83 18 103/73 (83) 95 97.7 06/07/18 21:30 88 06/07/18 21:00 Room Air 06/07/18 20:00 98.2 44 17 118/65 (82) 93 98.2 06/07/18 16:10 97.7 83 20 105/62 (76) 93 97.7 Intake and Output 06/07/18 06/08/18 19:00 07:00 Intake Total 1110 ml Output Total 1600 ml 400 ml Balance -490 ml -400 ml Intake Oral 1000 ml IV Total 110 ml Output Urine Total 1600 ml 400 ml Laboratory Tests 06/07/18 20:30: Troponin I 0.000 06/08/18 06:00: Prothrombin Time 10.9, Prothromb Time International Ratio 1.0 Height (Feet): 5 Height (Inches): 3.00 Weight (Pounds): 185 Crys Bush MD Jun 08, 2018 14:00
[2018-06-08] MEDS ORDERED: Isovue-300 100ml vial INJ PRN (14:45)
[2018-06-08] MEDS ORDERED: Sennosides 8.6mg ORAL PRN (15:15)
[2018-06-08] MEDS ORDERED: Miralax 17gm pkt ORAL PRN (15:15)
[2018-06-08 16:00] VITALS: BP 124/68
[2018-06-08] MEDS ORDERED: Warfarin Sod 5 MG, Warfarin Sod 4 MG ORAL ONE ×2 (17:00)
--- NOTE | 2018-06-08 18:24 | Cardiac Electrophysiology PN ---
Subjective Subjective [id number] Objective Last 24 Hour Vital Signs Date Time Temp Pulse Resp B/P (MAP) Pulse Ox O2 Delivery O2 Flow Rate FiO2 06/08/18 16:00 80 06/08/18 16:00 97.5 72 20 124/68 (86) 93 97.5 06/08/18 12:00 88 06/08/18 12:00 98.1 78 17 108/72 (84) 96 98.1 06/08/18 09:00 Room Air 06/08/18 08:00 88 06/08/18 08:00 97.2 91 18 125/74 (91) 92 97.2 06/08/18 04:00 98.8 88 16 115/68 (84) 93 98.8 06/08/18 04:00 81 06/08/18 00:00 80 06/08/18 00:00 97.7 83 18 103/73 (83) 95 97.7 06/07/18 21:30 88 06/07/18 21:00 Room Air 06/07/18 20:00 98.2 44 17 118/65 (82) 93 98.2 Intake and Output 06/07/18 06/08/18 18:59 06:59 Intake Total 1110 ml Output Total 1600 ml 400 ml Balance -490 ml -400 ml Intake Oral 1000 ml IV Total 110 ml Output Urine Total 1600 ml 400 ml Laboratory Tests Test 06/07/18 20:30 06/08/18 06:00 Troponin I 0.000 ng/mL (0.000-0.056) Prothrombin Time 10.9 SEC (9.30-11.50) Prothromb Time International Ratio 1.0 (0.9-1.1) Torin Cruz MD Jun 08, 2018 18:24
[2018-06-08 20:00] VITALS: BP 99/60
[2018-06-08] MEDS ORDERED: Levemir Flexpen SUBQ SCH (21:00)
--- NOTE | 2018-06-08 21:26 | General Progress Note ---
Assessment/Plan Problem List: (1) Dementia ICD Codes: F03.90 - Unspecified dementia without behavioral disturbance SNOMED: 02771107 (2) UTI (urinary tract infection) ICD Codes: N39.0 - Urinary tract infection, site not specified SNOMED: 50093128 (3) Diabetes mellitus ICD Codes: E11.9 - Type 2 diabetes mellitus without complications SNOMED: 46722329 (4) HTN (hypertension) ICD Codes: I10 - Essential (primary) hypertension SNOMED: 48191583 (5) Schizophrenia ICD Codes: F20.9 - Schizophrenia, unspecified SNOMED: 14869401 Status: progressing Assessment/Plan bradycardia consulted dr vickey cortez uti improving subtherpeutic inr improving dc planning no bleeding on coumadin dvt abx per id Subjective ROS Limited/Unobtainable: Yes Allergies: Coded Allergies: LITHIUM (Unverified Allergy, Unknown, 12/31/12) Objective Last 24 Hour Vital Signs Date Time Temp Pulse Resp B/P (MAP) Pulse Ox O2 Delivery O2 Flow Rate FiO2 06/08/18 20:00 98.0 77 19 99/60 (73) 92 98.0 06/08/18 16:00 80 06/08/18 16:00 97.5 72 20 124/68 (86) 93 97.5 06/08/18 12:00 88 06/08/18 12:00 98.1 78 17 108/72 (84) 96 98.1 06/08/18 09:00 Room Air 06/08/18 08:00 88 06/08/18 08:00 97.2 91 18 125/74 (91) 92 97.2 06/08/18 04:00 98.8 88 16 115/68 (84) 93 98.8 06/08/18 04:00 81 06/08/18 00:00 80 06/08/18 00:00 97.7 83 18 103/73 (83) 95 97.7 06/07/18 21:30 88 Intake and Output 06/07/18 06/08/18 18:59 06:59 Intake Total 1110 ml Output Total 1600 ml 400 ml Balance -490 ml -400 ml Intake Oral 1000 ml IV Total 110 ml Output Urine Total 1600 ml 400 ml Laboratory Tests 06/08/18 06:00: Prothrombin Time 10.9, Prothromb Time International Ratio 1.0 Height (Feet): 5 Height (Inches): 3.00 Weight (Pounds): 185 General Appearance: confused Neck: supple Cardiovascular: normal rate Respiratory/Chest: lungs clear Reuben Pereira MD Jun 08, 2018 21:26
--- NOTE | 2018-06-08 21:53 | Consultation ---
History of Present Illness General Date patient seen: Jun 06, 2018 Chief Complaint: Skin Rash/Abscess Present Illness HPI 67-year-old lady with history of hypertension, DVT, schizophrenia, abdominal distention,the pt pw with severe agitation and delusional thoughts. the pt is labile and depressed no si.hi Allergies: Coded Allergies: LITHIUM (Unverified Allergy, Unknown, 12/31/12) Medication History Scheduled Acarbose* (Precose*), 50 MG ORAL THREE TIMES A DAY, (Reported) Ascorbate Calcium (Vitamin C), 500 MG PO DAILY, (Reported) Bisacodyl* (Dulcolax*), 10 MG ORAL DAILY, (Reported) Calcium Carbonate (Calcium Carbonate), 250 MG PO DAILY, (Reported) Cholecalciferol (Vitamin D3)* (Vitamin D*), 250 UNIT ORAL DAILY, (Reported) Cranberry Fruit Concentrate (Cranberry), 450 MG PO BID, (Reported) Docusate Sodium* (Colace*), 100 MG ORAL DAILY, (Reported) Ferrous Sulfate* (Ferrous Sulfate*), 325 MG ORAL DAILY, (Reported) Furosemide* (Lasix*), 40 MG ORAL DAILY, (Reported) Glimepiride* (Amaryl*), 2 MG ORAL BEFORE BREAKFAST, (Reported) Haloperidol* (Haldol*), 5 MG ORAL TID, (Reported) Insulin Detemir (Levemir Flextouch), 12 UNIT SQ BEDTIME, (Reported) Lorazepam* (Ativan*), 1 MG ORAL Q4HR, (Reported) Metformin Hcl* (Glucophage*), 500 MG ORAL DAILY, (Reported) Multivitamin With Minerals (Multivitamins With Minerals*), 1 TAB ORAL DAILY, ( Reported) Olanzapine* (Zyprexa*), 7.5 MG ORAL TID, (Reported) Pantoprazole* (Protonix*), 40 MG ORAL DAILY, (Reported) Quetiapine Fumarate* (Seroquel*), 200 MG ORAL QID, (Reported) Warfarin Sod (Coumadin*), 9 MG ORAL DAILY, (Reported) Scheduled PRN Hydrocodone Bit/Acetaminophen 5-325* ([place] 5-325 Tablet*), 1 TAB ORAL Q4H PRN for For Pain, (Reported) Temazepam* (Restoril*), 7.5 MG ORAL HS PRN for Insomnia, (Reported) [Mylanta], 30 ML ORAL EVERY 6 HOURS PRN for GI DISTRESS, (Reported) [Tylenol], 650 MG PO Q4HR PRN for Mild Pain/Temp > 100.5, (Reported) Patient History History Provided By: Patient, Medical Record, PMD Healthcare decision maker Resuscitation status Advanced Directive on File Past Medical/Surgical History Past Medical/Surgical History: (1) Diabetes mellitus (2) Dementia (3) Schizophrenia (4) HTN (hypertension) (5) UTI (urinary tract infection) (6) Constipation (7) Abdominal pain Review of Systems Psychiatric: Reports: prior hx, anxiety, depressed feelings, emotional problems , hallucinations Physical Exam General Appearance: alert, moderate distress, agitated Last 24 Hour Vital Signs Date Time Temp Pulse Resp B/P (MAP) Pulse Ox O2 Delivery O2 Flow Rate FiO2 06/08/18 20:00 98.0 77 19 99/60 (73) 92 98.0 06/08/18 16:00 80 06/08/18 16:00 97.5 72 20 124/68 (86) 93 97.5 06/08/18 12:00 88 06/08/18 12:00 98.1 78 17 108/72 (84) 96 98.1 06/08/18 09:00 Room Air 06/08/18 08:00 88 06/08/18 08:00 97.2 91 18 125/74 (91) 92 97.2 06/08/18 04:00 98.8 88 16 115/68 (84) 93 98.8 06/08/18 04:00 81 06/08/18 00:00 80 06/08/18 00:00 97.7 83 18 103/73 (83) 95 97.7 Intake and Output 06/07/18 06/08/18 18:59 06:59 Intake Total 1110 ml Output Total 1600 ml 400 ml Balance -490 ml -400 ml Intake Oral 1000 ml IV Total 110 ml Output Urine Total 1600 ml 400 ml Laboratory Tests Test 06/08/18 06:00 Prothrombin Time 10.9 SEC (9.30-11.50) Prothromb Time International Ratio 1.0 (0.9-1.1) Height (Feet): 5 Height (Inches): 3.00 Weight (Pounds): 185 Medications Current Medications Medications (Trade) Dose Ordered Sig/Ebenezer Route PRN Reason Start Time Stop Time Status Last Admin Dose Admin Acarbose (Precose) 50 mg TIAC ORAL 06/08/18 06:30 07/05/18 06:29 06/08/18 17:21 Bisacodyl (Dulcolax) 10 mg DAILY ORAL 06/08/18 09:00 07/05/18 08:59 06/08/18 09:28 Calcium Carbonate (Tums) 500 mg DAILY ORAL 06/08/18 09:00 07/05/18 08:59 06/08/18 09:23 Ceftriaxone Sodium 1 gm/ Dextrose 55 ml @ 110 mls/hr DAILY IVPB 06/08/18 09:00 06/13/18 15:59 06/08/18 10:15 Dextrose (Dextrose 50%) 25 ml Q30M PRN IV Hypoglycemia 06/07/18 22:00 07/04/18 22:59 Dextrose (Dextrose 50%) 50 ml Q30M PRN IV Hypoglycemia 06/07/18 22:00 07/04/18 22:59 Docusate Sodium (Colace) 100 mg TWICE A DAY ORAL 06/08/18 09:00 07/07/18 17:59 06/08/18 17:21 Furosemide (Lasix) 40 mg DAILY ORAL 06/08/18 09:00 07/05/18 08:59 06/08/18 09:23 Glimepiride (Amaryl) 2 mg BEFORE BREAKFAST ORAL 06/08/18 06:30 07/05/18 06:29 06/08/18 06:11 Haloperidol (Haldol) 0.5 mg TID ORAL 06/08/18 09:00 07/05/18 08:59 06/08/18 17:21 Insulin Aspart (NovoLOG) BEFORE MEALS AND HS SUBQ 06/08/18 06:30 07/04/18 23:29 06/08/18 21:44 Insulin Detemir (Levemir) 12 units BEDTIME SUBQ 06/08/18 21:00 07/04/18 23:29 06/08/18 21:45 Iopamidol (Isovue-300 100ml) 100 ml NOW PRN INJ Radiology Procedure 06/08/18 14:45 06/09/18 14:44 Metformin HCl (Glucophage) 500 mg DAILY ORAL 06/08/18 09:00 07/05/18 08:59 Olanzapine (ZyPREXA) 7.5 mg TID ORAL 06/08/18 09:00 07/05/18 08:59 06/08/18 17:21 Pantoprazole (Protonix) 40 mg DAILY ORAL 06/08/18 09:00 07/05/18 08:59 06/08/18 09:24 Polyethylene Glycol (Miralax) 17 gm DAILYPRN PRN ORAL Constipation 06/08/18 15:15 07/07/18 15:13 Quetiapine Fumarate (SEROquel) 200 mg QID ORAL 06/08/18 09:00 07/04/18 23:29 06/08/18 21:43 Sennosides (Senokot) 1 tab DAILYPRN PRN ORAL Constipation 06/08/18 15:15 07/07/18 15:12 Warfarin Sodium (Coumadin per pharmacy) 1 ea DAILY PRN MISC Per rx protocol 06/08/18 09:00 07/04/18 22:59 Assessment/Plan Problem List: (1) Dementia ICD Codes: F03.90 - Unspecified dementia without behavioral disturbance SNOMED: 94723264 Qualifiers: (2) Schizophrenia ICD Codes: F20.9 - Schizophrenia, unspecified SNOMED: 36140075 Assessment/Plan cont seroquel ativan prn provided ro/Noel Olguin MD Jun 08, 2018 21:53
--- NOTE | 2018-06-08 21:53 | General Progress Note ---
Assessment/Plan Problem List: (1) Schizophrenia ICD Codes: F20.9 - Schizophrenia, unspecified SNOMED: 04739055 (2) Dementia ICD Codes: F03.90 - Unspecified dementia without behavioral disturbance SNOMED: 07997071 Qualifiers: Status: stable Assessment/Plan cont seroquel ativan prn provided ro/st Subjective Date patient seen: Jun 07, 2018 Neurologic/Psychiatric: Reports: anxiety, depressed, emotional problems Allergies: Coded Allergies: LITHIUM (Unverified Allergy, Unknown, 12/31/12) Objective Last 24 Hour Vital Signs Date Time Temp Pulse Resp B/P (MAP) Pulse Ox O2 Delivery O2 Flow Rate FiO2 06/08/18 20:00 98.0 77 19 99/60 (73) 92 98.0 06/08/18 16:00 80 06/08/18 16:00 97.5 72 20 124/68 (86) 93 97.5 06/08/18 12:00 88 06/08/18 12:00 98.1 78 17 108/72 (84) 96 98.1 06/08/18 09:00 Room Air 06/08/18 08:00 88 06/08/18 08:00 97.2 91 18 125/74 (91) 92 97.2 06/08/18 04:00 98.8 88 16 115/68 (84) 93 98.8 06/08/18 04:00 81 06/08/18 00:00 80 06/08/18 00:00 97.7 83 18 103/73 (83) 95 97.7 Intake and Output 06/07/18 06/08/18 18:59 06:59 Intake Total 1110 ml Output Total 1600 ml 400 ml Balance -490 ml -400 ml Intake Oral 1000 ml IV Total 110 ml Output Urine Total 1600 ml 400 ml Laboratory Tests 06/08/18 06:00: Prothrombin Time 10.9, Prothromb Time International Ratio 1.0 Height (Feet): 5 Height (Inches): 3.00 Weight (Pounds): 185 General Appearance: no apparent distress, alert, agitated Neurologic: oriented x 3, responsive Noel Hennessy MD Jun 08, 2018 21:53
[2018-06-09] VITALS: BP 131/94
--- NOTE | 2018-06-09 00:45 | Consultation ---
DATE OF CONSULTATION: 06/08/2018 CONSULTING PHYSICIAN: Torin Cruz M.D. REASON FOR CONSULTATION: Bradycardia. HISTORY OF PRESENT ILLNESS: The patient is a 67-year-old lady with history of hypertension, DVT, schizophrenia, abdominal distention, was transferred to telemetry as the patient was found bradycardic with heart rate as low as 44. The patient denies any syncope or presyncopal symptoms. The patient's troponin levels are negative. Cardiology consultation was obtained for further evaluation and management. REVIEW OF SYSTEMS: Negative other than what was mentioned in history of present illness. PAST MEDICAL HISTORY: Includes, 1. Hypertension. 2. DVT. 3. Schizophrenia. 4. Constipation. FAMILY HISTORY: Noncontributory. SOCIAL HISTORY: Does not smoke or drink alcohol. PHYSICAL EXAMINATION: VITAL SIGNS: Blood pressure is 124/68, pulse 72, respiration is 20, and temperature 97.5 degrees. HEAD AND NECK: Shows no JVD. LUNGS: Clear. CARDIOVASCULAR: Shows regular S1 and S2 with no gallop or murmur. ABDOMEN: Soft. EXTREMITIES: There is no pitting edema. DIAGNOSTIC DATA: Her EKG shows sinus rhythm with frequent PACs. LABORATORY DATA: Labs show white count of 6.2, hemoglobin 12.8, hematocrit 39.8, and platelet count of 210,000. Sodium 141, potassium 4.4, BUN of 25, and creatinine of 0.9. Troponin is negative x2. ASSESSMENT AND PLAN: 1. History of bradycardia, heart rate of 44. That has resolved. The patient had sinus rhythm that is frequent and PACs. Continue to watch the patient on telemetry overnight. We will make a decision tomorrow. 2. DVT, on Coumadin per pharmacy. 3. Diabetes. 4. Sinus rhythm with frequent PACs, rule out any atrial fibrillation. We will watch the patient on telemetry. 5. Constipation with abdominal distention. Fleet enema trial with followup x-ray and further evaluation by Dr. Bush. Thank you very much, Dr. Pereira, for allowing me to participate in the care of this patient. Please do not hesitate to contact me for any questions regarding my evaluation. Sincerely, Torin Cruz M.D. DR: ERNESTO JOB#: [id number] CC:
--- NOTE | 2018-06-09 01:00 | Consultation ---
DATE OF CONSULTATION: 06/08/2018 GASTROENTEROLOGY CONSULTATION CONSULTING PHYSICIAN: Crys Bush M.D. CHIEF COMPLAINT: I was asked to see this patient by Dr. Reuben Pereira for evaluation of abdominal distention and constipation. HISTORY OF PRESENT ILLNESS: The patient is a 67-year-old white woman from a group home, who had a recent fall and left proximal tibia and fibular fracture. The patient came to the hospital due to a neck mass and abnormal urinalysis and above findings. She also has consultation with abdominal distention. Several laxatives have been given to the patient without success. The patient denies any abdominal pain, nausea, or vomiting, but she does note abdominal distention. The patient cannot recall if she ever had a colonoscopy, but she is poor historian. She is on anticoagulation for custodial history of deep vein thrombosis. PAST MEDICAL HISTORY: History of dementia, constipation, deep venous thrombosis, iron-deficiency anemia, diabetes mellitus, and status post IVC filter placement. ALLERGIES: To lithium. FAMILY HISTORY: Noncontributory. SOCIAL HISTORY: The patient has no children. She is single. She lives in a group home. There has been no recent history of smoking or drinking. REVIEW OF SYSTEMS: Otherwise negative. PHYSICAL EXAMINATION: GENERAL: A debilitated elderly white woman, seen in her room. HEENT: Normocephalic and atraumatic. Sclerae are anicteric. Oropharynx is clear. NECK: Supple. CHEST: Clear to auscultation. CARDIOVASCULAR: Revealed a regular rate. ABDOMEN: Distended and tympanitic, but soft. There is no obvious tenderness to palpation. EXTREMITIES: Revealed no edema. LABORATORY DATA: Laboratory data were noted. ASSESSMENT: The patient presents with abdominal distention and constipation. I will check records to see if there is a predominance of gas or stool in the abdomen and the pattern of the abdomen bowels. Laxatives have been given either by mouth and/or by rectum. The medications that would alter motility should be avoided. The patient should be mobilized as feasible. The patient can be considered for a possible screening colonoscopy at a later date if not done in the last 10 years. Thank you for asking me to participate in the care of this patient. Payman Khorrami, M.D. DR: DINESH JOB#: [id number] CC: JACKSON
[2018-06-09 04:00] VITALS: BP 116/77
[2018-06-09] MEDS: Precose 50mg tab ORAL SCH ×2 (06:25→10:43)
[2018-06-09] MEDS: Glimepiride 1mg tab ORAL SCH (06:25)
[2018-06-09] MEDS: NovoLOG Insulin Flexpen SUBQ SCH ×2 (06:26→12:33)
[2018-06-09 08:00] VITALS: BP 121/67
[2018-06-09] MEDS: metFORMIN 500mg tab ORAL SCH (08:15)
[2018-06-09] MEDS: QUEtiapine 200mg tab ORAL SCH ×2 (09:25→12:37)
[2018-06-09] MEDS: Furosemide 40mg tab ORAL SCH (09:25)
[2018-06-09] MEDS: Haloperidol 1mg tab ORAL SCH ×2 (09:25→12:37)
[2018-06-09] MEDS: Docusate 100mg cap ORAL SCH (09:25)
[2018-06-09] MEDS: Bisacodyl EC 5mg tab ORAL SCH (09:25)
[2018-06-09] MEDS: Tums 500mg ORAL SCH (09:25)
[2018-06-09] MEDS: cefTRIAXone 1 GM in D5W 55 ML IVPB SCH (10:10)
[2018-06-09] MEDS: OLANZapine 2.5mg tab ORAL SCH ×2 (10:10→13:05)
--- NOTE | 2018-06-09 10:47 | GI Progress Note ---
Assessment/Plan Problems: (1) Constipation ICD Codes: K59.00 - Constipation, unspecified SNOMED: 37531215 (2) Dementia ICD Codes: F03.90 - Unspecified dementia without behavioral disturbance SNOMED: 30979566 (3) Diabetes mellitus ICD Codes: E11.9 - Type 2 diabetes mellitus without complications SNOMED: 27420039 (4) Abdominal pain ICD Codes: R10.9 - Unspecified abdominal pain SNOMED: 31281467 Status: stable Status Narrative Discussed with Dr. Avalos. Assessment/Plan Assessment - Constipation - abdominal distention - HTN - DVT - CPS - Schizophrenia Recommendations - bowel regime - Fleets enema trial - follow xray and BM pattern - Check TFT - po as tolerated - DM management - fu labs The patient was seen and examined at bedside and all new and available data was reviewed in the patients chart. I agree with the above findings, impression and plan. (Patient seen earlier today. Signature stamp does not reflect patient encounter time.). - Rowdy Avalos MD Subjective Gastrointestinal/Abdominal: Reports: no symptoms Objective Last 24 Hour Vital Signs Date Time Temp Pulse Resp B/P (MAP) Pulse Ox O2 Delivery O2 Flow Rate FiO2 06/09/18 08:00 97.7 87 18 121/67 (85) 96 97.7 06/09/18 04:00 84 06/09/18 04:00 97.8 86 19 116/77 (90) 91 97.8 06/09/18 00:00 97.2 60 19 131/94 (106) 97 97.2 06/09/18 00:00 80 06/08/18 21:00 Room Air 06/08/18 20:00 98.0 77 19 99/60 (73) 92 98.0 06/08/18 20:00 78 06/08/18 16:00 80 06/08/18 16:00 97.5 72 20 124/68 (86) 93 97.5 06/08/18 12:00 88 06/08/18 12:00 98.1 78 17 108/72 (84) 96 98.1 Intake and Output 06/08/18 06/09/18 19:00 07:00 Intake Total 720 ml 480 ml Output Total 600 ml 600 ml Balance 120 ml -120 ml Intake Oral 720 ml 480 ml Output Urine Total 600 ml 600 ml # Bowel Movements 1 Laboratory Tests Test 06/09/18 06:20 Prothrombin Time 11.0 SEC (9.30-11.50) Prothromb Time International Ratio 1.0 (0.9-1.1) Thyroid Stimulating Hormone (TSH) 1.444 uiU/mL (0.358-3.740) Height (Feet): 5 Height (Inches): 3.00 Weight (Pounds): 185 General Appearance: WD/WN, no apparent distress, alert Cardiovascular: normal rate Respiratory/Chest: normal breath sounds, no respiratory distress Abdominal Exam: normal bowel sounds, non tender, soft Extremities: non-tender Ashli Bennett NP Jun 09, 2018 10:47
[2018-06-09 12:00] VITALS: BP 129/82
[2018-06-09] MEDS ORDERED: LORazepam 1mg tab ORAL PRN (12:45)
--- NOTE | 2018-06-09 13:57 | Cardiac Electrophysiology PN ---
Assessment/Plan Assessment/Plan 1. History of bradycardia, heart rate of 44. That has resolved. The patient had sinus rhythm that is frequent and PACs. DC tele 2. DVT, on Coumadin per pharmacy. 3. Diabetes. 4. Sinus rhythm with frequent PACs,with no atrial fibrillation. 5. Constipation with abdominal distention. Fleet enema trial with followup x-ray and further evaluation by Dr. Bush. DC tele. [place] RN Subjective Subjective Feeling better. No bradycardia reported. Objective Last 24 Hour Vital Signs Date Time Temp Pulse Resp B/P (MAP) Pulse Ox O2 Delivery O2 Flow Rate FiO2 06/09/18 12:00 97.4 82 18 129/82 (98) 96 97.4 06/09/18 12:00 87 06/09/18 09:00 Room Air 06/09/18 08:00 97.7 87 18 121/67 (85) 96 97.7 06/09/18 08:00 91 06/09/18 04:00 84 06/09/18 04:00 97.8 86 19 116/77 (90) 91 97.8 06/09/18 00:00 97.2 60 19 131/94 (106) 97 97.2 06/09/18 00:00 80 06/08/18 21:00 Room Air 06/08/18 20:00 98.0 77 19 99/60 (73) 92 98.0 06/08/18 20:00 78 06/08/18 16:00 80 06/08/18 16:00 97.5 72 20 124/68 (86) 93 97.5 Intake and Output 06/08/18 06/09/18 19:00 07:00 Intake Total 720 ml 480 ml Output Total 600 ml 600 ml Balance 120 ml -120 ml Intake Oral 720 ml 480 ml Output Urine Total 600 ml 600 ml # Bowel Movements 1 Laboratory Tests Test 06/09/18 06:20 Prothrombin Time 11.0 SEC (9.30-11.50) Prothromb Time International Ratio 1.0 (0.9-1.1) Thyroid Stimulating Hormone (TSH) 1.444 uiU/mL (0.358-3.740) Objective HEAD AND NECK: Shows no JVD. LUNGS: Clear. CARDIOVASCULAR: Shows regular S1 and S2 with no gallop or murmur. ABDOMEN: Soft. EXTREMITIES: There is no pitting edema. Toluie,Torin MD Jun 09, 2018 13:57
--- NOTE | 2018-06-09 15:32 | General Progress Note ---
Assessment/Plan Status: stable Assessment/Plan # Neck mass on the right side likely sebacous cyst --> unknown etiology if mass or abscess, a us has been ordered and us results: Normal left thyroid lobe --> CT guided aspiration has been canceled as discussed with radiologist appears to be a sebaceous cyst --> consider ENT eval with Dr. Roberts, appreciate his recs --> Neck biopsy not recommended at this time --> f/u in 1 month to see if resolves --> CT neck: 1.8 cm subcutaneous mass to the right lateral neck # Subtherapeutic INR with history of use of Coumadin. The patient has been compliant. Continue Coumadin --> Coumadin has been restarted, d/w pharmacy and with RN --> INR goal 2-3 # Deep venous thrombosis of the lower extremity, status post inferior vena cava filter placement in the past, restarted on Coumadin --> Remains on Coumadin --> INR goal 2-3 --> Current INR 1.1 # Leukocytosis secondary to recent trauma. --> Resolved. # Acute left periprosthetic mid shaft fracture of the left femur. s/p orif # Hypertension. # Schizophrenia. # Status post inferior vena cava filter. # Hyperlipidemia. Greatly appreciate consult! Subjective Date patient seen: Jun 09, 2018 ROS Limited/Unobtainable: Yes Allergies: Coded Allergies: LITHIUM (Unverified Allergy, Unknown, 12/31/12) Subjective No acute events. Pt is stable. DC planning. Objective Last 24 Hour Vital Signs Date Time Temp Pulse Resp B/P (MAP) Pulse Ox O2 Delivery O2 Flow Rate FiO2 06/09/18 12:00 97.4 82 18 129/82 (98) 96 97.4 06/09/18 12:00 87 06/09/18 09:00 Room Air 06/09/18 08:00 97.7 87 18 121/67 (85) 96 97.7 06/09/18 08:00 91 06/09/18 04:00 84 06/09/18 04:00 97.8 86 19 116/77 (90) 91 97.8 06/09/18 00:00 97.2 60 19 131/94 (106) 97 97.2 06/09/18 00:00 80 06/08/18 21:00 Room Air 06/08/18 20:00 98.0 77 19 99/60 (73) 92 98.0 06/08/18 20:00 78 06/08/18 16:00 80 06/08/18 16:00 97.5 72 20 124/68 (86) 93 97.5 Intake and Output 06/08/18 06/09/18 19:00 07:00 Intake Total 720 ml 480 ml Output Total 600 ml 600 ml Balance 120 ml -120 ml Intake Oral 720 ml 480 ml Output Urine Total 600 ml 600 ml # Bowel Movements 1 Laboratory Tests 06/09/18 06:20: Prothrombin Time 11.0, Prothromb Time International Ratio 1.0, Thyroid Stimulating Hormone (TSH) 1.444 Height (Feet): 5 Height (Inches): 3.00 Weight (Pounds): 185 General Appearance: no apparent distress EENT: PERRL/EOMI Neck: normal alignment Cardiovascular: normal peripheral pulses Respiratory/Chest: no respiratory distress Abdomen: soft Jorge Rivera MD Jun 09, 2018 15:32
[2018-06-09 16:00] VITALS: BP 102/66
[2018-06-09] MEDS ORDERED: Tubing IV Secondary IV ONE (16:10)
[2018-06-09] MEDS ORDERED: Warfarin Sod 5 MG, Warfarin Sod 4 MG ORAL ONE ×2 (17:00)
--- NOTE | 2018-06-09 23:33 | General Progress Note ---
Assessment/Plan Problem List: (1) Schizophrenia ICD Codes: F20.9 - Schizophrenia, unspecified SNOMED: 02205834 (2) Dementia ICD Codes: F03.90 - Unspecified dementia without behavioral disturbance SNOMED: 34603429 Qualifiers: Status: stable Assessment/Plan cont seroquel ativan prn provided ro/st Subjective Date patient seen: Jun 08, 2018 Neurologic/Psychiatric: Reports: anxiety, depressed, emotional problems Allergies: Coded Allergies: LITHIUM (Unverified Allergy, Unknown, 12/31/12) Subjective the pt was tearful and anxious Objective Last 24 Hour Vital Signs Date Time Temp Pulse Resp B/P (MAP) Pulse Ox O2 Delivery O2 Flow Rate FiO2 06/09/18 16:00 97.3 90 18 102/66 (78) 96 97.3 06/09/18 12:00 97.4 82 18 129/82 (98) 96 97.4 06/09/18 12:00 87 06/09/18 09:00 Room Air 06/09/18 08:00 97.7 87 18 121/67 (85) 96 97.7 06/09/18 08:00 91 06/09/18 04:00 84 06/09/18 04:00 97.8 86 19 116/77 (90) 91 97.8 06/09/18 00:00 97.2 60 19 131/94 (106) 97 97.2 06/09/18 00:00 80 Intake and Output 06/08/18 06/09/18 18:59 06:59 Intake Total 720 ml 480 ml Output Total 600 ml 600 ml Balance 120 ml -120 ml Intake Oral 720 ml 480 ml Output Urine Total 600 ml 600 ml # Bowel Movements 1 Laboratory Tests 06/09/18 06:20: Prothrombin Time 11.0, Prothromb Time International Ratio 1.0, Thyroid Stimulating Hormone (TSH) 1.444 Height (Feet): 5 Height (Inches): 3.00 Weight (Pounds): 185 General Appearance: no apparent distress, alert, agitated Noel Hennessy MD Jun 09, 2018 23:33
--- NOTE | 2018-06-09 23:34 | General Progress Note ---
Assessment/Plan Problem List: (1) Schizophrenia ICD Codes: F20.9 - Schizophrenia, unspecified SNOMED: 83715659 (2) Dementia ICD Codes: F03.90 - Unspecified dementia without behavioral disturbance SNOMED: 57231806 Qualifiers: Status: stable, progressing Assessment/Plan cont seroquel ativan prn provided ro/st Subjective Date patient seen: Jun 09, 2018 Neurologic/Psychiatric: Reports: anxiety, depressed, emotional problems Allergies: Coded Allergies: LITHIUM (Unverified Allergy, Unknown, 12/31/12) Subjective the pt was anxious Objective Last 24 Hour Vital Signs Date Time Temp Pulse Resp B/P (MAP) Pulse Ox O2 Delivery O2 Flow Rate FiO2 06/09/18 16:00 97.3 90 18 102/66 (78) 96 97.3 06/09/18 12:00 97.4 82 18 129/82 (98) 96 97.4 06/09/18 12:00 87 06/09/18 09:00 Room Air 06/09/18 08:00 97.7 87 18 121/67 (85) 96 97.7 06/09/18 08:00 91 06/09/18 04:00 84 06/09/18 04:00 97.8 86 19 116/77 (90) 91 97.8 06/09/18 00:00 97.2 60 19 131/94 (106) 97 97.2 06/09/18 00:00 80 Intake and Output 06/08/18 06/09/18 18:59 06:59 Intake Total 720 ml 480 ml Output Total 600 ml 600 ml Balance 120 ml -120 ml Intake Oral 720 ml 480 ml Output Urine Total 600 ml 600 ml # Bowel Movements 1 Laboratory Tests 06/09/18 06:20: Prothrombin Time 11.0, Prothromb Time International Ratio 1.0, Thyroid Stimulating Hormone (TSH) 1.444 Height (Feet): 5 Height (Inches): 3.00 Weight (Pounds): 185 General Appearance: no apparent distress, alert, agitated Noel Hennessy MD Jun 09, 2018 23:34
--- NOTE | 2018-06-10 13:17 | Discharge Summary ---
Discharge Summary Discharge Summary _ DATE OF ADMISSION: 06/04/2018 DATE OF DISCHARGE: 06/09/2018 REASON FOR ADMISSION: 57 years old female with history of diabetes mellitus type 2, hypertension, dementia, DVT lower extremity ,status post IVC filter, psychiatric disorder , [facility]. Patient reported dysuria upon urination. No fever, no chills, no nausea. Per primary care physician , patient required evaluation for neck lesion . Patient denied neck pain . Patient with history of DVT ,status post IVC filter ,on Coumadin . INR subtherapeutic . Upon evaluation vital signs revealed bradycardia with heart rate 45 , otherwise no fever, stable blood pressure . EKG done later , bradycardia resolved; ECG revealed sinus rhythm with frequent PACs , no acute ischemic changes. Chest x-ray revealed no acute cardiopulmonary pathology. CT of the head revealed no acute intracranial bleeding , mass effect or edema. Mild atrophy of the brain noted. Laboratory workup revealed no leukocytosis ,stable hemoglobin and hematocrit, stable renal parameters and electrolytes. Lactic acid 2.3. Troponin negative Urinalysis with evidence of probable UTI. Patient admitted with diagnoses of possible UTI, subtherapeutic INR in patietn on Coumadin due to DVT , neck mass, diabetes mellitus type 2 CONSULTANTS: uniform patrol police officer Dr. Cruz ID specialist Dr Molina GI specialist Dr. Bush surface supervisor/oncologist Dr. Rivera psychiatrist [facility] COURSE: Patient admitted. Infectious disease specialist closely followed. Blood culture were negative. Patient was on antibiotics for urinary tract infection. Thyroid ultrasound showed normal echogenicity bilateral lobes, no calcification . Normal left thyroid lobe. Thyroid nodule in mid right lobe. CT of the neck revealed 1.8 cm subcutaneous mass in the right lateral neck correlated with sonographic abnormality. Likely epidermal inclusion cyst, but follow-up was warranted. Patient will have follow up with ENT as outpatient regarding recommendation for further management. Supervisor Carpenters closely followed . Patient initially with episode of bradycardia that resolved. Since that telemetry demonstrated sinus rhythm with frequent PACs . Echocardiogram revealed preserved ejection fraction of 60-65% and right ventricular systolic pressure of 33. Mild mitral regurgitation. Mild left ventricular hypertrophy. Blood sugar was managed with oral anti-glycemic and long-acting Levemir. Sliding scale of insulin was on board as needed. Hemoglobin A1c -9.0 , clearly not at goal. Patient will need further optimization of anti-glycemic regimen as outpatient. Blood pressure was closely monitored, remained stable. Bowel regimen instituted . GI prophylaxis provided. GI closely followed. Patient was able to tolerate diet. Assistant Professor Of Geography followed. ENT evaluation pending as outpatient. Neck biopsy was not recommended at this time . Assistant Professor Of Geography recommended patient to follow-up in one month with scan to see if it resolved. Patient restarted on Coumadin. INR was closely monitored to keep within therapeutic goal 2-3. Patient also had IVC filter. Psychiatrist seen and evaluated the patient, diagnosed patient with schizophrenia and dementia. Patient started on Seroquel. Supportive therapy and reality orientation provided. Ativan was on board as needed. Pain management was addressed as needed . Patient clinically improved and was ready for [facility] to [facility]. FINAL DIAGNOSES: Urinary tract infection Neck mass Probably epidermal inclusion cyst Diabetes mellitus ,type 2 History of DVT lower extremity, status post IVC filter Episode of bradycardia- resolved Constipation with abdominal distention- resolved Schizophrenia Dementia DISCHARGE MEDICATIONS: See Medication Reconciliation list. DISCHARGE INSTRUCTIONS: Patient was [facility] to [facility]. Follow up with medical doctor at the facility. I have been assigned to dictate discharge summary for this account. I was not involved in the patient's management. Johanna Gallagher NP Jun 10, 2018 13:17
--- NOTE | 2018-06-10 16:12 | Cardiology Report ---
APPROVED REPORT EKG Measurement Heart [id number] NM 144P [id number] Sinus rhythm with premature atrial complexes in a pattern of bigeminy Otherwise normal ECG
== END 2018-06-09 16:11 | DRG 690 ==
LOC: EDBD 18:21 → EMR 18:55 → 4E 21:15 → EDBEDREQ 21:22 → 4E 06-07 03:35 → 2E 06-07 21:34
DX: N39.0 Urinary tract infection, site not specified (principal); I10 Essential (primary) hypertension; R79.1 Abnormal coagulation profile; F03.90 Unspecified dementia, unspecified severity, without behavioral disturbance, psychotic disturbance, mood disturbance, and anxiety; L72.0 Epidermal cyst; Z86.718 Personal history of other venous thrombosis and embolism; Z79.01 Long term (current) use of anticoagulants; R00.1 Bradycardia, unspecified; K59.00 Constipation, unspecified; F20.9 Schizophrenia, unspecified; S72.302D Unspecified fracture of shaft of left femur, subsequent encounter for closed fracture with routine healing; W19.XXXD Unspecified fall, subsequent encounter; E78.5 Hyperlipidemia, unspecified; Z88.8 Allergy status to other drugs, medicaments and biological substances; E11.65 Type 2 diabetes mellitus with hyperglycemia; Z79.4 Long term (current) use of insulin; K21.9 Gastro-esophageal reflux disease without esophagitis
CPT/HCPCS: 36415; 70450; 70491; 71045; 74018; 76536; 80053; 81003; 82550; 82553; 82962; 83036; 83605; 84443; 84484; 85025; 85610; 85730; 87040; 87081; 93005; 93306; 96361; 96374; 99285; J1815; S5561

== ENCOUNTER 2018-11-26 11:33 | Inpatient (IN) | payer MEDICARE, MEDICAID ==
[~2018-11-26] VITALS: Ht 160 cm; Wt 84.8 kg
[~2018-11-26 11:33] MED LIST changes: +BISACODYL5 MG ORAL; +CRANBERRY450 M4 PO; +HALOPERIDOL0.5 MG ORAL
[2018-11-26] MEDS ORDERED: Morphine Sulfate 4mg/ml Inj (IV USE ONLY) IVP ONE (11:45)
--- NOTE | 2018-11-26 11:47 | NUR ---
ED Nurse Note: tanner from [facility]. pt had a fall 2 weeks ago and pmd wants ct done. pt denies pain at this time. pt awaiting ermd eval will monitor.
[2018-11-26 12:30] VITALS: BP 108/75
[2018-11-26 12:31] LABS: APPEARANCE,URINE CLEAR; BASOPHILS % (AUTO) 1.4 % (0.0-2.0); BILIRUBIN, URINE NEGATIVE (NEGATIVE); COLOR,URINE PALE YELLOW; EOSINOPHILS % (AUTO) 1.1 % (0.0-3.0); GLUCOSE, URINE (UA) 4+ (NEGATIVE); HEMATOCRIT 38.3 % (37.0-47.0); KETONES,URINE NEGATIVE (NEGATIVE); LEUKOCYTE ESTERASE ,URINE NEGATIVE (NEGATIVE); LYMPHOCYTES % (AUTO) 27.5 % (20.0-45.0); MEAN CORPUSCULAR VOLUME 88 FL (80-99); MONOCYTES % (AUTO) 9.5 % (1.0-10.0); NEUTROPHILS % (AUTO) 60.5 % (45.0-75.0); NITRITE,URINE NEGATIVE (NEGATIVE); PH,URINE 7 (4.5-8.0); PLATELET COUNT 377 K/UL (150-450); PROTEIN,URINE NEGATIVE (NEGATIVE); RED BLOOD COUNT 4.33 M/UL (4.20-5.40); RED CELL DISTRIBUTION WIDTH 13.6 % (11.6-14.8); UROBILINOGEN,URINE NORMAL MG/DL (0.0-1.0); WHITE BLOOD COUNT 7.7 K/UL (4.8-10.8)
[2018-11-26 12:47] LABS: INR 6.2 (0.9-1.1)
[2018-11-26 13:58] LABS: ANION GAP 7 mmol/L (5-15); BLOOD UREA NITROGEN 12 mg/dL (7-18); CALCIUM 8.6 MG/DL (8.5-10.1); CARBON DIOXIDE 34 MMOL/L (21-32); CHLORIDE 98 MMOL/L (98-107); CREATININE 0.9 MG/DL (0.55-1.30); SODIUM 139 MMOL/L (136-145)
[2018-11-26 14:09] LABS: ALANINE AMINOTRANSFERASE 17 U/L (12-78); ALBUMIN/GLOBULIN RATIO 0.7 (1.0-2.7); ALKALINE PHOSPHATASE 471 U/L (46-116); ASPARTATE AMINO TRANSFERASE 10 U/L (15-37); BILIRUBIN,TOTAL 0.4 MG/DL (0.2-1.0)
--- NOTE | 2018-11-26 14:22 | Emergency Room Report ---
History of Present Illness General Chief Complaint: Lower Extremity Injury Source: Patient, Family Member Present Illness HPI The patient had a DVT apparently the patient's had left hip pain for 2 weeks. She sent in by the halfway facility because the pain was not controlled. She is on Coumadin and also there is a question about whether her INR is prolonged. The patient is demented and unable to give us a history. According to her brother she has had severe deterioration in her mental status with worsening schizophrenia last weekend. The patient had a distal fibular fracture in 2017. This was treated conservatively. And is currently taking Coumadin. Last admission May 2018 discharge diagnoses: Urinary tract infection Neck mass Probably epidermal inclusion cyst Diabetes mellitus ,type 2 History of DVT lower extremity, status post IVC filter Episode of bradycardia- resolved Constipation with abdominal distention- resolved Schizophrenia Dementia Allergies: Coded Allergies: LITHIUM (Unverified Allergy, Unknown, 12/31/12) Patient History Limited by: medical condition Past Medical History: see triage record, old chart reviewed Past Surgical History: other - Fractures of left leg treated with rods and stabilization, IVC filter Social History: Denies: smoking, alcohol use, drug use Social History Narrative SNF Now: No Reviewed Nursing Documentation: PMH: Agreed; PSxH: Agreed Nursing Documentation-PMH Past Medical History: No History, Except For Hx Cardiac Problems: No - dvt LE, CHF Hx Hypertension: No Hx Pacemaker: No Hx Diabetes: Yes Hx Gastrointestinal Problems: No Hx Dialysis: No Hx Neurological Problems: Yes Hx Cerebrovascular Accident: Yes - hemiplegia and hemiparesis Hx Transient Ischemic Attacks: No Hx Dementia: Yes Hx Alzheimer's Disease: No Hx Parkinson's Disease: No Hx Meningitis: No Hx Encephalitis: No Hx Seizures: No Hx Epilepsy: No Hx Multiple Sclerosis: No Hx Cerebral Palsy: No Hx Amyotrophic Lat Sclerosis: No Hx [place] Syndrome: No Hx Paralysis: No Hx Peripheral Neuropathy: No Hx Spinal Cord Injury: No Hx Head Trauma: No Hx Traumatic Brain Injury: No Hx Memory Loss: No Hx Concentration Difficulty: No Hx Speech Problem: No Hx Tremors: No Hx Vertigo: No Hx Dizziness: No Hx Syncope: No Hx Headaches: No Hx Aphasia: No Hx Dysphasia: Yes Hx Numbness: No Hx Weakness: Yes Hx Fatigue: No Hx Neurologic Surgery: No Hx Brain Shunt: No Review of Systems All Other Systems: limited Physical Exam Vital Signs Date Time Temp Pulse Resp B/P (MAP) Pulse Ox O2 Delivery O2 Flow Rate FiO2 11/26/18 11:33 99.7 106 32 113/75 91 Room Air Sp02 EP Interpretation: reviewed, normal General Appearance: no apparent distress, alert, Chronically Ill Head: normocephalic Eyes: bilateral eye normal inspection, bilateral eye PERRL, bilateral eye EOMI ENT: dry mucus membranes Neck: supple Respiratory: lungs clear, normal breath sounds Cardiovascular #1: regular rate, rhythm Cardiovascular #2: 2+ radial (R), 2+ dorsalis pedis (L) Gastrointestinal: normal inspection, normal bowel sounds, non tender, no mass, non-distended Genitourinary: no CVA tenderness Musculoskeletal: back normal, digits/nails normal, pelvis stable, swelling, tender - Distal femur and knee Neurologic: alert, motor weakness, sensory deficit - Left, oriented - X1 Psychiatric: anxious, other - intermittent agitation Skin: warm/dry, other - seborrhea Medical Decision Making Diagnostic Impression: Primary Impression: Femoral distal fracture Qualified Codes: S72.472A - Torus fracture of lower end of left femur, initial encounter for closed fracture Additional Impressions: Prolonged INR Dementia Qualified Codes: F03.91 - Unspecified dementia with behavioral disturbance ER Course Patient presents with possible injury to her left leg 2 weeks ago. Based on exam injury appears to be either in the knee or the distal femur. She is also on Coumadin. She has a history of urinary tract infections. Evaluation with EKG, chest x-ray, pelvis film, bilateral hips, knee film left. The patient will be treated with IV hydration and analgesia. She appears dehydrated. EKG without injury. Chest x-ray unremarkable. Pelvis, hips and left knee revealed fracture of the distal femur with hardware. INR is prolonged. Glucose is elevated. Urinalysis clear. Improvement with analgesia. FFP ordered emergently for prolonged INR as there appears to possibly be hemarthrosis and significant swelling probably due to blood loss around the fracture. Dr. Oconnor here examine the patient. CT scan is not operational until tomorrow. Patient is placed in a knee immobilizer. Position fairly good and distal neurovascular exam with muscle weakness and slight decreased sensation however unchanged from prior to placement of immobilizer. Discussed with DPOA, Kaushal Sneha who agrees with treatment. Ativan given for agitation with good results. Admit med Dr. Pereira. Laboratory Tests Test 11/26/18 12:15 11/26/18 13:40 White Blood Count 7.7 K/UL (4.8-10.8) Red Blood Count 4.33 M/UL (4.20-5.40) Hemoglobin 13.0 G/DL (12.0-16.0) Hematocrit 38.3 % (37.0-47.0) Mean Corpuscular Volume 88 FL (80-99) Mean Corpuscular Hemoglobin 30.1 PG (27.0-31.0) Mean Corpuscular Hemoglobin Concent 34.0 G/DL (32.0-36.0) Red Cell Distribution Width 13.6 % (11.6-14.8) Platelet Count 377 K/UL (150-450) Mean Platelet Volume 5.5 FL (6.5-10.1) L Neutrophils (%) (Auto) 60.5 % (45.0-75.0) Lymphocytes (%) (Auto) 27.5 % (20.0-45.0) Monocytes (%) (Auto) 9.5 % (1.0-10.0) Eosinophils (%) (Auto) 1.1 % (0.0-3.0) Basophils (%) (Auto) 1.4 % (0.0-2.0) Prothrombin Time 59.3 SEC (9.30-11.50) H Prothrombin Time INR 6.2 (0.9-1.1) *H Urine Color Pale yellow Urine Appearance Clear Urine pH 7 (4.5-8.0) Urine Specific [place] 1.005 (1.005-1.035) Urine Protein Negative (NEGATIVE) Urine Glucose (UA) 4+ (NEGATIVE) H Urine Ketones Negative (NEGATIVE) Urine Blood Negative (NEGATIVE) Urine Nitrite Negative (NEGATIVE) Urine Bilirubin Negative (NEGATIVE) Urine Urobilinogen Normal MG/DL (0.0-1.0) Urine Leukocyte Esterase Negative (NEGATIVE) Urine RBC 0-2 /HPF (0 - 2) Urine WBC 0-2 /HPF (0 - 2) Urine Squamous Epithelial Cells Occasional /LPF Urine Bacteria Occasional /HPF (NONE) Erythrocyte Sedimentation Rate 94 MM/HR (0-30) H Sodium Level 139 MMOL/L (136-145) Potassium Level 4.0 MMOL/L (3.5-5.1) Chloride Level 98 MMOL/L (98-107) Carbon Dioxide Level 34 MMOL/L (21-32) H Anion Gap 7 mmol/L (5-15) Blood Urea Nitrogen 12 mg/dL (7-18) Creatinine 0.9 MG/DL (0.55-1.30) Estimate Glomerular Filtration Rate > 60 mL/min (>60) Glucose Level 356 MG/DL (74-106) H Uric Acid 5.8 MG/DL (2.6-7.2) Calcium Level 8.6 MG/DL (8.5-10.1) Total Bilirubin 0.4 MG/DL (0.2-1.0) Aspartate Amino Transferase (AST) 10 U/L (15-37) L Alanine Aminotransferase (ALT) 17 U/L (12-78) Alkaline Phosphatase 471 U/L (46-116) H C-Reactive Protein, Quantitative 20.8 mg/dL (0.00-0.90) H Pro-B-Type Natriuretic Peptide 75 pg/mL (0-125) Total Protein 7.6 G/DL (6.4-8.2) Albumin 3.0 G/DL (3.4-5.0) L Globulin 4.6 g/dL Albumin/Globulin Ratio 0.7 (1.0-2.7) L EKG Diagnostic Results Rate: tachycardiac ST Segments: no acute changes - R axis Rhythm Strip Diag. Results EP Interpretation: yes Rhythm: no PVC's, no ectopy, other - Sinus tachycardia Other X-Ray Diagnostic Results Other X-Ray Diagnostic Results #1: X-Ray ordered: pelvis # of Views/Limited Vs Complete: 1 View Indication: Pain EP Interpretation: Yes Interpretation: no dislocation, other - Prosthesis and distal femur fracture left with IV C filter, healed proximal femur fracture Impression: Other Electronically Signed by: Electronically signed by Segundo Aguirre MD Other X-Ray Diagnostic Results #2: X-Ray ordered: L knee # of Views/Limited Vs Complete: 3 View Indication: Other EP Interpretation: Yes Interpretation: no dislocation, other - fx, hardware, displacement Impression: Other Electronically Signed by: Electronically signed by Segundo Aguirre MD Other X-Ray Diagnostic Results #3: X-Ray ordered: R hip # of Views/Limited Vs Complete: 2 View Indication: Other Interpretation: no dislocation, no soft tissue swelling, no fractures Impression: Other Electronically Signed by: Electronically signed by Segundo Aguirre MD Other X-Ray Diagnostic Results #4: X-Ray ordered: L hip # of Views/Limited Vs Complete: 2 View Indication: Pain EP Interpretation: Yes Interpretation: no dislocation, no soft tissue swelling, other - old injury Impression: Other Electronically Signed by: Electronically signed by Segundo Aguirre MD Last Vital Signs Date Time Temp Pulse Resp B/P (MAP) Pulse Ox O2 Delivery O2 Flow Rate FiO2 11/26/18 22:59 Room Air 11/26/18 20:00 99.7 104 20 114/68 (83) 92 Status: improved Disposition: ADMITTED INPATIENT Condition: Serious Referrals: Reuben Pereira MD (PCP) Segundo Aguirre MD Nov 26, 2018 14:22
[2018-11-26 14:30] VITALS: BP 108/75
--- NOTE | 2018-11-26 14:32 | Diagnostic Imaging Report ---
Indication: Reason For Exam: PAIN Technique: One view of the chest Comparison: 06/04/2018 Findings: 1 cm nodular opacity in the left hilar region is unchanged from previous exam, may represent prominent central pulmonary vasculature but nodule not excludable. There is central bronchial wall thickening. No acute infiltrates, effusions, or congestion. The heart is borderline enlarged Impression: Borderline cardiomegaly Questionable left hilar nodule, apparent on prior 06/04/2018 chest radiograph as well. Suspect that this just represents a prominent vascular shadow, but nodule not excludable. Consider CT follow-up. This finding was discussed by phone with Dr. Aguirre at the time of interpretation
--- NOTE | 2018-11-26 14:34 | Diagnostic Imaging Report ---
Indication: Left knee pain, trauma Technique: 3 views of the knee Comparison: None Findings: There is a medullary starla in the femur. Traversing the distal end of the stalra is an oblique fracture of the distal diaphysis and metaphysis, medially displaced by approximately 16 mm, overriding by about 2 cm. The hardware itself appears intact. The hardware remains attached to the proximal fragment. The bones are osteoporotic. Surgical hardware is also seen in the proximal tibia. Impression: Positive for acute distal femoral fracture. Extensive postsurgical changes, as described Osteoporosis
[2018-11-26] MEDS ORDERED: Insulin Human Regular 100units/ml 3ml IV ONE (15:00)
--- NOTE | 2018-11-26 15:48 | NUR ---
ED Nurse Note: Called JONAS BASURTO [phone] LEFT A VOICEMAIL REGARDING PT'S CONDITION.
[2018-11-26] MEDS: Sodium Chloride 550 ML IV SCH ×3 (15:53→23:30)
[2018-11-26] MEDS ORDERED: LORazepam Inj 2mg/ml 1ml IV ONE (16:00)
--- NOTE | 2018-11-26 16:08 | NUR ---
ED Nurse Note: POA on the phone with Dr Aguirre.
[2018-11-26 16:30] VITALS: BP 116/65
[2018-11-26] MEDS: Precose 50mg tab ORAL SCH (16:30)
[2018-11-26 16:45] VITALS: BP 118/56
--- NOTE | 2018-11-26 16:53 | Diagnostic Imaging Report ---
Indication: Pelvic pain Technique: One view of the pelvis , 2 views of both hips Comparison: none Findings: There is left hip hardware reducing old healed subtrochanteric fracture. The fracture appears well-healed and there is no evidence of acute fracture. However, the hardware appears fractured proximally. There is a distal femoral fracture at and distal to the distal hardware, also described on separate knee radiograph. No pelvic fracture demonstrated. No right hip or femoral fracture demonstrated. Incidentally noted is an inferior vena cava filter. Hardware is also seen in the proximal tibia on the left. Impression: Positive for distal left femoral fracture which appears acute Old healed proximal femoral fracture. There appears to be fracture of the hardware but the proximal femur appears intact No other acute bony trauma Inferior vena cava filter incidentally noted
[2018-11-26 17:23] VITALS: BP 107/55
[2018-11-26] MEDS: NovoLOG Insulin Flexpen SUBQ SCH ×2 (17:30→20:28)
[2018-11-26] MEDS: OLANZapine 10mg tab ORAL SCH (18:00)
[2018-11-26] MEDS: QUEtiapine 200mg tab ORAL SCH ×2 (18:00→20:24)
--- NOTE | 2018-11-26 18:13 | NUR ---
NURSE NOTES: RN received pt from ED, sleeping, with FFP being administered, paperwork un-timed. Pt vitals WNL. Bed locked in low, locked position, call light within reach. Skin intact. Orders to continue home meds per Dr. Pereira; Haldol home med to be continued per Dr. Hennessy. RN left message for Dr. Hennessy to clarify Haldol prescription. Waiting for call back. RN to continue plan of care.
--- NOTE | 2018-11-26 18:40 | NUR ---
NURSE NOTES: Dr. Hennessy returned RN call to confirm Haldol prescription - see eMar.
--- NOTE | 2018-11-26 19:43 | NUR ---
HAND-OFF: Report given to TOPHER Mendoza.
--- NOTE | 2018-11-26 19:59 | NUR ---
NURSE NOTES: patient received. patient in no acute distress at this time. patient complains of no pain at this time. patient awake alert and oriented x1. patient is on Ativan and is still quite out of it. will reassess. patient IV patent and asymptomatic. bed in lowest position and locked. call light within reach. bed alarm on. will continue to monitor.
[2018-11-26 20:00] VITALS: BP 114/68
[2018-11-26] MEDS: Levemir Flexpen SUBQ SCH (20:27)
--- NOTE | 2018-11-26 22:58 | Consultation ---
History of Present Illness General Chief Complaint: Lower Extremity Injury Present Illness HPI 67 yo f who is a poor historian and paranoid schizophrenic. the pt was agitated and yelling. the pt was more confused than baseline the pt is not suicidal the pt is responding to IS. the pt has waxing and waning of consciousness Allergies: Coded Allergies: LITHIUM (Unverified Allergy, Unknown, 12/31/12) Medication History Scheduled Acarbose* (Precose*), 50 MG ORAL THREE TIMES A DAY, (Reported) Ascorbate Calcium (Vitamin C), 500 MG PO DAILY, (Reported) Bisacodyl* (Dulcolax*), 10 MG ORAL DAILY, (Reported) Calcium Carbonate (Calcium Carbonate), 250 MG PO DAILY, (Reported) Cholecalciferol (Vitamin D3)* (Vitamin D*), 250 UNIT ORAL DAILY, (Reported) Cranberry Fruit Concentrate (Cranberry), 450 MG PO BID, (Reported) Docusate Sodium* (Colace*), 100 MG ORAL DAILY, (Reported) Ferrous Sulfate* (Ferrous Sulfate*), 325 MG ORAL DAILY, (Reported) Furosemide* (Lasix*), 40 MG ORAL DAILY, (Reported) Glimepiride* (Amaryl*), 2 MG ORAL BEFORE BREAKFAST, (Reported) Haloperidol* (Haldol*), 5 MG ORAL TID, (Reported) Insulin Detemir (Levemir Flextouch), 12 UNIT SQ BEDTIME, (Reported) Lorazepam* (Ativan*), 1 MG ORAL Q4HR, (Reported) Metformin Hcl* (Glucophage*), 500 MG ORAL DAILY, (Reported) Multivitamin With Minerals (Multivitamins With Minerals*), 1 TAB ORAL DAILY, ( Reported) Olanzapine* (Zyprexa*), 10 MG ORAL BID, (Reported) Pantoprazole* (Protonix*), 40 MG ORAL DAILY, (Reported) Quetiapine Fumarate* (Seroquel*), 200 MG ORAL QID, (Reported) Warfarin Sod (Coumadin*), 9 MG ORAL DAILY, (Reported) Scheduled PRN Hydrocodone Bit/Acetaminophen 5-325* ([place] 5-325 Tablet*), 1 TAB ORAL Q4H PRN for For Pain, (Reported) Temazepam* (Restoril*), 7.5 MG ORAL HS PRN for Insomnia, (Reported) [Mylanta], 30 ML ORAL EVERY 6 HOURS PRN for GI DISTRESS, (Reported) [Tylenol], 650 MG PO Q4HR PRN for Mild Pain/Temp > 100.5, (Reported) Patient History Limited by: medical condition Healthcare decision maker PAMELA BASURTO Resuscitation status Advanced Directive on File Yes Past Medical/Surgical History Past Medical/Surgical History: (1) UTI (urinary tract infection) (2) Constipation (3) Abdominal pain (4) Schizophrenia (5) Dementia (6) Diabetes mellitus (7) Hip pain (8) HTN (hypertension) Review of Systems Constitutional: Reports: malaise, weakness Psychiatric: Reports: prior hx, anxiety, depressed feelings, emotional problems , hallucinations Physical Exam General Appearance: alert, confused, agitated Last 24 Hour Vital Signs Date Time Temp Pulse Resp B/P (MAP) Pulse Ox O2 Delivery O2 Flow Rate FiO2 11/26/18 21:00 Room Air 11/26/18 20:00 99.7 104 20 114/68 (83) 92 11/26/18 17:38 101 18 105/56 95 Room Air 11/26/18 17:23 98.1 102 19 107/55 95 Room Air 11/26/18 17:00 98.0 102 18 11/26/18 16:45 98.1 101 19 118/56 95 Room Air 11/26/18 16:45 98.1 101 19 11/26/18 16:30 98.2 101 19 116/65 94 Room Air 11/26/18 14:30 98.2 102 22 108/75 95 Room Air 11/26/18 13:37 99.7 11/26/18 12:30 98.2 102 20 108/75 96 Room Air 11/26/18 11:33 99.7 106 32 113/75 91 Room Air Laboratory Tests Test 11/26/18 12:15 11/26/18 13:40 White Blood Count 7.7 K/UL (4.8-10.8) Red Blood Count 4.33 M/UL (4.20-5.40) Hemoglobin 13.0 G/DL (12.0-16.0) Hematocrit 38.3 % (37.0-47.0) Mean Corpuscular Volume 88 FL (80-99) Mean Corpuscular Hemoglobin 30.1 PG (27.0-31.0) Mean Corpuscular Hemoglobin Concent 34.0 G/DL (32.0-36.0) Red Cell Distribution Width 13.6 % (11.6-14.8) Platelet Count 377 K/UL (150-450) Mean Platelet Volume 5.5 FL (6.5-10.1) L Neutrophils (%) (Auto) 60.5 % (45.0-75.0) Lymphocytes (%) (Auto) 27.5 % (20.0-45.0) Monocytes (%) (Auto) 9.5 % (1.0-10.0) Eosinophils (%) (Auto) 1.1 % (0.0-3.0) Basophils (%) (Auto) 1.4 % (0.0-2.0) Prothrombin Time 59.3 SEC (9.30-11.50) H Prothromb Time International Ratio 6.2 (0.9-1.1) *H Urine Color Pale yellow Urine Appearance Clear Urine pH 7 (4.5-8.0) Urine Specific [place] 1.005 (1.005-1.035) Urine Protein Negative (NEGATIVE) Urine Glucose (UA) 4+ (NEGATIVE) H Urine Ketones Negative (NEGATIVE) Urine Blood Negative (NEGATIVE) Urine Nitrite Negative (NEGATIVE) Urine Bilirubin Negative (NEGATIVE) Urine Urobilinogen Normal MG/DL (0.0-1.0) Urine Leukocyte Esterase Negative (NEGATIVE) Urine RBC 0-2 /HPF (0 - 2) Urine WBC 0-2 /HPF (0 - 2) Urine Squamous Epithelial Cells Occasional /LPF Urine Bacteria Occasional /HPF (NONE) Erythrocyte Sedimentation Rate 94 MM/HR (0-30) H Sodium Level 139 MMOL/L (136-145) Potassium Level 4.0 MMOL/L (3.5-5.1) Chloride Level 98 MMOL/L (98-107) Carbon Dioxide Level 34 MMOL/L (21-32) H Anion Gap 7 mmol/L (5-15) Blood Urea Nitrogen 12 mg/dL (7-18) Creatinine 0.9 MG/DL (0.55-1.30) Estimat Glomerular Filtration Rate > 60 mL/min (>60) Glucose Level 356 MG/DL (74-106) H Uric Acid 5.8 MG/DL (2.6-7.2) Calcium Level 8.6 MG/DL (8.5-10.1) Total Bilirubin 0.4 MG/DL (0.2-1.0) Aspartate Amino Transf (AST/SGOT) 10 U/L (15-37) L Alanine Aminotransferase (ALT/SGPT) 17 U/L (12-78) Alkaline Phosphatase 471 U/L (46-116) H C-Reactive Protein, Quantitative 20.8 mg/dL (0.00-0.90) H Pro-B-Type Natriuretic Peptide 75 pg/mL (0-125) Total Protein 7.6 G/DL (6.4-8.2) Albumin 3.0 G/DL (3.4-5.0) L Globulin 4.6 g/dL Albumin/Globulin Ratio 0.7 (1.0-2.7) L Height (Feet): 5 Height (Inches): 3.00 Weight (Pounds): 200 Medications Current Medications Medications (Trade) Dose Ordered Sig/Ebenezer Route PRN Reason Start Time Stop Time Status Last Admin Dose Admin Acarbose (Precose) 50 mg TIAC ORAL 11/26/18 16:30 12/26/18 16:29 Acetaminophen (Tylenol) 650 mg Q4H PRN ORAL Mild Pain/Temp > 100.5 11/26/18 16:09 12/26/18 16:08 Acetaminophen/ Hydrocodone Bitart ([place] 5/325) 1 tab Q4H PRN ORAL Moderate Pain (Pain Scale 4-6) 11/26/18 15:45 12/03/18 15:44 Al Hydroxide/Mg Hydroxide (Mylanta) 30 ml Q6H PRN ORAL GI DISTRESS 11/26/18 15:45 12/26/18 15:44 Ascorbic Acid (Vitamin C) 500 mg DAILY ORAL 11/27/18 09:00 12/27/18 08:59 Bisacodyl (Dulcolax) 5 mg DAILY ORAL 11/27/18 09:00 12/27/18 08:59 Calcium Carbonate (Tums) 250 mg DAILY ORAL 11/27/18 09:00 12/27/18 08:59 Dextrose (Dextrose 50%) 25 ml Q30M PRN IV Hypoglycemia 11/26/18 16:15 12/26/18 16:14 Dextrose (Dextrose 50%) 50 ml Q30M PRN IV Hypoglycemia 11/26/18 16:15 12/26/18 16:14 Docusate Sodium (Colace) 100 mg DAILY ORAL 11/27/18 09:00 12/27/18 08:59 Ferrous Sulfate (Feosol) 325 mg DAILY ORAL 11/27/18 09:00 12/27/18 08:59 Furosemide (Lasix) 40 mg DAILY ORAL 11/27/18 09:00 12/27/18 08:59 Glimepiride (Amaryl) 2 mg ACBREAKFAST ORAL 11/27/18 06:30 12/27/18 06:29 Haloperidol (Haldol) 5 mg TID ORAL 11/27/18 09:00 12/27/18 08:59 Insulin Aspart (NovoLOG) BEFORE MEALS AND HS SUBQ 11/26/18 17:30 12/26/18 17:29 11/26/18 20:28 Insulin Detemir (Levemir) 12 units BEDTIME SUBQ 11/26/18 21:00 12/26/18 20:59 11/26/18 20:27 Lorazepam (Ativan) 1 mg Q4H PRN ORAL For Anxiety 11/26/18 16:08 12/03/18 16:07 Metformin HCl (Glucophage) 500 mg DAILY ORAL 11/27/18 09:00 12/27/18 08:59 Multivitamins Therapeutic (Therapeutic Multivitamin) 1 ea DAILY ORAL 11/27/18 09:00 12/27/18 08:59 Olanzapine (ZyPREXA) 10 mg BID ORAL 11/26/18 18:00 12/26/18 17:59 Pantoprazole (Protonix) 40 mg DAILY ORAL 11/27/18 09:00 12/27/18 08:59 Quetiapine Fumarate (SEROquel) 200 mg FOUR TIMES A DAY ORAL 11/26/18 18:00 12/26/18 17:59 11/26/18 20:24 Sodium Chloride 550 ml @ 150 mls/hr Q3H40M IV 11/26/18 16:00 12/26/18 15:59 11/26/18 20:25 Temazepam (Restoril) 7.5 mg HSPRN PRN ORAL Insomnia 11/26/18 21:00 12/03/18 20:59 Vitamin D (Vitamin D) 250 intlu DAILY ORAL 11/27/18 09:00 12/27/18 08:59 Assessment/Plan Problem List: (1) Schizophrenia ICD Codes: F20.9 - Schizophrenia, unspecified SNOMED: [id number] Status: stable Assessment/Plan cont current psychotropic meds provided ro/Noel Olguin MD Nov 26, 2018 22:58
[2018-11-27] VITALS: BP 124/68
--- NOTE | 2018-11-27 01:00 | Consultation ---
DATE OF CONSULTATION: 11/26/2018 NOTE: INCOMPLETE DICTATION CONSULTING PHYSICIAN: Aftab Oconnor M.D. REQUESTING PHYSICIAN: Reuben Pereira M.D. CHIEF COMPLAINT: Left back pain. HISTORY OF PRESENT ILLNESS: The patient is a 67-year-old female who is well known to me. She sustained another injury to her left thigh and was brought Aftab Oconnor M.D. DR: Chris JOB#: [id number] CC:
[2018-11-27] MEDS: Sodium Chloride 550 ML IV SCH ×5 (03:22→16:54)
[2018-11-27 04:00] VITALS: BP 133/71
[2018-11-27] MEDS: HYDROcodone/Acetamin 5/325 tab ORAL PRN ×2 (04:30→16:53)
[2018-11-27] MEDS: NovoLOG Insulin Flexpen SUBQ SCH ×4 (06:20→20:53)
[2018-11-27] MEDS: Precose 50mg tab ORAL SCH ×3 (06:22→16:52)
[2018-11-27] MEDS: Glimepiride 1mg tab ORAL SCH (06:22)
[2018-11-27 06:59] LABS: BASOPHILS % (AUTO) 1.2 % (0.0-2.0); EOSINOPHILS % (AUTO) 2.1 % (0.0-3.0); HEMATOCRIT 34.2 % (37.0-47.0); HEMOGLOBIN 10.8 G/DL (12.0-16.0); LYMPHOCYTES % (AUTO) 30.9 % (20.0-45.0); MEAN CORPUSCULAR VOLUME 93 FL (80-99); MONOCYTES % (AUTO) 10.1 % (1.0-10.0); NEUTROPHILS % (AUTO) 55.7 % (45.0-75.0); PLATELET COUNT 336 K/UL (150-450); RED BLOOD COUNT 3.67 M/UL (4.20-5.40); RED CELL DISTRIBUTION WIDTH 14.1 % (11.6-14.8); WHITE BLOOD COUNT 5.7 K/UL (4.8-10.8)
[2018-11-27 07:14] LABS: ALANINE AMINOTRANSFERASE 14 U/L (12-78); ALBUMIN 2.6 G/DL (3.4-5.0); ALBUMIN/GLOBULIN RATIO 0.6 (1.0-2.7); ALKALINE PHOSPHATASE 347 U/L (46-116); ANION GAP 7 mmol/L (5-15); ASPARTATE AMINO TRANSFERASE 10 U/L (15-37); BILIRUBIN,TOTAL 0.4 MG/DL (0.2-1.0); BLOOD UREA NITROGEN 12 mg/dL (7-18); CALCIUM 8.3 MG/DL (8.5-10.1); CARBON DIOXIDE 31 MMOL/L (21-32); CHLORIDE 103 MMOL/L (98-107); CREATININE 0.8 MG/DL (0.55-1.30); POTASSIUM 4.3 MMOL/L (3.5-5.1); SODIUM 141 MMOL/L (136-145)
--- NOTE | 2018-11-27 07:19 | NUR ---
HAND-OFF: Report given to alex mireles.
--- NOTE | 2018-11-27 07:25 | NUR ---
NURSE NOTES: Report received from outgoing Kelly RN, rounds made. Patient alert, oriented x1, calm, sitting in semi-fowlers position in bed. Left hand IV site, puffy, warm, IVF infusing at 150 ml/hr, will change IV site. Patient tolerated breakfast, appetite good, no NV. Denies pain, no SOB on RA. LLE brace on. Bed in lowest position, call light in reach (reinforced use), will continue to monitor.
[2018-11-27 08:00] VITALS: BP 110/58
--- NOTE | 2018-11-27 08:40 | NUR ---
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 INTRACTABLE HIP PAIN VS: BP 107/55, P 106, T 99.7, RR 32, SPO2 91 RBC 3.67, Hgb 10.8, Hct 34.2 HIP XRAY Impression: Positive for distal left femoral fracture which appears acute. Old healed proximal femoral fracture. There appears to be fracture of the hardware but the proximal femur appears intact IS:ZOFRAN 4mg IVP MORPHINE 4mg IVP NOVOLIN R 10units IV LORAZEPAM 1mg IV ADMITTED TO MED/SURG DCP: RETURN TO [facility]
[2018-11-27] MEDS: Furosemide 40mg tab ORAL SCH (09:59)
[2018-11-27] MEDS: Multivitamin w/Minerals tab ORAL SCH (09:59)
[2018-11-27] MEDS: Bisacodyl EC 5mg tab ORAL SCH (09:59)
[2018-11-27] MEDS: Docusate 100mg cap ORAL SCH (10:00)
[2018-11-27] MEDS: OLANZapine 10mg tab ORAL SCH ×2 (10:00→18:41)
[2018-11-27] MEDS: QUEtiapine 200mg tab ORAL SCH ×4 (10:00→20:52)
[2018-11-27] MEDS: metFORMIN 500mg tab ORAL SCH (10:00)
[2018-11-27] MEDS: Tums 500mg ORAL SCH (10:01)
[2018-11-27] MEDS: Ascorbic Acid 500mg tab ORAL SCH (10:03)
[2018-11-27] MEDS: Vitamin D 1000 IU Tab ORAL SCH (10:03)
--- NOTE | 2018-11-27 10:15 | Consultation ---
DATE OF CONSULTATION: CHIEF COMPLAINT: Left thigh pain. CONSULTING PHYSICIAN: Aftab Oconnor M.D. HISTORY OF PRESENT ILLNESS: The patient is a pleasant 67-year-old female with no significant psychiatric history medical comorbidities who presents with left thigh pain. Imaging studies showed a periprosthetic fracture along the intramedullary nail. Orthopedic consultation obtained for further care and recommendations. PAST MEDICAL HISTORY: Reviewed per intake chart. SURGICAL HISTORY: Reviewed per intake chart. MEDICATION: Reviewed per intake chart. PHYSICAL EXAMINATION: Shows swelling of left thigh posterior calf is soft. Neurovascular exam is normal. There is pain with palpation of the distal femur. Incision along the lateral tibial plateau appeared to be clean, dry, and intact. DIAGNOSTIC DATA: Imaging studies show oblique fracture along the distal aspect of the distal femur around the intramedullary nail. There is lateral tibial plateau plate fixation for lateral tibial plateau fracture. At this point arthrosis of the knee joint. ASSESSMENT: Left distal third femur fracture around a knee implant. DISCUSSION: At this point, it is cared for complicated clearly removing the nail was not possible because proximal along the hip joint it is completely bent. At this point, the only thing that would be beneficial is the surgery that required both complaining medially and laterally this was extremely complicated given the nature of the fracture fragment. I think that at this point, risk for medical complication including wound complication and nonunion of the fracture with operative intervention. In addition under psychiatric issues was medical comorbidities I think risk of surgery await the benefit. At this point, I recommend knee mobilizer. She is nonweightbearing. Hopefully the fracture will consolidate in the event that she does develop a nonunion that ultimately she may have no option maybe consideration for fixation at that time. I discussed with the patient as well as PMD. All questions addressed. Aftab Oconnor M.D. DR: Dio JOB#: [id number] CC: JACK[place]
[2018-11-27 12:00] VITALS: BP 108/60
--- NOTE | 2018-11-27 14:45 | History and Physical Report ---
DATE OF ADMISSION: 11/26/2018 HISTORY OF PRESENT ILLNESS: The patient is a very poor historian and paranoid schizophrenic. The patient is status post fall. The patient is status post persistent pain since the fall. The patient is positive for acute distal femoral fracture. The patient had surgical repair, ORIF in the same spot. X-ray positive for distal left femoral fracture and it shows old healed proximal femoral fracture. There appears to be a fracture of the hardware, but the proximal femur appears intact. No acute bony trauma. The patient is again a very poor historian and cannot get any reliable history from the patient. She is admitted for pain control. PAST MEDICAL HISTORY: Paranoid schizophrenia, non-insulin dependent diabetes mellitus, DVT, constipation, iron-deficiency anemia, leg edema, gastroesophageal reflux disease, and psychosis. PAST SURGICAL HISTORY: Has the open reduction and internal fixation of the lower extremity, IVC filter. MEDICATIONS: Vitamin C, bisacodyl, Colace, ferrous sulfate, Lasix, Haldol, Levemir, lorazepam, olanzapine, Protonix, and warfarin. ALLERGIES: [place]. FAMILY HISTORY: Noncontributory. SOCIAL HISTORY: Denies history of alcohol or illicit drugs. However, she is a poor historian. Comes from a intermediate. REVIEW OF SYSTEMS: HEENT: Denies headaches. RESPIRATORY: Denies shortness of breath. Denies cough. CARDIOVASCULAR: No chest pain. GASTROINTESTINAL: Denies nausea, vomiting, or diarrhea. EXTREMITIES: Complains of bilateral hip pain. EDITOR MANAGING NEWSPAPER: No change in vision or speech pattern. PHYSICAL EXAMINATION: VITAL SIGNS: Temperature 98.2, pulse is 102, and blood pressure 108/64. HEENT: PERRLA. NECK: Supple. No lymphadenopathy. CHEST: Clear to auscultation. CARDIOVASCULAR: Regular rate and rhythm. No murmurs or extra sounds. GASTROINTESTINAL: Soft, nontender, and nondistended. No organomegaly. EXTREMITIES: The patient has decreased range of motion due to pain. ASSESSMENT AND PLAN: Intractable hip pain and a hip fracture where the previous ORIF surgery has been done. I spoke with Dr. Oconnor. He told me that he spoke with and they both believe that this is a very complicated surgery. The patient is also a major schizophrenic and is bed bound, has no quality of life, and even before all this time, the patient is in a wheelchair/bed bound. Given the comorbidities and the complexity of the surgery and the overall condition, Dr. Oconnor believes that this is not a surgical candidate. At this point, we will monitor with management per Dr. Oconnor's recommendation . INR is elevated. I will hold for the time being. for DVT and I have consulted and Dr. Kim as well as Dr. Hennessy for the management of dehydration and schizophrenia and this intractable hip pain. Reuben Pereira M.D. DR: YAZMIN JOB#: [id number] CC:
[2018-11-27 16:00] VITALS: BP 107/63
--- NOTE | 2018-11-27 17:40 | Consultation ---
History of Present Illness General Chief Complaint: Lower Extremity Injury Present Illness Allergies: Coded Allergies: LITHIUM (Unverified Allergy, Unknown, 12/31/12) Medication History Scheduled Acarbose* (Precose*), 50 MG ORAL THREE TIMES A DAY, (Reported) Ascorbate Calcium (Vitamin C), 500 MG PO DAILY, (Reported) Bisacodyl* (Dulcolax*), 10 MG ORAL DAILY, (Reported) Calcium Carbonate (Calcium Carbonate), 250 MG PO DAILY, (Reported) Cholecalciferol (Vitamin D3)* (Vitamin D*), 250 UNIT ORAL DAILY, (Reported) Cranberry Fruit Concentrate (Cranberry), 450 MG PO BID, (Reported) Docusate Sodium* (Colace*), 100 MG ORAL DAILY, (Reported) Ferrous Sulfate* (Ferrous Sulfate*), 325 MG ORAL DAILY, (Reported) Furosemide* (Lasix*), 40 MG ORAL DAILY, (Reported) Glimepiride* (Amaryl*), 2 MG ORAL BEFORE BREAKFAST, (Reported) Haloperidol* (Haldol*), 5 MG ORAL TID, (Reported) Insulin Detemir (Levemir Flextouch), 12 UNIT SQ BEDTIME, (Reported) Lorazepam* (Ativan*), 1 MG ORAL Q4HR, (Reported) Metformin Hcl* (Glucophage*), 500 MG ORAL DAILY, (Reported) Multivitamin With Minerals (Multivitamins With Minerals*), 1 TAB ORAL DAILY, ( Reported) Olanzapine* (Zyprexa*), 10 MG ORAL BID, (Reported) Pantoprazole* (Protonix*), 40 MG ORAL DAILY, (Reported) Quetiapine Fumarate* (Seroquel*), 200 MG ORAL QID, (Reported) Warfarin Sod (Coumadin*), 9 MG ORAL DAILY, (Reported) Scheduled PRN Hydrocodone Bit/Acetaminophen 5-325* ([place] 5-325 Tablet*), 1 TAB ORAL Q4H PRN for For Pain, (Reported) Temazepam* (Restoril*), 7.5 MG ORAL HS PRN for Insomnia, (Reported) [Mylanta], 30 ML ORAL EVERY 6 HOURS PRN for GI DISTRESS, (Reported) [Tylenol], 650 MG PO Q4HR PRN for Mild Pain/Temp > 100.5, (Reported) Patient History Healthcare decision maker PAMELA SB Resuscitation status Advanced Directive on File Yes Physical Exam Last 24 Hour Vital Signs Date Time Temp Pulse Resp B/P (MAP) Pulse Ox O2 Delivery O2 Flow Rate FiO2 11/27/18 16:00 98.6 98 19 107/63 (78) 98 11/27/18 12:00 98.6 98 19 108/60 (76) 97 11/27/18 09:00 Room Air 11/27/18 08:00 98.3 100 19 110/58 (75) 96 11/27/18 04:00 98.9 116 20 133/71 (91) 97 11/27/18 00:00 98.8 106 20 124/68 (86) 91 11/26/18 22:59 Room Air 11/26/18 21:00 Room Air 11/26/18 20:00 99.7 104 20 114/68 (83) 92 11/26/18 18:14 Room Air Intake and Output 11/26/18 11/27/18 19:00 07:00 # Voids 3 # Bowel Movements 3 Laboratory Tests Test 11/27/18 06:00 White Blood Count 5.7 K/UL (4.8-10.8) Red Blood Count 3.67 M/UL (4.20-5.40) L Hemoglobin 10.8 G/DL (12.0-16.0) L Hematocrit 34.2 % (37.0-47.0) L Mean Corpuscular Volume 93 FL (80-99) Mean Corpuscular Hemoglobin 29.3 PG (27.0-31.0) Mean Corpuscular Hemoglobin Concent 31.5 G/DL (32.0-36.0) L Red Cell Distribution Width 14.1 % (11.6-14.8) Platelet Count 336 K/UL (150-450) Mean Platelet Volume 5.4 FL (6.5-10.1) L Neutrophils (%) (Auto) 55.7 % (45.0-75.0) Lymphocytes (%) (Auto) 30.9 % (20.0-45.0) Monocytes (%) (Auto) 10.1 % (1.0-10.0) H Eosinophils (%) (Auto) 2.1 % (0.0-3.0) Basophils (%) (Auto) 1.2 % (0.0-2.0) Sodium Level 141 MMOL/L (136-145) Potassium Level 4.3 MMOL/L (3.5-5.1) Chloride Level 103 MMOL/L (98-107) Carbon Dioxide Level 31 MMOL/L (21-32) Anion Gap 7 mmol/L (5-15) Blood Urea Nitrogen 12 mg/dL (7-18) Creatinine 0.8 MG/DL (0.55-1.30) Estimat Glomerular Filtration Rate > 60 mL/min (>60) Glucose Level 257 MG/DL (74-106) #H Calcium Level 8.3 MG/DL (8.5-10.1) L Total Bilirubin 0.4 MG/DL (0.2-1.0) Aspartate Amino Transf (AST/SGOT) 10 U/L (15-37) L Alanine Aminotransferase (ALT/SGPT) 14 U/L (12-78) Alkaline Phosphatase 347 U/L (46-116) H Total Protein 6.6 G/DL (6.4-8.2) Albumin 2.6 G/DL (3.4-5.0) L Globulin 4.0 g/dL Albumin/Globulin Ratio 0.6 (1.0-2.7) L Height (Feet): 5 Height (Inches): 3.00 Weight (Pounds): 187 Medications Current Medications Medications (Trade) Dose Ordered Sig/Ebenezer Route PRN Reason Start Time Stop Time Status Last Admin Dose Admin Acarbose (Precose) 50 mg TIAC ORAL 11/26/18 16:30 12/26/18 16:29 11/27/18 16:52 Acetaminophen (Tylenol) 650 mg Q4H PRN ORAL Mild Pain/Temp > 100.5 11/26/18 16:09 12/26/18 16:08 Acetaminophen/ Hydrocodone Bitart ([place] 5/325) 1 tab Q4H PRN ORAL Moderate Pain (Pain Scale 4-6) 11/26/18 15:45 12/03/18 15:44 11/27/18 16:53 Al Hydroxide/Mg Hydroxide (Mylanta) 30 ml Q6H PRN ORAL GI DISTRESS 11/26/18 15:45 12/26/18 15:44 Ascorbic Acid (Vitamin C) 500 mg DAILY ORAL 11/27/18 09:00 12/27/18 08:59 11/27/18 10:03 Bisacodyl (Dulcolax) 5 mg DAILY ORAL 11/27/18 09:00 12/27/18 08:59 11/27/18 09:59 Calcium Carbonate (Tums) 250 mg DAILY ORAL 11/27/18 09:00 12/27/18 08:59 11/27/18 10:01 Dextrose (Dextrose 50%) 25 ml Q30M PRN IV Hypoglycemia 11/26/18 16:15 12/26/18 16:14 Dextrose (Dextrose 50%) 50 ml Q30M PRN IV Hypoglycemia 11/26/18 16:15 12/26/18 16:14 Docusate Sodium (Colace) 100 mg DAILY ORAL 11/27/18 09:00 12/27/18 08:59 11/27/18 10:00 Ferrous Sulfate (Feosol) 325 mg DAILY ORAL 11/27/18 09:00 12/27/18 08:59 11/27/18 10:03 Furosemide (Lasix) 40 mg DAILY ORAL 11/27/18 09:00 12/27/18 08:59 11/27/18 09:59 Glimepiride (Amaryl) 2 mg ACBREAKFAST ORAL 11/27/18 06:30 12/27/18 06:29 11/27/18 06:22 Haloperidol (Haldol) 5 mg TID ORAL 11/27/18 09:00 12/27/18 08:59 11/27/18 12:38 Insulin Aspart (NovoLOG) BEFORE MEALS AND HS SUBQ 11/26/18 17:30 12/26/18 17:29 11/27/18 16:48 Insulin Detemir (Levemir) 12 units BEDTIME SUBQ 11/26/18 21:00 12/26/18 20:59 11/26/18 20:27 Lorazepam (Ativan) 1 mg Q4H PRN ORAL For Anxiety 11/26/18 16:08 12/03/18 16:07 Metformin HCl (Glucophage) 500 mg DAILY ORAL 11/27/18 09:00 12/27/18 08:59 11/27/18 10:00 Multivitamins Therapeutic (Therapeutic Multivitamin) 1 ea DAILY ORAL 11/27/18 09:00 12/27/18 08:59 11/27/18 09:59 Olanzapine (ZyPREXA) 10 mg BID ORAL 11/26/18 18:00 12/26/18 17:59 11/27/18 10:00 Pantoprazole (Protonix) 40 mg DAILY ORAL 11/27/18 09:00 12/27/18 08:59 11/27/18 10:00 Quetiapine Fumarate (SEROquel) 200 mg FOUR TIMES A DAY ORAL 11/26/18 18:00 12/26/18 17:59 11/27/18 12:38 Sodium Chloride 550 ml @ 150 mls/hr Q3H40M IV 11/26/18 16:00 12/26/18 15:59 11/27/18 16:54 Temazepam (Restoril) 7.5 mg HSPRN PRN ORAL Insomnia 11/26/18 21:00 12/03/18 20:59 Vitamin D (Vitamin D) 250 intlu DAILY ORAL 11/27/18 09:00 12/27/18 08:59 11/27/18 10:03 Assessment/Plan Assessment/Plan Hematology Consult Chief Complaint: Lower Extremity Injury DOS: 11/27/18 REQ MD: Reuben Pereira RFC: Anemia eval, dvt, ivc filter history placement Source: Patient, Family Member ID I know this patient from prior admissions, she had a DVT apparently the patient' s had left hip pain for 2 weeks. She sent in by the care home facility because the pain was not controlled. She is on Coumadin and also there is a question about whether her INR is prolonged. The patient is demented and unable to give us a history. According to her brother she has had severe deterioration in her mental status with worsening schizophrenia last weekend. The patient had a distal fibular fracture in 2016. This was treated conservatively. And is currently taking Coumadin. Last admission May 2018 discharge diagnoses: Urinary tract infection Neck mass Probably epidermal inclusion cyst Diabetes mellitus ,type 2 History of DVT lower extremity, status post IVC filter Episode of bradycardia- resolved Constipation with abdominal distention- resolved Schizophrenia Dementia Coded Allergies: LITHIUM (Unverified Allergy, Unknown, 12/31/12) Limited by: medical condition Past Medical History: see triage record, old chart reviewed Past Surgical History: other - Fractures of left leg treated with rods and stabilization, IVC filter Social History: Denies: smoking, alcohol use, drug use Social History Narrative SNF Now: No Reviewed Nursing Documentation: PMH: Agreed; PSxH: Agreed Past Medical History: No History, Except For Hx Cardiac Problems: No - dvt LE, CHF Hx Hypertension: No Hx Pacemaker: No Hx Diabetes: Yes Hx Gastrointestinal Problems: No Hx Dialysis: No Hx Neurological Problems: Yes Hx Cerebrovascular Accident: Yes - hemiplegia and hemiparesis Hx Transient Ischemic Attacks: No Hx Dementia: Yes Hx Alzheimer's Disease: No Hx Parkinson's Disease: No Hx Meningitis: No Hx Encephalitis: No Hx Seizures: No Hx Epilepsy: No Hx Multiple Sclerosis: No Hx Cerebral Palsy: No Hx Amyotrophic Lat Sclerosis: No Hx Guillian-Brandon Syndrome: No Hx Paralysis: No Hx Peripheral Neuropathy: No Hx Spinal Cord Injury: No Hx Head Trauma: No Hx Traumatic Brain Injury: No Hx Memory Loss: No Hx Concentration Difficulty: No Hx Speech Problem: No Hx Tremors: No Hx Vertigo: No Hx Dizziness: No Hx Syncope: No Hx Headaches: No Hx Aphasia: No Hx Dysphasia: Yes Hx Numbness: No Hx Weakness: Yes Hx Fatigue: No Hx Neurologic Surgery: No Hx Brain Shunt: No ROS: Constitutional: No fever, no chills, no night sweats, no fatigue Skin: No rashes, lumps, itchiness, dryness HEENT: No [place], ear ache, visual changes, double vision, nosebleeds, sore throat, lumps, swollen glands Breasts: No lumps, pain, discharge Pulmonary: No cough, sputum, shortness of breath, coughing up blood, hemoptysis Cardiovascular: No chest pain, tightness, palpitations, syncope, claudication, orthopnea, PND GI: No nausea, vomiting, diarrhea, melena, hematochezia, change in appetite, abdominal pain : No dysuria, frequency, urgency, urinary incontinence, foamy urine Musculoskeletal: No joint swelling or muscle pain, trauma, back pain Neurologic: No dizziness, fainting, seizures, changes in smell or taste Psychiatric: No nervousness, stress, or depression, anxiety, hallucinations Endocrine: No weight change, heat or cold intolerance, tremor, insomnia PE: Vitals: reviewed General Appearance: NAD HEENT: normocephalic, atraumatic Neck: non-tender, normal alignment Respiratory/Chest: nromal breath sounds bilaterally Cardiovascular/Chest: normal peripheral pulses, normal rate Abdomen: normal bowel sounds, soft, nontender Extremities: normal range of motion Labs: reviewed Assessment/Plan # Supratherapeutic INR with history of use of Coumadin. The patient has been compliant. Continue Coumadin --> Coumadin has been restarted, d/w pharmacy and with RN ONLY when INR <6 --> indication is hx dvt --> INR goal 2-3 # Deep venous thrombosis of the lower extremity, status post inferior vena cava filter placement in the past, restarted on Coumadin --> Remains on Coumadin --> INR goal 2-3 --> Current INR 1.1 # Anemia of chronic disease due to underlying chronic medical issues, multifactorial --> Anemia workup has been ordered, rule out gi bleed --> No evidence of hemolysis is noted, peripheral smear has been reviewed. --> Hgb goal >7. Transfuse prn. --> Epogen or iron at this time is not particularly indicated --> Medications have been reviewed # Neck mass on the right side likely sebacous cyst --> unknown etiology if mass or abscess, a us has been ordered and us results: Normal left thyroid lobe --> CT guided aspiration has been canceled as discussed with radiologist appears to be a sebaceous cyst --> consider ENT eval with Dr. Roberts, appreciate his recs --> CT neck: 1.8 cm subcutaneous mass to the right lateral neck improved (prior admission) # Acute left periprosthetic mid shaft fracture of the left femur. s/p orif # Hypertension per renal # Status post inferior vena cava filter. # Hyperlipidemia. # Left femur fracture seen by ortho not surgical intervention # Schizophrenia per psych The timing of this note does not necessarily reflect the time of the patient was seen. Greatly appreciate consultation! Jorge Rivera MD Nov 27, 2018 17:40
[2018-11-27 18:08] LABS: % IRON SATURATION 14 % (15-50); IRON 34 ug/dL (50-175); TOTAL IRON BINDING CAPACITY 236 ug/dL (250-450)
--- NOTE | 2018-11-27 19:30 | NUR ---
HAND-OFF: Report given to Becky OBANDO.
--- NOTE | 2018-11-27 19:53 | NUR ---
NURSE NOTES: PATIENT IN BED. ON RA, NO SOB, NO ACUTE DISTRESS. LFA IV INTACT, PATENT. BED IN LOWEST POSITION, LOCKED, ALARMS ON. CALL LIGHT IN REACH. IVF FROM ER WAS STILL RUNNING, INFORMED DR MONTANO, DISCONTINUED.
[2018-11-27 20:00] VITALS: BP 143/75
[2018-11-27] MEDS: Levemir Flexpen SUBQ SCH (20:52)
[2018-11-27] MEDS: LORazepam 1mg tab ORAL PRN (21:04)
--- NOTE | 2018-11-27 22:12 | General Progress Note ---
Assessment/Plan Problem List: (1) Hip pain ICD Codes: M25.559 - Pain in unspecified hip SNOMED: 88352195 (2) Schizophrenia ICD Codes: F20.9 - Schizophrenia, unspecified SNOMED: 18333299 (3) Dementia ICD Codes: F03.90 - Unspecified dementia without behavioral disturbance SNOMED: 57134584 Qualifiers: Qualified Codes: F03.91 - Unspecified dementia with behavioral disturbance (4) Prolonged INR ICD Codes: R79.1 - Abnormal coagulation profile SNOMED: 793331802 (5) Femoral distal fracture ICD Codes: S72.409A - Unspecified fracture of lower end of unspecified femur, initial encounter for closed fracture SNOMED: 525790337 Qualifiers: Qualified Codes: S72.472A - Torus fracture of lower end of left femur, initial encounter for closed fracture (6) Diabetes mellitus ICD Codes: E11.9 - Type 2 diabetes mellitus without complications SNOMED: 45283306 (7) HTN (hypertension) ICD Codes: I10 - Essential (primary) hypertension SNOMED: 40656784 Status: progressing Assessment/Plan afebrile nac intraCTABLE back pain Subjective ROS Limited/Unobtainable: Yes Allergies: Coded Allergies: LITHIUM (Unverified Allergy, Unknown, 12/31/12) Objective Last 24 Hour Vital Signs Date Time Temp Pulse Resp B/P (MAP) Pulse Ox O2 Delivery O2 Flow Rate FiO2 11/27/18 16:00 98.6 98 19 107/63 (78) 98 11/27/18 12:00 98.6 98 19 108/60 (76) 97 11/27/18 09:00 Room Air 11/27/18 08:00 98.3 100 19 110/58 (75) 96 11/27/18 04:00 98.9 116 20 133/71 (91) 97 11/27/18 00:00 98.8 106 20 124/68 (86) 91 11/26/18 22:59 Room Air Intake and Output 11/26/18 11/27/18 19:00 07:00 # Voids 3 # Bowel Movements 3 Laboratory Tests 11/27/18 06:00: White Blood Count 5.7, Red Blood Count 3.67L, Hemoglobin 10.8L, Hematocrit 34.2L , Mean Corpuscular Volume 93, Mean Corpuscular Hemoglobin 29.3, Mean Corpuscular Hemoglobin Concent 31.5L, Red Cell Distribution Width 14.1, Platelet Count 336, Mean Platelet Volume 5.4L, Neutrophils (%) (Auto) 55.7, Lymphocytes (%) (Auto) 30.9, Monocytes (%) (Auto) 10.1H, Eosinophils (%) (Auto) 2.1, Basophils (%) (Auto) 1.2, Sodium Level 141, Potassium Level 4.3, Chloride Level 103, Carbon Dioxide Level 31, Anion Gap 7, Blood Urea Nitrogen 12, Creatinine 0.8, Estimat Glomerular Filtration Rate > 60, Glucose Level 257#H, Calcium Level 8.3L, Iron Level 34L, Total Iron Binding Capacity 236L, Percent Iron Saturation 14L, Unsaturated Iron Binding 202, Ferritin 115, Total Bilirubin 0.4, Aspartate Amino Transf (AST/SGOT) 10L, Alanine Aminotransferase ( ALT/SGPT) 14, Alkaline Phosphatase 347H, Total Protein 6.6, Albumin 2.6L, Globulin 4.0, Albumin/Globulin Ratio 0.6L Height (Feet): 5 Height (Inches): 3.00 Weight (Pounds): 187 Cardiovascular: normal rate Respiratory/Chest: lungs clear Abdomen: soft Reuben Pereira MD Nov 27, 2018 22:11
--- NOTE | 2018-11-27 22:14 | General Progress Note ---
Assessment/Plan Problem List: (1) Schizophrenia ICD Codes: F20.9 - Schizophrenia, unspecified SNOMED: 89746131 Status: stable Assessment/Plan cont seroquel cont zyprexa the pt lacks capacity Subjective Constitutional: Reports: malaise, weakness Neurologic/Psychiatric: Reports: anxiety, depressed, emotional problems Allergies: Coded Allergies: LITHIUM (Unverified Allergy, Unknown, 12/31/12) Objective Last 24 Hour Vital Signs Date Time Temp Pulse Resp B/P (MAP) Pulse Ox O2 Delivery O2 Flow Rate FiO2 11/27/18 16:00 98.6 98 19 107/63 (78) 98 11/27/18 12:00 98.6 98 19 108/60 (76) 97 11/27/18 09:00 Room Air 11/27/18 08:00 98.3 100 19 110/58 (75) 96 11/27/18 04:00 98.9 116 20 133/71 (91) 97 11/27/18 00:00 98.8 106 20 124/68 (86) 91 11/26/18 22:59 Room Air Intake and Output 11/26/18 11/27/18 19:00 07:00 # Voids 3 # Bowel Movements 3 Laboratory Tests 11/27/18 06:00: White Blood Count 5.7, Red Blood Count 3.67L, Hemoglobin 10.8L, Hematocrit 34.2L , Mean Corpuscular Volume 93, Mean Corpuscular Hemoglobin 29.3, Mean Corpuscular Hemoglobin Concent 31.5L, Red Cell Distribution Width 14.1, Platelet Count 336, Mean Platelet Volume 5.4L, Neutrophils (%) (Auto) 55.7, Lymphocytes (%) (Auto) 30.9, Monocytes (%) (Auto) 10.1H, Eosinophils (%) (Auto) 2.1, Basophils (%) (Auto) 1.2, Sodium Level 141, Potassium Level 4.3, Chloride Level 103, Carbon Dioxide Level 31, Anion Gap 7, Blood Urea Nitrogen 12, Creatinine 0.8, Estimat Glomerular Filtration Rate > 60, Glucose Level 257#H, Calcium Level 8.3L, Iron Level 34L, Total Iron Binding Capacity 236L, Percent Iron Saturation 14L, Unsaturated Iron Binding 202, Ferritin 115, Total Bilirubin 0.4, Aspartate Amino Transf (AST/SGOT) 10L, Alanine Aminotransferase ( ALT/SGPT) 14, Alkaline Phosphatase 347H, Total Protein 6.6, Albumin 2.6L, Globulin 4.0, Albumin/Globulin Ratio 0.6L Height (Feet): 5 Height (Inches): 3.00 Weight (Pounds): 187 General Appearance: alert, confused, agitated oNel Hennessy MD Nov 27, 2018 22:14
[2018-11-28] VITALS: BP 117/65
--- NOTE | 2018-11-28 02:36 | NUR ---
HAND-OFF: Report given to Ryan OBANDO.
--- NOTE | 2018-11-28 02:37 | NUR ---
NURSE NOTES: Received patient in bed. A&Ox1, confused. IV site patent and intact. Bed in lowest position. Call light within reach. Will continue to monitor.
[2018-11-28 04:00] VITALS: BP 140/92
[2018-11-28] MEDS: Glimepiride 1mg tab ORAL SCH (06:14)
[2018-11-28] MEDS: Precose 50mg tab ORAL SCH ×2 (06:14→11:49)
[2018-11-28] MEDS: NovoLOG Insulin Flexpen SUBQ SCH ×2 (06:15→11:52)
[2018-11-28 06:24] LABS: BASOPHILS % (AUTO) 1.1 % (0.0-2.0); EOSINOPHILS % (AUTO) 6.4 % (0.0-3.0); HEMATOCRIT 36.6 % (37.0-47.0); HEMOGLOBIN 11.7 G/DL (12.0-16.0); LYMPHOCYTES % (AUTO) 31.1 % (20.0-45.0); MEAN CORPUSCULAR VOLUME 93 FL (80-99); MONOCYTES % (AUTO) 8.3 % (1.0-10.0); NEUTROPHILS % (AUTO) 53.2 % (45.0-75.0); PLATELET COUNT 384 K/UL (150-450); RED BLOOD COUNT 3.95 M/UL (4.20-5.40); RED CELL DISTRIBUTION WIDTH 14.1 % (11.6-14.8); WHITE BLOOD COUNT 5.9 K/UL (4.8-10.8)
--- NOTE | 2018-11-28 07:30 | NUR ---
HAND-OFF: Report given to Sophia OBANDO.
--- NOTE | 2018-11-28 07:30 | NUR ---
NURSE NOTES: Received pt from TOPHER BIANCHI. Pt is confused and orient x1. pt is in RA . No SOB or acute respiratory distress noted. pt is very agitate and speaking by her self. pt has intact iv access LFA 22G SL. All needs attended. bed is locked and is in the lowest position. call light within easy reach. will continue to monitor.
[2018-11-28 08:00] VITALS: BP 153/77
[2018-11-28] MEDS: Docusate 100mg cap ORAL SCH (08:17)
[2018-11-28] MEDS: Ascorbic Acid 500mg tab ORAL SCH (08:18)
[2018-11-28] MEDS: Multivitamin w/Minerals tab ORAL SCH (08:18)
[2018-11-28] MEDS: metFORMIN 500mg tab ORAL SCH (08:18)
[2018-11-28] MEDS: Bisacodyl EC 5mg tab ORAL SCH (08:18)
[2018-11-28] MEDS: Furosemide 40mg tab ORAL SCH (08:18)
[2018-11-28] MEDS: OLANZapine 10mg tab ORAL SCH (08:18)
[2018-11-28] MEDS: QUEtiapine 200mg tab ORAL SCH ×2 (08:18→12:58)
[2018-11-28] MEDS: LORazepam 1mg tab ORAL PRN (08:19)
[2018-11-28] MEDS: Vitamin D 1000 IU Tab ORAL SCH (08:19)
[2018-11-28] MEDS: Tums 500mg ORAL SCH (08:19)
[2018-11-28 12:00] VITALS: BP 153/81
--- NOTE | 2018-11-28 12:12 | NUR ---
DISCHARGE PLANNED PATIENT DC [facility] T- FOR NURSE TO NURSE REPORT [facility] WILL CAREER INFORMATION SPECIALIST AT 1348
--- NOTE | 2018-11-28 15:00 | NUR ---
NURSE NOTES: Pt has discharge order. all discharge assessments done. pt is stable. V/S stable. all belongings are with pt. given report to TOPHER TOLLIVER in SNF. Pt's brother SB SANTIAGO is aware about D/C. IV access D/C PT LEFT HOSPITAL WITH [facility] AMBULANCE PERSONNEL.
--- NOTE | 2018-11-28 15:13 | General Progress Note ---
Assessment/Plan Assessment/Plan Assessment/Plan # Supratherapeutic INR with history of use of Coumadin. The patient has been compliant. Continue Coumadin --> Coumadin has been restarted, d/w pharmacy and with RN ONLY when INR <6 --> indication is hx dvt --> INR goal 2-3 # Deep venous thrombosis of the lower extremity, status post IVC placement in the past, restarted on Coumadin --> Remains on Coumadin --> INR goal 2-3 --> continue indefinably # Anemia of chronic disease due to underlying chronic medical issues, multifactorial --> Anemia workup has been ordered, rule out gi bleed --> No evidence of hemolysis is noted, peripheral smear has been reviewed. --> Hgb goal >7. Transfuse prn. --> Epogen or iron at this time is not particularly indicated --> Medications have been reviewed # Neck mass on the right side likely sebacous cyst --> unknown etiology if mass or abscess, a us has been ordered and us results: Normal left thyroid lobe --> CT guided aspiration has been canceled as discussed with radiologist appears to be a sebaceous cyst --> seen by Dr. Roberts on prior admission --> outpatient re-imaging # Acute left periprosthetic mid shaft fracture of the left femur --> s/p orif # Hypertension per renal # Status post inferior vena cava filter. # Hyperlipidemia. # Left femur fracture seen by ortho not surgical intervention # Schizophrenia per psych The timing of this note does not necessarily reflect the time of the patient was seen. Greatly appreciate consultation! Subjective Constitutional: Denies: no symptoms, chills, diaphoresis, fever, malaise, weakness, other HEENT: Denies: no symptoms, eye pain, blurred vision, tearing, double vision, ear pain, ear discharge, nose pain, nose congestion, throat pain, throat swelling, mouth pain, mouth swelling, other Genitourinary: Denies: no symptoms, burning, discharge, frequency, flank pain, hematuria, incontinence, pain, urgency, other Neurologic/Psychiatric: Denies: no symptoms, anxiety, depressed, emotional problems, headache, numbness, paresthesia, pre-existing deficit, seizure, tingling, tremors, weakness, other Hematologic/Lymphatic: Denies: no symptoms, anemia, easy bleeding, easy bruising, other Allergies: Coded Allergies: LITHIUM (Unverified Allergy, Unknown, 12/31/12) Subjective 11/28: no events, cbc has been reviewed, no f/c, a+o x2, but confused Objective Last 24 Hour Vital Signs Date Time Temp Pulse Resp B/P (MAP) Pulse Ox O2 Delivery O2 Flow Rate FiO2 11/28/18 12:00 97.9 100 20 153/81 (105) 100 11/28/18 09:00 Room Air 11/28/18 08:00 97.7 100 20 153/77 (102) 94 11/28/18 04:00 98.5 108 18 140/92 (108) 94 11/28/18 00:00 97.9 102 18 117/65 (82) 95 11/27/18 21:00 Room Air 11/27/18 20:00 98.2 107 19 143/75 (97) 93 11/27/18 16:00 98.6 98 19 107/63 (78) 98 Intake and Output 11/27/18 11/28/18 19:00 07:00 Intake Total 2550 ml 240 ml Balance 2550 ml 240 ml Intake Oral 1200 ml IV Total 1350 ml Other 240 ml # Voids 6 1 Laboratory Tests 11/28/18 05:35: White Blood Count 5.9, Red Blood Count 3.95L, Hemoglobin 11.7L, Hematocrit 36.6L , Mean Corpuscular Volume 93, Mean Corpuscular Hemoglobin 29.6, Mean Corpuscular Hemoglobin Concent 32.0, Red Cell Distribution Width 14.1, Platelet Count 384, Mean Platelet Volume 5.3L, Neutrophils (%) (Auto) 53.2, Lymphocytes ( %) (Auto) 31.1, Monocytes (%) (Auto) 8.3, Eosinophils (%) (Auto) 6.4H, Basophils (%) (Auto) 1.1 Height (Feet): 5 Height (Inches): 3.00 Weight (Pounds): 187 Objective PE: Vitals: reviewed General Appearance: NAD HEENT: normocephalic, atraumatic Neck: non-tender, normal alignment Respiratory/Chest: nromal breath sounds bilaterally Cardiovascular/Chest: normal peripheral pulses, normal rate Abdomen: normal bowel sounds, soft, nontender Extremities: normal range of motion Jorge Rivera MD Nov 28, 2018 15:13
[2018-11-28] MEDS ORDERED: NS 500ML ONE (15:52)
[2018-11-28] MEDS ORDERED: NS 275ml ONE (15:52)
--- NOTE | 2018-11-28 23:35 | General Progress Note ---
Assessment/Plan Problem List: (1) Schizophrenia ICD Codes: F20.9 - Schizophrenia, unspecified SNOMED: [id number] Status: stable Assessment/Plan cont seroquel cont zyprexa the pt lacks capacity Subjective Neurologic/Psychiatric: Reports: anxiety, depressed, emotional problems Allergies: Coded Allergies: LITHIUM (Unverified Allergy, Unknown, 12/31/12) Objective Last 24 Hour Vital Signs Date Time Temp Pulse Resp B/P (MAP) Pulse Ox O2 Delivery O2 Flow Rate FiO2 11/28/18 12:00 97.9 100 20 153/81 (105) 100 11/28/18 09:00 Room Air 11/28/18 08:00 97.7 100 20 153/77 (102) 94 11/28/18 04:00 98.5 108 18 140/92 (108) 94 11/28/18 00:00 97.9 102 18 117/65 (82) 95 Intake and Output 11/27/18 11/28/18 19:00 07:00 Intake Total 2550 ml 240 ml Balance 2550 ml 240 ml Intake Oral 1200 ml IV Total 1350 ml Other 240 ml # Voids 6 1 Laboratory Tests 11/28/18 05:35: White Blood Count 5.9, Red Blood Count 3.95L, Hemoglobin 11.7L, Hematocrit 36.6L , Mean Corpuscular Volume 93, Mean Corpuscular Hemoglobin 29.6, Mean Corpuscular Hemoglobin Concent 32.0, Red Cell Distribution Width 14.1, Platelet Count 384, Mean Platelet Volume 5.3L, Neutrophils (%) (Auto) 53.2, Lymphocytes ( %) (Auto) 31.1, Monocytes (%) (Auto) 8.3, Eosinophils (%) (Auto) 6.4H, Basophils (%) (Auto) 1.1 Height (Feet): 5 Height (Inches): 3.00 Weight (Pounds): 187 General Appearance: WD/WN, no apparent distress, alert, confused, agitated, overweight Noel Hennessy MD Nov 28, 2018 23:35
--- NOTE | 2018-12-01 08:13 | Discharge Summary ---
Discharge Summary Discharge Summary _ DATE OF ADMISSION: 11/26/2018 DATE OF DISCHARGE: 11/28/2018 DISCHARGED BY: Dr Pereira REASON FOR ADMISSION: 67 years old female with past medical history of diabetes mellitus type 2, history of DVT lower extremity, status post IVC filter, schizophrenia , dementia , presented with left hip pain for 2 weeks. Patient was sent from [facility] for evaluation , since pain was not controlled with current analgesic regimen. Patient by herself was demented and unable to provide any significant history. Upon evaluation vital signs revealed tachycardia. Laboratory workup revealed no leukocytosis, stable hemoglobin and hematocrit. INR 6.2 Urinalysis revealed no evidence of UTI . Sed rate 94. Stable electrolytes and renal parameters. Glucose 356. Stable LFT. EKG revealed sinus tachycardia, no acute ischemic changes. X-ray of the left knee revealed acute distal femoral fracture. Evidence of osteoporosis noted. X-ray of the pelvis revealed distal left femoral fracture and old healed proximal femoral fracture. No other acute bony trauma. X-ray of the left hip was positive for distal left femoral fracture , appeared to be acute. Old healed proximal femoral fracture noted. No other acute bony trauma. Inferior vena cava filter noted. Chest x-ray revealed no acute cardiopulmonary pathology. Questionable left hilar nodule apparent on prior chest x-ray as well , suspected possibly prominent vascular shadow. In emergency department patient provided with analgesia. FFP was ordered. Orthopedic surgery consult was requested. Patient was subsequently admitted for further management CONSULTANTS: cocoa room operator/oncologist Dr. Rivera orthopedic surgery Dr. Oconnor psychiatrist [facility] COURSE: Patient admitted to the floor. Patient started on gentle IV hydration. Pain management was addressed. Patient received 1 units of fresh frozen plasma. Orthopedic surgeon followed. He reviewed all imaging and concluded that surgery will be extremely complicated , given the nature of the fracture . Surgeon recommended conservative management. Adequate pain management was provided. Pain was controlled. Knee immobilizer applied. Patient was not ambulatory previously as well Patient to be continued with conservative management. Business Analytics Analyst followed. Patient had supra therapeutic INR due to history of Coumadin use. Patient received 1 unit of fresh frozen plasma. INR monitored with goal to keep it in therapeutic range between 2 and 3. Patient had a mild anemia. Anemia workup revealed evidence of chronic anemia due to underlying chronic medical issue, multifactorial. Ferritin within normal limits. No evidence of hemolysis noted. Hemoglobin and hematocrit were closely monitored with goal to keep hemoglobin above 7. Patient was continued on oral iron supplements. Prior to discharge hemoglobin 11.7, hematocrit 36.6. Patient had a neck mass on the right side, likely sebaceous cyst. Ultrasound on prior to admission revealed normal left thyroid lobe. Guided aspiration was canceled at that time , as per discussion with radiologist it appeared to be a sebaceous cyst. Patient was seen by ENT specialist on prior admission . Business Analytics Analyst /oncologist recommended outpatient re-imaging. Blood sugar was managed with metformin , Acarbose and Levemir. GI prophylaxis provided. Blood pressure was closely monitored and remained stable.. Psychiatrist followed for management of schizophrenia. Per psychiatrist patient lacked capacity to make informed decisions. Patient had DPOA. Plan of care was discussed with the DPOA. Psychiatric medication regimen was continued as per psychiatrist. Patient clinically stabilized. Pain controlled. Patient was ready for transfer back to [facility] facility for continuation of care. FINAL DIAGNOSES: Acute left distal femur fracture Supra-therapeutic INR with history of use of Coumadin History of DVT lower extremity, status post IVC filter Anemia of chronic disease , due to underlying chronic medical issues Neck mass , right-sided ,likely sebaceous cyst Diabetes mellitus Hypertension Dementia Schizophrenia DISCHARGE MEDICATIONS: See Medication Reconciliation list. DISCHARGE INSTRUCTIONS: Patient was discharged to the [facility] facility. Follow up with medical doctor at the facility. I have been assigned to dictate discharge summary for this account. I was not involved in the patient's management. Johanna Gallagher NP Dec 01, 2018 08:13
== END 2018-11-28 14:50 | DRG 534 ==
LOC: EDBD 11:33 → EMR 12:26 → 4E 12:55 → EDBEDREQ 14:10
PROC: 30233K1 Transfusion of Nonautologous Frozen Plasma into Peripheral Vein, Percutaneous Approach (ICD-10-PCS; principal; 2018-11-26)
DX: S72.402A Unspecified fracture of lower end of left femur, initial encounter for closed fracture (principal); F20.0 Paranoid schizophrenia; W19.XXXA Unspecified fall, initial encounter; Y92.129 Unspecified place in nursing home as the place of occurrence of the external cause; Z87.81 Personal history of (healed) traumatic fracture; E11.9 Type 2 diabetes mellitus without complications; Z86.718 Personal history of other venous thrombosis and embolism; Z79.01 Long term (current) use of anticoagulants; K21.9 Gastro-esophageal reflux disease without esophagitis; F03.90 Unspecified dementia, unspecified severity, without behavioral disturbance, psychotic disturbance, mood disturbance, and anxiety; D63.8 Anemia in other chronic diseases classified elsewhere; L72.3 Sebaceous cyst; Z88.8 Allergy status to other drugs, medicaments and biological substances
CPT/HCPCS: 36415; 71045; 72170; 73502; 73521; 80053; 81001; 82728; 82962; 83540; 83550; 83880; 84550; 85025; 85610; 85651; 86140; 86850; 86900; 86901; 86927; 87081; 93005; 96374; 96375; 99285; J1815; J2405; S5561

== ENCOUNTER 2019-01-01 17:06 | Inpatient (IN) | payer MEDICARE, MEDICAID ==
[~2019-01-01] VITALS: Ht 160 cm; Wt 84.8 kg
[2019-01-01 17:10] VITALS: BP 120/80
--- NOTE | 2019-01-01 17:10 | NUR ---
ED Nurse Note: [facility]UE TO HYPERGLYCEMIA X 2 DAYS. PER EMS, BG HAS BEEN OVER 300 FOR THE LAST TWO DAYS. MOST RECENT BG WAS 339 AT FACILITY TODAY. AT BEDSIDE, B. DR MARTINS AWARE. PT AOX3 - PT NOT ORIENTED TO SITUATION. SKIN ASSESSMENT: BLANCHABLE REDNESS NOTED TO COCCYX AREA UPON ARRIVAL.
--- NOTE | 2019-01-01 17:39 | NUR ---
ED Nurse Note: NS BOLUS RATE RECONFIRMED WITH DR VAZQUEZ. PER DR VAZQUEZ, RATE CHANGED TO 50ML/HR. 1L NS RUNNING THROUGH PUMP AT 50ML/HR PER DR VAZQUEZ VERBAL ORDER.
--- NOTE | 2019-01-01 17:40 | Emergency Room Report ---
History of Present Illness General Chief Complaint: Abnormal Labs Source: Patient, Medical Record Present Illness HPI 68-year-old female presents ED for evaluation. Brought in by EMS from senior living facility. Had lab work done which showed elevated blood sugar. Accu- Chek elevated. History of diabetes. Patient states she feels weak. Denies any fevers or chills. Denies any chest pain or shortness of breath. No other aggravating relieving factors. Denies any other associated symptoms Allergies: Coded Allergies: LITHIUM (Unverified Allergy, Unknown, 12/31/12) Patient History Past Medical History: DM, HTN, CVA/TIA, dementia Past Surgical History: none Pertinent Family History: none Social History: Denies: smoking, alcohol use, drug use Now: No Immunizations: UTD Reviewed Nursing Documentation: PMH: Agreed; PSxH: Agreed Nursing Documentation-PMH Past Medical History: No History, Except For Hx Cardiac Problems: No - dvt LE, CHF Hx Hypertension: Yes Hx Pacemaker: No Hx Diabetes: Yes Hx Gastrointestinal Problems: No Hx Dialysis: No Hx Neurological Problems: Yes Hx Cerebrovascular Accident: Yes - hemiplegia and hemiparesis Hx Transient Ischemic Attacks: No Hx Dementia: Yes Hx Alzheimer's Disease: No Hx Parkinson's Disease: No Hx Meningitis: No Hx Encephalitis: No Hx Seizures: No Hx Epilepsy: No Hx Multiple Sclerosis: No Hx Cerebral Palsy: No Hx Amyotrophic Lat Sclerosis: No Hx Guillian-[place] Syndrome: No Hx Paralysis: No Hx Peripheral Neuropathy: No Hx Spinal Cord Injury: No Hx Head Trauma: No Hx Traumatic Brain Injury: No Hx Memory Loss: No Hx Concentration Difficulty: No Hx Speech Problem: No Hx Tremors: No Hx Vertigo: No Hx Dizziness: No Hx Syncope: No Hx Headaches: No Hx Aphasia: No Hx Dysphasia: Yes Hx Numbness: No Hx Weakness: Yes Hx Fatigue: No Hx Neurologic Surgery: No Hx Brain Shunt: No Review of Systems All Other Systems: negative except mentioned in HPI Physical Exam Vital Signs Date Time Temp Pulse Resp B/P (MAP) Pulse Ox O2 Delivery O2 Flow Rate FiO2 01/01/19 17:08 98.1 100 16 98 Room Air 01/01/19 17:10 120/80 Sp02 EP Interpretation: reviewed, normal General Appearance: no apparent distress, alert, GCS 15, non-toxic Head: normocephalic, atraumatic Eyes: bilateral eye normal inspection, bilateral eye PERRL ENT: hearing grossly normal, normal pharynx, no angioedema, normal voice Neck: full range of motion, supple/symm/no masses Respiratory: chest non-tender, lungs clear, normal breath sounds, speaking full sentences Cardiovascular #1: regular rate, rhythm, no edema Cardiovascular #2: 2+ carotid (R), 2+ carotid (L), 2+ radial (R), 2+ radial (L) , 2+ dorsalis pedis (R), 2+ dorsalis pedis (L) Gastrointestinal: normal bowel sounds, non tender, soft, non-distended, no guarding, no rebound Rectal: deferred Genitourinary: normal inspection, no CVA tenderness Musculoskeletal: back normal, gait/station normal, normal range of motion, non- tender Neurologic: alert, oriented x3, responsive, motor strength/tone normal, sensory intact, speech normal Psychiatric: judgement/insight normal, memory normal, mood/affect normal, no suicidal/homicidal ideation Reflexes: 3+ bicep (R), 3+ bicep (L), 3+ tricep (R), 3+ tricep (L), 3+ knee (R) , 3+ knee (L) Skin: normal color, no rash, warm/dry, well hydrated Lymphatic: no adenopathy Medical Decision Making Diagnostic Impression: Primary Impression: UTI (urinary tract infection) Qualified Codes: N39.0 - Urinary tract infection, site not specified Additional Impression: Uncontrolled diabetes mellitus with hyperglycemia Qualified Codes: E13.65 - Other specified diabetes mellitus with hyperglycemia ER Course Hospital Course 68-year-old female presenting to ED with generalized weakness, elevated fingerstick Differential diagnoses include: ETOH/drug ingestion, sepsis, DKA Clinical course Patient placed on stretcher. On compliance monitor. After initial history and physical I ordered labs, IV fluids, urine and chest Xray Labs-glucose elevated, no evidence of DKA, no leukocytosis, hb/hct stable, UA + bacteria Chest x-ray unremarkable EKG - NSR, no acute ischemic changes interpreted by me IV fluids given antibiotics given Case discussed with Dr. Pereira and he agreed to accept the patient to his service for further care and support i. I feel this is a highly complex case requiring extensive working including EKG/Rhythm strip, Xray/CT/US, Blood/urine lab work, repeat exams while in ED, and administration of strong opiates/narcotics for pain control, admission to hospital or close patient follow up. diagnosis - uncontrolled hyperglycemia , UTI admitted to floor in serious condition Labs Test 01/01/19 17:20 01/01/19 17:45 White Blood Count 9.2 K/UL (4.8-10.8) Red Blood Count 4.63 M/UL (4.20-5.40) Hemoglobin 13.5 G/DL (12.0-16.0) Hematocrit 40.2 % (37.0-47.0) Mean Corpuscular Volume 87 FL (80-99) Mean Corpuscular Hemoglobin 29.2 PG (27.0-31.0) Mean Corpuscular Hemoglobin Concent 33.6 G/DL (32.0-36.0) Red Cell Distribution Width 14.1 % (11.6-14.8) Platelet Count 300 K/UL (150-450) Mean Platelet Volume 7.0 FL (6.5-10.1) Neutrophils (%) (Auto) 49.7 % (45.0-75.0) Lymphocytes (%) (Auto) 41.6 % (20.0-45.0) Monocytes (%) (Auto) 6.4 % (1.0-10.0) Eosinophils (%) (Auto) 0.9 % (0.0-3.0) Basophils (%) (Auto) 1.3 % (0.0-2.0) Sodium Level 140 MMOL/L (136-145) Potassium Level 3.4 MMOL/L (3.5-5.1) Chloride Level 101 MMOL/L (98-107) Carbon Dioxide Level 31 MMOL/L (21-32) Anion Gap 8 mmol/L (5-15) Blood Urea Nitrogen 17 mg/dL (7-18) Creatinine 0.9 MG/DL (0.55-1.30) Estimat Glomerular Filtration Rate > 60 mL/min (>60) Glucose Level 269 MG/DL (74-106) Calcium Level 9.2 MG/DL (8.5-10.1) Magnesium Level 1.7 MG/DL (1.8-2.4) Total Bilirubin 0.4 MG/DL (0.2-1.0) Aspartate Amino Transf (AST/SGOT) 8 U/L (15-37) Alanine Aminotransferase (ALT/SGPT) 19 U/L (12-78) Alkaline Phosphatase 206 U/L (46-116) Pro-B-Type Natriuretic Peptide 51 pg/mL (0-125) Total Protein 7.5 G/DL (6.4-8.2) Albumin 3.4 G/DL (3.4-5.0) Globulin 4.1 g/dL Albumin/Globulin Ratio 0.8 (1.0-2.7) Acetone Level Negative (NEGATIVE) Urine Color Pale yellow Urine Appearance Clear Urine pH 5 (4.5-8.0) Urine Specific [place] 1.020 (1.005-1.035) Urine Protein Negative (NEGATIVE) Urine Glucose (UA) 3+ (NEGATIVE) Urine Ketones 1+ (NEGATIVE) Urine Blood 1+ (NEGATIVE) Urine Nitrite Positive (NEGATIVE) Urine Bilirubin Negative (NEGATIVE) Urine Urobilinogen Normal MG/DL (0.0-1.0) Urine Leukocyte Esterase 3+ (NEGATIVE) Urine RBC 2-4 /HPF (0 - 2) Urine WBC 20-30 /HPF (0 - 2) Urine Squamous Epithelial Cells Few /LPF (NONE/OCC) Urine Bacteria Many /HPF (NONE) EKG Diagnostic Results Rate: normal Rhythm: NSR ST Segments: no acute changes ASA given to the pt in ED: No Rhythm Strip Diag. Results EP Interpretation: yes Rhythm: NSR, no PVC's, no ectopy Chest X-Ray Diagnostic Results Chest X-Ray Diagnostic Results : Chest X-Ray Ordered: Yes # of Views/Limited/Complete: 1 View Indication: Other EP Interpretation: Yes Interpretation: no consolidation, no effusion, no pneumothorax, no acute cardiopulmonary disease Impression: No acute disease Electronically Signed by: Electronically signed by Cedric Lim MD Last Vital Signs Date Time Temp Pulse Resp B/P (MAP) Pulse Ox O2 Delivery O2 Flow Rate FiO2 01/01/19 17:10 98.4 97 12 120/80 96 Room Air Status: improved Disposition: ADMITTED INPATIENT Condition: Serious Referrals: Reuben Pereira MD (PCP) Cedric Lim MD January 01, 2019 17:40
[2019-01-01 18:05] LABS: BASOPHILS % (AUTO) 1.3 % (0.0-2.0); EOSINOPHILS % (AUTO) 0.9 % (0.0-3.0); HEMATOCRIT 40.2 % (37.0-47.0); HEMOGLOBIN 13.5 G/DL (12.0-16.0); LYMPHOCYTES % (AUTO) 41.6 % (20.0-45.0); MEAN CORPUSCULAR VOLUME 87 FL (80-99); MONOCYTES % (AUTO) 6.4 % (1.0-10.0); NEUTROPHILS % (AUTO) 49.7 % (45.0-75.0); PLATELET COUNT 300 K/UL (150-450); RED BLOOD COUNT 4.63 M/UL (4.20-5.40); RED CELL DISTRIBUTION WIDTH 14.1 % (11.6-14.8); WHITE BLOOD COUNT 9.2 K/UL (4.8-10.8)
[2019-01-01 18:07] LABS: ANION GAP 8 mmol/L (5-15); BLOOD UREA NITROGEN 17 mg/dL (7-18); CALCIUM 9.2 MG/DL (8.5-10.1); CARBON DIOXIDE 31 MMOL/L (21-32); CHLORIDE 101 MMOL/L (98-107); CREATININE 0.9 MG/DL (0.55-1.30); POTASSIUM 3.4 MMOL/L (3.5-5.1); SODIUM 140 MMOL/L (136-145)
[2019-01-01 18:11] LABS: ALANINE AMINOTRANSFERASE 19 U/L (12-78); ALBUMIN 3.4 G/DL (3.4-5.0); ALBUMIN/GLOBULIN RATIO 0.8 (1.0-2.7); ALKALINE PHOSPHATASE 206 U/L (46-116); ASPARTATE AMINO TRANSFERASE 8 U/L (15-37); BILIRUBIN,TOTAL 0.4 MG/DL (0.2-1.0)
[2019-01-01 18:14] LABS: APPEARANCE,URINE CLEAR; BILIRUBIN, URINE NEGATIVE (NEGATIVE); COLOR,URINE PALE YELLOW; GLUCOSE, URINE (UA) 3+ (NEGATIVE); KETONES,URINE 1+ (NEGATIVE); LEUKOCYTE ESTERASE ,URINE 3+ (NEGATIVE); NITRITE,URINE POSITIVE (NEGATIVE); PH,URINE 5 (4.5-8.0); PROTEIN,URINE NEGATIVE (NEGATIVE); UROBILINOGEN,URINE NORMAL MG/DL (0.0-1.0)
[2019-01-01] MEDS ORDERED: cefTRIAXone 1 GM in D5W 55 ML IVPB ONE (18:45)
--- NOTE | 2019-01-01 18:45 | NUR ---
ED Nurse Note: [facility] CALLED FOR PT TRANSFER. REPORT GIVEN TO TOPHER MCCANN. PT TAKEN UP TO [facility] VIA GURNEY WITH ALL BELONGINGS RUNNING IV ABX AND FLUIDS ACCOMPANIED BY EMT. VSS.
--- NOTE | 2019-01-01 19:00 | NUR ---
NURSE NOTES: Received pt from ED RN YUNG at 1850. Pt is forgetful and orient x3. pt is in RA, No SOB or acute respiratory distress noted. pt has intact iv access RAC 20G SL. Report given to RN KALEN. RN KALEN will F/U with
[2019-01-01 20:00] VITALS: BP 123/75
--- NOTE | 2019-01-01 20:00 | NUR ---
NURSE NOTES: RECEIVED PT FROM TOPHER MCCANN. PT IS IN BED, RESTING, AAOX3. PT IS ON ROOM AIR, DENIES PAIN AND SOB AT THE MOMENT. REDNESS NOTED ON COCCYX AREA, OPEN WOUND NOTED ON POSTERIOR RIGHT SHOULDER. PICTURES TAKEN. HAVING TROUBLE UPLOADING PICTURES D/T CAMERA MALFUNCTION. WILL FOLLOW UP. RECEIVED ADMISSION ORDERS FROM DR. MONTANO AND . POTASSIUM 3.4, MAG 1.7, DR. DAVIS AWARE. IV ON R AC 20G IS INTACT AND PATENT. BED IS LOCKED AT THE LOWEST POSITION, BED ALARM ACTIVE, SIDE RAILS UP X2, AND CALL LIGHT IS WITHIN REACH. WILL CONTINUE TO MONITOR.
[2019-01-01] MEDS ORDERED: HYDROcodone/Acetamin 5/325 tab ORAL PRN (20:30)
[2019-01-01] MEDS ORDERED: LORazepam 1mg tab ORAL SCH (21:00)
[2019-01-01] MEDS ORDERED: Milk of Magnesia 30ml Ud ORAL PRN (21:30)
[2019-01-01] MEDS ORDERED: Levemir Flexpen SUBQ SCH (22:00)
[2019-01-01] MEDS: Haloperidol 1mg tab ORAL SCH (22:56)
[2019-01-01] MEDS: Acetaminophen 500mg (ES) tab ORAL PRN (22:58)
[2019-01-01] MEDS: QUEtiapine 200mg tab ORAL SCH (22:59)
[2019-01-02] VITALS: BP 119/69
[2019-01-02] MEDS ORDERED: Levemir Flexpen SUBQ SCH (00:30)
[2019-01-02] MEDS: NovoLOG Insulin Flexpen SUBQ SCH ×8 (00:38→21:26)
[2019-01-02 04:00] VITALS: BP 129/76
--- NOTE | 2019-01-02 05:30 | NUR ---
NURSE NOTES: PT BS 301, 8 UNITS OF NOVOLOG GIVEN. PT C/O OF SOB, DIAPHORETIC AND SLUGGISH. DR. MONTANO WAS INFORMED. OBTAINED ORDERS FOR O2 NC 2L, CXR, AND CONSULTS. WILL CONTINUE TO FOLLOW UP.
[2019-01-02] MEDS: Haloperidol 1mg tab ORAL SCH ×3 (05:31→21:10)
[2019-01-02 05:59] LABS: BASOPHILS % (AUTO) 0.8 % (0.0-2.0); EOSINOPHILS % (AUTO) 1.7 % (0.0-3.0); HEMATOCRIT 42.7 % (37.0-47.0); HEMOGLOBIN 13.8 G/DL (12.0-16.0); LYMPHOCYTES % (AUTO) 35.5 % (20.0-45.0); MEAN CORPUSCULAR VOLUME 91 FL (80-99); MONOCYTES % (AUTO) 5.9 % (1.0-10.0); NEUTROPHILS % (AUTO) 56.1 % (45.0-75.0); PLATELET COUNT 281 K/UL (150-450); RED BLOOD COUNT 4.68 M/UL (4.20-5.40); RED CELL DISTRIBUTION WIDTH 14.7 % (11.6-14.8); WHITE BLOOD COUNT 6.8 K/UL (4.8-10.8)
[2019-01-02 06:21] LABS: ALANINE AMINOTRANSFERASE 21 U/L (12-78); ALBUMIN 3.3 G/DL (3.4-5.0); ALBUMIN/GLOBULIN RATIO 0.9 (1.0-2.7); ALKALINE PHOSPHATASE 200 U/L (46-116); ANION GAP 6 mmol/L (5-15); ASPARTATE AMINO TRANSFERASE 10 U/L (15-37); BILIRUBIN,TOTAL 0.3 MG/DL (0.2-1.0); BLOOD UREA NITROGEN 18 mg/dL (7-18); CALCIUM 8.9 MG/DL (8.5-10.1); CARBON DIOXIDE 30 MMOL/L (21-32); CHLORIDE 103 MMOL/L (98-107); CREATININE 0.9 MG/DL (0.55-1.30); POTASSIUM 4.3 MMOL/L (3.5-5.1); SODIUM 139 MMOL/L (136-145)
[2019-01-02] MEDS ORDERED: Glimepiride 1mg tab ORAL SCH (06:30)
[2019-01-02] MEDS ORDERED: NovoLOG Insulin Flexpen SUBQ SCH ×3 (06:30)
--- NOTE | 2019-01-02 07:00 | NUR ---
HAND-OFF: Report given to TOPHER Woods. Pt is in stable condition, up in bed eating breakfast.
--- NOTE | 2019-01-02 07:15 | NUR ---
NURSE NOTES: RN received pt in stable condition, alert in bed eating breakfast. No acute distress, pt on 2L NC. Bed in low, locked position, call light within reach. Dalia, RN reported pt has redness on coccyx / buttocks, R discoloration shoulder. Pictures taken; unable to upload. RN will f/u with wound care nurse and make charge nurse aware of camera issue / will attempt to upload pics in AM. ACHS Q4. Will continue plan of care.
[2019-01-02 07:49] LABS: INR 1.5 (0.9-1.1)
[2019-01-02 08:00] VITALS: BP_SYST 116; BP_SYST 132; BP_SYST 166; BP_DIAS 66; BP_DIAS 87
--- NOTE | 2019-01-02 08:56 | NUR ---
RADIOLOGY DEPT., CHEST X-RAY DONE.-P.DYE
--- NOTE | 2019-01-02 08:58 | NUR ---
NURSE NOTES: Vital signs - 2nd set of 8 AM vitals correct (disregard 1st set of 8 am vitals - charted on wrong pt).
[2019-01-02] MEDS ORDERED: Docusate 100mg cap ORAL SCH (09:00)
[2019-01-02] MEDS ORDERED: Precose 50mg tab ORAL SCH (09:00)
[2019-01-02] MEDS ORDERED: metFORMIN 500mg tab ORAL SCH (09:00)
[2019-01-02] MEDS: QUEtiapine 200mg tab ORAL SCH ×4 (09:05→21:07)
[2019-01-02] MEDS: Multivitamin w/Minerals tab ORAL SCH (09:06)
[2019-01-02] MEDS: Furosemide 40mg tab ORAL SCH (09:06)
[2019-01-02] MEDS: OLANZapine 10mg tab ORAL SCH ×2 (09:06→17:38)
--- NOTE | 2019-01-02 09:33 | NUR ---
NURSE NOTES: Precose not given; per pharmacy not in stock. Will have in stock on 01/03/19.
--- NOTE | 2019-01-02 11:39 | Consultation ---
History of Present Illness General Reason for Hospitalization: Abnormal Labs Present Illness HPI This is a pleasant 68 year old female with history of diabetes mellitus type 2, hypertension, dementia, prior fall with L femoral fx, Hx of DVT lower extremity s/p IVC filter on anticoagulation, psychiatric disorder / schizophrenia who was sent from the half-way facility for evaluation after noted to have significantly elevated blood glucose levels. On admission noted to have UTI, abnormal LFT's, INR 1.5, elevated glucose, abnormal labs. Surgery called to evaluate and assist with care. Patient seen, chart reviewed, patient examined. c /o mild abdominal discomfort. no SOB. no n/v/f/c. Allergies: Coded Allergies: LITHIUM (Unverified Allergy, Unknown, 12/31/12) Medication History Scheduled Acarbose* (Precose*), 50 MG ORAL THREE TIMES A DAY, (Reported) Ascorbate Calcium (Vitamin C), 500 MG PO DAILY, (Reported) Bisacodyl* (Dulcolax*), 10 MG ORAL DAILY, (Reported) Calcium Carbonate (Calcium Carbonate), 250 MG PO DAILY, (Reported) Cholecalciferol (Vitamin D3)* (Vitamin D*), 250 UNIT ORAL DAILY, (Reported) Cranberry Fruit Concentrate (Cranberry), 450 MG PO BID, (Reported) Docusate Sodium* (Colace*), 100 MG ORAL DAILY, (Reported) Ferrous Sulfate* (Ferrous Sulfate*), 325 MG ORAL DAILY, (Reported) Furosemide* (Lasix*), 40 MG ORAL DAILY, (Reported) Glimepiride* (Amaryl*), 2 MG ORAL BEFORE BREAKFAST, (Reported) Haloperidol* (Haldol*), 5 MG ORAL TID, (Reported) Insulin Detemir (Levemir Flextouch), 12 UNIT SQ BEDTIME, (Reported) Lorazepam* (Ativan*), 1 MG ORAL Q4HR, (Reported) Metformin Hcl* (Glucophage*), 500 MG ORAL DAILY, (Reported) Multivitamin With Minerals (Multivitamins With Minerals*), 1 TAB ORAL DAILY, ( Reported) Olanzapine* (Zyprexa*), 10 MG ORAL BID, (Reported) Pantoprazole* (Protonix*), 40 MG ORAL DAILY, (Reported) Quetiapine Fumarate* (Seroquel*), 200 MG ORAL QID, (Reported) Warfarin Sod (Coumadin*), 9 MG ORAL DAILY, (Reported) Scheduled PRN Hydrocodone Bit/Acetaminophen 5-325* ([place] 5-325 Tablet*), 1 TAB ORAL Q4H PRN for For Pain, (Reported) Temazepam* (Restoril*), 7.5 MG ORAL HS PRN for Insomnia, (Reported) [Mylanta], 30 ML ORAL EVERY 6 HOURS PRN for GI DISTRESS, (Reported) [Tylenol], 650 MG PO Q4HR PRN for Mild Pain/Temp > 100.5, (Reported) Patient History Limited by: medical condition History Provided By: Patient, Medical Record, PMD Healthcare decision maker PAMELA BASURTO Resuscitation status Full Code Advanced Directive on File Yes Past Medical/Surgical History Past Medical/Surgical History: (1) Schizophrenia (2) Dementia (3) Diabetes mellitus (4) Hip pain (5) HTN (hypertension) (6) Constipation (7) Abdominal pain (8) Uncontrolled diabetes mellitus with hyperglycemia (9) UTI (urinary tract infection) Review of Systems Review of Symptoms General ROS: no weight loss or fever Psychological ROS: no depression or mood changes, no memory loss Ophthalmic ROS: no visual changes or eye irritation ENT ROS: no nasal congestion, hearing loss, dizziness Allergy and Immunology ROS: no allergic symptoms or urticaria Hematological and Lymphatic ROS: no swollen glands, unusual bleeding or bruising Endocrine ROS: no polyuria, polydipsia, weight changes, temperature intolerance Respiratory ROS: no cough, shortness of breath, or wheezing Cardiovascular ROS: no chest pain or dyspnea on exertion Gastrointestinal ROS: mild abdominal pain, no bright red blood in stool. Musculoskeletal ROS: no myalgias or arthralgias Neurological ROS: no TIA or stroke symptoms Dermatological ROS: no new or changing skin lesions, rashes or pruritis Physical Exam Physical Exam General appearance: alert, cooperative, no distress, appears stated age Head: Normocephalic, without obvious abnormality, atraumatic Eyes: conjunctivae/corneas clear. PERRL, EOM's intact. Fundi benign Throat: Lips, mucosa, and tongue normal. Teeth and gums normal Neck: supple, symmetrical, trachea midline, no adenopathy, thyroid: not enlarged, symmetric, no tenderness/mass/nodules, no carotid bruit and no JVD Lungs: clear to auscultation bilaterally Heart: regular rate and rhythm, S1, S2 normal, no murmur, click, rub or gallop Abdomen: soft, non-tender. Bowel sounds normal. No masses, no organomegaly Extremities: extremities normal, atraumatic, no cyanosis or edema Pulses: 2+ and symmetric Skin: Skin color, texture, turgor normal. No rashes or lesions Neurologic: Grossly normal Last 24 Hour Vital Signs Date Time Temp Pulse Resp B/P (MAP) Pulse Ox O2 Delivery O2 Flow Rate FiO2 01/02/19 09:00 Nasal Cannula 2.0 01/02/19 08:00 98.4 95 20 166/66 (99) 95 01/02/19 08:00 98.0 87 16 132/87 (102) 99 01/02/19 04:00 98.2 98 19 129/76 (93) 97 01/02/19 00:00 98.9 92 19 119/69 (86) 93 01/01/19 23:03 Room Air 01/01/19 20:00 98.9 95 19 123/75 (91) 96 01/01/19 18:45 98.3 94 13 131/78 98 Room Air 01/01/19 17:10 98.4 97 12 120/80 96 Room Air 01/01/19 17:10 97 12 Room Air 01/01/19 17:08 98.1 100 16 98 Room Air Intake and Output 01/01/19 01/02/19 18:59 06:59 Intake Total 240 ml Balance 240 ml Intake Oral 240 ml # Voids 1 1 Laboratory Tests Test 01/01/19 17:20 01/01/19 17:45 01/02/19 05:25 01/02/19 06:33 White Blood Count 9.2 K/UL (4.8-10.8) 6.8 K/UL (4.8-10.8) Red Blood Count 4.63 M/UL (4.20-5.40) 4.68 M/UL (4.20-5.40) Hemoglobin 13.5 G/DL (12.0-16.0) 13.8 G/DL (12.0-16.0) Hematocrit 40.2 % (37.0-47.0) 42.7 % (37.0-47.0) Mean Corpuscular Volume 87 FL (80-99) 91 FL (80-99) Mean Corpuscular Hemoglobin 29.2 PG (27.0-31.0) 29.4 PG (27.0-31.0) Mean Corpuscular Hemoglobin Concent 33.6 G/DL (32.0-36.0) 32.2 G/DL (32.0-36.0) Red Cell Distribution Width 14.1 % (11.6-14.8) 14.7 % (11.6-14.8) Platelet Count 300 K/UL (150-450) 281 K/UL (150-450) Mean Platelet Volume 7.0 FL (6.5-10.1) 7.4 FL (6.5-10.1) Neutrophils (%) (Auto) 49.7 % (45.0-75.0) 56.1 % (45.0-75.0) Lymphocytes (%) (Auto) 41.6 % (20.0-45.0) 35.5 % (20.0-45.0) Monocytes (%) (Auto) 6.4 % (1.0-10.0) 5.9 % (1.0-10.0) Eosinophils (%) (Auto) 0.9 % (0.0-3.0) 1.7 % (0.0-3.0) Basophils (%) (Auto) 1.3 % (0.0-2.0) 0.8 % (0.0-2.0) Sodium Level 140 MMOL/L (136-145) 139 MMOL/L (136-145) Potassium Level 3.4 MMOL/L (3.5-5.1) L 4.3 MMOL/L (3.5-5.1) Chloride Level 101 MMOL/L (98-107) 103 MMOL/L (98-107) Carbon Dioxide Level 31 MMOL/L (21-32) 30 MMOL/L (21-32) Anion Gap 8 mmol/L (5-15) 6 mmol/L (5-15) Blood Urea Nitrogen 17 mg/dL (7-18) 18 mg/dL (7-18) Creatinine 0.9 MG/DL (0.55-1.30) 0.9 MG/DL (0.55-1.30) Estimat Glomerular Filtration Rate > 60 mL/min (>60) > 60 mL/min (>60) Glucose Level 269 MG/DL (74-106) H 340 MG/DL (74-106) H Calcium Level 9.2 MG/DL (8.5-10.1) 8.9 MG/DL (8.5-10.1) Magnesium Level 1.7 MG/DL (1.8-2.4) L Total Bilirubin 0.4 MG/DL (0.2-1.0) 0.3 MG/DL (0.2-1.0) Aspartate Amino Transf (AST/SGOT) 8 U/L (15-37) L 10 U/L (15-37) L Alanine Aminotransferase (ALT/SGPT) 19 U/L (12-78) 21 U/L (12-78) Alkaline Phosphatase 206 U/L (46-116) H 200 U/L (46-116) H Pro-B-Type Natriuretic Peptide 51 pg/mL (0-125) Total Protein 7.5 G/DL (6.4-8.2) 7.1 G/DL (6.4-8.2) Albumin 3.4 G/DL (3.4-5.0) 3.3 G/DL (3.4-5.0) L Globulin 4.1 g/dL 3.8 g/dL Albumin/Globulin Ratio 0.8 (1.0-2.7) L 0.9 (1.0-2.7) L Acetone Level Negative (NEGATIVE) Urine Color Pale yellow Urine Appearance Clear Urine pH 5 (4.5-8.0) Urine Specific [place] 1.020 (1.005-1.035) Urine Protein Negative (NEGATIVE) Urine Glucose (UA) 3+ (NEGATIVE) H Urine Ketones 1+ (NEGATIVE) H Urine Blood 1+ (NEGATIVE) H Urine Nitrite Positive (NEGATIVE) H Urine Bilirubin Negative (NEGATIVE) Urine Urobilinogen Normal MG/DL (0.0-1.0) Urine Leukocyte Esterase 3+ (NEGATIVE) H Urine RBC 2-4 /HPF (0 - 2) H Urine WBC 20-30 /HPF (0 - 2) H Urine Squamous Epithelial Cells Few /LPF (NONE/OCC) Urine Bacteria Many /HPF (NONE) H Prothrombin Time 15.2 SEC (9.30-11.50) H Prothromb Time International Ratio 1.5 (0.9-1.1) H Microbiology Date/Time Source Procedure Growth Status 01/01/19 17:45 Urine,Clean Catch Urine Culture - Preliminary Gram Negative Bacillus 1 Resulted Height (Feet): 5 Height (Inches): 3.00 Weight (Pounds): 187 Medications Current Medications Medications (Trade) Dose Ordered Sig/Ebenezer Route PRN Reason Start Time Stop Time Status Last Admin Dose Admin Acarbose (Precose) 50 mg THREE TIMES A DAY ORAL 01/03/19 09:00 02/02/19 08:59 UNV Acetaminophen (Tylenol) 325 mg Q4H PRN ORAL MILD PAIN 01/01/19 22:30 01/31/19 22:29 Acetaminophen (Tylenol) 500 mg Q4H PRN ORAL MODERATE PAIN 01/01/19 22:30 01/31/19 22:29 01/01/19 22:58 Acetaminophen/ Hydrocodone Bitart ([place] 5/325) 1 tab Q4H PRN ORAL For Pain 01/01/19 20:30 01/08/19 20:29 Bisacodyl (Dulcolax) 10 mg NEEDED PRN RECTAL Constipation 01/01/19 21:30 01/31/19 21:29 Bisacodyl (Dulcolax) 10 mg DAILY@2100 ORAL 01/02/19 21:00 02/01/19 20:59 Calcium Carbonate (Os-Tod) 625 mg DAILY ORAL 01/02/19 09:00 02/01/19 08:59 01/02/19 09:06 Dextrose (Dextrose 50%) 25 ml Q30M PRN IV Hypoglycemia 01/02/19 07:00 02/01/19 06:59 Dextrose (Dextrose 50%) 50 ml Q30M PRN IV Hypoglycemia 01/02/19 07:00 02/01/19 06:59 Docusate Sodium (Colace) 100 mg DAILY ORAL 01/02/19 09:00 02/01/19 08:59 01/02/19 09:05 Ferrous Sulfate (Feosol) 325 mg DAILY ORAL 01/02/19 09:00 02/01/19 08:59 01/02/19 09:06 Furosemide (Lasix) 40 mg DAILY ORAL 01/02/19 09:00 02/01/19 08:59 01/02/19 09:06 Haloperidol (Haldol) 0.5 mg Q8HR ORAL 01/01/19 22:00 01/31/19 21:59 01/01/19 22:56 Insulin Aspart (NovoLOG) BEFORE MEALS AND HS SUBQ 01/02/19 00:30 02/01/19 00:29 01/02/19 11:26 Insulin Aspart (NovoLOG) 10 units NOVOTIAC SUBQ 01/02/19 11:50 02/01/19 11:49 01/02/19 11:25 Insulin Detemir (Levemir) 50 units BEDTIME SUBQ 01/02/19 21:00 02/01/19 00:29 Magnesium Hydroxide (Mom) 30 ml HSPRN PRN ORAL Constipation 01/01/19 21:30 01/31/19 21:29 Metformin HCl (Glucophage) 500 mg DAILY ORAL 01/02/19 09:00 02/01/19 08:59 01/02/19 09:05 Multivitamins Therapeutic (Therapeutic Multivitamin) 1 ea DAILY ORAL 01/02/19 09:00 02/01/19 08:59 01/02/19 09:06 Olanzapine (ZyPREXA) 10 mg BID ORAL 01/02/19 09:00 02/01/19 08:59 01/02/19 09:06 Pantoprazole (Protonix) 40 mg DAILY ORAL 01/02/19 09:00 02/01/19 08:59 01/02/19 09:06 Quetiapine Fumarate (SEROquel) 200 mg QID ORAL 01/01/19 21:00 01/31/19 20:59 01/02/19 09:05 Warfarin Sodium (Coumadin per pharmacy) 1 ea DAILY PRN MISC per rx protocol 01/02/19 09:45 02/01/19 08:59 Warfarin Sodium (Coumadin) 9.5 mg COUMADIN ORAL 01/02/19 17:00 01/02/19 18:00 Assessment/Plan Problem List: (1) UTI (urinary tract infection) Assessment & Plan: UA noted with bacteria and elevated levels pending Micro on Abx as per ID ICD Codes: N39.0 - Urinary tract infection, site not specified SNOMED: 25823832 Qualifiers: Qualified Codes: N39.0 - Urinary tract infection, site not specified (2) Constipation Assessment & Plan: bowel regimen KUB ordered enema prn ICD Codes: K59.00 - Constipation, unspecified SNOMED: 28704090 (3) Diabetes mellitus Assessment & Plan: as per endocrine. appreciate input ICD Codes: E11.9 - Type 2 diabetes mellitus without complications SNOMED: 63315508 (4) Dementia Assessment & Plan: Pending Psych eval appreciate input ICD Codes: F03.90 - Unspecified dementia without behavioral disturbance SNOMED: 89667211 (5) Schizophrenia Assessment & Plan: As per psych . levels pending ICD Codes: F20.9 - Schizophrenia, unspecified SNOMED: 00411222 (6) Hip pain ICD Codes: M25.559 - Pain in unspecified hip SNOMED: 98168723 (7) Abdominal pain Assessment & Plan: mild abdominal pain elevated alk phos US ordered KUB ordered will follow with recs thank you ICD Codes: R10.9 - Unspecified abdominal pain SNOMED: 13903795 (8) HTN (hypertension) ICD Codes: I10 - Essential (primary) hypertension SNOMED: 98041507 (9) Uncontrolled diabetes mellitus with hyperglycemia ICD Codes: E11.65 - Type 2 diabetes mellitus with hyperglycemia SNOMED: 43915800, 26649915, 974490132, 307100797 Qualifiers: Qualified Codes: E13.65 - Other specified diabetes mellitus with hyperglycemia Assessment/Plan: Pt presented on admission with non-blanchable erythema sacral cleft .Bilat ischial region noted to have darker skin tone without fluctuance /induration or erythema.Non-tender when palpated. Non-blanchable erythema R heel without fluctuance or tenderness when palpated. L heel firm and blanchable./ No evidence of skin breakdown noted to all other bony prominences. Tx.Plan: Apply Moisture Barrier Paste to sacrum .Cover with Optifoam drsg. Change every 3 days and prn. Apply Moisture Barrier Paste to cleft of buttocks and both ischail areas with each incontinence care. Reposition at least every 2hours or as tolerated. Off-load heels with pillow. MIPS Hospital declaration MIPS ([employer]-based [employer]centive Payment System) Applicable CPT: 93647, 23289 CHECK ALL THAT ARE MET: Measure #47 Advance care plan or surrogate decision maker documented in the medical record. Measure #130 The provider has documented, updated, or reviewed the patients current medication list and has documented it in the patients note. Measure #374 (All): Send report to referring provider. Measure #407(Sepsis due to MSSA bacteremia): Age 18+ Patient treated with a beta-lactam antibiotic (Nafcillin, Oxacillin or Cefazolin) as definitive therapy. Arvind Jimenez January 02, 2019 11:39
--- NOTE | 2019-01-02 11:44 | NUR ---
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 [place] [facility] [place] CC:ABNORMAL LABS SI:UNCONTROLLED HYPERGLYCEMIA VS: BP 117/74, P 100, T 98.0, RR 16, SpO2 98 K 3.4, GLUCOSE 340 IS:LEVEMIR SUBQ K-DUR 40meq CEFTRIAXONE 55ml IVPB NS x1L IV ADMITTED TO MED/SURG DCP: RETURN TO [facility]
[2019-01-02] MEDS ORDERED: Albuterol/Ipratropium 3ml neb HHN PRN (11:45)
[2019-01-02 12:00] VITALS: BP 118/65
--- NOTE | 2019-01-02 12:12 | Diagnostic Imaging Report ---
Indication: Dyspnea Comparison: 11/26/2018 A single view chest radiograph was obtained. Findings: Lungs are essentially clear. Heart is normal size. Bones are unremarkable. IMPRESSION: No acute disease
--- NOTE | 2019-01-02 12:16 | Diagnostic Imaging Report ---
Indication: Dyspnea Comparison: 01/01/2019 A single view chest radiograph was obtained. Findings: No interval change accounting for differences in technique. Borderline cardiomegaly noted. No infiltrate or pulmonary edema identified. IMPRESSION: No acute findings
[2019-01-02] MEDS ORDERED: Vancomycin 1.25gm Premix IVPB SCH (13:00)
--- NOTE | 2019-01-02 13:00 | NUR ---
NURSE NOTES: Pt kept NPO for US scheduled after 1800. Can resume diet post procedure.
[2019-01-02] MEDS ORDERED: Cefepime HCl 1 GM in D5W 55 ML IVPB SCH (14:00)
--- NOTE | 2019-01-02 14:12 | NUR ---
NURSE NOTES:WOUND CARE NOTES:Pt presented on admission with non-blanchable erythema sacral cleft .Bilat ischial region noted to have darker skin tone without fluctuance /induration or erythema.Non-tender when palpated. Non-blanchable erythema R heel without fluctuance or tenderness when palpated. L heel firm and blanchable./ No evidence of skin breakdown noted to all other bony prominences. Tx.Plan:Apply Moisture Barrier Paste to sacrum .Cover with Optifoam drsg. Change every 3 days and prn. Apply Moisture Barrier Paste to cleft of buttocks and both ischail areas with each incontinence care. Reposition at least every 2hours or as tolerated. Off-load heels with pillow.
--- NOTE | 2019-01-02 14:21 | Consultation ---
Consult Note Consult Note asked to evaluate at the request of Dr Rodrigez for fluid , electrolyte and BP management 68-year-old female presents ED for evaluation. [facility] Had lab work done which showed elevated blood sugar. Accu- Chek elevated. History of diabetes. Patient states she feels weak. Denies any fevers or chills. Denies any chest pain or shortness of breath. No other aggravating relieving factors. Denies any other associated symptoms Allergies: Coded Allergies: LITHIUM (Unverified Allergy, Unknown, 12/31/12) Past Medical History: DM, HTN, CVA/TIA, dementia chart reviewed examined data reviewed Assessment/Plan Uncontrolled diabetes mellitus with hyperglycemia UTI (urinary tract infection) Schizophrenia Dementia Hip pain HTN (hypertension) Constipation Abdominal pain BP and BS control correct abnormal lytes antibiotics Cruzito Kim MD January 02, 2019 14:21
--- NOTE | 2019-01-02 14:57 | Pulmonology Progress Note ---
Assessment/Plan Assessment/Plan Pulmonary Consultation HPI Patient is a 68 year old female with history of previous TIA/CVA, Psychiatric disorder /Schizophrenia, Diabetes mellitus (T2), Hypertension, Dementia, prior L femoral fx, Hx of DVT lower extremity s/p IVC filter on Coumadin, who was sent from the assisted facility with UTI and significantly elevated blood glucose levels. Noted to have abnormal LFT's, INR 1.5, elevated glucose, abnormal labs. Denies SOB. no chest pain, no n/v/f/c. Allergies: LITHIUM Scheduled Medications Acarbose* (Precose*), 50 MG ORAL THREE TIMES A DAY, (Reported) Ascorbate Calcium (Vitamin C), 500 MG PO DAILY, (Reported) Bisacodyl* (Dulcolax*), 10 MG ORAL DAILY, (Reported) Calcium Carbonate (Calcium Carbonate), 250 MG PO DAILY, (Reported) Cholecalciferol (Vitamin D3)* (Vitamin D*), 250 UNIT ORAL DAILY, (Reported) Cranberry Fruit Concentrate (Cranberry), 450 MG PO BID, (Reported) Docusate Sodium* (Colace*), 100 MG ORAL DAILY, (Reported) Ferrous Sulfate* (Ferrous Sulfate*), 325 MG ORAL DAILY, (Reported) Furosemide* (Lasix*), 40 MG ORAL DAILY, (Reported) Glimepiride* (Amaryl*), 2 MG ORAL BEFORE BREAKFAST, (Reported) Haloperidol* (Haldol*), 5 MG ORAL TID, (Reported) Insulin Detemir (Levemir Flextouch), 12 UNIT SQ BEDTIME, (Reported) Lorazepam* (Ativan*), 1 MG ORAL Q4HR, (Reported) Metformin Hcl* (Glucophage*), 500 MG ORAL DAILY, (Reported) Multivitamin With Minerals (Multivitamins With Minerals*), 1 TAB ORAL DAILY, ( Reported) Olanzapine* (Zyprexa*), 10 MG ORAL BID, (Reported) Pantoprazole* (Protonix*), 40 MG ORAL DAILY, (Reported) Quetiapine Fumarate* (Seroquel*), 200 MG ORAL QID, (Reported) Warfarin Sod (Coumadin*), 9 MG ORAL DAILY, (Reported) Scheduled PRN Hydrocodone Bit/Acetaminophen 5-325* (Provo 5-325 Tablet*), 1 TAB ORAL Q4H PRN for For Pain, (Reported) Temazepam* (Restoril*), 7.5 MG ORAL HS PRN for Insomnia, (Reported) [Mylanta], 30 ML ORAL EVERY 6 HOURS PRN for GI DISTRESS, (Reported) [Tylenol], 650 MG PO Q4HR PRN for Mild Pain/Temp > 100.5, (Reported) Resuscitation status Full Code Advanced Directive on File Yes Past Medical/Surgical History Past Medical History: TIA/CVA, Psychiatric disorder /Schizophrenia, Diabetes mellitus (T2), Hypertension, Dementia, prior L femoral fx, Hx of DVT lower extremity s/p IVC filter on Coumadin, Constipation Review of Symptoms General ROS: no weight loss or fever Psychological ROS: no depression or mood changes, no memory loss Ophthalmic ROS: no visual changes or eye irritation ENT ROS: no nasal congestion, hearing loss, dizziness Allergy and Immunology ROS: no allergic symptoms or urticaria Hematological and Lymphatic ROS: no swollen glands, unusual bleeding or bruising Endocrine ROS: no polyuria, polydipsia, weight changes, temperature intolerance Respiratory ROS: no cough, shortness of breath, or wheezing Cardiovascular ROS: no chest pain or dyspnea on exertion Gastrointestinal ROS: mild abdominal pain, no bright red blood in stool. Musculoskeletal ROS: no myalgias or arthralgias Neurological ROS: no TIA or stroke symptoms Dermatological ROS: no new or changing skin lesions, rashes or pruritis Physical Exam Physical Exam General appearance: alert, cooperative, no distress, appears stated age Head: Normocephalic, without obvious abnormality, atraumatic Eyes: conjunctivae/corneas clear. PERRL, EOM's intact. Fundi benign Throat: Lips, mucosa, and tongue normal. Teeth and gums normal Neck: supple, symmetrical, trachea midline, no adenopathy, thyroid: not enlarged, symmetric, no tenderness/mass/nodules, no carotid bruit and no JVD Lungs: clear to auscultation bilaterally Heart: regular rate and rhythm, S1, S2 normal, no murmur, click, rub or gallop Abdomen: soft, non-tender. Bowel sounds normal. No masses, no organomegaly Extremities: extremities normal, atraumatic, no cyanosis or edema Pulses: 2+ and symmetric Skin: Skin color, texture, turgor normal. No rashes or lesions Neurologic: Grossly normal Vital Signs Noted Date Time Temp Pulse Resp B/P (MAP) Pulse Ox O2 Delivery O2 Flow Rate FiO2 01/02/19 09:00 Nasal Cannula 2.0 01/02/19 08:00 98.4 95 20 166/66 (99) 95 01/02/19 08:00 98.0 87 16 132/87 (102) 99 01/02/19 04:00 98.2 98 19 129/76 (93) 97 01/02/19 00:00 98.9 92 19 119/69 (86) 93 01/01/19 23:03 Room Air 01/01/19 20:00 98.9 95 19 123/75 (91) 96 01/01/19 18:45 98.3 94 13 131/78 98 Room Air 01/01/19 17:10 98.4 97 12 120/80 96 Room Air 01/01/19 17:10 97 12 Room Air 01/01/19 17:08 98.1 100 16 98 Room Air Intake and Output 01/01/19 01/02/19 18:59 06:59 Intake Total 240 ml Balance 240 ml Intake Oral 240 ml # Voids 1 1 Laboratory Tests Noted CXR: NAD Test 01/01/19 17:20 01/01/19 17:45 01/02/19 05:25 01/02/19 06:33 White Blood Count 9.2 K/UL (4.8-10.8) 6.8 K/UL (4.8-10.8) Red Blood Count 4.63 M/UL (4.20-5.40) 4.68 M/UL (4.20-5.40) Hemoglobin 13.5 G/DL (12.0-16.0) 13.8 G/DL (12.0-16.0) Hematocrit 40.2 % (37.0-47.0) 42.7 % (37.0-47.0) Mean Corpuscular Volume 87 FL (80-99) 91 FL (80-99) Mean Corpuscular Hemoglobin 29.2 PG (27.0-31.0) 29.4 PG (27.0-31.0) Mean Corpuscular Hemoglobin Concent 33.6 G/DL (32.0-36.0) 32.2 G/DL (32.0-36.0) Red Cell Distribution Width 14.1 % (11.6-14.8) 14.7 % (11.6-14.8) Platelet Count 300 K/UL (150-450) 281 K/UL (150-450) Mean Platelet Volume 7.0 FL (6.5-10.1) 7.4 FL (6.5-10.1) Neutrophils (%) (Auto) 49.7 % (45.0-75.0) 56.1 % (45.0-75.0) Lymphocytes (%) (Auto) 41.6 % (20.0-45.0) 35.5 % (20.0-45.0) Monocytes (%) (Auto) 6.4 % (1.0-10.0) 5.9 % (1.0-10.0) Eosinophils (%) (Auto) 0.9 % (0.0-3.0) 1.7 % (0.0-3.0) Basophils (%) (Auto) 1.3 % (0.0-2.0) 0.8 % (0.0-2.0) Sodium Level 140 MMOL/L (136-145) 139 MMOL/L (136-145) Potassium Level 3.4 MMOL/L (3.5-5.1) L 4.3 MMOL/L (3.5-5.1) Chloride Level 101 MMOL/L (98-107) 103 MMOL/L (98-107) Carbon Dioxide Level 31 MMOL/L (21-32) 30 MMOL/L (21-32) Anion Gap 8 mmol/L (5-15) 6 mmol/L (5-15) Blood Urea Nitrogen 17 mg/dL (7-18) 18 mg/dL (7-18) Creatinine 0.9 MG/DL (0.55-1.30) 0.9 MG/DL (0.55-1.30) Estimat Glomerular Filtration Rate > 60 mL/min (>60) > 60 mL/min (>60) Glucose Level 269 MG/DL (74-106) H 340 MG/DL (74-106) H Calcium Level 9.2 MG/DL (8.5-10.1) 8.9 MG/DL (8.5-10.1) Magnesium Level 1.7 MG/DL (1.8-2.4) L Total Bilirubin 0.4 MG/DL (0.2-1.0) 0.3 MG/DL (0.2-1.0) Aspartate Amino Transf (AST/SGOT) 8 U/L (15-37) L 10 U/L (15-37) L Alanine Aminotransferase (ALT/SGPT) 19 U/L (12-78) 21 U/L (12-78) Alkaline Phosphatase 206 U/L (46-116) H 200 U/L (46-116) H Pro-B-Type Natriuretic Peptide 51 pg/mL (0-125) Total Protein 7.5 G/DL (6.4-8.2) 7.1 G/DL (6.4-8.2) Albumin 3.4 G/DL (3.4-5.0) 3.3 G/DL (3.4-5.0) L Globulin 4.1 g/dL 3.8 g/dL Albumin/Globulin Ratio 0.8 (1.0-2.7) L 0.9 (1.0-2.7) L Acetone Level Negative (NEGATIVE) Urine Color Pale yellow Urine Appearance Clear Urine pH 5 (4.5-8.0) Urine Specific [place] 1.020 (1.005-1.035) Urine Protein Negative (NEGATIVE) Urine Glucose (UA) 3+ (NEGATIVE) H Urine Ketones 1+ (NEGATIVE) H Urine Blood 1+ (NEGATIVE) H Urine Nitrite Positive (NEGATIVE) H Urine Bilirubin Negative (NEGATIVE) Urine Urobilinogen Normal MG/DL (0.0-1.0) Urine Leukocyte Esterase 3+ (NEGATIVE) H Urine RBC 2-4 /HPF (0 - 2) H Urine WBC 20-30 /HPF (0 - 2) H Urine Squamous Epithelial Cells Few /LPF (NONE/OCC) Urine Bacteria Many /HPF (NONE) H Prothrombin Time 15.2 SEC (9.30-11.50) H Prothromb Time International Ratio 1.5 (0.9-1.1) H Microbiology Date/Time Source Procedure Growth Status 01/01/19 17:45 Urine,Clean Catch Urine Culture - Preliminary Gram Negative Bacillus 1 Resulted Height (Feet): 5 Height (Inches): 3.00 Weight (Pounds): 187 Medications Current Medications Medications (Trade) Dose Ordered Sig/Ebenezer Route PRN Reason Start Time Stop Time Status Last Admin Dose Admin Acarbose (Precose) 50 mg THREE TIMES A DAY ORAL 01/03/19 09:00 02/02/19 08:59 UNV Acetaminophen (Tylenol) 325 mg Q4H PRN ORAL MILD PAIN 01/01/19 22:30 01/31/19 22:29 Acetaminophen (Tylenol) 500 mg Q4H PRN ORAL MODERATE PAIN 01/01/19 22:30 01/31/19 22:29 01/01/19 22:58 Acetaminophen/ Hydrocodone Bitart (Provo 5/325) 1 tab Q4H PRN ORAL For Pain 01/01/19 20:30 01/08/19 20:29 Bisacodyl (Dulcolax) 10 mg NEEDED PRN RECTAL Constipation 01/01/19 21:30 01/31/19 21:29 Bisacodyl (Dulcolax) 10 mg DAILY@2100 ORAL 01/02/19 21:00 02/01/19 20:59 Calcium Carbonate (Os-Tod) 625 mg DAILY ORAL 01/02/19 09:00 02/01/19 08:59 01/02/19 09:06 Dextrose (Dextrose 50%) 25 ml Q30M PRN IV Hypoglycemia 01/02/19 07:00 02/01/19 06:59 Dextrose (Dextrose 50%) 50 ml Q30M PRN IV Hypoglycemia 01/02/19 07:00 02/01/19 06:59 Docusate Sodium (Colace) 100 mg DAILY ORAL 01/02/19 09:00 02/01/19 08:59 01/02/19 09:05 Ferrous Sulfate (Feosol) 325 mg DAILY ORAL 01/02/19 09:00 02/01/19 08:59 01/02/19 09:06 Furosemide (Lasix) 40 mg DAILY ORAL 01/02/19 09:00 02/01/19 08:59 01/02/19 09:06 Haloperidol (Haldol) 0.5 mg Q8HR ORAL 01/01/19 22:00 01/31/19 21:59 01/01/19 22:56 Insulin Aspart (NovoLOG) BEFORE MEALS AND HS SUBQ 01/02/19 00:30 02/01/19 00:29 01/02/19 11:26 Insulin Aspart (NovoLOG) 10 units NOVOTIAC SUBQ 01/02/19 11:50 02/01/19 11:49 01/02/19 11:25 Insulin Detemir (Levemir) 50 units BEDTIME SUBQ 01/02/19 21:00 02/01/19 00:29 Magnesium Hydroxide (Mom) 30 ml HSPRN PRN ORAL Constipation 01/01/19 21:30 01/31/19 21:29 Metformin HCl (Glucophage) 500 mg DAILY ORAL 01/02/19 09:00 02/01/19 08:59 01/02/19 09:05 Multivitamins Therapeutic (Therapeutic Multivitamin) 1 ea DAILY ORAL 01/02/19 09:00 02/01/19 08:59 01/02/19 09:06 Olanzapine (ZyPREXA) 10 mg BID ORAL 01/02/19 09:00 02/01/19 08:59 01/02/19 09:06 Pantoprazole (Protonix) 40 mg DAILY ORAL 01/02/19 09:00 02/01/19 08:59 01/02/19 09:06 Quetiapine Fumarate (SEROquel) 200 mg QID ORAL 01/01/19 21:00 01/31/19 20:59 01/02/19 09:05 Warfarin Sodium (Coumadin per pharmacy) 1 ea DAILY PRN MISC per rx protocol 01/02/19 09:45 02/01/19 08:59 Warfarin Sodium (Coumadin) 9.5 mg COUMADIN ORAL 01/02/19 17:00 01/02/19 18:00 Assessment : (1) UTI (urinary tract infection) On Abx as per ID (2) Stable Pulmonary Status O2 PRN, HHN PRN (2) Constipation Assessment & Plan: bowel regimen (3) Diabetes mellitus ISS (4) Dementia Pending Psych eval (5) Schizophrenia Per psych . 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2 98 19 129/76 (93) 97 01/02/19 00:00 98.9 92 19 119/69 (86) 93 01/01/19 23:03 Room Air 01/01/19 20:00 98.9 95 19 123/75 (91) 96 01/01/19 18:45 98.3 94 13 131/78 98 Room Air 01/01/19 17:10 98.4 97 12 120/80 96 Room Air 01/01/19 17:10 97 12 Room Air 01/01/19 17:08 98.1 100 16 98 Room Air Intake and Output 01/01/19 01/02/19 18:59 06:59 Intake Total 240 ml Balance 240 ml Intake Oral 240 ml # Voids 1 1 Microbiology Date/Time Source Procedure Growth Status 01/01/19 17:45 Urine,Clean Catch Urine Culture - Preliminary Gram Negative Bacillus 1 Resulted Laboratory Tests 01/01/19 17:20: White Blood Count 9.2, Red Blood Count 4.63, Hemoglobin 13.5, Hematocrit 40.2, Mean Corpuscular Volume 87, Mean Corpuscular Hemoglobin 29.2, Mean Corpuscular Hemoglobin Concent 33.6, Red Cell Distribution Width 14.1, Platelet Count 300, Mean Platelet Volume 7.0, Neutrophils (%) (Auto) 49.7, Lymphocytes (%) (Auto) 41.6, Monocytes (%) (Auto) 6.4, Eosinophils (%) (Auto) 0.9, Basophils (%) (Auto ) 1.3, Sodium Level 140, Potassium Level 3.4L, Chloride Level 101, Carbon Dioxide Level 31, Anion Gap 8, Blood Urea Nitrogen 17, Creatinine 0.9, Estimat Glomerular Filtration Rate > 60, Glucose Level 269H, Calcium Level 9.2, Magnesium Level 1.7L, Total Bilirubin 0.4, Aspartate Amino Transf (AST/SGOT) 8L , Alanine Aminotransferase (ALT/SGPT) 19, Alkaline Phosphatase 206H, Pro-B-Type Natriuretic Peptide 51, Total Protein 7.5, Albumin 3.4, Globulin 4.1, Albumin/ Globulin Ratio 0.8L, Acetone Level Negative 01/01/19 17:45: Urine Color Pale yellow, Urine Appearance Clear, Urine pH 5, Urine Specific [place] 1.020, Urine Protein Negative, Urine Glucose (UA) 3+H, Urine Ketones 1+H , Urine Blood 1+H, Urine Nitrite PositiveH, Urine Bilirubin Negative, Urine Urobilinogen Normal, Urine Leukocyte Esterase 3+H, Urine RBC 2-4H, Urine WBC 20- 30H, Urine Squamous Epithelial Cells Few, Urine Bacteria ManyH 01/02/19 05:25: White Blood Count 6.8, Red Blood Count 4.68, Hemoglobin 13.8, Hematocrit 42.7, Mean Corpuscular Volume 91, Mean Corpuscular Hemoglobin 29.4, Mean Corpuscular Hemoglobin Concent 32.2, Red Cell Distribution Width 14.7, Platelet Count 281, Mean Platelet Volume 7.4, Neutrophils (%) (Auto) 56.1, Lymphocytes (%) (Auto) 35.5, Monocytes (%) (Auto) 5.9, Eosinophils (%) (Auto) 1.7, Basophils (%) (Auto ) 0.8, Sodium Level 139, Potassium Level 4.3, Chloride Level 103, Carbon Dioxide Level 30, Anion Gap 6, Blood Urea Nitrogen 18, Creatinine 0.9, Estimat Glomerular Filtration Rate > 60, Glucose Level 340H, Calcium Level 8.9, Total Bilirubin 0.3, Aspartate Amino Transf (AST/SGOT) 10L, Alanine Aminotransferase ( ALT/SGPT) 21, Alkaline Phosphatase 200H, Total Protein 7.1, Albumin 3.3L, Globulin 3.8, Albumin/Globulin Ratio 0.9L 01/02/19 06:33: Prothrombin Time 15.2H, Prothromb Time International Ratio 1.5H Current Medications Medications (Trade) Dose Ordered Sig/Ebenezer Route PRN Reason Start Time Stop Time Status Last Admin Dose Admin Acarbose (Precose) 50 mg THREE TIMES A DAY ORAL 01/03/19 09:00 02/02/19 08:59 UNV Acetaminophen (Tylenol) 325 mg Q4H PRN ORAL MILD PAIN 01/01/19 22:30 01/31/19 22:29 Acetaminophen (Tylenol) 500 mg Q4H PRN ORAL MODERATE PAIN 01/01/19 22:30 01/31/19 22:29 01/01/19 22:58 Acetaminophen/ Hydrocodone Bitart (Provo 5/325) 1 tab Q4H PRN ORAL For Pain 01/01/19 20:30 01/08/19 20:29 Albuterol/ Ipratropium (Albuterol/ Ipratropium) 3 ml Q4H PRN HHN Shortness of Breath 01/02/19 11:45 01/07/19 11:44 Bisacodyl (Dulcolax) 10 mg NEEDED PRN RECTAL Constipation 01/01/19 21:30 01/31/19 21:29 Bisacodyl (Dulcolax) 10 mg DAILY@2100 ORAL 01/02/19 21:00 02/01/19 20:59 Cefepime HCl 1 gm/ Dextrose 55 ml @ 110 mls/hr ONCE IVPB 01/02/19 14:00 01/02/19 15:00 01/02/19 13:55 Cefepime HCl 1 gm/ Dextrose 55 ml @ 110 mls/hr Q24H IVPB 01/03/19 02:00 01/10/19 01:59 Dextrose (Dextrose 50%) 25 ml Q30M PRN IV Hypoglycemia 01/02/19 07:00 02/01/19 06:59 Dextrose (Dextrose 50%) 50 ml Q30M PRN IV Hypoglycemia 01/02/19 07:00 02/01/19 06:59 Docusate Sodium (Colace) 100 mg TID ORAL 01/02/19 18:00 02/01/19 08:59 Ergocalciferol (Drisdol) 50,000 intlu QWEEK ORAL 01/02/19 15:00 02/01/19 14:59 Furosemide (Lasix) 40 mg DAILY ORAL 01/02/19 09:00 02/01/19 08:59 01/02/19 09:06 Haloperidol (Haldol) 0.5 mg Q8HR ORAL 01/01/19 22:00 01/31/19 21:59 01/02/19 13:39 Insulin Aspart (NovoLOG) BEFORE MEALS AND HS SUBQ 01/02/19 00:30 02/01/19 00:29 01/02/19 11:26 Insulin Aspart (NovoLOG) 10 units NOVOTIAC SUBQ 01/02/19 11:50 02/01/19 11:49 01/02/19 11:25 Insulin Detemir (Levemir) 50 units BEDTIME SUBQ 01/02/19 21:00 02/01/19 00:29 Magnesium Hydroxide (Mom) 30 ml HSPRN PRN ORAL Constipation 01/01/19 21:30 01/31/19 21:29 Metformin HCl (Glucophage) 500 mg TID ORAL 01/02/19 18:00 02/01/19 08:59 Multivitamins Therapeutic (Therapeutic Multivitamin) 1 ea DAILY ORAL 01/02/19 09:00 02/01/19 08:59 01/02/19 09:06 Olanzapine (ZyPREXA) 10 mg BID ORAL 01/02/19 09:00 02/01/19 08:59 01/02/19 09:06 Pantoprazole (Protonix) 40 mg BID ORAL 01/02/19 18:00 02/01/19 08:59 Quetiapine Fumarate (SEROquel) 200 mg QID ORAL 01/01/19 21:00 01/31/19 20:59 01/02/19 12:54 Warfarin Sodium (Coumadin per pharmacy) 1 ea DAILY PRN MISC per rx protocol 01/02/19 09:45 02/01/19 08:59 Warfarin Sodium (Coumadin) 9.5 mg COUMADIN ORAL 01/02/19 17:00 01/02/19 18:00 Segundo Martínez MD January 02, 2019 14:57
[2019-01-02] MEDS: Vitamin D 50,000 units cap ORAL SCH ×2 (15:00→17:39)
--- NOTE | 2019-01-02 15:19 | Diagnostic Imaging Report ---
Indication: Abdominal pain Comparison: 06/08/2018 Single view of the abdomen obtained Findings: Bowel gas pattern is nonspecific. There is extensive moderate stool in the colon. IVC filter is noted. No mass, ectopic calcifications, or abnormal gas collections are identified. There is a left proximal femoral starla that appears fractured. This appears similarly on the last occasion and on multiple previous examinations dating back to 2012. Diffuse osteoporosis noted IMPRESSION: Extensive stool within the colon. IVC filter Osteoporosis
[2019-01-02 16:00] VITALS: BP 115/69
--- NOTE | 2019-01-02 16:00 | Consultation ---
DATE OF CONSULTATION: 01/02/2019 ENDOCRINOLOGY CONSULTATION CONSULTING PHYSICIAN: Elijah Carbajal M.D. REFERRING PHYSICIAN: Reuben Pereira M.D. REASON FOR CONSULTATION: Diabetes management. HISTORY OF PRESENT ILLNESS: The patient is a 68-year-old female with past medical history of insulin-dependent diabetes, out of control, who presented to the hospital from [facility] facility with elevated glucose. The patient complains of weakness. Denies any fever or chills. No chest pressure or shortness of breath. I was called to manage diabetes. PAST MEDICAL HISTORY: 1. Diabetes. 2. Hypertension. 3. HLD. 4. Dementia. PAST SURGICAL HISTORY: None. MEDICATIONS: Reviewed and reconciled. ALLERGIES: [place]. FAMILY HISTORY: Noncontributory. SOCIAL HISTORY: Difficult to obtain. PHYSICAL EXAM: GENERAL: The patient is awake. VITAL SIGNS: Blood pressure 139/76, respiratory rate 19, pulse of 98, and temp of 98.2. HEENT: Pupils are equal and reactive to light. Sclerae is anicteric. NECK: No JVD. No lymphadenopathy. LUNGS: Clear. ABDOMEN: Positive bowel sounds. EXTREMITIES: No clubbing, cyanosis, or edema. LABORATORY VALUES: WBC 6.8, hemoglobin 13, hematocrit 42, and platelets of 281,000. Sodium 139, potassium 4.3, chloride 102, bicarbonate 30, BUN 18, creatinine 0.9, and glucose 240. DIAGNOSIS: Diabetes, out of control. PLAN: 1. Increase the Levemir to 50 units at bedtime and add NovoLog 10 units before each meal. 2. Continue metformin. 3. NovoLog sliding scale before meals and at bedtime. 4. Further adjustment according to blood glucose values. Thank you, Dr. Pereira, for the courtesy of this consultation. Elijah Carbajal M.D. DR: TOPHER/EVELYN JOB#: [id number] CC: JACKSON
[2019-01-02] MEDS ORDERED: WARFARIN SOD ORAL SCH ×2 (17:00)
[2019-01-02] MEDS: Docusate 100mg cap ORAL SCH (17:38)
[2019-01-02] MEDS: metFORMIN 500mg tab ORAL SCH (17:38)
--- NOTE | 2019-01-02 19:06 | NUR ---
HAND-OFF: Report given to TOPHER Gómez.
--- NOTE | 2019-01-02 19:10 | NUR ---
NURSE NOTES: RECEIVED PT FROM TOPHER SIMONS. PT IS AWAKE, UP IN BED EATING DINNER. AAOX4, ON O2 NC 2L, NO ACUTE DISTRESS NOTED. DENIES PAIN. OPTIFOAM DRESSINGS ON RIGHT SHOULDER, SACRAL AND BUTTOCKS ARE DRY AND INTACT. IV ON R AC 20G IS INTACT AND PATENT. BED IS LOCKED AT THE LOWEST POSITION, BED ALARMS ACTIVE, SIDE RAILS UP X2, AND CALL LIGHT IS WITHIN REACH. WILL CONTINUE TO MONITOR.
[2019-01-02 20:00] VITALS: BP 141/78
[2019-01-02] MEDS: Bisacodyl EC 5mg tab ORAL SCH (21:07)
[2019-01-02] MEDS: Levemir Flexpen SUBQ SCH (21:11)
--- NOTE | 2019-01-02 21:45 | Consultation ---
DATE OF CONSULTATION: 01/02/2019 INFECTIOUS DISEASE CONSULTATION CONSULTING PHYSICIAN: Masoud Pavon M.D. ATTENDING PHYSICIAN: Reuben Pereira M.D. REASON FOR CONSULT: Urinary tract infection. HISTORY OF PRESENT ILLNESS: This is a 68-year-old white female admitted yesterday from nursing facility because of hyperglycemia. The patient was found to have pyuria, also had abdominal pain and hip pain. PAST MEDICAL HISTORY: Significant for left femoral fracture, history of DVT, status post IVC filter placement, constipation, has diabetes mellitus type 2, dementia, hypertension, and schizophrenia. MEDICATIONS: Acarbose, cefepime, vancomycin, bisacodyl, Levemir insulin, warfarin, albuterol, ipratropium inhaler, calcium carbonate, Colace, ferrous sulfate, furosemide, metformin, olanzapine, multivitamin, Protonix, haloperidol, magnesium hydroxide, Seroquel, and [place]. ALLERGIES: Allergic to Rebecca. SOCIAL HISTORY: [facility] resident. Denies alcohol, drug abuse, or smoking. She is bedbound. REVIEW OF SYSTEMS: The patient does not have any pain at this time. No fever. No chills. No nausea. No vomiting. Has dysuria occasionally. PHYSICAL EXAMINATION: VITAL SIGNS: Temperature 98, pulse 87, and blood pressure 166/66. GENERAL APPEARANCE: Seems to be in occasional acute distress. HEAD AND NECK: [place] conjunctiva. HEART: S1 and S2 regular. LUNGS: Clear. ABDOMEN: Soft, obese, and nontender. EXTREMITY: Has no edema. LABORATORY AND DIAGNOSTIC DATA: WBC 6.8, hemoglobin 10.8, hematocrit 42, and platelets is 281,000. Sodium is 139, potassium 4.3, chloride 103, bicarb 30, BUN 18, creatinine 0.9, and glucose 340. Urine culture is growing gram-negative bacilli. UA shows wbc of 20 to 30, leukocyte esterase 3+, and nitrite 2+. IMPRESSION: Urinary tract infection. The patient has diabetes mellitus, hypertension, schizophrenia, dementia, constipation, and left femoral fracture. RECOMMENDATIONS: 1. Continue with cefepime. 2. Discontinue intravenous vancomycin. 3. We will follow up the urine culture. At the end of my exam, I thank Dr. Pereira for involving me in the care of this patient. Charli Pavon DR: LETTY JOB#: [id number] CC: JACKSON
[2019-01-03] VITALS: BP 121/71
[2019-01-03] MEDS ORDERED: Vancomycin 750mg/NS 275ml IVPB SCH ×2 (01:00)
[2019-01-03] MEDS ORDERED: Cefepime HCl 1 GM in D5W 55 ML IVPB SCH (02:00)
[2019-01-03 04:00] VITALS: BP_SYST 119; BP_SYST 130; BP_DIAS 76; BP_DIAS 85
--- NOTE | 2019-01-03 04:00 | History and Physical Report ---
DATE OF ADMISSION: 01/01/2019 "NOTE: POOR AUDIO QUALITY" HISTORY OF PRESENT ILLNESS: The patient is a poor historian, comes in because of hyperglycemia, elevated sugar as well as urinary tract infection and elevated potassium, admitted for those reasons. Again, the patient is a very poor historian, cannot get any reliable history from her. PAST MEDICAL HISTORY: Significant for advanced dementia, paranoid schizophrenia, constipation, NIDDM, history of hypertension, history of DVT, GERD, iron deficiency anemia, and constipation. PAST SURGICAL HISTORY: Denies. ALLERGIES: Ethan. MEDICATIONS: Bisacodyl, vitamin D, docusate, furosemide, Coumadin, Haldol, lorazepam, metformin, Protonix, and warfarin. FAMILY HISTORY: Noncontributory. SOCIAL HISTORY: Denies smoking, alcohol, or illicit drugs. Comes from a shelter. REVIEW OF SYSTEMS: HEENT: Denies headaches. RESPIRATORY: Denies shortness of breath. Denies cough. CARDIOVASCULAR: Denies chest pain. GASTROINTESTINAL: Denies nausea, vomiting, or diarrhea. EXTREMITIES: Denies pain. CENTRAL NERVOUS SYSTEM: No change in vision or speech pattern, however, she otherwise is a poor historian. PHYSICAL EXAMINATION: VITAL SIGNS: Temperature 98 degrees, pulse is 87, and blood pressure 130/87. HEENT: PERRLA. NECK: Supple. No lymphadenopathy. CHEST: Clear to auscultation. CARDIOVASCULAR: Regular rate and rhythm. ABDOMEN: Distended. Positive bowel sounds. No organomegaly. EXTREMITIES: 1+ edema. Reflexes are equal on both sides. The patient is a wheelchair bound. NEUROLOGICAL: Lower extremity had weakness, which is chronic. Oriented to name only. LABORATORY DATA: WBC 6.2, hemoglobin 10.5, and platelet count 300,000. Sodium , potassium , BUN of 17, creatinine of 0.9, and glucose 172. ASSESSMENT AND PLAN: 1. Hypopotassemia. 2. Elevated sugar. 3. UTI . I have asked basically Dr. Carbajal, Dr. Kim, and Dr. Masoud Pavon to see the patient and to treat those conditions as well. Antibiotics per Dr. Masoud Pavon. Reuben Pereira M.D. DR: DARRELL JOB#: [id number] CC:
[2019-01-03 06:11] LABS: EOSINOPHILS % (AUTO) 1.3 % (0.0-3.0); HEMATOCRIT 41.6 % (37.0-47.0); HEMOGLOBIN 13.4 G/DL (12.0-16.0); LYMPHOCYTES % (AUTO) 40.8 % (20.0-45.0); MEAN CORPUSCULAR VOLUME 91 FL (80-99); MONOCYTES % (AUTO) 6.7 % (1.0-10.0); NEUTROPHILS % (AUTO) 50.3 % (45.0-75.0); PLATELET COUNT 259 K/UL (150-450); RED BLOOD COUNT 4.59 M/UL (4.20-5.40); RED CELL DISTRIBUTION WIDTH 14.9 % (11.6-14.8); WHITE BLOOD COUNT 7.1 K/UL (4.8-10.8)
[2019-01-03] MEDS: Meropenem 500 MG in NS 55 ML IVPB SCH ×3 (06:12→21:04)
[2019-01-03 06:31] LABS: % IRON SATURATION 17 % (15-50); IRON 44 ug/dL (50-175); TOTAL IRON BINDING CAPACITY 258 ug/dL (250-450)
[2019-01-03 06:33] LABS: ALANINE AMINOTRANSFERASE 21 U/L (12-78); ALBUMIN 3.1 G/DL (3.4-5.0); ALBUMIN/GLOBULIN RATIO 0.8 (1.0-2.7); ALKALINE PHOSPHATASE 175 U/L (46-116); ANION GAP 6 mmol/L (5-15); ASPARTATE AMINO TRANSFERASE 8 U/L (15-37); BILIRUBIN,TOTAL 0.4 MG/DL (0.2-1.0); BLOOD UREA NITROGEN 21 mg/dL (7-18); CARBON DIOXIDE 32 MMOL/L (21-32); CHLORIDE 103 MMOL/L (98-107); CHOLESTEROL 241 MG/DL (< 200); CREATININE 0.8 MG/DL (0.55-1.30); FERRITIN 37 NG/ML (8-388); HDL CHOLESTEROL 47 MG/DL (40-60); SODIUM 141 MMOL/L (136-145); TRIGLYCERIDES 274 MG/DL (30-150)
[2019-01-03 06:35] LABS: INR 1.4 (0.9-1.1)
--- NOTE | 2019-01-03 06:58 | General Progress Note ---
Assessment/Plan Problem List: (1) Uncontrolled diabetes mellitus with hyperglycemia ICD Codes: E11.65 - Type 2 diabetes mellitus with hyperglycemia SNOMED: 10347240, [id number], [id number], [id number] Qualifiers: Qualified Codes: E13.65 - Other specified diabetes mellitus with hyperglycemia (2) Dementia ICD Codes: F03.90 - Unspecified dementia without behavioral disturbance SNOMED: 82888444 (3) Schizophrenia ICD Codes: F20.9 - Schizophrenia, unspecified SNOMED: 81054021 Assessment/Plan: continue Levemir 50 units continue Novolog 10 units ac tid + NISS ac / hs continue Metformin 500 mg tid Subjective Allergies: Coded Allergies: LITHIUM (Unverified Allergy, Unknown, 12/31/12) All Systems: reviewed and negative except above Subjective events noted she is hungry and asking for breakfast Item Value Date Time Glucose Level 193 MG/DL H # 01/03/19 0455 Bedside Blood Glucose 252 mg/dl H 01/02/19 2126 Bedside Blood Glucose 132 mg/dl H 01/02/19 1650 Bedside Blood Glucose 195 mg/dl H 01/02/19 1126 Objective Last 24 Hour Vital Signs Date Time Temp Pulse Resp B/P (MAP) Pulse Ox O2 Delivery O2 Flow Rate FiO2 01/03/19 04:00 98.0 103 19 130/76 (94) 97 01/03/19 00:00 97.7 107 19 121/71 (88) 97 01/02/19 23:15 Nasal Cannula 2.0 28 01/02/19 23:14 96 Nasal Cannula 2.0 28 01/02/19 21:00 Nasal Cannula 2.0 01/02/19 20:00 98.2 104 18 141/78 (99) 98 01/02/19 16:00 97.9 102 20 115/69 (84) 96 01/02/19 12:00 98.0 92 20 118/65 (82) 95 01/02/19 09:45 95 Nasal Cannula 2.0 28 01/02/19 09:45 Nasal Cannula 2.0 28 01/02/19 09:00 Nasal Cannula 2.0 01/02/19 08:00 98.4 95 20 166/66 (99) 95 01/02/19 08:00 98.0 87 16 132/87 (102) 99 01/02/19 08:00 98.4 95 20 116/66 (83) 95 Intake and Output 01/02/19 01/03/19 19:00 07:00 Intake Total 460 ml Balance 460 ml Intake Oral 460 ml # Voids 3 2 Laboratory Tests 01/03/19 04:55: White Blood Count 7.1, Red Blood Count 4.59, Hemoglobin 13.4, Hematocrit 41.6, Mean Corpuscular Volume 91, Mean Corpuscular Hemoglobin 29.3, Mean Corpuscular Hemoglobin Concent 32.3, Red Cell Distribution Width 14.9H, Platelet Count 259, Mean Platelet Volume 7.5, Neutrophils (%) (Auto) 50.3, Lymphocytes (%) (Auto) 40.8, Monocytes (%) (Auto) 6.7, Eosinophils (%) (Auto) 1.3, Basophils (%) (Auto ) 1.0, Prothrombin Time 14.2H, Prothromb Time International Ratio 1.4H, Sodium Level 141, Potassium Level 4.0, Chloride Level 103, Carbon Dioxide Level 32, Anion Gap 6, Blood Urea Nitrogen 21H, Creatinine 0.8, Estimat Glomerular Filtration Rate > 60, Glucose Level 193#H, Hemoglobin A1c 9.4H, Uric Acid [ Pending], Calcium Level 9.0, Phosphorus Level [Pending], Magnesium Level [ Pending], Iron Level 44L, Total Iron Binding Capacity 258, Percent Iron Saturation 17, Unsaturated Iron Binding 214, Ferritin 37, Total Bilirubin 0.4, Gamma Glutamyl Transpeptidase [Pending], Aspartate Amino Transf (AST/SGOT) 8L, Alanine Aminotransferase (ALT/SGPT) 21, Alkaline Phosphatase 175H, C-Reactive Protein, Quantitative [Pending], Pro-B-Type Natriuretic Peptide [Pending], Total Protein 6.9, Albumin 3.1L, Globulin 3.8, Albumin/Globulin Ratio 0.8L, Triglycerides Level 274H, Cholesterol Level 241H, LDL Cholesterol 130H, HDL Cholesterol 47, Cholesterol/HDL Ratio 5.1H, Lipase 74, Vitamin B12 Level [ Pending], Folate [Pending], Thyroid Stimulating Hormone (TSH) 1.025 Height (Feet): 5 Height (Inches): 3.00 Weight (Pounds): 187 General Appearance: no apparent distress Neck: normal alignment Cardiovascular: normal rate Respiratory/Chest: lungs clear Abdomen: normal bowel sounds Edema: no edema noted Arm (L), no edema noted Arm (R), no edema noted Leg (L), no edema noted Leg (R), no edema noted Pedal (L), no edema noted Pedal (R), no edema noted Generalized Objective Current Medications Medications (Trade) Dose Ordered Sig/Ebenezer Route PRN Reason Start Time Stop Time Status Last Admin Dose Admin Acarbose (Precose) 50 mg THREE TIMES A DAY ORAL 01/03/19 09:00 02/02/19 08:59 UNV Acetaminophen (Tylenol) 325 mg Q4H PRN ORAL MILD PAIN 01/01/19 22:30 01/31/19 22:29 Acetaminophen (Tylenol) 500 mg Q4H PRN ORAL MODERATE PAIN 01/01/19 22:30 01/31/19 22:29 01/01/19 22:58 Acetaminophen/ Hydrocodone Bitart ([place] 5/325) 1 tab Q4H PRN ORAL For Pain 01/01/19 20:30 01/08/19 20:29 Albuterol/ Ipratropium (Albuterol/ Ipratropium) 3 ml Q4H PRN HHN Shortness of Breath 01/02/19 11:45 01/07/19 11:44 Bisacodyl (Dulcolax) 10 mg NEEDED PRN RECTAL Constipation 01/01/19 21:30 01/31/19 21:29 Bisacodyl (Dulcolax) 10 mg DAILY@2100 ORAL 01/02/19 21:00 02/01/19 20:59 01/02/19 21:07 Dextrose (Dextrose 50%) 25 ml Q30M PRN IV Hypoglycemia 01/02/19 07:00 02/01/19 06:59 Dextrose (Dextrose 50%) 50 ml Q30M PRN IV Hypoglycemia 01/02/19 07:00 02/01/19 06:59 Docusate Sodium (Colace) 100 mg TID ORAL 01/02/19 18:00 02/01/19 08:59 01/02/19 17:38 Ergocalciferol (Drisdol) 50,000 intlu QWEEK ORAL 01/02/19 15:00 02/01/19 14:59 01/02/19 17:39 Furosemide (Lasix) 40 mg DAILY ORAL 01/02/19 09:00 02/01/19 08:59 01/02/19 09:06 Insulin Aspart (NovoLOG) BEFORE MEALS AND HS SUBQ 01/02/19 00:30 02/01/19 00:29 01/02/19 21:26 Insulin Aspart (NovoLOG) 10 units NOVOTIAC SUBQ 01/02/19 11:50 02/01/19 11:49 01/02/19 21:11 Insulin Detemir (Levemir) 50 units BEDTIME SUBQ 01/02/19 21:00 02/01/19 00:29 01/02/19 21:11 Magnesium Hydroxide (Mom) 30 ml HSPRN PRN ORAL Constipation 01/01/19 21:30 01/31/19 21:29 Meropenem 500 mg/ Sodium Chloride 55 ml @ 110 mls/hr EVERY 8 HOURS IVPB 01/03/19 06:00 01/08/19 05:59 01/03/19 06:12 Metformin HCl (Glucophage) 500 mg TID ORAL 01/02/19 18:00 02/01/19 08:59 01/02/19 17:38 Multivitamins Therapeutic (Therapeutic Multivitamin) 1 ea DAILY ORAL 01/02/19 09:00 02/01/19 08:59 01/02/19 09:06 Pantoprazole (Protonix) 40 mg BID ORAL 01/02/19 18:00 02/01/19 08:59 01/02/19 17:38 Quetiapine Fumarate (SEROquel) 200 mg QID ORAL 01/01/19 21:00 01/31/19 20:59 01/02/19 21:07 Warfarin Sodium (Coumadin per pharmacy) 1 ea DAILY PRN MISC per rx protocol 01/02/19 09:45 02/01/19 08:59 Elijah Carbajal MD January 03, 2019 06:58
[2019-01-03 07:01] LABS: GAMMA GLUTAMYL TRANSPEPTIDASE 30 U/L (5-85); PHOSPHORUS 4.1 MG/DL (2.5-4.9)
[2019-01-03] MEDS: NovoLOG Insulin Flexpen SUBQ SCH ×6 (07:11→21:02)
--- NOTE | 2019-01-03 07:30 | Consultation ---
DATE OF CONSULTATION: 01/02/2019 CONSULTING PHYSICIAN: Noel Hennessy M.D. HISTORY OF PRESENT ILLNESS: This is a 68-year-old female with a history of schizoaffective disorder and dementia who is well known to this physician from . The patient has a long history of mental illness. In addition, the patient has multiple medical comorbidities like diabetes mellitus, hypertension, and constipation. The patient admitted to the hospital due to abnormal labs, anxiety and paranoid ideation. She is a poor historian. She has memory impairment. No suicidal or homicidal ideation. No manic symptoms. She is stable on current medication regimen. PAST PSYCHIATRIC HISTORY: Several psychiatric hospitalizations. She is diagnosed with schizoaffective disorder and dementia. She has been taking Haldol, lorazepam, olanzapine, , clonazepam. PAST MEDICAL HISTORY: As above. ALLERGIES: [place]. SUBSTANCE ABUSE HISTORY: No known history of illicit drug use or alcohol. MENTAL STATUS EXAMINATION: The patient is oriented to time, self, and place. Mood is anxious. Affect is constricted, congruent with mood. Thought process is concrete. Thought content, no suicidal or homicidal ideation. ASSESSMENT: [place] I Schizoaffective disorder. [place] II Deferred. [place] III As above. [place] IV Low. PLAN: 1. We will continue the Seroquel 200 mg q.i.d. Discontinue the Zyprexa. Discontinue the Haldol. 2. Provide the patient with reality orientation and supportive therapy. Noel Hennessy M.D. DR: ALLISON JOB#: [id number] CC:
--- NOTE | 2019-01-03 07:53 | NUR ---
NURSE NOTES: received report from Dalia,RN. patient in bed. alert. verbally responsive. no respiratory distress noted with 02 2l/min via NC. no pain at this time. IV on RAC intact. bed in the lowest position. alarm on. call light within reach. will continue to monitor.
--- NOTE | 2019-01-03 07:54 | NUR ---
HAND-OFF: REPORT GIVEN TO TOPHER MAYERS. PT IN STABLE CONDITION. UP IN BED EATING BREAKFAST.
[2019-01-03 08:00] VITALS: BP 115/66
[2019-01-03] MEDS: Multivitamin w/Minerals tab ORAL SCH (09:05)
[2019-01-03] MEDS: QUEtiapine 200mg tab ORAL SCH ×4 (09:05→21:04)
[2019-01-03] MEDS: Docusate 100mg cap ORAL SCH ×3 (09:05→18:16)
[2019-01-03] MEDS: metFORMIN 500mg tab ORAL SCH ×3 (09:05→18:16)
[2019-01-03] MEDS: Furosemide 40mg tab ORAL SCH (09:06)
--- NOTE | 2019-01-03 09:33 | NUR ---
RD ASSESSMENT & RECOMMENDATIONS SEE CARE ACTIVITY FOR COMPLETE ASSESSMENT DAILY ESTIMATED NEEDS: Needs based on Diabetes, obese, cardiac/ 60kg abw 23-28 kcals/kg 6209-7340 total kcals 1-1.5 g protein/kg 60-90 g total protein 25-30 mL/kg 1952-7229 total fluid mLs NUTRITION DIAGNOSIS: (1) Altered nutrition related lab values R/T diabetes, altered lipid metabolism as evidenced by elev BGs (193 340), elev POC glu (253, 132, 195), A1C of 9.4, elev triglyceride (274), elev LDL (130), elev cholesterol (241). CURRENT DIET:CCHO LOW PO DIET RECOMMENDATIONS: CCHO LOW, CARDIAC/ texture as tolerated ADDITIONAL RECOMMENDATIONS: * Calibrated bedscale wt * Consider lipid lowering agent (elev cholesterol, LDL, triglyceride) * Skin integrity: Continue MVI x 1, add Vitaly 1pkt BID * Monitor BGs closely
--- NOTE | 2019-01-03 10:48 | Diagnostic Imaging Report ---
Indication: Increased alkaline phosphatase. History of diabetes and hypertension Technique: Grayscale and duplex Doppler imaging of the abdomen performed. Comparison: None Findings: The liver is enlarged measuring 20 cm and diffusely increased in echogenicity consistent with fatty infiltration. There is no intrahepatic biliary ductal dilatation identified. CBD measures 2.6 mm in diameter. The gallbladder is unremarkable. Pancreas is not seen due to bowel gas. The aorta and IVC appear unremarkable as visualized. Both kidneys appear unremarkable. The spleen is normal in size. Doppler evaluation of the main portal vein shows patency. There is no ascites. No hydronephrosis seen. Impression: Hepatomegaly with fatty infiltration. No biliary ductal dilatation. Obscured pancreas due to bowel gas
--- NOTE | 2019-01-03 10:55 | Infectious Diseases Prog Note ---
Assessment/Plan Assessment/Plan antibiotics : meropenem A 1. esbl e.coli UTI 2. diabetes mellitus 3. hypertension 4. dementia 5. schizophrenia P 1. continue meropenem 2. will follow up cultures Subjective Constitutional: Denies: fever, chills Respiratory: Denies: shortness of breath, dry cough Gastrointestinal/Abdominal: Denies: nausea, vomiting, diarrhea Musculoskeletal: Denies: pain Allergies: Coded Allergies: LITHIUM (Unverified Allergy, Unknown, 12/31/12) Objective Vital Signs Last 24 Hour Vital Signs Date Time Temp Pulse Resp B/P (MAP) Pulse Ox O2 Delivery O2 Flow Rate FiO2 01/03/19 09:00 Nasal Cannula 2.0 01/03/19 08:35 97 Nasal Cannula 2.0 28 01/03/19 08:35 Nasal Cannula 2.0 28 01/03/19 08:00 98.7 95 19 115/66 (82) 96 01/03/19 04:00 98.0 103 19 130/76 (94) 97 01/03/19 00:00 97.7 107 19 121/71 (88) 97 01/02/19 23:15 Nasal Cannula 2.0 28 01/02/19 23:14 96 Nasal Cannula 2.0 28 01/02/19 21:00 Nasal Cannula 2.0 01/02/19 20:00 98.2 104 18 141/78 (99) 98 01/02/19 16:00 97.9 102 20 115/69 (84) 96 01/02/19 12:00 98.0 92 20 118/65 (82) 95 Height (Feet): 5 Height (Inches): 3.00 Weight (Pounds): 187 Respiratory/Chest: lungs clear Cardiovascular: normal rate, regular rhythm, no gallop/murmur Abdomen: soft, non tender Extremities: no edema Microbiology Date/Time Source Procedure Growth Status 01/01/19 17:45 Nasal Nares MRSA Culture - Final Staphylococcus Aureus - Mrsa Complete 01/01/19 17:45 Urine,Clean Catch Urine Culture - Final Escherichia Coli - Esbl Complete 01/01/19 17:45 Rectum VRE Culture - Final NO VANCOMYCIN RESISTANT ENTEROCOCCUS ... Complete 01/01/19 17:45 Rectum - Final NO CARBAPENEM-RESISTANT ENTEROBACTERI... Complete Laboratory Tests Test 01/03/19 04:55 White Blood Count 7.1 K/UL (4.8-10.8) Red Blood Count 4.59 M/UL (4.20-5.40) Hemoglobin 13.4 G/DL (12.0-16.0) Hematocrit 41.6 % (37.0-47.0) Mean Corpuscular Volume 91 FL (80-99) Mean Corpuscular Hemoglobin 29.3 PG (27.0-31.0) Mean Corpuscular Hemoglobin Concent 32.3 G/DL (32.0-36.0) Red Cell Distribution Width 14.9 % (11.6-14.8) H Platelet Count 259 K/UL (150-450) Mean Platelet Volume 7.5 FL (6.5-10.1) Neutrophils (%) (Auto) 50.3 % (45.0-75.0) Lymphocytes (%) (Auto) 40.8 % (20.0-45.0) Monocytes (%) (Auto) 6.7 % (1.0-10.0) Eosinophils (%) (Auto) 1.3 % (0.0-3.0) Basophils (%) (Auto) 1.0 % (0.0-2.0) Prothrombin Time 14.2 SEC (9.30-11.50) H Prothromb Time International Ratio 1.4 (0.9-1.1) H Sodium Level 141 MMOL/L (136-145) Potassium Level 4.0 MMOL/L (3.5-5.1) Chloride Level 103 MMOL/L (98-107) Carbon Dioxide Level 32 MMOL/L (21-32) Anion Gap 6 mmol/L (5-15) Blood Urea Nitrogen 21 mg/dL (7-18) H Creatinine 0.8 MG/DL (0.55-1.30) Estimat Glomerular Filtration Rate > 60 mL/min (>60) Glucose Level 193 MG/DL (74-106) #H Hemoglobin A1c 9.4 % (4.3-6.0) H Uric Acid 5.1 MG/DL (2.6-7.2) Calcium Level 9.0 MG/DL (8.5-10.1) Phosphorus Level 4.1 MG/DL (2.5-4.9) Magnesium Level 1.6 MG/DL (1.8-2.4) L Iron Level 44 ug/dL (50-175) L Total Iron Binding Capacity 258 ug/dL (250-450) Percent Iron Saturation 17 % (15-50) Unsaturated Iron Binding 214 ug/dL (112-346) Ferritin 37 NG/ML (8-388) Total Bilirubin 0.4 MG/DL (0.2-1.0) Gamma Glutamyl Transpeptidase 30 U/L (5-85) Aspartate Amino Transf (AST/SGOT) 8 U/L (15-37) L Alanine Aminotransferase (ALT/SGPT) 21 U/L (12-78) Alkaline Phosphatase 175 U/L (46-116) H C-Reactive Protein, Quantitative 1.6 mg/dL (0.00-0.90) H Pro-B-Type Natriuretic Peptide 19 pg/mL (0-125) Total Protein 6.9 G/DL (6.4-8.2) Albumin 3.1 G/DL (3.4-5.0) L Globulin 3.8 g/dL Albumin/Globulin Ratio 0.8 (1.0-2.7) L Triglycerides Level 274 MG/DL (30-150) H Cholesterol Level 241 MG/DL (< 200) H LDL Cholesterol 130 mg/dL (<100) H HDL Cholesterol 47 MG/DL (40-60) Cholesterol/HDL Ratio 5.1 (3.3-4.4) H Lipase 74 U/L (73-393) Vitamin B12 Level 405 PG/ML (193-986) Folate 10.3 NG/ML (8.6-58.9) Thyroid Stimulating Hormone (TSH) 1.025 uiU/mL (0.358-3.740) Current Medications Medications (Trade) Dose Ordered Sig/Ebenezer Route PRN Reason Start Time Stop Time Status Last Admin Dose Admin Acarbose (Precose) 50 mg BEFORE MEALS ORAL 01/03/19 11:30 02/02/19 11:29 Acetaminophen (Tylenol) 325 mg Q4H PRN ORAL MILD PAIN 01/01/19 22:30 01/31/19 22:29 Acetaminophen (Tylenol) 500 mg Q4H PRN ORAL MODERATE PAIN 01/01/19 22:30 01/31/19 22:29 01/01/19 22:58 Acetaminophen/ Hydrocodone Bitart ([place] 5/325) 1 tab Q4H PRN ORAL For Pain 01/01/19 20:30 01/08/19 20:29 Albuterol/ Ipratropium (Albuterol/ Ipratropium) 3 ml Q4H PRN HHN Shortness of Breath 01/02/19 11:45 01/07/19 11:44 Bisacodyl (Dulcolax) 10 mg NEEDED PRN RECTAL Constipation 01/01/19 21:30 01/31/19 21:29 Bisacodyl (Dulcolax) 10 mg DAILY@2100 ORAL 01/02/19 21:00 02/01/19 20:59 01/02/19 21:07 Dextrose (Dextrose 50%) 25 ml Q30M PRN IV Hypoglycemia 01/02/19 07:00 02/01/19 06:59 Dextrose (Dextrose 50%) 50 ml Q30M PRN IV Hypoglycemia 01/02/19 07:00 02/01/19 06:59 Docusate Sodium (Colace) 100 mg TID ORAL 01/02/19 18:00 02/01/19 08:59 01/03/19 09:05 Ergocalciferol (Drisdol) 50,000 intlu QWEEK ORAL 01/02/19 15:00 02/01/19 14:59 01/02/19 17:39 Furosemide (Lasix) 40 mg DAILY ORAL 01/02/19 09:00 02/01/19 08:59 01/03/19 09:06 Insulin Aspart (NovoLOG) BEFORE MEALS AND HS SUBQ 01/02/19 00:30 02/01/19 00:29 01/03/19 07:16 Insulin Aspart (NovoLOG) 10 units NOVOTIAC SUBQ 01/02/19 11:50 02/01/19 11:49 01/03/19 07:15 Insulin Detemir (Levemir) 50 units BEDTIME SUBQ 01/02/19 21:00 02/01/19 00:29 01/02/19 21:11 Magnesium Hydroxide (Mom) 30 ml HSPRN PRN ORAL Constipation 01/01/19 21:30 01/31/19 21:29 Meropenem 500 mg/ Sodium Chloride 55 ml @ 110 mls/hr EVERY 8 HOURS IVPB 01/03/19 06:00 01/08/19 05:59 01/03/19 06:12 Metformin HCl (Glucophage) 500 mg TID ORAL 01/02/19 18:00 02/01/19 08:59 01/03/19 09:05 Multivitamins Therapeutic (Therapeutic Multivitamin) 1 ea DAILY ORAL 01/02/19 09:00 02/01/19 08:59 01/03/19 09:05 Pantoprazole (Protonix) 40 mg BID ORAL 01/02/19 18:00 02/01/19 08:59 01/03/19 09:05 Quetiapine Fumarate (SEROquel) 200 mg QID ORAL 01/01/19 21:00 01/31/19 20:59 01/03/19 09:05 Warfarin Sodium (Coumadin per pharmacy) 1 ea DAILY PRN MISC per rx protocol 01/02/19 09:45 02/01/19 08:59 Warfarin Sodium (Coumadin) 9.5 mg COUMADIN ORAL 01/03/19 17:00 01/03/19 18:00 Nestor Nguyễn MD January 03, 2019 10:55
--- NOTE | 2019-01-03 11:27 | Surgery Progress Note ---
Surgery Progress Note Subjective Additional Comments afebrile, HD stable. labs okay US noted KUB noted states she feels well Objective Last 24 Hour Vital Signs Date Time Temp Pulse Resp B/P (MAP) Pulse Ox O2 Delivery O2 Flow Rate FiO2 01/03/19 09:00 Nasal Cannula 2.0 01/03/19 08:35 97 Nasal Cannula 2.0 28 01/03/19 08:35 Nasal Cannula 2.0 28 01/03/19 08:00 98.7 95 19 115/66 (82) 96 01/03/19 04:00 98.0 103 19 130/76 (94) 97 01/03/19 00:00 97.7 107 19 121/71 (88) 97 01/02/19 23:15 Nasal Cannula 2.0 28 01/02/19 23:14 96 Nasal Cannula 2.0 28 01/02/19 21:00 Nasal Cannula 2.0 01/02/19 20:00 98.2 104 18 141/78 (99) 98 01/02/19 16:00 97.9 102 20 115/69 (84) 96 01/02/19 12:00 98.0 92 20 118/65 (82) 95 I&O Intake and Output 01/02/19 01/03/19 18:59 06:59 Intake Total 460 ml Balance 460 ml Intake Oral 460 ml # Voids 3 2 Drains: none Cardiovascular: RSR Respiratory: clear Abdomen: soft, distended, non-tender, decreased bowel sounds Extremities: no cyanosis Laboratory Tests Test 01/03/19 04:55 White Blood Count 7.1 K/UL (4.8-10.8) Red Blood Count 4.59 M/UL (4.20-5.40) Hemoglobin 13.4 G/DL (12.0-16.0) Hematocrit 41.6 % (37.0-47.0) Mean Corpuscular Volume 91 FL (80-99) Mean Corpuscular Hemoglobin 29.3 PG (27.0-31.0) Mean Corpuscular Hemoglobin Concent 32.3 G/DL (32.0-36.0) Red Cell Distribution Width 14.9 % (11.6-14.8) H Platelet Count 259 K/UL (150-450) Mean Platelet Volume 7.5 FL (6.5-10.1) Neutrophils (%) (Auto) 50.3 % (45.0-75.0) Lymphocytes (%) (Auto) 40.8 % (20.0-45.0) Monocytes (%) (Auto) 6.7 % (1.0-10.0) Eosinophils (%) (Auto) 1.3 % (0.0-3.0) Basophils (%) (Auto) 1.0 % (0.0-2.0) Prothrombin Time 14.2 SEC (9.30-11.50) H Prothromb Time International Ratio 1.4 (0.9-1.1) H Sodium Level 141 MMOL/L (136-145) Potassium Level 4.0 MMOL/L (3.5-5.1) Chloride Level 103 MMOL/L (98-107) Carbon Dioxide Level 32 MMOL/L (21-32) Anion Gap 6 mmol/L (5-15) Blood Urea Nitrogen 21 mg/dL (7-18) H Creatinine 0.8 MG/DL (0.55-1.30) Estimat Glomerular Filtration Rate > 60 mL/min (>60) Glucose Level 193 MG/DL (74-106) #H Hemoglobin A1c 9.4 % (4.3-6.0) H Uric Acid 5.1 MG/DL (2.6-7.2) Calcium Level 9.0 MG/DL (8.5-10.1) Phosphorus Level 4.1 MG/DL (2.5-4.9) Magnesium Level 1.6 MG/DL (1.8-2.4) L Iron Level 44 ug/dL (50-175) L Total Iron Binding Capacity 258 ug/dL (250-450) Percent Iron Saturation 17 % (15-50) Unsaturated Iron Binding 214 ug/dL (112-346) Ferritin 37 NG/ML (8-388) Total Bilirubin 0.4 MG/DL (0.2-1.0) Gamma Glutamyl Transpeptidase 30 U/L (5-85) Aspartate Amino Transf (AST/SGOT) 8 U/L (15-37) L Alanine Aminotransferase (ALT/SGPT) 21 U/L (12-78) Alkaline Phosphatase 175 U/L (46-116) H C-Reactive Protein, Quantitative 1.6 mg/dL (0.00-0.90) H Pro-B-Type Natriuretic Peptide 19 pg/mL (0-125) Total Protein 6.9 G/DL (6.4-8.2) Albumin 3.1 G/DL (3.4-5.0) L Globulin 3.8 g/dL Albumin/Globulin Ratio 0.8 (1.0-2.7) L Triglycerides Level 274 MG/DL (30-150) H Cholesterol Level 241 MG/DL (< 200) H LDL Cholesterol 130 mg/dL (<100) H HDL Cholesterol 47 MG/DL (40-60) Cholesterol/HDL Ratio 5.1 (3.3-4.4) H Lipase 74 U/L (73-393) Vitamin B12 Level 405 PG/ML (193-986) Folate 10.3 NG/ML (8.6-58.9) Thyroid Stimulating Hormone (TSH) 1.025 uiU/mL (0.358-3.740) Plan Problems: (1) UTI (urinary tract infection) Assessment & Plan: UA noted with bacteria and elevated levels pending Micro on Abx as per ID (2) Constipation Assessment & Plan: bowel regimen KUB noted enema prn (3) Diabetes mellitus Assessment & Plan: as per endocrine. appreciate input (4) Dementia Assessment & Plan: Pending Psych eval appreciate input (5) Schizophrenia Assessment & Plan: As per psych . levels pending (6) Hip pain (7) Abdominal pain Assessment & Plan: mild abdominal pain elevated alk phos US okay KUB with extensive stool bowel regimen will follow with recs thank you (8) HTN (hypertension) (9) Uncontrolled diabetes mellitus with hyperglycemia Arvind Jimenez January 03, 2019 11:27
[2019-01-03] MEDS ORDERED: Fleet's Mineral Oil Enema RECTAL SCH (11:30)
[2019-01-03] MEDS ORDERED: Precose 50mg tab ORAL SCH (11:30)
[2019-01-03] MEDS ORDERED: Milk of Magnesia 30ml Ud ORAL PRN (11:30)
[2019-01-03 12:00] VITALS: BP 133/75
--- NOTE | 2019-01-03 15:07 | Nephrology Progress Note ---
Assessment/Plan Problem List: (1) UTI (urinary tract infection) (2) Uncontrolled diabetes mellitus with hyperglycemia (3) HTN (hypertension) (4) Abdominal pain Assessment Uncontrolled diabetes mellitus with hyperglycemia UTI (urinary tract infection) Schizophrenia Dementia Hip pain HTN (hypertension) Constipation Abdominal pain Plan BP and BS control correct abnormal lytes antibiotics stop Lasix and Acrabose Mag IV Subjective ROS Limited/Unobtainable: No Constitutional: Reports: malaise, weakness Objective Objective Last 24 Hour Vital Signs Date Time Temp Pulse Resp B/P (MAP) Pulse Ox O2 Delivery O2 Flow Rate FiO2 01/03/19 12:00 98.8 94 18 133/75 (94) 96 01/03/19 09:00 Nasal Cannula 2.0 01/03/19 08:35 97 Nasal Cannula 2.0 28 01/03/19 08:35 Nasal Cannula 2.0 28 01/03/19 08:00 98.7 95 19 115/66 (82) 96 01/03/19 04:00 98.0 103 19 130/76 (94) 97 01/03/19 00:00 97.7 107 19 121/71 (88) 97 01/02/19 23:15 Nasal Cannula 2.0 28 01/02/19 23:14 96 Nasal Cannula 2.0 28 01/02/19 21:00 Nasal Cannula 2.0 01/02/19 20:00 98.2 104 18 141/78 (99) 98 01/02/19 16:00 97.9 102 20 115/69 (84) 96 Intake and Output 01/02/19 01/03/19 18:59 06:59 Intake Total 460 ml Balance 460 ml Intake Oral 460 ml # Voids 3 2 Laboratory Tests 01/03/19 04:55: White Blood Count 7.1, Red Blood Count 4.59, Hemoglobin 13.4, Hematocrit 41.6, Mean Corpuscular Volume 91, Mean Corpuscular Hemoglobin 29.3, Mean Corpuscular Hemoglobin Concent 32.3, Red Cell Distribution Width 14.9H, Platelet Count 259, Mean Platelet Volume 7.5, Neutrophils (%) (Auto) 50.3, Lymphocytes (%) (Auto) 40.8, Monocytes (%) (Auto) 6.7, Eosinophils (%) (Auto) 1.3, Basophils (%) (Auto ) 1.0, Prothrombin Time 14.2H, Prothromb Time International Ratio 1.4H, Sodium Level 141, Potassium Level 4.0, Chloride Level 103, Carbon Dioxide Level 32, Anion Gap 6, Blood Urea Nitrogen 21H, Creatinine 0.8, Estimat Glomerular Filtration Rate > 60, Glucose Level 193#H, Hemoglobin A1c 9.4H, Uric Acid 5.1, Calcium Level 9.0, Phosphorus Level 4.1, Magnesium Level 1.6L, Iron Level 44L, Total Iron Binding Capacity 258, Percent Iron Saturation 17, Unsaturated Iron Binding 214, Ferritin 37, Total Bilirubin 0.4, Gamma Glutamyl Transpeptidase 30 , Aspartate Amino Transf (AST/SGOT) 8L, Alanine Aminotransferase (ALT/SGPT) 21, Alkaline Phosphatase 175H, C-Reactive Protein, Quantitative 1.6H, Pro-B-Type Natriuretic Peptide 19, Total Protein 6.9, Albumin 3.1L, Globulin 3.8, Albumin/ Globulin Ratio 0.8L, Triglycerides Level 274H, Cholesterol Level 241H, LDL Cholesterol 130H, HDL Cholesterol 47, Cholesterol/HDL Ratio 5.1H, Lipase 74, Vitamin B12 Level 405, Folate 10.3, Thyroid Stimulating Hormone (TSH) 1.025 Height (Feet): 5 Height (Inches): 3.00 Weight (Pounds): 187 Cardiovascular: tachycardia Respiratory/Chest: decreased breath sounds Abdomen: distended Cruzito Kim MD January 03, 2019 15:07
[2019-01-03 16:00] VITALS: BP 123/74
[2019-01-03] MEDS ORDERED: WARFARIN SOD ORAL SCH ×2 (17:00)
[2019-01-03] MEDS: Acetaminophen 500mg (ES) tab ORAL PRN (17:08)
--- NOTE | 2019-01-03 17:48 | Pulmonology Progress Note ---
Assessment/Plan Assessment/Plan Pulmonary Progress Note HPI Patient is a 68 year old female with history of previous TIA/CVA, Psychiatric disorder /Schizophrenia, Diabetes mellitus (T2), Hypertension, Dementia, prior L femoral fx, Hx of DVT lower extremity s/p IVC filter on Coumadin, who was [facility] with UTI and significantly elevated blood glucose levels. Noted to have abnormal LFT's, INR 1.5, elevated glucose, abnormal labs. Denies SOB. no chest pain, no n/v/f/c. Glucose has improved Allergies: LITHIUM Resuscitation status Full Code Advanced Directive on File Yes Past Medical History: TIA/CVA, Psychiatric disorder /Schizophrenia, Diabetes mellitus (T2), Hypertension, Dementia, prior L femoral fx, Hx of DVT lower extremity s/p IVC filter on Coumadin, Constipation Physical Exam Vital Signs Noted General appearance: alert, cooperative, no distress, appears stated age Head: Normocephalic, without obvious abnormality, atraumatic Eyes: conjunctivae/corneas clear. PERRL, EOM's intact. Fundi benign Throat: Lips, mucosa, and tongue normal. Teeth and gums normal Neck: supple, symmetrical, trachea midline, no adenopathy, thyroid: not enlarged, symmetric, no tenderness/mass/nodules, no carotid bruit and no JVD Lungs: clear to auscultation bilaterally Heart: regular rate and rhythm, S1, S2 normal, no murmur, click, rub or gallop Abdomen: soft, non-tender. Bowel sounds normal. No masses, no organomegaly Extremities: extremities normal, atraumatic, no cyanosis or edema Pulses: 2+ and symmetric Skin: Skin color, texture, turgor normal. No rashes or lesions Neurologic: Grossly normal Vital Signs Noted Laboratory Tests Noted CXR: NAD Abdo US: Fatty liver, no hydronephrosis Test 01/01/19 17:20 01/01/19 17:45 01/02/19 05:25 01/02/19 06:33 White Blood Count 9.2 K/UL (4.8-10.8) 6.8 K/UL (4.8-10.8) Red Blood Count 4.63 M/UL (4.20-5.40) 4.68 M/UL (4.20-5.40) Hemoglobin 13.5 G/DL (12.0-16.0) 13.8 G/DL (12.0-16.0) Hematocrit 40.2 % (37.0-47.0) 42.7 % (37.0-47.0) Mean Corpuscular Volume 87 FL (80-99) 91 FL (80-99) Mean Corpuscular Hemoglobin 29.2 PG (27.0-31.0) 29.4 PG (27.0-31.0) Mean Corpuscular Hemoglobin Concent 33.6 G/DL (32.0-36.0) 32.2 G/DL (32.0-36.0) Red Cell Distribution Width 14.1 % (11.6-14.8) 14.7 % (11.6-14.8) Platelet Count 300 K/UL (150-450) 281 K/UL (150-450) Mean Platelet Volume 7.0 FL (6.5-10.1) 7.4 FL (6.5-10.1) Neutrophils (%) (Auto) 49.7 % (45.0-75.0) 56.1 % (45.0-75.0) Lymphocytes (%) (Auto) 41.6 % (20.0-45.0) 35.5 % (20.0-45.0) Monocytes (%) (Auto) 6.4 % (1.0-10.0) 5.9 % (1.0-10.0) Eosinophils (%) (Auto) 0.9 % (0.0-3.0) 1.7 % (0.0-3.0) Basophils (%) (Auto) 1.3 % (0.0-2.0) 0.8 % (0.0-2.0) Sodium Level 140 MMOL/L (136-145) 139 MMOL/L (136-145) Potassium Level 3.4 MMOL/L (3.5-5.1) L 4.3 MMOL/L (3.5-5.1) Chloride Level 101 MMOL/L (98-107) 103 MMOL/L (98-107) Carbon Dioxide Level 31 MMOL/L (21-32) 30 MMOL/L (21-32) Anion Gap 8 mmol/L (5-15) 6 mmol/L (5-15) Blood Urea Nitrogen 17 mg/dL (7-18) 18 mg/dL (7-18) Creatinine 0.9 MG/DL (0.55-1.30) 0.9 MG/DL (0.55-1.30) Estimat Glomerular Filtration Rate > 60 mL/min (>60) > 60 mL/min (>60) Glucose Level 269 MG/DL (74-106) H 340 MG/DL (74-106) H Calcium Level 9.2 MG/DL (8.5-10.1) 8.9 MG/DL (8.5-10.1) Magnesium Level 1.7 MG/DL (1.8-2.4) L Total Bilirubin 0.4 MG/DL (0.2-1.0) 0.3 MG/DL (0.2-1.0) Aspartate Amino Transf (AST/SGOT) 8 U/L (15-37) L 10 U/L (15-37) L Alanine Aminotransferase (ALT/SGPT) 19 U/L (12-78) 21 U/L (12-78) Alkaline Phosphatase 206 U/L (46-116) H 200 U/L (46-116) H Pro-B-Type Natriuretic Peptide 51 pg/mL (0-125) Total Protein 7.5 G/DL (6.4-8.2) 7.1 G/DL (6.4-8.2) Albumin 3.4 G/DL (3.4-5.0) 3.3 G/DL (3.4-5.0) L Globulin 4.1 g/dL 3.8 g/dL Albumin/Globulin Ratio 0.8 (1.0-2.7) L 0.9 (1.0-2.7) L Acetone Level Negative (NEGATIVE) Urine Color Pale yellow Urine Appearance Clear Urine pH 5 (4.5-8.0) Urine Specific [place] 1.020 (1.005-1.035) Urine Protein Negative (NEGATIVE) Urine Glucose (UA) 3+ (NEGATIVE) H Urine Ketones 1+ (NEGATIVE) H Urine Blood 1+ (NEGATIVE) H Urine Nitrite Positive (NEGATIVE) H Urine Bilirubin Negative (NEGATIVE) Urine Urobilinogen Normal MG/DL (0.0-1.0) Urine Leukocyte Esterase 3+ (NEGATIVE) H Urine RBC 2-4 /HPF (0 - 2) H Urine WBC 20-30 /HPF (0 - 2) H Urine Squamous Epithelial Cells Few /LPF (NONE/OCC) Urine Bacteria Many /HPF (NONE) H Prothrombin Time 15.2 SEC (9.30-11.50) H Prothromb Time International Ratio 1.5 (0.9-1.1) H Microbiology Date/Time Source Procedure Growth Status 01/01/19 17:45 Urine,Clean Catch Urine Culture - Preliminary Gram Negative Bacillus 1 Resulted Height (Feet): 5 Height (Inches): 3.00 Weight (Pounds): 187 Medications Current Medications Medications (Trade) Dose Ordered Sig/Ebenezer Route PRN Reason Start Time Stop Time Status Last Admin Dose Admin Acarbose (Precose) 50 mg THREE TIMES A DAY ORAL 01/03/19 09:00 02/02/19 08:59 UNV Acetaminophen (Tylenol) 325 mg Q4H PRN ORAL MILD PAIN 01/01/19 22:30 01/31/19 22:29 Acetaminophen (Tylenol) 500 mg Q4H PRN ORAL MODERATE PAIN 01/01/19 22:30 01/31/19 22:29 01/01/19 22:58 Acetaminophen/ Hydrocodone Bitart ([place] 5/325) 1 tab Q4H PRN ORAL For Pain 01/01/19 20:30 01/08/19 20:29 Bisacodyl (Dulcolax) 10 mg NEEDED PRN RECTAL Constipation 01/01/19 21:30 01/31/19 21:29 Bisacodyl (Dulcolax) 10 mg DAILY@2100 ORAL 01/02/19 21:00 02/01/19 20:59 Calcium Carbonate (Os-Tod) 625 mg DAILY ORAL 01/02/19 09:00 02/01/19 08:59 01/02/19 09:06 Dextrose (Dextrose 50%) 25 ml Q30M PRN IV Hypoglycemia 01/02/19 07:00 02/01/19 06:59 Dextrose (Dextrose 50%) 50 ml Q30M PRN IV Hypoglycemia 01/02/19 07:00 02/01/19 06:59 Docusate Sodium (Colace) 100 mg DAILY ORAL 01/02/19 09:00 02/01/19 08:59 01/02/19 09:05 Ferrous Sulfate (Feosol) 325 mg DAILY ORAL 01/02/19 09:00 02/01/19 08:59 01/02/19 09:06 Furosemide (Lasix) 40 mg DAILY ORAL 01/02/19 09:00 02/01/19 08:59 01/02/19 09:06 Haloperidol (Haldol) 0.5 mg Q8HR ORAL 01/01/19 22:00 01/31/19 21:59 01/01/19 22:56 Insulin Aspart (NovoLOG) BEFORE MEALS AND HS SUBQ 01/02/19 00:30 02/01/19 00:29 01/02/19 11:26 Insulin Aspart (NovoLOG) 10 units NOVOTIAC SUBQ 01/02/19 11:50 02/01/19 11:49 01/02/19 11:25 Insulin Detemir (Levemir) 50 units BEDTIME SUBQ 01/02/19 21:00 02/01/19 00:29 Magnesium Hydroxide (Mom) 30 ml HSPRN PRN ORAL Constipation 01/01/19 21:30 01/31/19 21:29 Metformin HCl (Glucophage) 500 mg DAILY ORAL 01/02/19 09:00 02/01/19 08:59 01/02/19 09:05 Multivitamins Therapeutic (Therapeutic Multivitamin) 1 ea DAILY ORAL 01/02/19 09:00 02/01/19 08:59 01/02/19 09:06 Olanzapine (ZyPREXA) 10 mg BID ORAL 01/02/19 09:00 02/01/19 08:59 01/02/19 09:06 Pantoprazole (Protonix) 40 mg DAILY ORAL 01/02/19 09:00 02/01/19 08:59 01/02/19 09:06 Quetiapine Fumarate (SEROquel) 200 mg QID ORAL 01/01/19 21:00 01/31/19 20:59 01/02/19 09:05 Warfarin Sodium (Coumadin per pharmacy) 1 ea DAILY PRN MISC per rx protocol 01/02/19 09:45 02/01/19 08:59 Warfarin Sodium (Coumadin) 9.5 mg COUMADIN ORAL 01/02/19 17:00 01/02/19 18:00 Assessment : (1) UTI (urinary tract infection) On Abx as per ID (2) Stable Pulmonary Status O2 PRN, HHN PRN (2) Constipation Assessment & Plan: bowel regimen (3) Diabetes mellitus ISS (4) Dementia Pending Psych eval (5) Schizophrenia Per psych . (6) Hip pain (7) Abdominal pain Surgery following (8) HTN (hypertension) [employer] meds (9) Previously noted Left Hilar nodule Not seen on current CXR - outpatient FU (10) Previous DVT Has IVC filter, on Coumadin/Pharmacy PPX: Coumadin/Pharmacy Subjective ROS Limited/Unobtainable: No Allergies: Coded Allergies: LITHIUM (Unverified Allergy, Unknown, 12/31/12) Objective Last 24 Hour Vital Signs Date Time Temp Pulse Resp B/P (MAP) Pulse Ox O2 Delivery O2 Flow Rate FiO2 01/03/19 16:00 97.8 101 18 123/74 (90) 96 01/03/19 12:00 98.8 94 18 133/75 (94) 96 01/03/19 09:00 Nasal Cannula 2.0 01/03/19 08:35 97 Nasal Cannula 2.0 28 01/03/19 08:35 Nasal Cannula 2.0 28 01/03/19 08:00 98.7 95 19 115/66 (82) 96 01/03/19 04:00 98.0 103 19 130/76 (94) 97 01/03/19 00:00 97.7 107 19 121/71 (88) 97 01/02/19 23:15 Nasal Cannula 2.0 28 01/02/19 23:14 96 Nasal Cannula 2.0 28 01/02/19 21:00 Nasal Cannula 2.0 01/02/19 20:00 98.2 104 18 141/78 (99) 98 Intake and Output 01/02/19 01/03/19 18:59 06:59 Intake Total 460 ml Balance 460 ml Intake Oral 460 ml # Voids 3 2 Microbiology Date/Time Source Procedure Growth Status 01/01/19 17:45 Nasal Nares MRSA Culture - Final Staphylococcus Aureus - Mrsa Complete 01/01/19 17:45 Urine,Clean Catch Urine Culture - Final Escherichia Coli - Esbl Complete 01/01/19 17:45 Rectum VRE Culture - Final NO VANCOMYCIN RESISTANT ENTEROCOCCUS ... Complete 01/01/19 17:45 Rectum - Final NO CARBAPENEM-RESISTANT ENTEROBACTERI... Complete Laboratory Tests 01/03/19 04:55: White Blood Count 7.1, Red Blood Count 4.59, Hemoglobin 13.4, Hematocrit 41.6, Mean Corpuscular Volume 91, Mean Corpuscular Hemoglobin 29.3, Mean Corpuscular Hemoglobin Concent 32.3, Red Cell Distribution Width 14.9H, Platelet Count 259, Mean Platelet Volume 7.5, Neutrophils (%) (Auto) 50.3, Lymphocytes (%) (Auto) 40.8, Monocytes (%) (Auto) 6.7, Eosinophils (%) (Auto) 1.3, Basophils (%) (Auto ) 1.0, Prothrombin Time 14.2H, Prothromb Time International Ratio 1.4H, Sodium Level 141, Potassium Level 4.0, Chloride Level 103, Carbon Dioxide Level 32, Anion Gap 6, Blood Urea Nitrogen 21H, Creatinine 0.8, Estimat Glomerular Filtration Rate > 60, Glucose Level 193#H, Hemoglobin A1c 9.4H, Uric Acid 5.1, Calcium Level 9.0, Phosphorus Level 4.1, Magnesium Level 1.6L, Iron Level 44L, Total Iron Binding Capacity 258, Percent Iron Saturation 17, Unsaturated Iron Binding 214, Ferritin 37, Total Bilirubin 0.4, Gamma Glutamyl Transpeptidase 30 , Aspartate Amino Transf (AST/SGOT) 8L, Alanine Aminotransferase (ALT/SGPT) 21, Alkaline Phosphatase 175H, C-Reactive Protein, Quantitative 1.6H, Pro-B-Type Natriuretic Peptide 19, Total Protein 6.9, Albumin 3.1L, Globulin 3.8, Albumin/ Globulin Ratio 0.8L, Triglycerides Level 274H, Cholesterol Level 241H, LDL Cholesterol 130H, HDL Cholesterol 47, Cholesterol/HDL Ratio 5.1H, Lipase 74, Vitamin B12 Level 405, Folate 10.3, Thyroid Stimulating Hormone (TSH) 1.025 Current Medications Medications (Trade) Dose Ordered Sig/Ebenezer Route PRN Reason Start Time Stop Time Status Last Admin Dose Admin Acetaminophen (Tylenol) 325 mg Q4H PRN ORAL MILD PAIN 01/01/19 22:30 01/31/19 22:29 Acetaminophen (Tylenol) 500 mg Q4H PRN ORAL MODERATE PAIN 01/01/19 22:30 01/31/19 22:29 01/03/19 17:08 Acetaminophen/ Hydrocodone Bitart ([place] 5/325) 1 tab Q4H PRN ORAL For Pain 01/01/19 20:30 01/08/19 20:29 Albuterol/ Ipratropium (Albuterol/ Ipratropium) 3 ml Q4H PRN HHN Shortness of Breath 01/02/19 11:45 01/07/19 11:44 Atorvastatin Calcium (Lipitor) 10 mg BEDTIME ORAL 01/03/19 21:00 02/02/19 20:59 Bisacodyl (Dulcolax) 10 mg NEEDED PRN RECTAL Constipation 01/01/19 21:30 01/31/19 21:29 Bisacodyl (Dulcolax) 10 mg DAILY@2100 ORAL 01/02/19 21:00 02/01/19 20:59 01/02/19 21:07 Dextrose (Dextrose 50%) 25 ml Q30M PRN IV Hypoglycemia 01/02/19 07:00 02/01/19 06:59 Dextrose (Dextrose 50%) 50 ml Q30M PRN IV Hypoglycemia 01/02/19 07:00 02/01/19 06:59 Docusate Sodium (Colace) 100 mg TID ORAL 01/02/19 18:00 02/01/19 08:59 01/03/19 13:00 Ergocalciferol (Drisdol) 50,000 intlu QWEEK ORAL 01/02/19 15:00 02/01/19 14:59 01/02/19 17:39 Insulin Aspart (NovoLOG) BEFORE MEALS AND HS SUBQ 01/02/19 00:30 02/01/19 00:29 01/03/19 16:58 Insulin Aspart (NovoLOG) 10 units NOVOTIAC SUBQ 01/02/19 11:50 02/01/19 11:49 01/03/19 07:15 Insulin Detemir (Levemir) 50 units BEDTIME SUBQ 01/02/19 21:00 02/01/19 00:29 01/02/19 21:11 Magnesium Hydroxide (Mom) 30 ml DAILYPRN PRN ORAL Constipation 01/03/19 11:30 02/02/19 11:29 Magnesium Sulfate 100 ml @ 100 mls/hr Q1H IVPB 01/03/19 15:15 01/03/19 19:14 01/03/19 16:57 Meropenem 500 mg/ Sodium Chloride 55 ml @ 110 mls/hr EVERY 8 HOURS IVPB 01/03/19 06:00 01/08/19 05:59 01/03/19 13:50 Metformin HCl (Glucophage) 500 mg TID ORAL 01/02/19 18:00 02/01/19 08:59 01/03/19 13:00 Multivitamins Therapeutic (Therapeutic Multivitamin) 1 ea DAILY ORAL 01/02/19 09:00 02/01/19 08:59 01/03/19 09:05 Pantoprazole (Protonix) 40 mg BID ORAL 01/02/19 18:00 02/01/19 08:59 01/03/19 09:05 Quetiapine Fumarate (SEROquel) 200 mg QID ORAL 01/01/19 21:00 01/31/19 20:59 01/03/19 13:00 Warfarin Sodium (Coumadin per pharmacy) 1 ea DAILY PRN MISC per rx protocol 01/02/19 09:45 02/01/19 08:59 Warfarin Sodium (Coumadin) 9.5 mg COUMADIN ORAL 01/03/19 17:00 01/03/19 18:00 01/03/19 16:57 Segundo Martínez MD January 03, 2019 17:48
--- NOTE | 2019-01-03 19:32 | NUR ---
HAND-OFF: Report given to Brooke Snyder RN.
--- NOTE | 2019-01-03 19:33 | NUR ---
NURSE NOTES: RN received pt in stable condition, alert in bed, appears to have flat depressive affect. Few facial expressions and monotonous tone of voice. No acute distress, pt on 2L NC. Bed is in lowest position, locked, side rails x2, call light within reach. Will monitor skin, turn q 2 and Will continue plan of care.
[2019-01-03 20:00] VITALS: BP 109/66
[2019-01-03] MEDS: Levemir Flexpen SUBQ SCH (21:02)
[2019-01-03] MEDS: Bisacodyl EC 5mg tab ORAL SCH (21:04)
--- NOTE | 2019-01-03 21:27 | General Progress Note ---
Assessment/Plan Problem List: (1) Constipation ICD Codes: K59.00 - Constipation, unspecified SNOMED: 61518533 (2) Diabetes mellitus ICD Codes: E11.9 - Type 2 diabetes mellitus without complications SNOMED: 59717224 (3) Dementia ICD Codes: F03.90 - Unspecified dementia without behavioral disturbance SNOMED: 29072445 (4) Schizophrenia ICD Codes: F20.9 - Schizophrenia, unspecified SNOMED: 32504560 (5) Uncontrolled diabetes mellitus with hyperglycemia ICD Codes: E11.65 - Type 2 diabetes mellitus with hyperglycemia SNOMED: 02397170, 20420318, 737913696, 627704607 Qualifiers: Qualified Codes: E13.65 - Other specified diabetes mellitus with hyperglycemia (6) HTN (hypertension) ICD Codes: I10 - Essential (primary) hypertension SNOMED: 56531928 Status: progressing Assessment/Plan: afebrile sugar is improving poor historian dvt on coumadin not hypoxic reviewed chart and labs and meds Subjective ROS Limited/Unobtainable: Yes Allergies: Coded Allergies: LITHIUM (Unverified Allergy, Unknown, 12/31/12) Objective Last 24 Hour Vital Signs Date Time Temp Pulse Resp B/P (MAP) Pulse Ox O2 Delivery O2 Flow Rate FiO2 01/03/19 16:00 97.8 101 18 123/74 (90) 96 01/03/19 12:00 98.8 94 18 133/75 (94) 96 01/03/19 09:00 Nasal Cannula 2.0 01/03/19 08:35 97 Nasal Cannula 2.0 28 01/03/19 08:35 Nasal Cannula 2.0 28 01/03/19 08:00 98.7 95 19 115/66 (82) 96 01/03/19 04:00 98.0 103 19 130/76 (94) 97 01/03/19 00:00 97.7 107 19 121/71 (88) 97 01/02/19 23:15 Nasal Cannula 2.0 28 01/02/19 23:14 96 Nasal Cannula 2.0 28 Intake and Output 01/02/19 01/03/19 19:00 07:00 Intake Total 460 ml Balance 460 ml Intake Oral 460 ml # Voids 3 2 Laboratory Tests 01/03/19 04:55: White Blood Count 7.1, Red Blood Count 4.59, Hemoglobin 13.4, Hematocrit 41.6, Mean Corpuscular Volume 91, Mean Corpuscular Hemoglobin 29.3, Mean Corpuscular Hemoglobin Concent 32.3, Red Cell Distribution Width 14.9H, Platelet Count 259, Mean Platelet Volume 7.5, Neutrophils (%) (Auto) 50.3, Lymphocytes (%) (Auto) 40.8, Monocytes (%) (Auto) 6.7, Eosinophils (%) (Auto) 1.3, Basophils (%) (Auto ) 1.0, Prothrombin Time 14.2H, Prothromb Time International Ratio 1.4H, Sodium Level 141, Potassium Level 4.0, Chloride Level 103, Carbon Dioxide Level 32, Anion Gap 6, Blood Urea Nitrogen 21H, Creatinine 0.8, Estimat Glomerular Filtration Rate > 60, Glucose Level 193#H, Hemoglobin A1c 9.4H, Uric Acid 5.1, Calcium Level 9.0, Phosphorus Level 4.1, Magnesium Level 1.6L, Iron Level 44L, Total Iron Binding Capacity 258, Percent Iron Saturation 17, Unsaturated Iron Binding 214, Ferritin 37, Total Bilirubin 0.4, Gamma Glutamyl Transpeptidase 30 , Aspartate Amino Transf (AST/SGOT) 8L, Alanine Aminotransferase (ALT/SGPT) 21, Alkaline Phosphatase 175H, C-Reactive Protein, Quantitative 1.6H, Pro-B-Type Natriuretic Peptide 19, Total Protein 6.9, Albumin 3.1L, Globulin 3.8, Albumin/ Globulin Ratio 0.8L, Triglycerides Level 274H, Cholesterol Level 241H, LDL Cholesterol 130H, HDL Cholesterol 47, Cholesterol/HDL Ratio 5.1H, Lipase 74, Vitamin B12 Level 405, Folate 10.3, Thyroid Stimulating Hormone (TSH) 1.025 Height (Feet): 5 Height (Inches): 3.00 Weight (Pounds): 187 Cardiovascular: normal rate Respiratory/Chest: lungs clear Abdomen: soft Reuben Pereira MD January 03, 2019 21:27
[2019-01-04] VITALS: BP 125/68
--- NOTE | 2019-01-04 00:15 | Progress Note ---
DATE: 01/03/2019 SUBJECTIVE: The patient was in bed, in no acute distress. Calm. No behavior issues. We discussed the issues of noncompliance and poor diet. The patient is illogical and has concrete thinking. The patient is suicidal, paranoid, and forgetful. Has fatigue. MENTAL STATUS EXAMINATION: The patient is alert and oriented x3. Mood is irritable and depressed. Affect is constricted. Congruent with mood. Thought process is concrete. Thought content, no suicidal or homicidal ideations. Thought content, positive for paranoid ideation and auditory hallucination. No SI or HI. Cognition is impaired. ASSESSMENT: Schizoaffective disorder with dementia. PLAN: 1. We will continue the Seroquel and continue the melatonin. 2. Provide the patient with reality orientation. 3. We will continue to follow and readjust the medications. Noel Hennessy M.D. DR: KRIS JOB#: [id number] CC:
[2019-01-04 04:00] VITALS: BP 126/73
[2019-01-04] MEDS: Meropenem 500 MG in NS 55 ML IVPB SCH ×3 (05:45→21:19)
[2019-01-04] MEDS: NovoLOG Insulin Flexpen SUBQ SCH ×7 (06:26→21:11)
--- NOTE | 2019-01-04 07:20 | NUR ---
HAND-OFF: Report given to TOPHER Mills.
--- NOTE | 2019-01-04 07:22 | NUR ---
NURSE NOTES: received report from Brooke woodard RN. patient in bed. alert. confused. verbally responsive. having breakfast. no respiratory distress noted. no c/o pain at this time. IV on LAC intact. o2 2l via NC in place. bed in the lowest position . call light within reach. alarm on. will continue to monitor.
[2019-01-04 08:00] VITALS: BP 124/80
[2019-01-04] MEDS: Multivitamin w/Minerals tab ORAL SCH (08:23)
[2019-01-04] MEDS: metFORMIN 500mg tab ORAL SCH ×3 (08:23→17:10)
[2019-01-04] MEDS: QUEtiapine 200mg tab ORAL SCH ×4 (08:23→21:00)
[2019-01-04] MEDS: Docusate 100mg cap ORAL SCH ×3 (08:23→17:10)
[2019-01-04] MEDS: Acetaminophen 500mg (ES) tab ORAL PRN ×2 (08:24→16:47)
--- NOTE | 2019-01-04 09:04 | General Progress Note ---
Assessment/Plan Problem List: (1) Uncontrolled diabetes mellitus with hyperglycemia ICD Codes: E11.65 - Type 2 diabetes mellitus with hyperglycemia SNOMED: 23779648, 02270353, 949167470, 089629365 Qualifiers: Qualified Codes: E13.65 - Other specified diabetes mellitus with hyperglycemia (2) Dementia ICD Codes: F03.90 - Unspecified dementia without behavioral disturbance SNOMED: 93841099 (3) Schizophrenia ICD Codes: F20.9 - Schizophrenia, unspecified SNOMED: 53877033 Status: progressing Assessment/Plan: increase Levemir to 54 units qhs continue Novolog 10 units ac tid + NISS ac / hs continue Metformin 500 mg tid Subjective Allergies: Coded Allergies: LITHIUM (Unverified Allergy, Unknown, 12/31/12) All Systems: reviewed and negative except above Subjective events noted Item Value Date Time Bedside Blood Glucose 322 mg/dl H 01/04/19 0637 Bedside Blood Glucose 232 mg/dl H 01/03/19 2102 Bedside Blood Glucose 131 mg/dl H 01/03/19 1130 Objective Last 24 Hour Vital Signs Date Time Temp Pulse Resp B/P (MAP) Pulse Ox O2 Delivery O2 Flow Rate FiO2 01/04/19 08:18 Nasal Cannula 2.0 28 01/04/19 08:17 97 Nasal Cannula 2.0 28 01/04/19 08:16 102 18 Nasal Cannula 2.0 01/04/19 08:00 97.8 97 20 124/80 (95) 100 01/04/19 04:00 98.4 105 18 126/73 (90) 94 01/04/19 00:00 98.6 99 19 125/68 (87) 98 01/03/19 21:00 Nasal Cannula 2.0 01/03/19 20:50 Nasal Cannula 2.0 28 01/03/19 20:50 96 Nasal Cannula 2.0 28 01/03/19 20:00 99.1 89 18 109/66 (80) 97 01/03/19 16:00 97.8 101 18 123/74 (90) 96 01/03/19 12:00 98.8 94 18 133/75 (94) 96 Intake and Output 01/03/19 01/04/19 19:00 07:00 Intake Total 1105 ml Output Total 2 ml Balance 1103 ml Intake Oral 740 ml IV Total 365 ml Output Urine Total 2 ml # Voids 2 Height (Feet): 5 Height (Inches): 3.00 Weight (Pounds): 187 General Appearance: no apparent distress Neck: normal alignment Cardiovascular: regular rhythm Respiratory/Chest: lungs clear Abdomen: normal bowel sounds Edema: no edema noted Arm (L), no edema noted Arm (R), no edema noted Leg (L), no edema noted Leg (R), no edema noted Pedal (L), no edema noted Pedal (R), no edema noted Generalized Objective Current Medications Medications (Trade) Dose Ordered Sig/Ebenezer Route PRN Reason Start Time Stop Time Status Last Admin Dose Admin Acetaminophen (Tylenol) 325 mg Q4H PRN ORAL MILD PAIN 01/01/19 22:30 01/31/19 22:29 Acetaminophen (Tylenol) 500 mg Q4H PRN ORAL MODERATE PAIN 01/01/19 22:30 01/31/19 22:29 01/04/19 08:24 Acetaminophen/ Hydrocodone Bitart ([place] 5/325) 1 tab Q4H PRN ORAL For Pain 01/01/19 20:30 01/08/19 20:29 Albuterol/ Ipratropium (Albuterol/ Ipratropium) 3 ml Q4H PRN HHN Shortness of Breath 01/02/19 11:45 01/07/19 11:44 Atorvastatin Calcium (Lipitor) 10 mg BEDTIME ORAL 01/03/19 21:00 02/02/19 20:59 01/03/19 21:04 Bisacodyl (Dulcolax) 10 mg NEEDED PRN RECTAL Constipation 01/01/19 21:30 01/31/19 21:29 Bisacodyl (Dulcolax) 10 mg DAILY@2100 ORAL 01/02/19 21:00 02/01/19 20:59 01/03/19 21:04 Dextrose (Dextrose 50%) 25 ml Q30M PRN IV Hypoglycemia 01/02/19 07:00 02/01/19 06:59 Dextrose (Dextrose 50%) 50 ml Q30M PRN IV Hypoglycemia 01/02/19 07:00 02/01/19 06:59 Docusate Sodium (Colace) 100 mg TID ORAL 01/02/19 18:00 02/01/19 08:59 01/04/19 08:23 Ergocalciferol (Drisdol) 50,000 intlu QWEEK ORAL 01/02/19 15:00 02/01/19 14:59 01/02/19 17:39 Insulin Aspart (NovoLOG) BEFORE MEALS AND HS SUBQ 01/02/19 00:30 02/01/19 00:29 01/04/19 06:27 Insulin Aspart (NovoLOG) 10 units NOVOTIAC SUBQ 01/02/19 11:50 02/01/19 11:49 01/04/19 06:26 Insulin Detemir (Levemir) 50 units BEDTIME SUBQ 01/02/19 21:00 02/01/19 00:29 01/03/19 21:02 Magnesium Hydroxide (Mom) 30 ml DAILYPRN PRN ORAL Constipation 01/03/19 11:30 02/02/19 11:29 Meropenem 500 mg/ Sodium Chloride 55 ml @ 110 mls/hr EVERY 8 HOURS IVPB 01/03/19 06:00 01/08/19 05:59 01/04/19 05:45 Metformin HCl (Glucophage) 500 mg TID ORAL 01/02/19 18:00 02/01/19 08:59 01/04/19 08:23 Multivitamins Therapeutic (Therapeutic Multivitamin) 1 ea DAILY ORAL 01/02/19 09:00 02/01/19 08:59 01/04/19 08:23 Pantoprazole (Protonix) 40 mg BID ORAL 01/02/19 18:00 02/01/19 08:59 01/04/19 08:23 Quetiapine Fumarate (SEROquel) 200 mg QID ORAL 01/01/19 21:00 01/31/19 20:59 01/04/19 08:23 Warfarin Sodium (Coumadin per pharmacy) 1 ea DAILY PRN MISC per rx protocol 01/02/19 09:45 02/01/19 08:59 Elijah Carbajal MD January 04, 2019 09:04
[2019-01-04 10:10] LABS: INR 1.3 (0.9-1.1)
[2019-01-04 12:00] VITALS: BP 119/58
--- NOTE | 2019-01-04 12:37 | Nephrology Progress Note ---
Assessment/Plan Problem List: (1) UTI (urinary tract infection) (2) Uncontrolled diabetes mellitus with hyperglycemia (3) HTN (hypertension) (4) Abdominal pain Assessment Uncontrolled diabetes mellitus with hyperglycemia UTI (urinary tract infection) Schizophrenia Dementia Hip pain HTN (hypertension) Constipation Abdominal pain Plan BP and BS control correct abnormal lytes antibiotics stop Lasix and Acrabose Mag IV Subjective ROS Limited/Unobtainable: No Constitutional: Reports: malaise Objective Objective Last 24 Hour Vital Signs Date Time Temp Pulse Resp B/P (MAP) Pulse Ox O2 Delivery O2 Flow Rate FiO2 01/04/19 09:00 Nasal Cannula 2.0 01/04/19 08:18 Nasal Cannula 2.0 28 01/04/19 08:17 97 Nasal Cannula 2.0 28 01/04/19 08:16 102 18 Nasal Cannula 2.0 01/04/19 08:00 97.8 97 20 124/80 (95) 100 01/04/19 04:00 98.4 105 18 126/73 (90) 94 01/04/19 00:00 98.6 99 19 125/68 (87) 98 01/03/19 21:00 Nasal Cannula 2.0 01/03/19 20:50 Nasal Cannula 2.0 28 01/03/19 20:50 96 Nasal Cannula 2.0 28 01/03/19 20:00 99.1 89 18 109/66 (80) 97 01/03/19 16:00 97.8 101 18 123/74 (90) 96 Intake and Output 01/03/19 01/04/19 19:00 07:00 Intake Total 1105 ml Output Total 2 ml Balance 1103 ml Intake Oral 740 ml IV Total 365 ml Output Urine Total 2 ml # Voids 2 Laboratory Tests 01/04/19 08:45: Prothrombin Time 13.4H, Prothromb Time International Ratio 1.3H Height (Feet): 5 Height (Inches): 3.00 Weight (Pounds): 187 General Appearance: no apparent distress Cardiovascular: tachycardia Respiratory/Chest: decreased breath sounds Abdomen: soft Objective no change Cruzito Kim MD January 04, 2019 12:36
--- NOTE | 2019-01-04 12:48 | Infectious Diseases Prog Note ---
Assessment/Plan Assessment/Plan A 1. ESBL E.coli UTI 2. diabetes mellitus 3. hypertension 4. dementia 5. schizophrenia P 1. continue meropenem 2. will follow up cultures Subjective ROS Limited/Unobtainable: Yes Constitutional: Reports: no symptoms Respiratory: Reports: no symptoms Genitourinary: Reports: other - abdominal pain Allergies: Coded Allergies: LITHIUM (Unverified Allergy, Unknown, 12/31/12) Objective Vital Signs Last 24 Hour Vital Signs Date Time Temp Pulse Resp B/P (MAP) Pulse Ox O2 Delivery O2 Flow Rate FiO2 01/04/19 12:00 98.0 88 18 119/58 (78) 96 01/04/19 09:00 Nasal Cannula 2.0 01/04/19 08:18 Nasal Cannula 2.0 28 01/04/19 08:17 97 Nasal Cannula 2.0 28 01/04/19 08:16 102 18 Nasal Cannula 2.0 01/04/19 08:00 97.8 97 20 124/80 (95) 100 01/04/19 04:00 98.4 105 18 126/73 (90) 94 01/04/19 00:00 98.6 99 19 125/68 (87) 98 01/03/19 21:00 Nasal Cannula 2.0 01/03/19 20:50 Nasal Cannula 2.0 28 01/03/19 20:50 96 Nasal Cannula 2.0 28 01/03/19 20:00 99.1 89 18 109/66 (80) 97 01/03/19 16:00 97.8 101 18 123/74 (90) 96 Height (Feet): 5 Height (Inches): 3.00 Weight (Pounds): 187 General Appearance: no acute distress HEENT: mucous membranes moist Respiratory/Chest: lungs clear Cardiovascular: normal rate Abdomen: distended Extremities: no edema Neurologic/Psychiatric: alert, responsive Microbiology Date/Time Source Procedure Growth Status 01/01/19 17:45 Nasal Nares MRSA Culture - Final Staphylococcus Aureus - Mrsa Complete 01/01/19 17:45 Urine,Clean Catch Urine Culture - Final Escherichia Coli - Esbl Complete 01/01/19 17:45 Rectum VRE Culture - Final NO VANCOMYCIN RESISTANT ENTEROCOCCUS ... Complete 01/01/19 17:45 Rectum - Final NO CARBAPENEM-RESISTANT ENTEROBACTERI... Complete Laboratory Tests Test 01/04/19 08:45 Prothrombin Time 13.4 SEC (9.30-11.50) H Prothromb Time International Ratio 1.3 (0.9-1.1) H Current Medications Medications (Trade) Dose Ordered Sig/Ebenezer Route PRN Reason Start Time Stop Time Status Last Admin Dose Admin Acetaminophen (Tylenol) 325 mg Q4H PRN ORAL MILD PAIN 01/01/19 22:30 01/31/19 22:29 Acetaminophen (Tylenol) 500 mg Q4H PRN ORAL MODERATE PAIN 01/01/19 22:30 01/31/19 22:29 01/04/19 08:24 Acetaminophen/ Hydrocodone Bitart (Grahn 5/325) 1 tab Q4H PRN ORAL For Pain 01/01/19 20:30 01/08/19 20:29 Albuterol/ Ipratropium (Albuterol/ Ipratropium) 3 ml Q4H PRN HHN Shortness of Breath 01/02/19 11:45 01/07/19 11:44 Atorvastatin Calcium (Lipitor) 20 mg BEDTIME ORAL 01/04/19 21:00 02/02/19 20:59 Bisacodyl (Dulcolax) 10 mg NEEDED PRN RECTAL Constipation 01/01/19 21:30 01/31/19 21:29 Bisacodyl (Dulcolax) 10 mg DAILY@2100 ORAL 01/02/19 21:00 02/01/19 20:59 01/03/19 21:04 Dextrose (Dextrose 50%) 25 ml Q30M PRN IV Hypoglycemia 01/02/19 07:00 02/01/19 06:59 Dextrose (Dextrose 50%) 50 ml Q30M PRN IV Hypoglycemia 01/02/19 07:00 02/01/19 06:59 Docusate Sodium (Colace) 100 mg TID ORAL 01/02/19 18:00 02/01/19 08:59 01/04/19 12:31 Ergocalciferol (Drisdol) 50,000 intlu QWEEK ORAL 01/02/19 15:00 02/01/19 14:59 01/02/19 17:39 Insulin Aspart (NovoLOG) BEFORE MEALS AND HS SUBQ 01/02/19 00:30 02/01/19 00:29 01/04/19 12:03 Insulin Aspart (NovoLOG) 10 units NOVOTIAC SUBQ 01/02/19 11:50 02/01/19 11:49 01/04/19 12:04 Insulin Detemir (Levemir) 54 units BEDTIME SUBQ 01/04/19 21:00 02/01/19 00:29 Magnesium Hydroxide (Mom) 30 ml DAILYPRN PRN ORAL Constipation 01/03/19 11:30 02/02/19 11:29 Meropenem 500 mg/ Sodium Chloride 55 ml @ 110 mls/hr EVERY 8 HOURS IVPB 01/03/19 06:00 01/08/19 05:59 01/04/19 05:45 Metformin HCl (Glucophage) 500 mg TID ORAL 01/02/19 18:00 02/01/19 08:59 01/04/19 12:31 Multivitamins Therapeutic (Therapeutic Multivitamin) 1 ea DAILY ORAL 01/02/19 09:00 02/01/19 08:59 01/04/19 08:23 Pantoprazole (Protonix) 40 mg BID ORAL 01/02/19 18:00 02/01/19 08:59 01/04/19 08:23 Quetiapine Fumarate (SEROquel) 200 mg QID ORAL 01/01/19 21:00 01/31/19 20:59 01/04/19 12:31 Warfarin Sodium (Coumadin per pharmacy) 1 ea DAILY PRN MISC per rx protocol 01/02/19 09:45 02/01/19 08:59 Warfarin Sodium (Coumadin) 12 mg COUMADIN PO 01/04/19 17:00 01/04/19 18:00 Masoud Pavon MD January 04, 2019 12:48
[2019-01-04 16:00] VITALS: BP 114/72
[2019-01-04] MEDS ORDERED: Warfarin Sodium 4mg PO SCH (17:00)
--- NOTE | 2019-01-04 17:21 | Surgery Progress Note ---
Surgery Progress Note Subjective Additional Comments no acute events. stable. comfortable. Objective Last 24 Hour Vital Signs Date Time Temp Pulse Resp B/P (MAP) Pulse Ox O2 Delivery O2 Flow Rate FiO2 01/04/19 16:00 99.1 94 19 114/72 (86) 98 01/04/19 12:00 98.0 88 18 119/58 (78) 96 01/04/19 09:00 Nasal Cannula 2.0 01/04/19 08:18 Nasal Cannula 2.0 28 01/04/19 08:17 97 Nasal Cannula 2.0 28 01/04/19 08:16 102 18 Nasal Cannula 2.0 01/04/19 08:00 97.8 97 20 124/80 (95) 100 01/04/19 04:00 98.4 105 18 126/73 (90) 94 01/04/19 00:00 98.6 99 19 125/68 (87) 98 01/03/19 21:00 Nasal Cannula 2.0 01/03/19 20:50 Nasal Cannula 2.0 28 01/03/19 20:50 96 Nasal Cannula 2.0 28 01/03/19 20:00 99.1 89 18 109/66 (80) 97 I&O Intake and Output 01/03/19 01/04/19 18:59 06:59 Intake Total 1105 ml Output Total 2 ml Balance 1103 ml Intake Oral 740 ml IV Total 365 ml Output Urine Total 2 ml # Voids 2 Dressing: dry Wound: clean Drains: other Cardiovascular: RSR Respiratory: clear Abdomen: soft, tenderness, present bowel sounds, non-distended Extremities: no tenderness, no cyanosis Laboratory Tests Test 01/04/19 08:45 Prothrombin Time 13.4 SEC (9.30-11.50) H Prothromb Time International Ratio 1.3 (0.9-1.1) H Plan Problems: (1) UTI (urinary tract infection) Assessment & Plan: UA noted with bacteria and elevated levels pending Micro on Abx as per ID (2) Constipation Assessment & Plan: bowel regimen KUB noted enema prn (3) Diabetes mellitus Assessment & Plan: as per endocrine. appreciate input (4) Dementia Assessment & Plan: Pending Psych eval appreciate input (5) Schizophrenia Assessment & Plan: As per psych . levels pending (6) Hip pain (7) Abdominal pain Assessment & Plan: mild abdominal pain elevated alk phos US okay KUB with extensive stool bowel regimen will follow with recs thank you (8) HTN (hypertension) (9) Uncontrolled diabetes mellitus with hyperglycemia Arvind Jimenez January 04, 2019 17:21
--- NOTE | 2019-01-04 19:14 | NUR ---
HAND-OFF: Report given to Kylee Shore RN.
--- NOTE | 2019-01-04 19:52 | NUR ---
NURSE NOTES: Received patient in bed, awake, alert, oriented x2/3, incontinent of bowel and bladder, on 2 liters oxygen via NC. VSS, afebrile, call light is within reach, bed is in low position, locked and alarm is on, will continue to monitor for safety and comfort.
[2019-01-04 20:00] VITALS: BP 112/69
[2019-01-04] MEDS ORDERED: Levemir Flexpen SUBQ SCH (21:00)
[2019-01-04] MEDS ORDERED: Atorvastatin 20mg tab ORAL SCH (21:00)
[2019-01-04] MEDS: Bisacodyl EC 5mg tab ORAL SCH (21:01)
--- NOTE | 2019-01-04 21:44 | General Progress Note ---
Assessment/Plan Problem List: (1) Constipation ICD Codes: K59.00 - Constipation, unspecified SNOMED: 75083846 (2) Diabetes mellitus ICD Codes: E11.9 - Type 2 diabetes mellitus without complications SNOMED: 31997128 (3) Dementia ICD Codes: F03.90 - Unspecified dementia without behavioral disturbance SNOMED: 15824981 (4) Schizophrenia ICD Codes: F20.9 - Schizophrenia, unspecified SNOMED: 86567513 (5) Uncontrolled diabetes mellitus with hyperglycemia ICD Codes: E11.65 - Type 2 diabetes mellitus with hyperglycemia SNOMED: 31356982, 04162599, 784490592, 849864779 Qualifiers: Qualified Codes: E13.65 - Other specified diabetes mellitus with hyperglycemia (6) HTN (hypertension) ICD Codes: I10 - Essential (primary) hypertension SNOMED: 25933445 Status: progressing Assessment/Plan: uti is improving sugar is under better control afebrile dvt on coumadin not hypoxic reviewed chart and labs and meds Subjective ROS Limited/Unobtainable: Yes Allergies: Coded Allergies: LITHIUM (Unverified Allergy, Unknown, 12/31/12) Objective Last 24 Hour Vital Signs Date Time Temp Pulse Resp B/P (MAP) Pulse Ox O2 Delivery O2 Flow Rate FiO2 01/04/19 20:00 98.6 91 18 112/69 (83) 96 01/04/19 16:00 99.1 94 19 114/72 (86) 98 01/04/19 12:00 98.0 88 18 119/58 (78) 96 01/04/19 09:00 Nasal Cannula 2.0 01/04/19 08:18 Nasal Cannula 2.0 28 01/04/19 08:17 97 Nasal Cannula 2.0 28 01/04/19 08:16 102 18 Nasal Cannula 2.0 01/04/19 08:00 97.8 97 20 124/80 (95) 100 01/04/19 04:00 98.4 105 18 126/73 (90) 94 01/04/19 00:00 98.6 99 19 125/68 (87) 98 Intake and Output 01/03/19 01/04/19 18:59 06:59 Intake Total 1105 ml Output Total 2 ml Balance 1103 ml Intake Oral 740 ml IV Total 365 ml Output Urine Total 2 ml # Voids 2 Laboratory Tests 01/04/19 08:45: Prothrombin Time 13.4H, Prothromb Time International Ratio 1.3H Height (Feet): 5 Height (Inches): 3.00 Weight (Pounds): 187 Cardiovascular: normal rate Respiratory/Chest: lungs clear Abdomen: soft Reuebn Pereira MD January 04, 2019 21:44
--- NOTE | 2019-01-04 22:51 | Pulmonology Progress Note ---
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 Denies SOB. no chest pain, no n/v/f/c. Glucose has improved, no new complaints Seen earlier Allergies: LITHIUM Resuscitation status Full Code Advanced Directive on File Yes Past Medical History: TIA/CVA, Psychiatric disorder /Schizophrenia, Diabetes mellitus (T2), Hypertension, Dementia, prior L femoral fx, Hx of DVT lower extremity s/p IVC filter on Coumadin, Constipation Physical Exam Vital Signs Noted General appearance: alert, cooperative, no distress, appears stated age Head: Normocephalic, without obvious abnormality, atraumatic Eyes: conjunctivae/corneas clear. PERRL, EOM's intact. Fundi benign Throat: Lips, mucosa, and tongue normal. Teeth and gums normal Neck: supple, symmetrical, trachea midline, no adenopathy, thyroid: not enlarged, symmetric, no tenderness/mass/nodules, no carotid bruit and no JVD Lungs: clear to auscultation bilaterally Heart: regular rate and rhythm, S1, S2 normal, no murmur, click, rub or gallop Abdomen: soft, non-tender. Bowel sounds normal. No masses, no organomegaly Extremities: extremities normal, atraumatic, no cyanosis or edema Pulses: 2+ and symmetric Skin: Skin color, texture, turgor normal. No rashes or lesions Neurologic: Grossly normal Vital Signs Noted Laboratory Tests Noted CXR: NAD Abdo US: Fatty liver, no hydronephrosis Test 01/01/19 17:20 01/01/19 17:45 01/02/19 05:25 01/02/19 06:33 White Blood Count 9.2 K/UL (4.8-10.8) 6.8 K/UL (4.8-10.8) Red Blood Count 4.63 M/UL (4.20-5.40) 4.68 M/UL (4.20-5.40) Hemoglobin 13.5 G/DL (12.0-16.0) 13.8 G/DL (12.0-16.0) Hematocrit 40.2 % (37.0-47.0) 42.7 % (37.0-47.0) Mean Corpuscular Volume 87 FL (80-99) 91 FL (80-99) Mean Corpuscular Hemoglobin 29.2 PG (27.0-31.0) 29.4 PG (27.0-31.0) Mean Corpuscular Hemoglobin Concent 33.6 G/DL (32.0-36.0) 32.2 G/DL (32.0-36.0) Red Cell Distribution Width 14.1 % (11.6-14.8) 14.7 % (11.6-14.8) Platelet Count 300 K/UL (150-450) 281 K/UL (150-450) Mean Platelet Volume 7.0 FL (6.5-10.1) 7.4 FL (6.5-10.1) Neutrophils (%) (Auto) 49.7 % (45.0-75.0) 56.1 % (45.0-75.0) Lymphocytes (%) (Auto) 41.6 % (20.0-45.0) 35.5 % (20.0-45.0) Monocytes (%) (Auto) 6.4 % (1.0-10.0) 5.9 % (1.0-10.0) Eosinophils (%) (Auto) 0.9 % (0.0-3.0) 1.7 % (0.0-3.0) Basophils (%) (Auto) 1.3 % (0.0-2.0) 0.8 % (0.0-2.0) Sodium Level 140 MMOL/L (136-145) 139 MMOL/L (136-145) Potassium Level 3.4 MMOL/L (3.5-5.1) L 4.3 MMOL/L (3.5-5.1) Chloride Level 101 MMOL/L (98-107) 103 MMOL/L (98-107) Carbon Dioxide Level 31 MMOL/L (21-32) 30 MMOL/L (21-32) Anion Gap 8 mmol/L (5-15) 6 mmol/L (5-15) Blood Urea Nitrogen 17 mg/dL (7-18) 18 mg/dL (7-18) Creatinine 0.9 MG/DL (0.55-1.30) 0.9 MG/DL (0.55-1.30) Estimat Glomerular Filtration Rate > 60 mL/min (>60) > 60 mL/min (>60) Glucose Level 269 MG/DL (74-106) H 340 MG/DL (74-106) H Calcium Level 9.2 MG/DL (8.5-10.1) 8.9 MG/DL (8.5-10.1) Magnesium Level 1.7 MG/DL (1.8-2.4) L Total Bilirubin 0.4 MG/DL (0.2-1.0) 0.3 MG/DL (0.2-1.0) Aspartate Amino Transf (AST/SGOT) 8 U/L (15-37) L 10 U/L (15-37) L Alanine Aminotransferase (ALT/SGPT) 19 U/L (12-78) 21 U/L (12-78) Alkaline Phosphatase 206 U/L (46-116) H 200 U/L (46-116) H Pro-B-Type Natriuretic Peptide 51 pg/mL (0-125) Total Protein 7.5 G/DL (6.4-8.2) 7.1 G/DL (6.4-8.2) Albumin 3.4 G/DL (3.4-5.0) 3.3 G/DL (3.4-5.0) L Globulin 4.1 g/dL 3.8 g/dL Albumin/Globulin Ratio 0.8 (1.0-2.7) L 0.9 (1.0-2.7) L Acetone Level Negative (NEGATIVE) Urine Color Pale yellow Urine Appearance Clear Urine pH 5 (4.5-8.0) Urine Specific [place] 1.020 (1.005-1.035) Urine Protein Negative (NEGATIVE) Urine Glucose (UA) 3+ (NEGATIVE) H Urine Ketones 1+ (NEGATIVE) H Urine Blood 1+ (NEGATIVE) H Urine Nitrite Positive (NEGATIVE) H Urine Bilirubin Negative (NEGATIVE) Urine Urobilinogen Normal MG/DL (0.0-1.0) Urine Leukocyte Esterase 3+ (NEGATIVE) H Urine RBC 2-4 /HPF (0 - 2) H Urine WBC 20-30 /HPF (0 - 2) H Urine Squamous Epithelial Cells Few /LPF (NONE/OCC) Urine Bacteria Many /HPF (NONE) H Prothrombin Time 15.2 SEC (9.30-11.50) H Prothromb Time International Ratio 1.5 (0.9-1.1) H Microbiology Date/Time Source Procedure Growth Status 01/01/19 17:45 Urine,Clean Catch Urine Culture - Preliminary Gram Negative Bacillus 1 Resulted Height (Feet): 5 Height (Inches): 3.00 Weight (Pounds): 187 Medications Current Medications Medications (Trade) Dose Ordered Sig/Ebenezer Route PRN Reason Start Time Stop Time Status Last Admin Dose Admin Acarbose (Precose) 50 mg THREE TIMES A DAY ORAL 01/03/19 09:00 02/02/19 08:59 UNV Acetaminophen (Tylenol) 325 mg Q4H PRN ORAL MILD PAIN 01/01/19 22:30 01/31/19 22:29 Acetaminophen (Tylenol) 500 mg Q4H PRN ORAL MODERATE PAIN 01/01/19 22:30 01/31/19 22:29 01/01/19 22:58 Acetaminophen/ Hydrocodone Bitart (Argyle 5/325) 1 tab Q4H PRN ORAL For Pain 01/01/19 20:30 01/08/19 20:29 Bisacodyl (Dulcolax) 10 mg NEEDED PRN RECTAL Constipation 01/01/19 21:30 01/31/19 21:29 Bisacodyl (Dulcolax) 10 mg DAILY@2100 ORAL 01/02/19 21:00 02/01/19 20:59 Calcium Carbonate (Os-Tod) 625 mg DAILY ORAL 01/02/19 09:00 02/01/19 08:59 01/02/19 09:06 Dextrose (Dextrose 50%) 25 ml Q30M PRN IV Hypoglycemia 01/02/19 07:00 02/01/19 06:59 Dextrose (Dextrose 50%) 50 ml Q30M PRN IV Hypoglycemia 01/02/19 07:00 02/01/19 06:59 Docusate Sodium (Colace) 100 mg DAILY ORAL 01/02/19 09:00 02/01/19 08:59 01/02/19 09:05 Ferrous Sulfate (Feosol) 325 mg DAILY ORAL 01/02/19 09:00 02/01/19 08:59 01/02/19 09:06 Furosemide (Lasix) 40 mg DAILY ORAL 01/02/19 09:00 02/01/19 08:59 01/02/19 09:06 Haloperidol (Haldol) 0.5 mg Q8HR ORAL 01/01/19 22:00 01/31/19 21:59 01/01/19 22:56 Insulin Aspart (NovoLOG) BEFORE MEALS AND HS SUBQ 01/02/19 00:30 02/01/19 00:29 01/02/19 11:26 Insulin Aspart (NovoLOG) 10 units NOVOTIAC SUBQ 01/02/19 11:50 02/01/19 11:49 01/02/19 11:25 Insulin Detemir (Levemir) 50 units BEDTIME SUBQ 01/02/19 21:00 02/01/19 00:29 Magnesium Hydroxide (Mom) 30 ml HSPRN PRN ORAL Constipation 01/01/19 21:30 01/31/19 21:29 Metformin HCl (Glucophage) 500 mg DAILY ORAL 01/02/19 09:00 02/01/19 08:59 01/02/19 09:05 Multivitamins Therapeutic (Therapeutic Multivitamin) 1 ea DAILY ORAL 01/02/19 09:00 02/01/19 08:59 01/02/19 09:06 Olanzapine (ZyPREXA) 10 mg BID ORAL 01/02/19 09:00 02/01/19 08:59 01/02/19 09:06 Pantoprazole (Protonix) 40 mg DAILY ORAL 01/02/19 09:00 02/01/19 08:59 01/02/19 09:06 Quetiapine Fumarate (SEROquel) 200 mg QID ORAL 01/01/19 21:00 01/31/19 20:59 01/02/19 09:05 Warfarin Sodium (Coumadin per pharmacy) 1 ea DAILY PRN MISC per rx protocol 01/02/19 09:45 02/01/19 08:59 Warfarin Sodium (Coumadin) 9.5 mg COUMADIN ORAL 01/02/19 17:00 01/02/19 18:00 Assessment : (1) UTI (urinary tract infection) On Abx as per ID (2) Stable Pulmonary Status O2 PRN, HHN PRN (2) Constipation Assessment & Plan: bowel regimen (3) Diabetes mellitus ISS (4) Dementia Pending Psych eval (5) Schizophrenia Per psych . (6) Hip pain (7) Abdominal pain Surgery following (8) HTN (hypertension) [employer] meds (9) Previously noted Left Hilar nodule Not seen on current CXR - outpatient FU (10) Previous DVT Has IVC filter, on Coumadin/Pharmacy PPX: Coumadin/Pharmacy Subjective ROS Limited/Unobtainable: No Allergies: Coded Allergies: LITHIUM (Unverified Allergy, Unknown, 12/31/12) Objective Last 24 Hour Vital Signs Date Time Temp Pulse Resp B/P (MAP) Pulse Ox O2 Delivery O2 Flow Rate FiO2 01/04/19 21:36 Nasal Cannula 2.0 28 01/04/19 21:35 97 Nasal Cannula 2.0 28 01/04/19 21:34 87 18 Nasal Cannula 2.0 01/04/19 21:00 Nasal Cannula 2.0 01/04/19 20:00 98.6 91 18 112/69 (83) 96 01/04/19 16:00 99.1 94 19 114/72 (86) 98 01/04/19 12:00 98.0 88 18 119/58 (78) 96 01/04/19 09:00 Nasal Cannula 2.0 01/04/19 08:18 Nasal Cannula 2.0 28 01/04/19 08:17 97 Nasal Cannula 2.0 28 01/04/19 08:16 102 18 Nasal Cannula 2.0 01/04/19 08:00 97.8 97 20 124/80 (95) 100 01/04/19 04:00 98.4 105 18 126/73 (90) 94 01/04/19 00:00 98.6 99 19 125/68 (87) 98 Intake and Output 01/03/19 01/04/19 19:00 07:00 Intake Total 1105 ml Output Total 2 ml Balance 1103 ml Intake Oral 740 ml IV Total 365 ml Output Urine Total 2 ml # Voids 2 Laboratory Tests 01/04/19 08:45: Prothrombin Time 13.4H, Prothromb Time International Ratio 1.3H Current Medications Medications (Trade) Dose Ordered Sig/Ebenezer Route PRN Reason Start Time Stop Time Status Last Admin Dose Admin Acetaminophen (Tylenol) 325 mg Q4H PRN ORAL MILD PAIN 01/01/19 22:30 01/31/19 22:29 Acetaminophen (Tylenol) 500 mg Q4H PRN ORAL MODERATE PAIN 01/01/19 22:30 01/31/19 22:29 01/04/19 16:47 Acetaminophen/ Hydrocodone Bitart (Argyle 5/325) 1 tab Q4H PRN ORAL For Pain 01/01/19 20:30 01/08/19 20:29 Albuterol/ Ipratropium (Albuterol/ Ipratropium) 3 ml Q4H PRN HHN Shortness of Breath 01/02/19 11:45 01/07/19 11:44 Atorvastatin Calcium (Lipitor) 20 mg BEDTIME ORAL 01/04/19 21:00 02/02/19 20:59 01/04/19 21:01 Bisacodyl (Dulcolax) 10 mg NEEDED PRN RECTAL Constipation 01/01/19 21:30 01/31/19 21:29 Bisacodyl (Dulcolax) 10 mg DAILY@2100 ORAL 01/02/19 21:00 02/01/19 20:59 01/04/19 21:01 Dextrose (Dextrose 50%) 25 ml Q30M PRN IV Hypoglycemia 01/02/19 07:00 02/01/19 06:59 Dextrose (Dextrose 50%) 50 ml Q30M PRN IV Hypoglycemia 01/02/19 07:00 02/01/19 06:59 Docusate Sodium (Colace) 100 mg TID ORAL 01/02/19 18:00 02/01/19 08:59 01/04/19 17:10 Ergocalciferol (Drisdol) 50,000 intlu QWEEK ORAL 01/02/19 15:00 02/01/19 14:59 01/02/19 17:39 Insulin Aspart (NovoLOG) BEFORE MEALS AND HS SUBQ 01/02/19 00:30 02/01/19 00:29 01/04/19 21:11 Insulin Aspart (NovoLOG) 10 units NOVOTIAC SUBQ 01/02/19 11:50 02/01/19 11:49 01/04/19 12:04 Insulin Detemir (Levemir) 54 units BEDTIME SUBQ 01/04/19 21:00 02/01/19 00:29 01/04/19 21:10 Magnesium Hydroxide (Mom) 30 ml DAILYPRN PRN ORAL Constipation 01/03/19 11:30 02/02/19 11:29 Meropenem 500 mg/ Sodium Chloride 55 ml @ 110 mls/hr EVERY 8 HOURS IVPB 01/03/19 06:00 01/08/19 05:59 01/04/19 21:19 Metformin HCl (Glucophage) 500 mg TID ORAL 01/02/19 18:00 02/01/19 08:59 01/04/19 17:10 Multivitamins Therapeutic (Therapeutic Multivitamin) 1 ea DAILY ORAL 01/02/19 09:00 02/01/19 08:59 01/04/19 08:23 Pantoprazole (Protonix) 40 mg BID ORAL 01/02/19 18:00 02/01/19 08:59 01/04/19 17:10 Quetiapine Fumarate (SEROquel) 200 mg QID ORAL 01/01/19 21:00 01/31/19 20:59 01/04/19 21:00 Warfarin Sodium (Coumadin per pharmacy) 1 ea DAILY PRN MISC per rx protocol 01/02/19 09:45 02/01/19 08:59 Segundo Martínez MD January 04, 2019 22:51
[2019-01-05] VITALS: BP 116/69
[2019-01-05 04:00] VITALS: BP 115/74
[2019-01-05] MEDS: Meropenem 500 MG in NS 55 ML IVPB SCH (05:47)
[2019-01-05] MEDS: NovoLOG Insulin Flexpen SUBQ SCH ×2 (05:59→06:00)
--- NOTE | 2019-01-05 07:01 | General Progress Note ---
Assessment/Plan Problem List: (1) Uncontrolled diabetes mellitus with hyperglycemia ICD Codes: E11.65 - Type 2 diabetes mellitus with hyperglycemia SNOMED: 71659796, 87946472, 533243776, 833112659 Qualifiers: Qualified Codes: E13.65 - Other specified diabetes mellitus with hyperglycemia (2) Dementia ICD Codes: F03.90 - Unspecified dementia without behavioral disturbance SNOMED: 03576134 (3) Schizophrenia ICD Codes: F20.9 - Schizophrenia, unspecified SNOMED: 74920470 Status: progressing Assessment/Plan: continue Levemir 54 units qhs continue Novolog 10 units ac tid + NISS ac / hs continue Metformin 500 mg tid Subjective Allergies: Coded Allergies: LITHIUM (Unverified Allergy, Unknown, 12/31/12) All Systems: reviewed and negative except above Subjective events noted Item Value Date Time Bedside Blood Glucose 210 mg/dl H 01/05/19 0630 Bedside Blood Glucose 162 mg/dl H 01/04/19 2111 Bedside Blood Glucose 99 mg/dl 01/04/19 1650 Bedside Blood Glucose 156 mg/dl H 01/04/19 1204 Bedside Blood Glucose 322 mg/dl H 01/04/19 0637 Objective Last 24 Hour Vital Signs Date Time Temp Pulse Resp B/P (MAP) Pulse Ox O2 Delivery O2 Flow Rate FiO2 01/05/19 04:00 98.5 96 18 115/74 (88) 01/05/19 00:00 98.2 85 16 116/69 (85) 01/04/19 21:36 Nasal Cannula 2.0 28 01/04/19 21:35 97 Nasal Cannula 2.0 28 01/04/19 21:34 87 18 Nasal Cannula 2.0 01/04/19 21:00 Nasal Cannula 2.0 01/04/19 20:00 98.6 91 18 112/69 (83) 96 01/04/19 16:00 99.1 94 19 114/72 (86) 98 01/04/19 12:00 98.0 88 18 119/58 (78) 96 01/04/19 09:00 Nasal Cannula 2.0 01/04/19 08:18 Nasal Cannula 2.0 28 01/04/19 08:17 97 Nasal Cannula 2.0 28 01/04/19 08:16 102 18 Nasal Cannula 2.0 01/04/19 08:00 97.8 97 20 124/80 (95) 100 Intake and Output 01/04/19 01/05/19 19:00 07:00 Intake Total 350 ml Output Total 400 ml Balance -50 ml Intake Oral 240 ml IV Total 110 ml Output Urine Total 400 ml Laboratory Tests 01/04/19 08:45: Prothrombin Time 13.4H, Prothromb Time International Ratio 1.3H Height (Feet): 5 Height (Inches): 3.00 Weight (Pounds): 187 General Appearance: no apparent distress Neck: normal alignment Cardiovascular: normal rate Respiratory/Chest: lungs clear Abdomen: normal bowel sounds Pelvis: normal external exam Objective Current Medications Medications (Trade) Dose Ordered Sig/Ebenezer Route PRN Reason Start Time Stop Time Status Last Admin Dose Admin Acetaminophen (Tylenol) 325 mg Q4H PRN ORAL MILD PAIN 01/01/19 22:30 01/31/19 22:29 Acetaminophen (Tylenol) 500 mg Q4H PRN ORAL MODERATE PAIN 01/01/19 22:30 01/31/19 22:29 01/04/19 16:47 Acetaminophen/ Hydrocodone Bitart (Beatty 5/325) 1 tab Q4H PRN ORAL For Pain 01/01/19 20:30 01/08/19 20:29 Albuterol/ Ipratropium (Albuterol/ Ipratropium) 3 ml Q4H PRN HHN Shortness of Breath 01/02/19 11:45 01/07/19 11:44 Atorvastatin Calcium (Lipitor) 20 mg BEDTIME ORAL 01/04/19 21:00 02/02/19 20:59 01/04/19 21:01 Bisacodyl (Dulcolax) 10 mg NEEDED PRN RECTAL Constipation 01/01/19 21:30 01/31/19 21:29 Bisacodyl (Dulcolax) 10 mg DAILY@2100 ORAL 01/02/19 21:00 02/01/19 20:59 01/04/19 21:01 Dextrose (Dextrose 50%) 25 ml Q30M PRN IV Hypoglycemia 01/02/19 07:00 02/01/19 06:59 Dextrose (Dextrose 50%) 50 ml Q30M PRN IV Hypoglycemia 01/02/19 07:00 02/01/19 06:59 Docusate Sodium (Colace) 100 mg TID ORAL 01/02/19 18:00 02/01/19 08:59 01/04/19 17:10 Ergocalciferol (Drisdol) 50,000 intlu QWEEK ORAL 01/02/19 15:00 02/01/19 14:59 01/02/19 17:39 Insulin Aspart (NovoLOG) BEFORE MEALS AND HS SUBQ 01/02/19 00:30 02/01/19 00:29 01/05/19 05:59 Insulin Aspart (NovoLOG) 10 units NOVOTIAC SUBQ 01/02/19 11:50 02/01/19 11:49 01/05/19 06:00 Insulin Detemir (Levemir) 54 units BEDTIME SUBQ 01/04/19 21:00 02/01/19 00:29 01/04/19 21:10 Magnesium Hydroxide (Mom) 30 ml DAILYPRN PRN ORAL Constipation 01/03/19 11:30 02/02/19 11:29 Meropenem 500 mg/ Sodium Chloride 55 ml @ 110 mls/hr EVERY 8 HOURS IVPB 01/03/19 06:00 01/08/19 05:59 01/05/19 05:47 Metformin HCl (Glucophage) 500 mg TID ORAL 01/02/19 18:00 02/01/19 08:59 01/04/19 17:10 Multivitamins Therapeutic (Therapeutic Multivitamin) 1 ea DAILY ORAL 01/02/19 09:00 02/01/19 08:59 01/04/19 08:23 Pantoprazole (Protonix) 40 mg BID ORAL 01/02/19 18:00 02/01/19 08:59 01/04/19 17:10 Quetiapine Fumarate (SEROquel) 200 mg QID ORAL 01/01/19 21:00 01/31/19 20:59 01/04/19 21:00 Warfarin Sodium (Coumadin per pharmacy) 1 ea DAILY PRN MISC per rx protocol 01/02/19 09:45 02/01/19 08:59 Elijah Carbajal MD January 05, 2019 07:01
--- NOTE | 2019-01-05 07:02 | NUR ---
HAND-OFF: Report given to Dede OBANDO.
--- NOTE | 2019-01-05 07:03 | NUR ---
NURSE NOTES: Received patient awake and alert, sitting up comfortably in bed. IV at right antecubital, 20 gauge, saline lock. Nasal cannula @ 2L/min. Purewick to continuous suction. Bed at lowest level with 3 side rails up. Call light within reach. In no apparent distress at this time. Will continue to monitor.
[2019-01-05 08:00] VITALS: BP 110/68
[2019-01-05] MEDS: metFORMIN 500mg tab ORAL SCH (08:24)
[2019-01-05] MEDS: QUEtiapine 200mg tab ORAL SCH (08:24)
[2019-01-05] MEDS: Multivitamin w/Minerals tab ORAL SCH (08:24)
[2019-01-05] MEDS: Docusate 100mg cap ORAL SCH (08:24)
[2019-01-05] MEDS ORDERED: BACTRIM DS TAB1 EAC1 ORAL (08:58)
--- NOTE | 2019-01-05 10:41 | NUR ---
NURSE NOTES: Report given to TOPHER Nieves @ [facility].
--- NOTE | 2019-01-05 11:27 | NUR ---
NURSE NOTES: Patient discharged. IV and ID band removed. no belongings. Patient escorted from facility without incident or injury from facility.
--- NOTE | 2019-01-05 11:47 | Nephrology Progress Note ---
Assessment/Plan Problem List: (1) UTI (urinary tract infection) (2) Uncontrolled diabetes mellitus with hyperglycemia (3) HTN (hypertension) (4) Abdominal pain Assessment Uncontrolled diabetes mellitus with hyperglycemia UTI (urinary tract infection) Schizophrenia Dementia Hip pain HTN (hypertension) Constipation Abdominal pain Plan BP and BS control correct abnormal lytes antibiotics stop Lasix and Acrabose Agree with DC and fu as OP Subjective ROS Limited/Unobtainable: No Interval Events/Complaints seen at 8.30 am Constitutional: Reports: malaise, other - not in distress Objective Objective Last 24 Hour Vital Signs Date Time Temp Pulse Resp B/P (MAP) Pulse Ox O2 Delivery O2 Flow Rate FiO2 01/05/19 09:00 Nasal Cannula 2.0 01/05/19 08:11 Nasal Cannula 2.0 28 01/05/19 08:10 97 Nasal Cannula 2.0 28 01/05/19 08:09 99 20 Nasal Cannula 2.0 01/05/19 08:00 98.2 87 19 110/68 (82) 98 01/05/19 04:00 98.5 96 18 115/74 (88) 01/05/19 00:00 98.2 85 16 116/69 (85) 01/04/19 21:36 Nasal Cannula 2.0 28 01/04/19 21:35 97 Nasal Cannula 2.0 28 01/04/19 21:34 87 18 Nasal Cannula 2.0 01/04/19 21:00 Nasal Cannula 2.0 01/04/19 20:00 98.6 91 18 112/69 (83) 96 01/04/19 16:00 99.1 94 19 114/72 (86) 98 01/04/19 12:00 98.0 88 18 119/58 (78) 96 Intake and Output 01/04/19 01/05/19 19:00 07:00 Intake Total 350 ml Output Total 400 ml Balance -50 ml Intake Oral 240 ml IV Total 110 ml Output Urine Total 400 ml Height (Feet): 5 Height (Inches): 3.00 Weight (Pounds): 187 General Appearance: no apparent distress Cardiovascular: normal rate Abdomen: soft Objective no change Cruzito Kim MD January 05, 2019 11:47
--- NOTE | 2019-01-05 12:34 | Surgery Progress Note ---
Surgery Progress Note Subjective Symptoms: improved Additional Comments states she does not like the food here. pain meds help. no n/v/f/c. Objective Last 24 Hour Vital Signs Date Time Temp Pulse Resp B/P (MAP) Pulse Ox O2 Delivery O2 Flow Rate FiO2 01/05/19 09:00 Nasal Cannula 2.0 01/05/19 08:11 Nasal Cannula 2.0 28 01/05/19 08:10 97 Nasal Cannula 2.0 28 01/05/19 08:09 99 20 Nasal Cannula 2.0 01/05/19 08:00 98.2 87 19 110/68 (82) 98 01/05/19 04:00 98.5 96 18 115/74 (88) 01/05/19 00:00 98.2 85 16 116/69 (85) 01/04/19 21:36 Nasal Cannula 2.0 28 01/04/19 21:35 97 Nasal Cannula 2.0 28 01/04/19 21:34 87 18 Nasal Cannula 2.0 01/04/19 21:00 Nasal Cannula 2.0 01/04/19 20:00 98.6 91 18 112/69 (83) 96 01/04/19 16:00 99.1 94 19 114/72 (86) 98 I&O Intake and Output 01/04/19 01/05/19 19:00 07:00 Intake Total 350 ml Output Total 400 ml Balance -50 ml Intake Oral 240 ml IV Total 110 ml Output Urine Total 400 ml Dressing: saturated Wound: other Drains: other Cardiovascular: RSR Respiratory: decreased breath sounds Abdomen: soft, non-tender, present bowel sounds, non-distended Extremities: no cyanosis Plan Problems: (1) UTI (urinary tract infection) Assessment & Plan: UA noted with bacteria and elevated levels pending Micro on Abx as per ID (2) Constipation Assessment & Plan: bowel regimen KUB noted enema prn (3) Diabetes mellitus Assessment & Plan: as per endocrine. appreciate input (4) Dementia Assessment & Plan: Pending Psych eval appreciate input (5) Schizophrenia Assessment & Plan: As per psych . levels pending (6) Hip pain (7) Abdominal pain Assessment & Plan: mild abdominal pain elevated alk phos US okay KUB with extensive stool bowel regimen will follow with recs thank you (8) HTN (hypertension) (9) Uncontrolled diabetes mellitus with hyperglycemia Additional Comments okay to dc from surgical standpoint Arvind Jimenez January 05, 2019 12:34
--- NOTE | 2019-01-05 18:30 | Progress Note ---
DATE: 01/05/2019 SUBJECTIVE: The patient continues to presents with depressed mood, anhedonia, anxiety, psychotic and delusional thoughts. MENTAL STATUS EXAMINATION: The patient is alert and oriented times self, place, and situation she is in. Mood is depressed. Affect is constricted. Congruent with mood. Thought process is concrete. Thought content, no suicidal or homicidal ideation. ASSESSMENT: Schizoaffective disorder. PLAN: 1. We will continue current medications. 2. Provide the patient with reality orientation and supportive therapy. Noel Hennessy M.D. DR: Alina JOB#: [id number] CC:
--- NOTE | 2019-01-05 19:46 | Cardiology Report ---
APPROVED REPORT EKG Measurement Heart [id number] Normal sinus rhythm Possible Left atrial enlargement Rightward axis Borderline ECG
--- NOTE | 2019-01-06 08:30 | Discharge Summary ---
Discharge Summary Discharge Summary _ DATE OF ADMISSION: 01/01/2019 DATE OF DISCHARGE: 01/05/2019 DISCHARGED BY: Dr Pereira REASON FOR ADMISSION: 68 years old female with past medical history of diabetes mellitus, hypertension , CVA/TIA, dementia, presented from the custodial facility for evaluation due to hyperglycemia at the facility. Patient reported feeling weak , no fevers, no chills, no chest pain or shortness of breath Upon evaluation vital signs were stable. Laboratory work-up revealed glucose 269. No evidence of DKA. Potassium 3.4. Magnesium 1.7. BUN 17, creatinine 0.9. EKG revealed normal sinus rhythm, no acute ischemic changes. No leukocytosis, stable hemoglobin and hematocrit. Urinalysis with evidence of probable UTI. In ED patient started on IV fluids and empiric antibiotics. Chest x-ray revealed no acute cardiopulmonary pathology. Patient admitted for further management CONSULTANTS: pulmonary Dr. Martínez ID specialist Dr. Pavon soil tester Dr. Kim surgery Dr. Jimenez psychiatrist [employer] Alarm Assembler Dr. Carbajal [facility]: Patient admitted . IV fluids and empiric antibiotics continued. Urine culture revealed E. coli ESBL . Antibiotic provided as per ID specialist recommendation. Patient will need to continue with meropenem in the facility to complete the course. [employer] Alarm Assembler followed. Patient had evidence of uncontrolled diabetes mellitus with hyperglycemia. Patient started on long-acting Levemir and short acting NovoLog pre-meal. Sliding scale of insulin was implemented as needed. Patient was continue on metformin. Hemoglobin A1c clearly not at goal -9.4. Patient need further optimization of anti-glycemic regimen as outpatient. Renal parameters and electrolytes were closely monitored, electrolytes corrected as needed , and nephrotoxins were avoided. Sed Special Education Teacher closely followed. Lipid panel revealed elevated triglycerides, elevated total cholesterol and LDL. Patient started on statin. Patient voiced provided with diabetic, low-fat, cardiac diet. Magnesium and potassium were replaced. GI prophylaxis provided. Pain management was addressed as needed. Abdominal x-ray revealed extensive stool within the colon, IVC filter and osteoporosis. Bowel regimen instituted. Abdominal ultrasound revealed hepatomegaly with fatty infiltration, no biliary ductal dilatation. LFT and bilirubin remained stable. Blood pressure was closely monitored and remained stable. Supplemental oxygen provided as needed to keep pulse oximetry above 92%. Pulmonary toilet was on standby as needed. Pulmonary status remained stable. Patient had previously noted left hilar nodule, which was not seen on current chest x-ray. Outpatient follow-up was recommended by ticket puller. Patient with a history of prior DVT. Patient had IVC filter and currently was on Coumadin , dosed by pharmacy. Psychiatrist seen and evaluated patient, and diagnosed patient with schizoaffective disorder. Zyprexa and Haldol were discontinued. Patient was continued on Seroquel. Reality orientation and supportive therapy provided. Mental status and mood were closely monitored. Patient clinically stabilized and was ready for transfer back to custodial facility for continuation of care. FINAL DIAGNOSES: ESBL E. coli UTI Uncontrolled diabetes mellitus with hyperglycemia ( HgbA1c -9.4) Hypertension Mixed hyperlipidemia Constipation History of prior left hilar nodule History of DVT Dementia Schizoaffective disorder DISCHARGE MEDICATIONS: See Medication Reconciliation list. DISCHARGE INSTRUCTIONS: Patient was discharged to the custodial facility. Follow up with medical doctor at the facility. I have been assigned to dictate discharge summary for this account. I was not involved in the patient's management. Johanna Gallagher NP January 06, 2019 08:30
== END 2019-01-05 11:26 | DRG 638 ==
LOC: EDBD 17:06 → EMR 17:29 → 4E 17:40 → EDBEDREQ 17:53
DX: E11.65 Type 2 diabetes mellitus with hyperglycemia (principal); N39.0 Urinary tract infection, site not specified; F20.0 Paranoid schizophrenia; F03.90 Unspecified dementia, unspecified severity, without behavioral disturbance, psychotic disturbance, mood disturbance, and anxiety; K21.9 Gastro-esophageal reflux disease without esophagitis; Z86.718 Personal history of other venous thrombosis and embolism; Z88.8 Allergy status to other drugs, medicaments and biological substances; Z79.01 Long term (current) use of anticoagulants; Z79.84 Long term (current) use of oral hypoglycemic drugs; E87.6 Hypokalemia; Z86.73 Personal history of transient ischemic attack (TIA), and cerebral infarction without residual deficits; B96.20 Unspecified Escherichia coli [E. coli] as the cause of diseases classified elsewhere; Z16.12 Extended spectrum beta lactamase (ESBL) resistance; I10 Essential (primary) hypertension; E78.5 Hyperlipidemia, unspecified; K59.00 Constipation, unspecified; M25.559 Pain in unspecified hip; R10.9 Unspecified abdominal pain
CPT/HCPCS: 36415; 71045; 74018; 76700; 80053; 80061; 81003; 82009; 82607; 82728; 82746; 82962; 82977; 83036; 83540; 83550; 83690; 83735; 83880; 84100; 84443; 84550; 85025; 85610; 86140; 87081; 87086; 87181; 93005; 94664; 94760; 96361; 96365; 99285; J1815; J8499; S5561